=== PATIENT | female | born 1940 | race Caucasian/White ===

== ENCOUNTER → 2018-05-08 15:33 | Outpatient (CLI) | payer OTHER, SELFPAY ==
[2015-07-12 07:14] VITALS: BMI 29.9
== END ==
PROVIDERS: Referring Provider Otolaryngology; Visit Provider Otolaryngology
DX: J32.9 Chronic sinusitis, unspecified (principal)
CPT/HCPCS: 87070; 87077; 87186; 87205

== ENCOUNTER → 2018-10-30 16:12 | Outpatient (CLI) | payer MEDICARE, SELFPAY ==
[2015-07-12 07:14] VITALS: BMI 29.9
== END ==
PROVIDERS: Family Provider Family Medicine; PCP Family Medicine; Referring Provider Otolaryngology; Visit Provider Otolaryngology
DX: J32.9 Chronic sinusitis, unspecified (principal)
CPT/HCPCS: 87070; 87077; 87186; 87205

== ENCOUNTER 2018-11-04 06:31 | Day surgery (SDC) | payer MEDICARE, SELFPAY ==
[2015-07-12 07:14] VITALS: BMI 29.9
--- NOTE | 2018-10-30 11:13 | EKG12_ITS ---
Test Reason : PREOP Blood Pressure : / mmHG Vent. Rate : 057 BPM Atrial Rate : 057 BPM P-R Int : 170 ms QRS Dur : 124 ms QT Int : 432 ms P-R-T Axes : 070 -12 -02 degrees QTc Int : 420 ms Sinus bradycardia Right bundle branch block Abnormal ECG Confirmed by FARHAT PEREZ, ABELINO ([id number]), editorial manager FABIAN DYKES ([id number] on 10/31/2018 1:27:52 PM Referred By: Armani Pack Confirmed By:ABELINO DOUGHERTY MD
[2018-10-30 12:07] LABS: BUN 19 mg/dL (7-18); BUN/Creat Ratio 23.7 RATIO (10-20); Chloride 106 mmol/L (98-107); EST Glomerular Filtration Rate 74 mL/min (>60); Est Glom Filt Rate - Afr Amer 89 mL/min (>60); Glucose 145 mg/dL (74-106); Potassium 4.1 mmol/L (3.5-5.1); Sodium Level 141 mmol/L (136-145)
[2018-10-30 12:08] LABS: Anion Gap 6 (5-15)
[2018-11-04 07:30] VITALS: BP 109/64; PULSE 70; RESP 16; TEMP 36.7; O2SAT 94; BMI 28.6
[2018-11-04] MEDS: Lactated Ringers 1,000 ML 100 ML IV (07:59)
--- NOTE | 2018-11-04 07:59 | PCM.DC ---
You will use the following diet at home:: No restrictions Discharge Activity: Return to Normal Activity Call your doctor if your incision/area has: Foul Smelling Discharge Allergies/Adverse Reactions: Allergies dicyclomine HCl [From Bentyl] Adverse Reaction (Verified 10/28/18 10:59) HEART RACES Medications to take at Discharge Albuterol Inhaler [Ventolin Hfa (SP)] 1 puff INHALATION Q4H PRN PRN 07/05/15 Aspirin [Aspirin, Baby] 81 mg PO DAILY@0800 07/05/15 Fluticasone 0.05% [Flonase Nasal [place]] 1 spray NASAL DAILY 07/05/15 Omeprazole [Prilosec] 40 mg PO DAILY 07/05/15 Calcium Carbonate [Calcium] 600 mg PO BID 10/28/18 Fluticasone/Vilanterol [Breo Ellipta 200-25 Mcg INH] 1 ea IH DAILY 10/28/18 Metformin HCl [Glucophage Xr] 750 mg PO BID 10/28/18 Multivitamin with Minerals [Multiple Vitamin] 1 ea PO DAILY 10/28/18 Quinapril/Hydrochlorothiazide [Quinapril-Hctz 10-12.5 mg Tab] 1 ea PO DAILY 10/28/18 Sertraline HCl [Zoloft] 25 mg PO DAILY 10/28/18 Primary Care Physician: Gilbert Beltran MD [Primary Care Provider] - Test Results: Test results from this visit will be discussed in further detail at your follow-up appointment, if applicable. Please Follow Up With: Armani Pack MD When: 3 weeks
--- NOTE | 2018-11-04 08:00 | PCM.OPRPT ---
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 chronic serous otitis media, right and left. 2. eustachian tube dysfunction, right and left Type of Anesthesia:: General Description of Procedure: on the day of the procedure, after appropriate informed consent was obtained, the patient was brought to the operating room and placed in supine position on the operating table. he was placed under general mask anesthesia by the anesthesiologist. the right ear was examined using the binocular operating microscope. a speculum was placed. the tympanic membrane was viewed in its entirety and found to be intact. a radial myringotomy was made in the anterior/inferior quadrant and a avalos tympanostomy tube was placed. floxin otic drops were instilled. the left ear was examined using the binocular operating microscope. a speculum was placed. the tympanic membrane was viewed in its entirety and found to be intact. a radial myringotomy was made in the anterior/inferior quadrant and a avalos tympanostomy tube was placed. floxin otic drops were instilled. the bilateral nasal cavities were decongested with oxymetazoline soaked pledgets. the zero degree endoscope was used to evaluate the left nasal cavity. the eustachian tube orifice was visualized. the acclarent AERA catheter was advanced into the eustachian tube until a soft stop was felt. the balloon was inflated to 12 mehnaz for 2 minutes and removed. there was no mucosal trauma or false passage visualized. the zero degree endoscope was used to evaluate the right nasal cavity. the eustachian tube orifice was visualized. the acclarent AERA catheter was advanced into the eustachian tube until a soft stop was felt. the balloon was inflated to 12 mehnaz for 2 minutes and removed. there was no mucosal trauma or false passage visualized. the patient was awoken from anesthesia and transferred to the pacu in stable condition
[2018-11-04 08:11] LABS: Bedside Glucose 128 mg/dL (70-110)
[2018-11-04] MEDS: Ciprofloxacin 0.3% 2.5ml Bottle 1 DRP (08:59)
[2018-11-04] MEDS: Oxymetazoline 0.05% 1 SPRAY SPRAY.BTL 15 SPRAY (09:00)
[2018-11-04 09:21] VITALS: BP 109/64; BP 135/62; PULSE 74; RESP 16; TEMP 36.3; O2SAT 95
[2018-11-04 09:30] VITALS: BP 109/64; BP 128/61; PULSE 68; RESP 16; O2SAT 95
[2018-11-04 09:45] VITALS: BP 106/91; BP 109/64; PULSE 67; RESP 16; O2SAT 95
[2018-11-04 09:57] VITALS: BP 107/50; BP 109/64; PULSE 63; RESP 16; TEMP 36.3; O2SAT 96
[2018-11-04 10:11] LABS: Bedside Glucose 128 mg/dL (70-110)
[2018-11-04 10:32] VITALS: BP 109/64
== END 2018-11-04 10:33 | disposition home or self-care (01) ==
LOC: SDC 06:32 → AC 06:32
PROVIDERS: Family Provider Family Medicine; PCP Family Medicine; Referring Provider Otolaryngology; Visit Provider Otolaryngology
PROC: (CPT 69799; principal; 2018-11-04 08:15)
DX: H65.23 Chronic serous otitis media, bilateral (principal); H69.83 Other specified disorders of Eustachian tube, bilateral; J30.89 Other allergic rhinitis; J32.8 Other chronic sinusitis; E11.9 Type 2 diabetes mellitus without complications; Z79.84 Long term (current) use of oral hypoglycemic drugs; Z79.82 Long term (current) use of aspirin; Z79.899 Other long term (current) drug therapy
CPT/HCPCS: 00126; 69436; C9745; 36415; 80048; 82962; 93005; J7120

== ENCOUNTER → 2019-12-15 08:48 | Outpatient (CLI) | payer MEDICARE, SELFPAY ==
[2019-12-09 08:49] VITALS: BMI 27.6
[2019-12-15 12:45] LABS: ALB/GLOB Ratio 0.9 RATIO (0.9-2.4); AST(SGOT) 12 U/L (15-37); Absolute Neutrophil Count 3.3 X10^3/uL (2.0-7.7); Alanine Aminotransfer ALT/SGPT 23 U/L (13-56); Albumin, Serum 3.4 g/dL (3.2-5.0); Alkaline Phosphatase 81 U/L (45-117); Anion Gap 5 (5-15); BUN 16 mg/dL (7-18); BUN/Creat Ratio 22.1 RATIO (10-20); Basophil# 0.03 X10^3/uL; Basophil% 0.5 % (0-1); Chloride 106 mmol/L (98-107); Cholesterol 177 mg/dL (200); Creatinine, Serum 0.72 mg/dL (0.55-1.02); EST Glomerular Filtration Rate 83 mL/min (>60); Eosinophil# 0.31 X10^3/uL; Eosinophils% 5.1 % (0-5); Est Glom Filt Rate - Afr Amer 100 mL/min (>60); Globulin 3.6 g/dL (2.2-4.2); Glucose 143 mg/dL (74-106); Hematocrit 39.8 % (37-47); Hemoglobin 12.6 g/dL (12.0-15.0); High Density Lipoprotein 81 mg/dL; Lymphocyte % 31.4 % (19-41); Mean Corp Hgb Conc 31.7 g/dL (32-36); Mean Corpuscular Volume 97.8 fL (81-99); Mean Platelet Vol. 10.6 fl (6.2-12.0); Monocyte# 0.48 X10^3/uL; Monocyte% 7.9 % (0-10); NRBC Flagged by Analyzer 0 % (0-5); Neutrophil # 3.32 X10^3/uL (2.7-7.7); Neutrophil % 54.9 % (47-70); Platelet Count 262 K/mm3 (150-450); Potassium 4.4 mmol/L (3.5-5.1); RBC Distribution Width CV 12.4 % (11.6-14.6); RBC Distribution Width SD 44.6 fl (35.1-43.9); Red Blood Count 4.07 M/mm3 (4.2-5.4); Sodium Level 142 mmol/L (136-145); Triglycerides 104 mg/dL; Very Low Density Lipoprotein 21 mg/dL (5-40); White Blood Count 6.1 K/mm3 (4.4-11.0)
[2019-12-15 13:02] LABS: Hemoglobin A1c 7.1 % (3.8-5.6)
== END ==
PROVIDERS: PCP Internal Medicine; Referring Provider Internal Medicine; Visit Provider Internal Medicine
DX: E11.9 Type 2 diabetes mellitus without complications (principal); H69.80 Other specified disorders of Eustachian tube, unspecified ear; I10 Essential (primary) hypertension; Z13.220 Encounter for screening for lipoid disorders
CPT/HCPCS: 36415; 80053; 80061; 83036; 85025

== ENCOUNTER 2020-04-13 12:30 | Emergency (ER) | payer MEDICARE, SELFPAY ==
[2020-04-06 08:39] VITALS: BMI 27.6
[2020-04-13 12:31] VITALS: BP 160/75; PULSE 73; RESP 20; TEMP 36.8; O2SAT 95; BMI 29.1
[2020-04-13 12:38] VITALS: PULSE 77; RESP 19; O2SAT 96
--- NOTE | 2020-04-13 12:53 | RAD_ITS ---
STUDY: X-RAY CHEST REASON FOR EXAM: Female, 79 years old. Cough TECHNIQUE: Single AP portable view of the chest. COMPARISON: None. FINDINGS: EKG electrodes are seen. Blunting of the left considering angle with minimal increased markings at the left lung base suggestive of linear atelectasis and/or scarring. There is no demonstrated pleural abnormality. Normal size heart. Normal mediastinum and guy. Normal visualized pulmonary arteries. There is atherosclerotic calcification of the aortic arch with tortuosity. There is a mild dextroscoliosis of the thoracic spine. There is degenerative osteoarthritis of the bilateral shoulders. There is no demonstrated abnormality of the visualized soft tissue structures of the upper abdomen. RAD/Chest 1 View (Portable) IMPRESSION: Blunting of left costophrenic angle with minimal increased markings at the left lung base suggestive of linear atelectasis and/or scarring. Electronically Signed: Holden Villalpando MD at 13:51 EST , Service support ,
[2020-04-13 13:11] LABS: Absolute Lymphocyte Count 1.82 X10^3/uL (0.83-4.51); Absolute Neutrophil Count 3.9 X10^3/uL (2.0-7.7); Basophil# 0.02 X10^3/uL; Basophil% 0.3 % (0-1); Eosinophil# 0.19 X10^3/uL; Eosinophils% 2.9 % (0-5); Hematocrit 36.9 % (37-47); Hemoglobin 11.9 g/dL (12.0-15.0); Lymphocyte # 1.82 X10^3/ul (4.0); Lymphocyte % 28.1 % (19-41); Mean Corp Hgb Conc 32.2 g/dL (32-36); Mean Corpuscular Hgb 31.1 pg (27.0-32.0); Mean Corpuscular Volume 96.3 fL (81-99); Mean Platelet Vol. 10.1 fl (6.2-12.0); Monocyte# 0.49 X10^3/uL; Monocyte% 7.6 % (0-10); NRBC Flagged by Analyzer 0 % (0-5); Neutrophil # 3.94 X10^3/uL (2.7-7.7); Neutrophil % 60.8 % (47-70); Platelet Count 223 K/mm3 (150-450); RBC Distribution Width CV 12.8 % (11.6-14.6); RBC Distribution Width SD 45.1 fl (35.1-43.9); Red Blood Count 3.83 M/mm3 (4.2-5.4); White Blood Count 6.5 K/mm3 (4.4-11.0)
[2020-04-13 13:25] LABS: Anion Gap 4 (5-15); BUN 15 mg/dL (7-18); BUN/Creat Ratio 19.1 RATIO (10-20); Calcium,Total 8.7 mg/dL (8.5-10.1); Chloride 106 mmol/L (98-107); Creatinine, Serum 0.78 mg/dL (0.55-1.02); EST Glomerular Filtration Rate 76 mL/min (>60); Est Glom Filt Rate - Afr Amer 91 mL/min (>60); Estimated Creatinine Clearance 38.97 ml/min; Glucose 181 mg/dL (74-106); Potassium 4.2 mmol/L (3.5-5.1); Sodium Level 140 mmol/L (136-145)
--- NOTE | 2020-04-13 13:41 | ED.DCSUM_ITS ---
History of Present Illness Chief Complaint: Cough Narrative: Patient presenting for evaluation secondary to a cough. Patient reports that she has a chronic issue with cough that has been going on multiple years, greater than 5. She tells me that over the course of the last 2 to 3 years its been getting worse but specifically worse over the course of maybe the last month. States that it typically is a productive cough that intermittently will produce yellow, green, clear, or white sputum. She denies that currently its been associated with any sort of chest pain, fevers. She does report however that it is feeling somewhat worse. She is on inhalers at home but feels like that really has not been helping. She does endorse that she has been having some mildly increased fatigue recently. She saw her primary care a week ago, but is still not having any improvement. Review of systems otherwise negative. Past Medical History - Allergies and Home Meds Allergies/Adverse Reactions: Allergies dicyclomine HCl [From Bentyl] Adverse Reaction (Verified 04/13/20 12:30) HEART RACES Primary Care Physician: Liane Ba MD [Primary Care Provider] - Prior records reviewed: Yes Past Medical History: - - Asthma, diabetes, hypertension Lives: Spouse/ Significant Other Smoking Status: Never smoker Alcohol: None Drugs: None Review of Systems General: Denies: Chills, Fever, Sweats Eyes: Denies: Visual changes - bilaterally, Diplopia ENT: Denies: Rhinorrhea, Sore throat Cardiovascular: Denies: Chest pain, Palpitations Respiratory: Reports: Dyspnea, Cough, Sputum Gastrointestinal: Denies: Abdominal pain, Nausea, Vomiting, Diarrhea, Melena, Hematochezia Genitourinary: Denies: Dysuria, Hematuria, Frequency Musculoskeletal: Denies: Back pain, Extremity Pain Skin: Denies: Rash, Wounds Neurological: Denies: Headache, Weakness, Numbness Physical Exam Vital Signs/Narrative: Vital Signs Temp Pulse Resp BP Pulse Ox 04/13/20 12:38 77 19 H 96 04/13/20 12:31 98.2 F 73 20 H 160/75 H 95 Inital Vital Signs reviewed: Yes General: Well nourished, Well developed, No Acute Distress Head: Normocephalic, Atraumatic Eyes: Perrl, EOMI ENT: Moist mucous membranes, No rhinorrhea Neck: Supple, Nontender Cardiovascular: Regular rate, Regular rhythm, No murmurs Respiratory: Diminished - Left base Abdomen: Soft, Nontender, Nondistended, Normal bowel sounds Back: Nontender, Normal Inspection Extremities: Nontender, No edema Skin: Normal color, No rash Neurological: Alert, Oriented x3, Cranial nerves II-XII grossly intact, Normal Strength, Normal Sensation Psychological: Normal affect, Normal Mood Diagnostic/Tx/Re-eval Chest X-Ray - ED: 1 View, Read by ED Physician, - - Left lower lobe atelectasis Clinical Impression(s) from Imaging Studies Chest X-Ray 04/13/20 12:53 IMPRESSION: Blunting of left costophrenic angle with minimal increased markings at the left lung base suggestive of linear atelectasis and/or scarring. Electronically Signed: Holden Villalpando MD at 13:51 EST , Service support , Laboratory Data 04/13/20 04/13/20 13:05 13:05 WBC 6.5 RBC 3.83 L Hgb 11.9 L Hct 36.9 L MCV 96.3 MCH 31.1 MCHC 32.2 RDW Std Deviation 45.1 H RDW Coeff of [place] 12.8 Plt Count 223 MPV 10.1 Immature Gran % (Auto) 0.300 Neut % (Auto) 60.8 Lymph % (Auto) 28.1 [place] % (Auto) 7.6 Eos % (Auto) 2.9 Baso % (Auto) 0.3 Absolute Neuts (auto) 3.9 Absolute Lymphs (auto) 1.82 Nucleated RBC % 0 Sodium 140 Potassium 4.2 Chloride 106 Carbon Dioxide 30.0 Anion Gap 4 L BUN 15 Creatinine 0.78 Estim Creat Clear Calc 38.97 Est GFR (MDRD) Af Amer 91 Est GFR (MDRD) Non-Af 76 BUN/Creatinine Ratio 19.1 Glucose 181 H Calcium 8.7 - Medical Decision Making Patient presented secondary to a worsening cough. Chest x-ray by my personal review, 1 view, with radiology concurrence shows some atelectasis in the left lower lobe. Laboratory work-up shows a hemoglobin of 11, no other evidence of significant electrolyte abnormalities or blood count abnormalities. Coronavirus test was found to be negative. I reviewed the patient's note from her primary care physician a week ago and the thought is that the patient potentially has chronic sinusitis which results in this chronic coughing type issue. Upon reinterviewing the patient she tells me that she feels that she has been having some more unilateral sinus congestion on the right. Patient potentially would benefit from a course of doxycycline. SHe will be given a prescription for this will follow-up with primary care. ED Disposition - Plan for ED Patient: Disposition: Home or Assisted Living Diagnosis: Sinusitis, Chronic cough Instructions: ED Sinusitis (Antibiotic Treatment) Prescriptions: Doxycycline 100 mg PO BID #28 cap Transmission Status: Pending to [id number] Referrals: Liane Ba MD [Primary Care Provider] - 1-2 Weeks
[2020-04-13 14:19] VITALS: BP 160/75; PULSE 97; RESP 21; O2SAT 96
== END 2020-04-13 14:20 | disposition home or self-care (01) ==
PROVIDERS: Emergency Provider Emergency Medicine; PCP Internal Medicine
DX: J32.9 Chronic sinusitis, unspecified (principal); R05 Cough; J45.909 Unspecified asthma, uncomplicated; E11.9 Type 2 diabetes mellitus without complications; Z79.84 Long term (current) use of oral hypoglycemic drugs
CPT/HCPCS: 71045; 80048; 85025; 87426; 99283; A4216

== ENCOUNTER → 2020-06-08 11:10 | Outpatient (CLI) | payer MEDICARE, SELFPAY ==
[2020-06-08 09:55] VITALS: BMI 29.0
[2020-06-08 12:06] LABS: Absolute Lymphocyte Count 2.06 X10^3/uL (0.83-4.51); Absolute Neutrophil Count 3.2 X10^3/uL (2.0-7.7); Basophil# 0.03 X10^3/uL; Basophil% 0.5 % (0-1); Eosinophil# 0.32 X10^3/uL; Eosinophils% 5.3 % (0-5); Hematocrit 40.9 % (37-47); Hemoglobin 12.9 g/dL (12.0-15.0); Lymphocyte # 2.06 X10^3/ul (0.83-4.51); Lymphocyte % 33.9 % (19-41); Mean Corp Hgb Conc 31.5 g/dL (32-36); Mean Corpuscular Hgb 30.9 pg (27.0-32.0); Mean Corpuscular Volume 98.1 fL (81-99); Mean Platelet Vol. 10.5 fl (6.2-12.0); Monocyte% 6.6 % (0-10); NRBC Flagged by Analyzer 0 % (0-5); Neutrophil # 3.24 X10^3/uL (2.7-7.7); Neutrophil % 53.4 % (47-70); Platelet Count 264 K/mm3 (150-450); RBC Distribution Width CV 13.3 % (11.6-14.6); RBC Distribution Width SD 47.7 fl (35.1-43.9); Red Blood Count 4.17 M/mm3 (4.2-5.4); White Blood Count 6.1 K/mm3 (4.4-11.0)
[2020-06-08 12:48] LABS: Vitamin D,25 Hydroxy 26.5 ng/mL
[2020-06-08 12:59] LABS: ALB/GLOB Ratio 1.1 RATIO (0.9-2.4); AST(SGOT) 14 U/L (15-37); Alanine Aminotransfer ALT/SGPT 22 U/L (13-56); Albumin, Serum 3.7 g/dL (3.2-5.0); Alkaline Phosphatase 71 U/L (45-117); Anion Gap 2 (5-15); BUN 15 mg/dL (7-18); BUN/Creat Ratio 21.8 RATIO (10-20); Calcium,Total 9.4 mg/dL (8.5-10.1); Chloride 105 mmol/L (98-107); Creatinine, Serum 0.69 mg/dL (0.55-1.02); EST Glomerular Filtration Rate 88 mL/min (>60); Est Glom Filt Rate - Afr Amer 106 mL/min (>60); Globulin 3.5 g/dL (2.2-4.2); Glucose 123 mg/dL (74-106); Potassium 4.2 mmol/L (3.5-5.1); Protein, Total 7.2 g/dL (6.4-8.2); Sodium Level 139 mmol/L (136-145); Thyroid Stim Hormone (TSH) 0.53 uIU/mL (0.358-3.74)
== END ==
PROVIDERS: PCP Internal Medicine; Referring Provider Internal Medicine; Visit Provider Internal Medicine
DX: H69.80 Other specified disorders of Eustachian tube, unspecified ear (principal); K21.9 Gastro-esophageal reflux disease without esophagitis; J45.909 Unspecified asthma, uncomplicated; R05 Cough; I10 Essential (primary) hypertension; E55.9 Vitamin D deficiency, unspecified
CPT/HCPCS: 36415; 80053; 82306; 84443; 85025

== ENCOUNTER 2020-07-13 09:13 | Inpatient (IN) | payer MEDICARE, SELFPAY ==
[2020-06-08 11:39] VITALS: BMI 29.0
[2020-07-13] VITALS (12 sets, daily range): BP systolic 102–144; BP diastolic 39–69; PULSE 72–100; RESP 16–22; TEMP 37.2–37.8; O2SAT 89–98; BMI 28.3; BMI 29.0
--- NOTE | 2020-07-13 09:28 | EKG12_ITS ---
Test Reason : WEAKNESS Blood Pressure : / mmHG Vent. Rate : 097 BPM Atrial Rate : 097 BPM P-R Int : 166 ms QRS Dur : 116 ms QT Int : 344 ms P-R-T Axes : 064 -17 -02 degrees QTc Int : 436 ms Normal sinus rhythm Normal ECG Confirmed by CHRISTY PEREZ, OTF ([id number]), sports editor DIONE LANG ([id number]) on 07/14/2020 12:49:09 PM Referred By: NEHEMIAS/SHAUN Confirmed By:SABRINA HARRISON MD
--- NOTE | 2020-07-13 09:29 | EX.ED.DYSGE1 ---
HPI History of Present Illness Chief Complaint: Weakness Detail of Chief Complaint: Weakness and increased confusion that started this morning. Informant: patient and family Onset/Context/Timing Onset: Today Narrative Narrative: Patient brought to the emergency department by her daughter. Patient complaining of increased weakness this morning and difficulty standing. She apparently was more confused and had a hard time answering questions this morning. Patient was complaining of some low back pain and pain in her legs. She denies dysuria, urgency, or frequency. Patient does have a cough that she is had for about 2 years but worse over the last 2 months. Patient has had a chest x-ray within the last couple of months that has been normal. Patient denies headache. She denies chest pain. She denies abdominal pain. She has had no vomiting or diarrhea. Patient has had both doses of Covid vaccine. Prior similar symptoms: No PFSH PFSH Medical History (Updated 07/13/20 @ 10:[address] Therese Buck, ) Allergies Arthritis Asthma bladder/uti problem Carpal tunnel syndrome Diabetes GERD (gastroesophageal reflux disease) GI problem Headache, migraine Hearing problem Tremor of right hand Vision problem Home Medications albuterol sulfate 1 puff INHALATION Q4H PRN PRN 07/05/15 [History Last Taken Unknown] omeprazole 40 mg PO DAILY 07/05/15 [History Last Taken 11/04/18 05:30] donepezil 10 mg tablet 10 mg PO DAILY 12/09/19 [History Last Taken Unknown] glucose test strips NOT APPLICABLE 12/09/19 [History Last Taken Unknown] blood sugar diagnostic #100 ea 03/03/20 [Rx Last Taken Unknown] fluticasone furoate 100 mcg-vilanterol 25 mcg/dose inhalation powder 1 inh INHALATION DAILY #28 ea 03/21/20 [Rx Last Taken Unknown] metformin 750 mg tablet,extended release 24 hr 750 mg PO BID #180 tab 05/25/20 [Rx Last Taken Unknown] fluticasone propionate 50 mcg/actuation nasal spray,suspension 1 spray INTRANASAL DAILY 06/08/20 [History Last Taken Unknown] loperamide 2 mg capsule 2 mg PO Q6H PRN 06/08/20 [History Last Taken Unknown] loratadine 10 mg tablet 10 mg PO DAILY 06/08/20 [History Last Taken Unknown] propranolol 20 mg tablet 20 mg PO BID PRN #30 tab 06/08/20 [Rx Last Taken Unknown] Allergy/AdvReac Type Severity Reaction Status Date / Time dicyclomine HCl [From Bentyl] AdvReac HEART RACES Verified 07/13/20 09:17 Surgical History 2 nasal surgies fibroid removal meniscal repair Social History Smoking Status: Never smoker alcohol intake: never substance use type: does not use what type of physical activity do you participate in: walking and aerobics frequency: daily ROS ROS ED Constitutional Constitutional ED: Reports systems reviewed and no addt'l complaints, except as documented; Denies body ache(s), change in weight or chills Eyes Eyes: Denies acute decrease in peripheral vision, change in vision, double vision or loss of vision ENT ENT ED: Reports none; Denies ear pain, lip swelling, loss taste/smell, neck pain, otalgia or sore throat Cardiovascular Cardiovascular: Reports none; Denies abdominal pain, chest pain with activity, leg edema, lightheadedness, palpitations, rapid heart rate or syncope Respiratory/Chest Respiratory/Chest: Reports none and cough; Denies change in mental status, dry cough, dyspnea, hemoptysis, shortness of breath at rest or shortness of breath with exertion Gastrointestinal Gastrointestinal: Reports none; Denies abdominal pain, change in stool character, diarrhea, hematemesis, hematochezia, melena, rectal bleeding or vomiting Genitourinary Genitourinary ED: Reports none; Denies abdominal discomfort, anuria, dysuria, genital pain, hematuria or polyuria Musculoskeletal Musculoskeletal: Reports none; Denies arthralgias, back pain, difficulty walking, extremity pain, muscle weakness or myalgias Integumentary Reports none; Denies abscess or rash Neurologic Neurologic: Reports none and weakness; Denies abnormal gait, confusion, focal weakness, frequent falls, headache(s), loss of vision, numbness, paresthesias, radicular pain or vertigo Psychiatric Psychiatric: Reports systems reviewed and no addt'l complaints, except as documented and none; Denies behavioral changes, confusion, difficulty concentrating, hallucinations, suicidal ideation, tactile hallucinations or visual hallucinations Endocrine Endocrinology: Denies none, cold intolerance, excessive sweating, fatigue or heat intolerance Hematologic/Lymphatic Hematologic/Lymphatic: Reports none; Denies anemia, easy bleeding or easy bruising Allergic/Immunologic Allergic/Immunologic ED: Denies as per HPI, none, lip swelling, mouth swelling, throat swelling, tongue swelling or hives EXAM Physical Exam Const Vital Signs: 07/13/20 09:14 07/13/20 09:16 07/13/20 09:22 Temperature 99.2 F H 99.2 F H Temperature Source Temporal Temporal Pulse Rate 100 100 Respiratory Rate 18 18 Respiratory Effort Normal Non-Labored Blood Pressure 144/69 H 144/69 H Blood Pressure Mean 94 94 Pulse Ox 93 93 Oxygen Delivery Method Room Air Room Air Oxygen Flow Rate (L/min) 07/13/20 10:03 07/13/20 10:11 Temperature Temperature Source Pulse Rate Respiratory Rate Respiratory Effort Blood Pressure Blood Pressure Mean Pulse Ox 89 94 Oxygen Delivery Method Nasal Cannula Nasal Cannula Oxygen Flow Rate (L/min) 2 2 Positive well nourished and well developed General Appearance ED: well developed and NAD HEENT Reports TM's clear and moist mucous membranes normocephalic and atraumatic; Negative for trauma or tenderness Tympanic Membrane ED: Yes TM's clear Eyes PERRL and EOMs intact bilaterally General Eye ED: Negative for pale conjunctiva or scleral icterus Neck no lymphadenopathy, supple and no JVD General: Negative for tenderness Chest Wall inspection of chest normal and palpation of chest normal Chest: Negative for tenderness Resp normal respiratory effort and clear to auscultation bilaterally Effort and Inspection: Negative for respiratory distress or pain with movement Auscultation: Negative for rhonchi, wheezes or diminished lung sounds Cardio regular rate, regular rhythm, S1 normal heart sound, S2 normal heart sound and no murmurs Peripheral Pulses: pulses 2+ throughout GI normal to inspection, nondistended, normoactive bowel sounds, soft to palpation, non-tender, non-distended and no masses Back/Spine no CVA tenderness and no thoracic nor lumbar tenderness Extremity normal to inspection General Extremety ED: Negative for edema General Extremity: Negative for edema Neuro oriented x3, CN's II-XII intact bilaterally, no sensory deficits noted and gait normal Sensorium / Orientation: awake, alert, oriented to person, oriented to place and oriented to time Motor Exam: strength 5/5 throughout and strength abnormal Psych mental status grossly normal Skin no rashes or lesions noted and no wounds MDM MDM MDM Narrative Medical decision making narrative: Chest x-ray on my interpretation shows a left lower lobe infiltrate as well as some increased lung markings in the right lower lobe. Patient was started on Rocephin and Zithromax. Case discussed with hospitalist will evaluate patient for admission. Lab Data Attestation: I reviewed the patient's lab results. Labs: Laboratory Results - last 24 hr 07/13/20 07/13/20 07/13/20 09:24 09:45 09:45 WBC 10.7 RBC 3.86 L Hgb 12.0 Hct 36.8 L MCV 95.3 MCH 31.1 MCHC 32.6 RDW Std Deviation 44.3 H RDW Coeff of [place] 12.8 Plt Count 222 MPV 10.4 Immature Gran % (Auto) 0.400 Neut % (Auto) 87.2 H Lymph % (Auto) 6.4 L [place] % (Auto) 5.1 Eos % (Auto) 0.6 Baso % (Auto) 0.3 Absolute Neuts (auto) 9.3 H Absolute Lymphs (auto) 0.68 L Nucleated RBC % 0 Sodium 138 Potassium 4.2 Chloride 105 Carbon Dioxide 28.0 Anion Gap 5 BUN 18 Creatinine 0.79 Estim Creat Clear Calc 38.97 Est GFR (MDRD) Af Amer 91 Est GFR (MDRD) Non-Af 75 BUN/Creatinine Ratio 22.8 H Glucose 215 H Lactic Acid Calcium 9.3 Troponin I < 0.015 Urine Color Straw Urine Clarity Clear Urine pH 7.0 Ur Specific [place] 1.010 Urine Protein 15 H Urine Glucose (UA) Normal Urine Ketones 5 H Urine Occult Blood 10 H Urine Nitrite Negative Urine Bilirubin Negative Urine Urobilinogen Normal Ur Leukocyte Esterase 100 H Urine RBC 0-5 SEEN Urine WBC 0-5 SEEN Ur Squamous Epith Cells 0-5 SEEN Ur Renal Epithelial Cell 0-5 SEEN Urine Bacteria 1+ Urine Mucus 0 SEEN 07/13/20 09:45 WBC RBC Hgb Hct MCV MCH MCHC RDW Std Deviation RDW Coeff of [place] Plt Count MPV Immature Gran % (Auto) Neut % (Auto) Lymph % (Auto) [place] % (Auto) Eos % (Auto) Baso % (Auto) Absolute Neuts (auto) Absolute Lymphs (auto) Nucleated RBC % Sodium Potassium Chloride Carbon Dioxide Anion Gap BUN Creatinine Estim Creat Clear Calc Est GFR (MDRD) Af Amer Est GFR (MDRD) Non-Af BUN/Creatinine Ratio Glucose Lactic Acid 1.7 Calcium Troponin I Urine Color Urine Clarity Urine pH Ur Specific [place] Urine Protein Urine Glucose (UA) Urine Ketones Urine Occult Blood Urine Nitrite Urine Bilirubin Urine Urobilinogen Ur Leukocyte Esterase Urine RBC Urine WBC Ur Squamous Epith Cells Ur Renal Epithelial Cell Urine Bacteria Urine Mucus Radiography Chest X-Ray - ED: 1 View Diagnostic Testin view chest x-ray interpreted by myself as left lower lobe infiltrate with some increased markings in the right lower lobe. Official interpretation from radiology will be pending. EKG Initial EKG: Comments: Sinus rhythm with a ventricular rate of 97 bpm with no acute ST segment changes. Discharge Plan Triage Chief Complaint: Weakness ED Provider: Therese Buck Dx/Rx/DC Orders Clinical Impression: Community acquired pneumonia, Weakness Prescriptions: No Action donepezil 10 mg tablet 10 mg PO DAILY RF: 0 glucose test strips Not Applicable RF: 0 loratadine [Claritin] 10 mg tablet 10 mg PO DAILY RF: 0 fluticasone propionate [Flonase Allergy Relief] 50 mcg/actuation spray,suspension 1 spray intranasal DAILY RF: 0 loperamide [Imodium A-D] 2 mg capsule 2 mg PO Q6H PRNRF: 0 propranolol 20 mg tablet 20 mg PO BID PRN (Reason: tremor) Qty: 30 RF: 0 omeprazole 40 MG capsule 40 mg PO DAILY RF: 0 albuterol sulfate 1 INHALER inhaler 1 puff INHALATION Q4H PRN PRN (Reason: Sob &/Or Wheezing) RF: 0 (DME) OneTouch Verio test strips Strip See Rx Instructions .ROUTE .MEDSUPPLY Qty: 100 RF: 2 Breo Ellipta 100-25 mcg/dose blister with device 1 inh INHALATION DAILY Qty: 28 RF: 5 metformin 750 mg tablet extended release 24 hr 750 mg PO BID Qty: 180 RF: 1 Primary Care Provider: Liane Ba Referrals: Liane Ba MD [Primary Care Provider] - Disposition Disposition: Acute Care Hospital [facility]
[2020-07-13 09:39] LABS: Mucous, Urine 0 SEEN /hpf (<or=2+)
[2020-07-13] MEDS: 0.9% Normal Saline 1,000 ML 150 ML IV ×3 (09:52→23:28)
[2020-07-13 09:53] LABS: Color, Urine Straw (Yellow); Glucose, Dipstick Normal (Normal); Ketone-Dipstick 5 mg/dl (Negative); Leukocyte Esterase-Dipstick 100 /ul (Negative); Nitrite-Dipstick Negative (Negative); Occult Blood-Urine 10 /ul (Negative); Protein-Dipstick 15 mg/dl (Negative); Urine Bilirubin Dipstick Negative (Negative); Urine Clarity Clear (Clear); Urine Urobilinogen Normal (Normal)
[2020-07-13 09:57] LABS: Absolute Lymphocyte Count 0.68 X10^3/uL (0.83-4.51); Absolute Neutrophil Count 9.3 X10^3/uL (2.0-7.7); Basophil# 0.03 X10^3/uL; Basophil% 0.3 % (0-1); Eosinophil# 0.06 X10^3/uL; Eosinophils% 0.6 % (0-5); Hematocrit 36.8 % (37-47); Lymphocyte # 0.68 X10^3/ul (0.83-4.51); Lymphocyte % 6.4 % (19-41); Mean Corp Hgb Conc 32.6 g/dL (32-36); Mean Corpuscular Hgb 31.1 pg (27.0-32.0); Mean Corpuscular Volume 95.3 fL (81-99); Mean Platelet Vol. 10.4 fl (6.2-12.0); Monocyte# 0.55 X10^3/uL; Monocyte% 5.1 % (0-10); NRBC Flagged by Analyzer 0 % (0-5); Neutrophil # 9.34 X10^3/uL (2.7-7.7); Neutrophil % 87.2 % (47-70); Platelet Count 222 K/mm3 (150-450); RBC Distribution Width CV 12.8 % (11.6-14.6); RBC Distribution Width SD 44.3 fl (35.1-43.9); Red Blood Count 3.86 M/mm3 (4.2-5.4); White Blood Count 10.7 K/mm3 (4.4-11.0)
[2020-07-13 10:03] LABS: Bacteria 1+ /hpf (None Seen); Red Blood Cells-Urine 0-5 SEEN /hpf (0-5); Renal Epithelial Cells 0-5 SEEN /hpf (0-5); Squamous Epithelial Cells - UA 0-5 SEEN /hpf (5-10); White Blood Cells 0-5 SEEN /hpf (0-5)
[2020-07-13 10:13] LABS: Anion Gap 5 (5-15); BUN 18 mg/dL (7-18); BUN/Creat Ratio 22.8 RATIO (10-20); Calcium,Total 9.3 mg/dL (8.5-10.1); Chloride 105 mmol/L (98-107); Creatinine, Serum 0.79 mg/dL (0.55-1.02); EST Glomerular Filtration Rate 75 mL/min (>60); Est Glom Filt Rate - Afr Amer 91 mL/min (>60); Estimated Creatinine Clearance 38.97 ml/min; Glucose 215 mg/dL (74-106); Potassium 4.2 mmol/L (3.5-5.1); Sodium Level 138 mmol/L (136-145)
--- NOTE | 2020-07-13 10:15 | RAD_ITS ---
STUDY: X-RAY CHEST REASON FOR EXAM: Female, 79 years old. Cough TECHNIQUE: Single AP portable view of the chest. COMPARISON: Comparison is made with prior examination dated 04/13/2020. FINDINGS: Focal infiltrate is seen in the left midlung. Stable mild increased markings at the right lung base suggestive of a possible scarring. There is no demonstrated pleural abnormality. Normal size heart. Normal mediastinum and guy. Normal visualized pulmonary arteries. There is atherosclerotic calcification of the aortic arch with tortuosity. There are diffuse degenerative changes of the visualized thoracic spine. Normal visualized ribs, clavicles, and shoulders. There is no demonstrated abnormality of the visualized soft tissue structures of the upper abdomen. RAD/Chest 1 View (Portable) IMPRESSION: Focal infiltrate in the left mid lung. Electronically Signed: Holden Villalpando MD at 10:49 EDT , Service support ,
[2020-07-13 10:16] LABS: Lactic Acid 1.7 mmol/L (0.4-1.9)
--- NOTE | 2020-07-13 10:42 | NURSING ---
MED SURG KITTOE PNEUMONIA, WEAKNESS
--- NOTE | 2020-07-13 10:43 | PCM.HP.STD ---
HPI - General General Date of Admission: 07/13/20 Date of Service: 07/13/20 Chief Complaint: Cough, fever and confusion HPI Narrative NELLI HARTMAN, is a 79 F with multiple comorbidities including diabetes mellitus type 2, mild intermittent asthma with history of chronic cough who was brought to the emergency department by her daughter. Per her daughter who provided the history patient has had a chronic cough for over 2 years however has gotten increasingly worse over the past couple of days. Cough was also reported to be productive. Patient also did experience fever and chills, and on the morning of her presentation was found to be confused according to the daughter. Decision was made to bring patient to the emergency department. Imaging studies obtained in the ED demonstrated focal infiltrate in the left midlung. An assessment of pneumonia made admitted to regular nursing floor for further management [facility] Medical History Allergies Arthritis Asthma bladder/uti problem Carpal tunnel syndrome Diabetes GERD (gastroesophageal reflux disease) GI problem Headache, migraine Hearing problem Tremor of right hand Vision problem Home Medications albuterol sulfate 1 puff INHALATION Q4H PRN PRN 07/05/15 [History Last Taken Unknown] omeprazole 40 mg PO DAILY 07/05/15 [History Last Taken 11/04/18 05:30] donepezil 10 mg tablet 10 mg PO DAILY 12/09/19 [History Last Taken Unknown] glucose test strips NOT APPLICABLE 12/09/19 [History Last Taken Unknown] blood sugar diagnostic #100 ea 03/03/20 [Rx Last Taken Unknown] fluticasone furoate 100 mcg-vilanterol 25 mcg/dose inhalation powder 1 inh INHALATION DAILY #28 ea 03/21/20 [Rx Last Taken Unknown] metformin 750 mg tablet,extended release 24 hr 750 mg PO BID #180 tab 05/25/20 [Rx Last Taken Unknown] fluticasone propionate 50 mcg/actuation nasal spray,suspension 1 spray INTRANASAL DAILY 06/08/20 [History Last Taken Unknown] loperamide 2 mg capsule 2 mg PO Q6H PRN 06/08/20 [History Last Taken Unknown] loratadine 10 mg tablet 10 mg PO DAILY 06/08/20 [History Last Taken Unknown] propranolol 20 mg tablet 20 mg PO BID PRN #30 tab 06/08/20 [Rx Last Taken Unknown] Allergy/AdvReac Type Severity Reaction Status Date / Time dicyclomine HCl [From Bentyl] AdvReac HEART RACES Verified 07/13/20 09:17 Family History (Updated 07/13/20 @ 11:[address] Lamine James MD) Mother Alzheimer's dementia Surgical History 2 nasal surgies fibroid removal meniscal repair Social History Smoking Status: Never smoker alcohol intake: never substance use type: does not use what type of physical activity do you participate in: walking and aerobics frequency: daily ROS ROS Narrative GENERAL: fever, chills, HEENT: denies headache, sinus congestion, RESPIRATORY: cough, sputum production, CARDIAC: denies chest pain, palpitations, GASTROINTESTINAL: denies abdominal pain, nausea, GENITOURINARY: denies dysuria, urgency, frequency, EXTREMITY: denies swelling MUSCULOSKELETAL: denies current joint pain or tenderness NEUROLOGIC: denies focal numbness, weakness, tingling HEMATOLOGIC: denies easy bruising and/or hemorrhage INTEGUMENT: denies rashes PSYCHIATRIC: denies suicidal or homicidal ideation Vital Signs Vital Signs Vital Signs: 07/13/20 09:14 07/13/20 09:16 07/13/20 09:22 Temperature 99.2 F H 99.2 F H Temperature Source Temporal Temporal Pulse Rate 100 100 Respiratory Rate 18 18 Respiratory Effort Normal Non-Labored Blood Pressure 144/69 H 144/69 H Blood Pressure Mean 94 94 Pulse Ox 93 93 Oxygen Delivery Method Room Air Room Air Oxygen Flow Rate (L/min) 07/13/20 10:03 07/13/20 10:11 Temperature Temperature Source Pulse Rate Respiratory Rate Respiratory Effort Blood Pressure Blood Pressure Mean Pulse Ox 89 94 Oxygen Delivery Method Nasal Cannula Nasal Cannula Oxygen Flow Rate (L/min) 2 2 Weight Weight: 72.575 kg Body Mass Index (BMI) 28.3 Physical Exam Narrative GENERAL: cooperative HEENT: Atraumatic; EYES; Anicteric, Normal Conjunctiva NECK; supple, normal thyroid, RESPIRATORY: Diminished to auscultation CARDIOVASCULAR: Regular S1 S2, GI: soft, normoactive bowel sounds, : No Renal angle tenderness; EXTREMITIES: No edema, no clubbing, MUSCULOSKELETAL: no muscle waisting NEURO: Awake; no lateralizing signs. SKIN: No Rash PSYCH; Flat affect Lab / Micro Data Result Diagrams: 07/13/20 09:45 07/13/20 09:45 Labs: Laboratory Results - last 24 hr 07/13/20 07/13/20 07/13/20 09:24 09:45 09:45 WBC 10.7 RBC 3.86 L Hgb 12.0 Hct 36.8 L MCV 95.3 MCH 31.1 MCHC 32.6 RDW Std Deviation 44.3 H RDW Coeff of [place] 12.8 Plt Count 222 MPV 10.4 Immature Gran % (Auto) 0.400 Neut % (Auto) 87.2 H Lymph % (Auto) 6.4 L [place] % (Auto) 5.1 Eos % (Auto) 0.6 Baso % (Auto) 0.3 Absolute Neuts (auto) 9.3 H Absolute Lymphs (auto) 0.68 L Nucleated RBC % 0 Sodium 138 Potassium 4.2 Chloride 105 Carbon Dioxide 28.0 Anion Gap 5 BUN 18 Creatinine 0.79 Estim Creat Clear Calc 38.97 Est GFR (MDRD) Af Amer 91 Est GFR (MDRD) Non-Af 75 BUN/Creatinine Ratio 22.8 H Glucose 215 H Lactic Acid Calcium 9.3 Troponin I < 0.015 Urine Color Straw Urine Clarity Clear Urine pH 7.0 Ur Specific [place] 1.010 Urine Protein 15 H Urine Glucose (UA) Normal Urine Ketones 5 H Urine Occult Blood 10 H Urine Nitrite Negative Urine Bilirubin Negative Urine Urobilinogen Normal Ur Leukocyte Esterase 100 H Urine RBC 0-5 SEEN Urine WBC 0-5 SEEN Ur Squamous Epith Cells 0-5 SEEN Ur Renal Epithelial Cell 0-5 SEEN Urine Bacteria 1+ Urine Mucus 0 SEEN 07/13/20 09:45 WBC RBC Hgb Hct MCV MCH MCHC RDW Std Deviation RDW Coeff of [place] Plt Count MPV Immature Gran % (Auto) Neut % (Auto) Lymph % (Auto) [place] % (Auto) Eos % (Auto) Baso % (Auto) Absolute Neuts (auto) Absolute Lymphs (auto) Nucleated RBC % Sodium Potassium Chloride Carbon Dioxide Anion Gap BUN Creatinine Estim Creat Clear Calc Est GFR (MDRD) Af Amer Est GFR (MDRD) Non-Af BUN/Creatinine Ratio Glucose Lactic Acid 1.7 Calcium Troponin I Urine Color Urine Clarity Urine pH Ur Specific [place] Urine Protein Urine Glucose (UA) Urine Ketones Urine Occult Blood Urine Nitrite Urine Bilirubin Urine Urobilinogen Ur Leukocyte Esterase Urine RBC Urine WBC Ur Squamous Epith Cells Ur Renal Epithelial Cell Urine Bacteria Urine Mucus Assessment & Plan Assessment/Plan (1) Community acquired pneumonia: (2) Asthma: (3) Gastroesophageal reflux disease: (4) Diabetes mellitus: (5) Hypertension: PLAN: Patient is a 79-year-old lady who presented with productive cough with associated fever and chills. Imaging studies demonstrated infiltrates in the left midlung admitted to the regular nursing for further management 1. Community-acquired pneumonia: Placed on aerosols, antibiotics - Rocephin and Zithromax. Oxygen titrated to keep pulse ox >90%. Blood and sputum cultures sent results pending 2. Acute metabolic encephalopathy ?Secondary to above management as discussed above 3. Diabetes mellitus type II -Patient is on metformin held on admission, subsequently placed on Accu-Cheks a.c. and at bedtime and covered with sliding scale insulin 4. Mild intermittent asthma ?Did continue patient bronchodilator treatment 5. Mild dementia ?Patient is on donepezil did continue 6. GERD ?Patient is on PPI did continue 7. Hypertension - Blood pressure controlled, home medications continued with dose adjustment as needed 8. DVT prophylaxis - On enoxaparin Advance planning; did discuss with the patient and patient's daughter regarding advanced directives as well as CODE STATUS. Did explain the various scenarios involved ( FULL CODE, DNR CCA, DNR CCA with no intubation, and DNR CC and what each meant) patient and daughter elected for patient to remain full code with CPR and intubation if warranted. Order was placed. Time spent on discussion 18 minutes. Visit Charges Inpatient E&M: 40589 Init Hosp L3 Procedures Hospitalists Procedures: 72466 Advncd Care Plan 30 Min
[2020-07-13] MEDS: Ceftriaxone 1 GM/50 ML BAG IV (11:01)
[2020-07-13 14:40] LABS: Bedside Glucose 180 mg/dL (70-110)
[2020-07-13] MEDS: Fluticasone 0.05% 1 SPRAY NASAL.SRY NASAL (15:41)
[2020-07-13] MEDS: Enoxaparin 40 MG/0.4 ML Syringe SC (15:42)
[2020-07-13] MEDS: guaiFENesin 1,200 MG Tablet 1200 MG PO (15:42)
[2020-07-13] MEDS: Loratadine 10 MG Tablet PO (15:42)
[2020-07-13] MEDS: Donepezil HCl 10 MG Tablet PO (15:42)
[2020-07-13] MEDS: Pantoprazole Sodium 40 MG Tablet PO (15:45)
--- NOTE | 2020-07-13 15:50 | CASEMGMT ---
Social Work Note Per thread checker questions, pt has completed HCPOA and LW, haven't provided copy to [facility] and pt is able to bring in copy. Tori Hernandez FACILITY SPECIALIST, FOOD AND BEVERAGE CASHIER
[2020-07-13 16:40] LABS: Bedside Glucose 154 mg/dL (70-110)
[2020-07-13] MEDS: Insulin Lispro 100 UNIT/ML INSULN.PEN SC ×2 (16:40→21:34)
[2020-07-13] MEDS: Budesonide Respules 0.5 MG/2 ML AMPUL.NEB. INHALATION (19:29)
[2020-07-13] MEDS: Albuterol 2.5 MG/3 ML VIAL.NEB. INHALATION (19:29)
[2020-07-13 23:36] LABS: Bedside Glucose 157 mg/dL (70-110)
[2020-07-14] VITALS (9 sets, daily range): BP systolic 114–132; BP diastolic 47–56; PULSE 64–88; RESP 14–20; TEMP 36.5–37.4; O2SAT 94–99
[2020-07-14 05:54] LABS: Absolute Lymphocyte Count 2.39 X10^3/uL (0.83-4.51); Absolute Neutrophil Count 9.5 X10^3/uL (2.0-7.7); Basophil# 0.04 X10^3/uL; Basophil% 0.3 % (0-1); Eosinophil# 0.19 X10^3/uL; Eosinophils% 1.4 % (0-5); Hematocrit 31.5 % (37-47); Hemoglobin 10.2 g/dL (12.0-15.0); Lymphocyte # 2.39 X10^3/ul (0.83-4.51); Lymphocyte % 18.1 % (19-41); Mean Corp Hgb Conc 32.4 g/dL (32-36); Mean Corpuscular Hgb 31.5 pg (27.0-32.0); Mean Corpuscular Volume 97.2 fL (81-99); Mean Platelet Vol. 10.4 fl (6.2-12.0); Monocyte# 1.02 X10^3/uL; Monocyte% 7.7 % (0-10); NRBC Flagged by Analyzer 0 % (0-5); Neutrophil # 9.47 X10^3/uL (2.7-7.7); Platelet Count 197 K/mm3 (150-450); RBC Distribution Width CV 13.1 % (11.6-14.6); RBC Distribution Width SD 47.3 fl (35.1-43.9); Red Blood Count 3.24 M/mm3 (4.2-5.4); White Blood Count 13.2 K/mm3 (4.4-11.0)
[2020-07-14 06:23] LABS: Anion Gap 4 (5-15); BUN 13 mg/dL (7-18); BUN/Creat Ratio 18.8 RATIO (10-20); Calcium,Total 8.3 mg/dL (8.5-10.1); Chloride 110 mmol/L (98-107); Creatinine, Serum 0.69 mg/dL (0.55-1.02); EST Glomerular Filtration Rate 87 mL/min (>60); Est Glom Filt Rate - Afr Amer 106 mL/min (>60); Estimated Creatinine Clearance 38.97 ml/min; Glucose 109 mg/dL (74-106); Magnesium 1.9 mg/dL (1.6-2.6); Potassium 3.9 mmol/L (3.5-5.1); Sodium Level 143 mmol/L (136-145)
[2020-07-14] MEDS: Albuterol 2.5 MG/3 ML VIAL.NEB. INHALATION ×3 (06:47→19:15)
[2020-07-14] MEDS: Budesonide Respules 0.5 MG/2 ML AMPUL.NEB. INHALATION ×2 (06:47→19:15)
[2020-07-14 06:50] LABS: Bedside Glucose 103 mg/dL (70-110)
--- NOTE | 2020-07-14 07:55 | PCM.PN.HOSP ---
Subjective Subjective Patient is a 79-year-old lady who presented with productive cough with associated fever and chills. Imaging studies demonstrated infiltrates in the left midlung admitted to the regular nursing for further management Patient seen complains of a tickle in her throat. Physical examination demonstrates bilateral wheezes added inhaled corticosteroids to her treatment Objective Data Objective Data Vital Signs: Vital Signs Temp Pulse Resp BP Pulse Ox 97.7 F L 76 14 118/52 L 94 07/14/20 07:13 07/14/20 07:13 07/14/20 07:13 07/14/20 07:13 07/14/20 07:13 Oxygen Flow Rate (L/min) 2 Oxygen Delivery Method Room Air Weight: 74.2 kg Body Mass Index (BMI) 29.0 Intake & Output: Intake and Output for Last 24 Hours 07/12/20 07/13/20 07/14/20 23:59 23:59 23:59 Intake Total 3007.5 / 3007.5 200 / 200 Output Total 425 / 425 400 / 400 Balance 2582.5 / 2582.5 -200 / -200 Lab / Micro Data Result Diagrams: 07/14/20 05:20 07/14/20 05:20 Micro: Microbiology 07/13/20 15:30 Interface Orders Respiratory Panel (PCR) - Final 07/13/20 16:25 Sputum, Expectorated/Coughed Gram Stain - Preliminary 07/13/20 16:25 Urine, Clean Catch Streptococcus pneumoniae Antigen (M - Final 07/13/20 16:25 Urine, Clean Catch Legionella Antigen - Final Radiography Diagnostic Testing: Radiology Impression Chest X-Ray 07/13/20 10:15 IMPRESSION: Focal infiltrate in the left mid lung. Electronically Signed: Hodlen Villalpando MD at 10:49 EDT , Service support , Physical Exam Narrative GENERAL: cooperative HEENT: Atraumatic; EYES; Anicteric, Normal Conjunctiva NECK; supple, normal thyroid, RESPIRATORY: Diminished to auscultation with bilateral wheezes CARDIOVASCULAR: Regular S1 S2, GI: soft, normoactive bowel sounds, : No Renal angle tenderness; EXTREMITIES: No edema, no clubbing, MUSCULOSKELETAL: no muscle waisting NEURO: Awake; no lateralizing signs. SKIN: No Rash PSYCH; Flat affect Assessment & Plan Assessment/Plan (1) Community acquired pneumonia: (2) Asthma: (3) Gastroesophageal reflux disease: (4) Diabetes mellitus: (5) Hypertension: PLAN: Patient is a 79-year-old lady who presented with productive cough with associated fever and chills. Imaging studies demonstrated infiltrates in the left midlung admitted to the regular nursing for further management 1. Community-acquired pneumonia: Placed on aerosols, antibiotics - Rocephin and Zithromax. Oxygen titrated to keep pulse ox >90%. Blood and sputum cultures sent results pending ?07/14/2020 patient did remain fairly stable however has significant bronchospasm corticosteroids added to her treatment regimen 2. Acute metabolic encephalopathy ?Secondary to above management as discussed above 3. Diabetes mellitus type II -Patient is on metformin held on admission, subsequently placed on Accu-Cheks a.c. and at bedtime and covered with sliding scale insulin 4. Mild intermittent asthma ?Did continue patient bronchodilator treatment -07/14/2020 patient has significant bronchospasm added corticosteroids to her treatment 5. Mild dementia ?Patient is on donepezil did continue 6. GERD ?Patient is on PPI did continue 7. Hypertension - Blood pressure controlled, home medications continued with dose adjustment as needed 8. DVT prophylaxis - On enoxaparin Visit Charges Inpatient E&M: 66114 [facility] Hosp L2
[2020-07-14] MEDS: Donepezil HCl 10 MG Tablet PO (09:23)
[2020-07-14] MEDS: Fluticasone 0.05% 1 SPRAY NASAL.SRY NASAL (09:24)
[2020-07-14] MEDS: Loratadine 10 MG Tablet PO (09:24)
[2020-07-14] MEDS: guaiFENesin 1,200 MG Tablet 1200 MG PO ×2 (09:25→22:00)
[2020-07-14] MEDS: Pantoprazole Sodium 40 MG Tablet PO (09:25)
[2020-07-14] MEDS: Enoxaparin 40 MG/0.4 ML Syringe SC (09:26)
[2020-07-14] MEDS: 0.9% Normal Saline 1,000 ML 75 ML IV ×2 (09:39→21:59)
--- NOTE | 2020-07-14 11:00 | CASEMGMT ---
RN OSMANY Face to Face with patient for initial transition planning/care coordination assessment. RN CM introduced self and role at [facility]. Patient lying in bed, alert and oriented, at bedside. Patient willing to participate in assessment and is able to answer all questions appropriately. Care providers, pharmacy, and demographics verified. Patient wishes to discharge home, denies need for home health at this time. Patient states she has no further needs or concerns at this time. CM to follow for discharge planning needs that may arise. PCP: Mejia Specialists: none [facility]erred Pharmacy: [facility] Insurance: [employer] [facility] Prescription Benefit: yes Living Will/HPOA: yes, Javon MOISE: , son Living Arrangements: Patient lives with in a single story home with no steps to enter. Patient states she is independent at home. Transportation: DME/HHC: Patient has raised toilet, cane, walker, and nebulizer at home. Disposition Plan: Patient to discharge home with family support and follow-up plans in place. Tori ALATORREN, RN, CM
[2020-07-14 11:50] LABS: Bedside Glucose 169 mg/dL (70-110)
[2020-07-14] MEDS: Insulin Lispro 100 UNIT/ML INSULN.PEN SC ×3 (11:53→21:59)
--- NOTE | 2020-07-14 16:18 | CHAPLAIN ---
Type of Pastoral Visit ___ Initial Visit ___ Follow-up Visit ___ On-call Visit ___ General Patient Visit ___ Spiritual Assessment ___ Family Conference ___ Bereavement ___ Rapid Response ___ Code Blue ___ Other (describe below) Pastoral Care Referral From ___ Patient ___ Family ___ Nurse ___ Physician ___ Scaleman ___ Ballistics Tester ___ Other (describe below) Sacrament/Intervention ___ Active listening ___ Anointing ___ Presybeterian ___ Bereavement ___ Communion ___ Jaquelin exploration ___ ___ Life review ___ Prayer ___ Reconciliation ___ Sacrament of Sick ___ Supportive presence ___ Wedding ___ Other (describe below) Pastoral Comments three attempts made to see this patient, each time another discipline was giving treatment or therapy
[2020-07-14 16:40] LABS: Bedside Glucose 171 mg/dL (70-110)
[2020-07-14 23:00] LABS: Bedside Glucose 214 mg/dL (70-110)
[2020-07-15 03:24] VITALS: BP 123/56; PULSE 73; RESP 18; TEMP 37.2; O2SAT 93
[2020-07-15 06:24] LABS: Absolute Lymphocyte Count 2.17 X10^3/uL (0.83-4.51); Absolute Neutrophil Count 5.8 X10^3/uL (2.0-7.7); Basophil# 0.03 X10^3/uL; Basophil% 0.3 % (0-1); Eosinophil# 0.26 X10^3/uL; Eosinophils% 2.9 % (0-5); Hematocrit 30.4 % (37-47); Hemoglobin 9.8 g/dL (12.0-15.0); Lymphocyte # 2.17 X10^3/ul (0.83-4.51); Lymphocyte % 24.1 % (19-41); Mean Corp Hgb Conc 32.2 g/dL (32-36); Mean Corpuscular Hgb 31.3 pg (27.0-32.0); Mean Corpuscular Volume 97.1 fL (81-99); Mean Platelet Vol. 10.6 fl (6.2-12.0); Monocyte# 0.74 X10^3/uL; Monocyte% 8.2 % (0-10); NRBC Flagged by Analyzer 0 % (0-5); Neutrophil # 5.77 X10^3/uL (2.7-7.7); Neutrophil % 64.3 % (47-70); Platelet Count 184 K/mm3 (150-450); RBC Distribution Width CV 13.1 % (11.6-14.6); RBC Distribution Width SD 46.8 fl (35.1-43.9); Red Blood Count 3.13 M/mm3 (4.2-5.4)
[2020-07-15 06:45] VITALS: PULSE 78; RESP 20; O2SAT 94
[2020-07-15] MEDS: Albuterol 2.5 MG/3 ML VIAL.NEB. INHALATION (06:45)
[2020-07-15 06:46] LABS: Bedside Glucose 106 mg/dL (70-110)
[2020-07-15] MEDS: Budesonide Respules 0.5 MG/2 ML AMPUL.NEB. INHALATION (06:46)
[2020-07-15 06:47] LABS: Anion Gap 3 (5-15); BUN 10 mg/dL (7-18); BUN/Creat Ratio 17.8 RATIO (10-20); Calcium,Total 8.4 mg/dL (8.5-10.1); Chloride 112 mmol/L (98-107); Creatinine, Serum 0.56 mg/dL (0.55-1.02); EST Glomerular Filtration Rate 111 mL/min (>60); Est Glom Filt Rate - Afr Amer 134 mL/min (>60); Estimated Creatinine Clearance 38.97 ml/min; Glucose 107 mg/dL (74-106); Potassium 3.8 mmol/L (3.5-5.1); Sodium Level 142 mmol/L (136-145)
--- NOTE | 2020-07-15 07:23 | PCM.PN.HOSP ---
Subjective Subjective Patient seen breathing remains stable however irritating throat. Patient requests consultation with the ENT surgeon as outpatient Objective Data Objective Data Vital Signs: Vital Signs Temp Pulse Resp BP Pulse Ox 99 F 73 18 123/56 H 93 07/15/20 03:24 07/15/20 03:24 07/15/20 03:24 07/15/20 03:24 07/15/20 03:24 Oxygen Flow Rate (L/min) 2 Oxygen Delivery Method Room Air Weight: 74 kg Body Mass Index (BMI) 29.0 Intake & Output: Intake and Output for Last 24 Hours 07/13/20 07/14/20 07/15/20 23:59 23:59 23:59 Intake Total 3007.5 / 3007.5 3367.50 / 3367.50 400 / 400 Output Total 425 / 425 1450 / 1450 1100 / 1100 Balance 2582.5 / 2582.5 1917.50 / 1917.50 -700 / -700 Lab / Micro Data Result Diagrams: 07/15/20 05:45 07/15/20 05:45 Labs: Laboratory Results - last 24 hr 07/14/20 07/14/20 07/14/20 11:35 16:25 21:58 WBC RBC Hgb Hct MCV MCH MCHC RDW Std Deviation RDW Coeff of [place] Plt Count MPV Immature Gran % (Auto) Neut % (Auto) Lymph % (Auto) [place] % (Auto) Eos % (Auto) Baso % (Auto) Absolute Neuts (auto) Absolute Lymphs (auto) Nucleated RBC % Sodium Potassium Chloride Carbon Dioxide Anion Gap BUN Creatinine Estim Creat Clear Calc Est GFR (MDRD) Af Amer Est GFR (MDRD) Non-Af BUN/Creatinine Ratio Glucose Calcium POC Glucose 169 H 171 H 214 H 07/15/20 07/15/20 07/15/20 05:45 05:45 06:29 WBC 9.0 RBC 3.13 L Hgb 9.8 L Hct 30.4 L MCV 97.1 MCH 31.3 MCHC 32.2 RDW Std Deviation 46.8 H RDW Coeff of [place] 13.1 Plt Count 184 MPV 10.6 Immature Gran % (Auto) 0.200 Neut % (Auto) 64.3 Lymph % (Auto) 24.1 [place] % (Auto) 8.2 Eos % (Auto) 2.9 Baso % (Auto) 0.3 Absolute Neuts (auto) 5.8 Absolute Lymphs (auto) 2.17 Nucleated RBC % 0 Sodium 142 Potassium 3.8 Chloride 112 H Carbon Dioxide 27.0 Anion Gap 3 L BUN 10 Creatinine 0.56 Estim Creat Clear Calc 38.97 Est GFR (MDRD) Af Amer 134 Est GFR (MDRD) Non-Af 111 BUN/Creatinine Ratio 17.8 Glucose 107 H Calcium 8.4 L POC Glucose 106 Micro: Microbiology 07/13/20 09:45 Blood Culture (Wb) - Anticubital Left Blood Culture - Preliminary 07/13/20 16:25 Sputum, Expectorated/Coughed Gram Stain - Final 07/13/20 16:25 Sputum, Expectorated/Coughed Respiratory Culture - Preliminary Appears to be normal respiratory lizet. Further studies to follow. 07/13/20 15:30 Interface Orders Respiratory Panel (PCR) - Final 07/13/20 16:25 Urine, Clean Catch Streptococcus pneumoniae Antigen (M - Final 07/13/20 16:25 Urine, Clean Catch Legionella Antigen - Final Physical Exam Narrative GENERAL: cooperative HEENT: Atraumatic; EYES; Anicteric, Normal Conjunctiva NECK; supple, normal thyroid, RESPIRATORY: Diminished to auscultation with bilateral wheezes CARDIOVASCULAR: Regular S1 S2, GI: soft, normoactive bowel sounds, : No Renal angle tenderness; EXTREMITIES: No edema, no clubbing, MUSCULOSKELETAL: no muscle waisting NEURO: Awake; no lateralizing signs. SKIN: No Rash PSYCH; Flat affect Assessment & Plan Assessment/Plan (1) Community acquired pneumonia: (2) Asthma: (3) Gastroesophageal reflux disease: (4) Diabetes mellitus: (5) Hypertension: PLAN: Patient is a 79-year-old lady who presented with productive cough with associated fever and chills. Imaging studies demonstrated infiltrates in the left midlung admitted to the regular nursing for further management 1. Community-acquired pneumonia: Placed on aerosols, antibiotics - Rocephin and Zithromax. Oxygen titrated to keep pulse ox >90%. Blood and sputum cultures sent results pending ?07/14/2020 patient did remain fairly stable however has significant bronchospasm corticosteroids added to her treatment regimen 2. Acute metabolic encephalopathy ?Secondary to above management as discussed above 3. Diabetes mellitus type II -Patient is on metformin held on admission, subsequently placed on Accu-Cheks a.c. and at bedtime and covered with sliding scale insulin 4. Mild intermittent asthma ?Did continue patient bronchodilator treatment -07/14/2020 patient has significant bronchospasm added corticosteroids to her treatment 5. Mild dementia ?Patient is on donepezil did continue 6. GERD ?Patient is on PPI did continue 7. Hypertension - Blood pressure controlled, home medications continued with dose adjustment as needed 8. DVT prophylaxis - On enoxaparin Charges/Coding Visit Charges Inpatient E&M: 66963 Subs Hosp L2
[2020-07-15 09:58] VITALS: BP 143/66; PULSE 71; RESP 20; TEMP 36.9; O2SAT 97
[2020-07-15] MEDS: Loratadine 10 MG Tablet PO (10:01)
[2020-07-15] MEDS: Fluticasone 0.05% 1 SPRAY NASAL.SRY NASAL (10:01)
[2020-07-15] MEDS: Pantoprazole Sodium 40 MG Tablet PO (10:01)
[2020-07-15] MEDS: guaiFENesin 1,200 MG Tablet 1200 MG PO (10:02)
[2020-07-15] MEDS: Enoxaparin 40 MG/0.4 ML Syringe SC (10:02)
[2020-07-15] MEDS: Donepezil HCl 10 MG Tablet PO (10:03)
--- NOTE | 2020-07-15 11:04 | PCM.DC.SUM ---
Providers Date of Admission: 07/13/20 Primary Care Physician: Dr. Liane Ba MD Reason For Visit: PNEUMONIA Diagnosis Discharge Diagnosis (1) Community acquired pneumonia: Status: Acute Code(s): J18.9 - Pneumonia, unspecified organism (2) Asthma: Status: Chronic Code(s): J45.909 - Unspecified asthma, uncomplicated (3) Gastroesophageal reflux disease: Status: Chronic Code(s): K21.9 - Gastro-esophageal reflux disease without esophagitis (4) Diabetes mellitus: Status: Chronic Code(s): E11.9 - Type 2 diabetes mellitus without complications (5) Hypertension: Status: Chronic Code(s): I10 - Essential (primary) hypertension Medications at Discharge Home Medications albuterol sulfate 1 puff INHALATION Q4H PRN PRN 07/05/15 omeprazole 40 mg PO DAILY 07/05/15 donepezil 10 mg tablet 10 mg PO DAILY 12/09/19 glucose test strips NOT APPLICABLE 12/09/19 blood sugar diagnostic #100 ea 03/03/20 fluticasone furoate 100 mcg-vilanterol 25 mcg/dose inhalation powder 1 inh INHALATION DAILY #28 ea 03/21/20 metformin 750 mg tablet,extended release 24 hr 750 mg PO BID #180 tab 05/25/20 fluticasone propionate 50 mcg/actuation nasal spray,suspension 1 spray INTRANASAL DAILY 06/08/20 loperamide 2 mg capsule 2 mg PO Q6H PRN 06/08/20 loratadine 10 mg tablet 10 mg PO DAILY 06/08/20 propranolol 20 mg tablet 20 mg PO BID PRN #30 tab 06/08/20 cefdinir 300 mg PO BID #10 cap 07/15/20 guaifenesin [Mucus Relief ER] 1,200 mg PO BID #14 tab 07/15/20 Hospital Course Summary of Care Provided Minutes Spent on Discharge: 35 Hospital Course: Patient is a 79-year-old lady who presented with productive cough with associated fever and chills. Imaging studies demonstrated infiltrates in the left midlung admitted to the regular nursing for further management 1. Community-acquired pneumonia: Placed on aerosols, antibiotics - Rocephin and Zithromax. Oxygen titrated to keep pulse ox >90%. Blood and sputum cultures sent results pending ?07/14/2020 patient did remain fairly stable however has significant bronchospasm corticosteroids added to her treatment regimen 2. Acute metabolic encephalopathy ?Secondary to above management as discussed above 3. Diabetes mellitus type II -Patient is on metformin held on admission, subsequently placed on Accu-Cheks a.c. and at bedtime and covered with sliding scale insulin 4. Mild intermittent asthma ?Did continue patient bronchodilator treatment -07/14/2020 patient has significant bronchospasm added corticosteroids to her treatment -Suspected vocal cord dysfunction consult was placed ENT as outpatient 5. Mild dementia ?Patient is on donepezil did continue 6. GERD ?Patient is on PPI did continue 7. Hypertension - Blood pressure controlled, home medications continued with dose adjustment as needed 8. DVT prophylaxis - On enoxaparin ABG / Lab / Microbiology Data Result Diagrams: 07/15/20 05:45 07/15/20 05:45 Laboratory: Laboratory Results - last 24 hr 07/14/20 07/14/20 07/14/20 11:35 16:25 21:58 WBC RBC Hgb Hct MCV MCH MCHC RDW Std Deviation RDW Coeff of [place] Plt Count MPV Immature Gran % (Auto) Neut % (Auto) Lymph % (Auto) [place] % (Auto) Eos % (Auto) Baso % (Auto) Absolute Neuts (auto) Absolute Lymphs (auto) Nucleated RBC % Sodium Potassium Chloride Carbon Dioxide Anion Gap BUN Creatinine Estim Creat Clear Calc Est GFR (MDRD) Af Amer Est GFR (MDRD) Non-Af BUN/Creatinine Ratio Glucose Calcium POC Glucose 169 H 171 H 214 H 07/15/20 07/15/20 07/15/20 05:45 05:45 06:29 WBC 9.0 RBC 3.13 L Hgb 9.8 L Hct 30.4 L MCV 97.1 MCH 31.3 MCHC 32.2 RDW Std Deviation 46.8 H RDW Coeff of [place] 13.1 Plt Count 184 MPV 10.6 Immature Gran % (Auto) 0.200 Neut % (Auto) 64.3 Lymph % (Auto) 24.1 [place] % (Auto) 8.2 Eos % (Auto) 2.9 Baso % (Auto) 0.3 Absolute Neuts (auto) 5.8 Absolute Lymphs (auto) 2.17 Nucleated RBC % 0 Sodium 142 Potassium 3.8 Chloride 112 H Carbon Dioxide 27.0 Anion Gap 3 L BUN 10 Creatinine 0.56 Estim Creat Clear Calc 38.97 Est GFR (MDRD) Af Amer 134 Est GFR (MDRD) Non-Af 111 BUN/Creatinine Ratio 17.8 Glucose 107 H Calcium 8.4 L POC Glucose 106 Microbiology: Microbiology 07/13/20 10:00 Blood Culture - Preliminary Blood Culture (Wb) - Anticubital Left No growth in 48 hours. 07/13/20 09:45 Bacteria Detection (PCR) - Final Blood Culture (Wb) - Anticubital Left Blood Culture - Preliminary 07/13/20 16:25 Gram Stain - Final Sputum, Expectorated/Coughed Respiratory Culture - Preliminary Appears to be normal respiratory lizet. Further studies to follow. Microbiology 07/13/20 10:00 Blood Culture (Wb) - Anticubital Left Blood Culture - Preliminary No growth in 48 hours. 07/13/20 09:45 Blood Culture (Wb) - Anticubital Left Bacteria Detection (PCR) - Final 07/13/20 09:45 Blood Culture (Wb) - Anticubital Left Blood Culture - Preliminary 07/13/20 16:25 Sputum, Expectorated/Coughed Gram Stain - Final 07/13/20 16:25 Sputum, Expectorated/Coughed Respiratory Culture - Preliminary Appears to be normal respiratory lizet. Further studies to follow. 07/13/20 15:30 Interface Orders Respiratory Panel (PCR) - Final 07/13/20 16:25 Urine, Clean Catch Streptococcus pneumoniae Antigen (M - Final 07/13/20 16:25 Urine, Clean Catch Legionella Antigen - Final D/C Instructions Discharge Diet: No restrictions Meaningful Use Info Meaningful Use Diagnoses (Choose all that apply): None applicable Discharge Plan Admission Admit Date/Time: 07/13/20 10:42 Primary Reason for Your Visit: Community-acquired pneumonia Attending Provider: Lamine James Primary Care Provider: Liane Ba Discharge Orders/Prescriptions Prescriptions: New Mucus Relief ER 1,200 mg Tablet Extended Release 12hr 1,200 mg PO BID Qty: 14 RF: 0 cefdinir 300 mg capsule 300 mg PO BID Qty: 10 RF: 0 Continued donepezil 10 mg tablet 10 mg PO DAILY RF: 0 glucose test strips Not Applicable RF: 0 loratadine [Claritin] 10 mg tablet 10 mg PO DAILY RF: 0 fluticasone propionate [Flonase Allergy Relief] 50 mcg/actuation spray,suspension 1 spray intranasal DAILY RF: 0 loperamide [Imodium A-D] 2 mg capsule 2 mg PO Q6H PRN (Reason: Diarrhea) RF: 0 propranolol 20 mg tablet 20 mg PO BID PRN (Reason: tremor) Qty: 30 RF: 0 omeprazole 40 MG capsule 40 mg PO DAILY RF: 0 albuterol sulfate 1 INHALER inhaler 1 puff INHALATION Q4H PRN PRN (Reason: Sob &/Or Wheezing) RF: 0 (DME) OneTouch Verio test strips Strip See Rx Instructions .ROUTE .MEDSUPPLY Qty: 100 RF: 2 Breo Ellipta 100-25 mcg/dose blister with device 1 inh INHALATION DAILY Qty: 28 RF: 5 metformin 750 mg tablet extended release 24 hr 750 mg PO BID Qty: 180 RF: 1 Referrals / Follow Up: rAmani Pack MD [STAFF PHYSICIAN] - 07/18/20 9:30 am Liane Ba MD [Primary Care Provider] - Disposition Disposition (needs filled in before D/C Order can be placed): Home, self care Charges/Coding Visit Charges Inpatient E&M: 11709 Disch Hosp
[2020-07-15] MEDS: Insulin Lispro 100 UNIT/ML INSULN.PEN SC (11:19)
[2020-07-15 12:16] LABS: Bedside Glucose 171 mg/dL (70-110)
--- NOTE | 2020-07-15 13:44 | PHA.DC.MC ---
Pharmacy Service has performed discharge medication reconciliation and counseling for this patient. 1. CEFDINIR 300MG PO BID X 5 DAYS 2. MUCINEX 1200MG BID X 7 DAYS The patient's discharge medication list was reviewed for discrepancies and discrepancies were resolved. Home Medications albuterol sulfate 1 puff INHALATION Q4H PRN PRN 07/05/15 omeprazole 40 mg PO DAILY 07/05/15 donepezil 10 mg tablet 10 mg PO DAILY 12/09/19 glucose test strips NOT APPLICABLE 12/09/19 blood sugar diagnostic #100 ea 03/03/20 fluticasone furoate 100 mcg-vilanterol 25 mcg/dose inhalation powder 1 inh INHALATION DAILY #28 ea 03/21/20 metformin 750 mg tablet,extended release 24 hr 750 mg PO BID #180 tab 05/25/20 fluticasone propionate 50 mcg/actuation nasal spray,suspension 1 spray INTRANASAL DAILY 06/08/20 loperamide 2 mg capsule 2 mg PO Q6H PRN 06/08/20 loratadine 10 mg tablet 10 mg PO DAILY 06/08/20 propranolol 20 mg tablet 20 mg PO BID PRN #30 tab 06/08/20 cefdinir 300 mg PO BID #10 cap 07/15/20 guaifenesin [Mucus Relief ER] 1,200 mg PO BID #14 tab 07/15/20 The patient was counseled on the following discharge medications and changes in medications for homegoing were reviewed. The Reason for Use, instructions for use, and potential side effects were reviewed for all new medications. The patient's questions regarding all of their medications were answered. The patient was able to verbally demonstrate an understanding of their discharge medications.
[2020-07-15 13:57] VITALS: BP 151/69; PULSE 75; RESP 20; TEMP 37.3; O2SAT 94
== END 2020-07-15 14:09 | disposition home or self-care (01) | DRG 193 ==
LOC: ED 10:41 → MS3 12:13
PROVIDERS: Admitting Provider Internal Medicine; Emergency Provider Emergency Medicine; PCP Internal Medicine; Visit Provider Internal Medicine
DX: J18.9 Pneumonia, unspecified organism (principal); G93.41 Metabolic encephalopathy; J45.20 Mild intermittent asthma, uncomplicated; K21.9 Gastro-esophageal reflux disease without esophagitis; E11.9 Type 2 diabetes mellitus without complications; F03.90 Unspecified dementia, unspecified severity, without behavioral disturbance, psychotic disturbance, mood disturbance, and anxiety; I10 Essential (primary) hypertension; M19.90 Unspecified osteoarthritis, unspecified site; Z79.899 Other long term (current) drug therapy; Z79.51 Long term (current) use of inhaled steroids; Z79.84 Long term (current) use of oral hypoglycemic drugs
CPT/HCPCS: 36415; 71045; 80048; 81001; 82962; 83605; 83735; 84484; 85025; 87040; 87070; 87149; 87205; 87449; 87633; 93005; 94640; 97162; 97166; 97530; 99251; 99285; J7030; A4216; G0463; J0696

== ENCOUNTER 2020-10-02 05:32 | Emergency (ER) | payer MEDICARE, SELFPAY ==
[2020-10-02 05:34] VITALS: BP 169/68; PULSE 77; RESP 16; TEMP 36.7; O2SAT 95; BMI 30.9
--- NOTE | 2020-10-02 06:32 | EDS_ITS ---
HPI HPI - URI History of Present Illness Chief Complaint: Foreign Body Detail of Chief Complaint: Throat swelling Informant: patient Narrative Narrative: Patient states that ever since she had an illness last year her uvula has been longer than normal. For the last several days, it has felt a little swollen and uncomfortable but excessively so this morning. She states that when she woke up she felt like it was blocking her airway and she was unable to breathe through her nose although she was able to breathe and she never stopped breathing or had any cyanosis. She denies any pain anywhere. No fevers or ch ills. No symptoms of anaphylaxis or tongue swelling. No trouble talking. No recent alcohol use she does not drink at all. ROS ROS ED Constitutional Constitutional ED: Denies chills or fever(s) Eyes Eyes: Denies blurry vision or diplopia ENT ENT ED: Reports as per HPI; Denies hoarseness, rhinorrhea or sore throat Cardiovascular Cardiovascular: Denies chest pain or palpitations Respiratory/Chest Respiratory/Chest: Denies cough or dyspnea Gastrointestinal Gastrointestinal: Denies diarrhea, nausea or vomiting Allergic/Immunologic Allergic/Immunologic ED: Reports other Details: Focal uvula swelling ; Denies mouth swelling, tongue swelling or urticaria PFSH PFSH Medical History Allergies Arthritis Asthma bladder/uti problem Carpal tunnel syndrome Diabetes GERD (gastroesophageal reflux disease) GI problem Headache, migraine Hearing problem Tremor of right hand Vision problem Home Medications albuterol sulfate 1 puff INHALATION Q4H PRN PRN 07/05/15 [History Last Taken Unk nown] omeprazole 40 mg PO DAILY 07/05/15 [History Last Taken 11/04/18 05:30] donepezil 10 mg tablet 10 mg PO DAILY 12/09/19 [History Last Taken Unknown] glucose test strips NOT APPLICABLE 12/09/19 [History Last Taken Unknown] blood sugar diagnostic #100 ea 03/03/20 [Rx Last Taken Unknown] metformin 750 mg tablet,extended release 24 hr 750 mg PO BID #180 tab 05/25/20 [Rx Last Taken Unknown] fluticasone propionate 50 mcg/actuation nasal spray,suspension 1 spray INTRANASAL DAILY 06/08/20 [History Last Taken Unknown] loperamide 2 mg capsule 2 mg PO Q6H PRN 06/08/20 [History Last Taken Unknown] loratadine 10 mg tablet 10 mg PO DAILY 06/08/20 [History Last Taken Unknown] propranolol 20 mg tablet 20 mg PO BID PRN #30 tab 06/08/20 [Rx Last Taken Unknown] nebulizer accessories #1 ea 09/12/20 [Rx Last Taken Unknown] nebulizers #1 ea 09/12/20 [Rx Last Taken Unknown] albuterol sulfate 2.5 mg INHALATION Q6H #90 ml 09/15/20 [Rx Last Taken Unknown] fluticasone furoate 200 mcg-vilanterol 25 mcg/dose inhalation powder 1 inh INHALATION Q24H #60 ea 09/15/20 [Rx Last Taken Unknown] prednisone 20 mg PO DAILY #5 tablet 10/02/20 [Rx Last Taken Unknown] Allergy/AdvReac Type Severity Reaction Status Date / Time dicyclomine HCl [From Bentyl] AdvReac HEART RACES Verified 10/02/20 05:33 Family History Mother Alzheimer's dementia Surgical History 2 nasal surgies fibroid removal meniscal repair Social History Smoking Status: Never smoker alcohol intake: never substance use type: does not use what type of physical activity do you participate in: walking and aerobics frequency: daily EXAM Physical Exam Const Vital Signs: 10/02/20 05:34 10/02/20 06:56 10/02/20 06:57 Temperature 98.0 F Temperature Source Temporal Pulse Rate 77 72 Respiratory Rate 16 16 Respiratory Effort Normal Blood Pressure 169/68 H Blood Pressure Mean 101 Pulse Ox 95 Oxygen Delivery Method Room Air Positive well nourished and well developed General Appearance ED: well developed and NAD HEENT HEENT Narrative: Edematous uvula. It is midline. Tonsils are normal. No trismus. No posterior oropharyngeal erythema or exudates. No sublingual edema. Normal tongue without angioedema. No stridor. Occasional whistle from her mouth when she breathes through her nose. normocephalic and atraumatic Eyes PERRL and EOMs intact bilaterally Neck no lymphadenopathy, supple and no meningeal signs General: Negative for anterior neck swelling Resp normal respiratory effort and clear to auscultation bilaterally Neuro oriented x3, CN's II-XII intact bilaterally and moves all extremities Skin no rashes or lesions noted and no wounds MDM MDM MDM Narrative Medical decision making narrative: Patient was reassured. There is nothing being blocked by her swollen uvula although I am sure it is uncomfortable for her. She did not gag once while I was in the room and she was very comfortable sitting in the bed with normal vital signs except a little hypertensive. I discussed Benadryl and prednisone which may help, however she is an noninsulin- dependent diabetic. Furthermore she states her blood sugars have been a little higher than usual but luckily still in the 100s. I thought it would be reasonable to try her on lower dose prednisone to 20 mg a day, and a dose of Benadryl before she leaves, and have her follow-up with ENT if symptoms persist. She and family agree that is reasonable. Discharge Plan Triage Chief Complaint: Foreign Body ED Provider: Markell Garrett Dx/Rx/DC Orders Clinical Impression: Uvulitis Instructions: ED Uvulitis Prescriptions: New prednisone 20 MG tablet 20 mg PO DAILY Qty: 5 RF: 0 No Action donepezil 10 mg tablet 10 mg PO DAILY RF: 0 glucose test strips Not Applicable RF: 0 loratadine [Claritin] 10 mg tablet 10 mg PO DAILY RF: 0 fluticasone propionate [Flonase Allergy Relief] 50 mcg/actuation spray,suspension 1 spray intranasal DAILY RF: 0 loperamide [Imodium A-D] 2 mg capsule 2 mg PO Q6H PRN (Reason: Diarrhea) RF: 0 propranolol 20 mg tablet 20 mg PO BID PRN (Reason: tremor) Qty: 30 RF: 0 omeprazole 40 MG capsule 40 mg PO DAILY RF: 0 albuterol sulfate 1 INHALER inhaler 1 puff INHALATION Q4H PRN PRN (Reason: Sob &/Or Wheezing) RF: 0 (DME) OneTouch Verio test strips Strip See Rx Instructions .ROUTE .MEDSUPPLY Qty: 100 RF: 2 metformin 750 mg tablet extended release 24 hr 750 mg PO BID Qty: 180 RF: 1 (DME) nebulizer accessories Kit See Rx Instructions .ROUTE .MEDSUPPLY Qty: 1 RF: 0 (DME) nebulizers Misc See Rx Instructions .ROUTE .MEDSUPPLY Qty: 1 RF: 0 Breo Ellipta 200-25 mcg/dose blister with device 1 inh inhalation Q24H Qty: 60 RF: 1 albuterol sulfate 2.5 mg /3 mL (0.083 %) solution for nebulization 2.5 mg inhalation Q6H Qty: 90 RF: 2 Primary Care Provider: Liane Ba Referrals: Armani Pack MD [STAFF PHYSICIAN] - 3-5 Days if not improving Liane Ba MD [Primary Care Provider] - Disposition Disposition: Home, Self Care Discharge Date/Time: 10/02/20 06:58
[2020-10-02] MEDS: predniSONE 20 MG Tablet PO (06:55)
[2020-10-02] MEDS: DiphenhydrAMINE 25 MG Capsule 50 MG PO (06:55)
[2020-10-02 06:56] VITALS: PULSE 72; RESP 16
== END 2020-10-02 06:58 | disposition home or self-care (01) ==
LOC: ED 06:47
PROVIDERS: Emergency Provider Emergency Medicine; PCP Internal Medicine
DX: K12.2 Cellulitis and abscess of mouth (principal); E11.9 Type 2 diabetes mellitus without complications; J45.909 Unspecified asthma, uncomplicated; M19.90 Unspecified osteoarthritis, unspecified site; K21.9 Gastro-esophageal reflux disease without esophagitis; Z79.84 Long term (current) use of oral hypoglycemic drugs; Z79.52 Long term (current) use of systemic steroids; Z79.899 Other long term (current) drug therapy
CPT/HCPCS: 99283

== ENCOUNTER → 2020-12-02 15:12 | Outpatient (CLI) | payer MEDICARE, SELFPAY | PROVIDERS: PCP Internal Medicine; Referring Provider Otolaryngology; Visit Provider Otolaryngology | DX: Z11.59 Encounter for screening for other viral diseases (principal) | CPT/HCPCS: 87635; U0005; U0003 ==

== ENCOUNTER → 2020-12-12 09:10 | Outpatient (CLI) | payer MEDICARE, SELFPAY ==
[2020-12-12 11:58] LABS: Absolute Lymphocyte Count 2.33 X10^3/uL (0.83-4.51); Basophil# 0.05 X10^3/uL; Basophil% 0.7 % (0-1); Eosinophil# 0.27 X10^3/uL; Eosinophils% 3.8 % (0-5); Hematocrit 40.6 % (37-47); Hemoglobin 12.9 g/dL (12.0-15.0); Lymphocyte # 2.33 X10^3/ul (0.83-4.51); Lymphocyte % 32.9 % (19-41); Mean Corp Hgb Conc 31.8 g/dL (32-36); Mean Corpuscular Hgb 30.2 pg (27.0-32.0); Mean Corpuscular Volume 95.1 fL (81-99); Mean Platelet Vol. 9.9 fl (6.2-12.0); Monocyte# 0.42 X10^3/uL; Monocyte% 5.9 % (0-10); NRBC Flagged by Analyzer 0 % (0-5); Neutrophil # 3.98 X10^3/uL (2.7-7.7); Neutrophil % 56.3 % (47-70); Platelet Count 315 K/mm3 (150-450); RBC Distribution Width SD 45.2 fl (35.1-43.9); Red Blood Count 4.27 M/mm3 (4.2-5.4); White Blood Count 7.1 K/mm3 (4.4-11.0)
[2020-12-12 12:10] LABS: Vitamin D,25 Hydroxy 35.6 ng/mL
[2020-12-12 12:18] LABS: ALB/GLOB Ratio 0.9 RATIO (0.9-2.4); AST(SGOT) 15 U/L (15-37); Alanine Aminotransfer ALT/SGPT 25 U/L (13-56); Albumin, Serum 3.4 g/dL (3.2-5.0); Alkaline Phosphatase 71 U/L (45-117); Anion Gap 5 (5-15); BUN 21 mg/dL (7-18); BUN/Creat Ratio 19.8 RATIO (10-20); Calcium,Total 9.1 mg/dL (8.5-10.1); Chloride 103 mmol/L (98-107); Cholesterol 202 mg/dL (200); Creatinine, Serum 1.06 mg/dL (0.55-1.02); EST Glomerular Filtration Rate 53 mL/min (>60); Est Glom Filt Rate - Afr Amer 65 mL/min (>60); Globulin 3.7 g/dL (2.2-4.2); Glucose 137 mg/dL (74-106); High Density Lipoprotein 78 mg/dL; Protein, Total 7.1 g/dL (6.4-8.2); Sodium Level 136 mmol/L (136-145); Thyroid Stim Hormone (TSH) 0.21 uIU/mL (0.358-3.74); Triglycerides 94 mg/dL; Very Low Density Lipoprotein 19 mg/dL (5-40)
[2020-12-12 16:13] LABS: Free T3 2.3 pg/mL (2.18-3.98); T4 Free Direct 0.79 ng/dL (0.76-1.46)
== END ==
PROVIDERS: PCP Internal Medicine; Referring Provider Internal Medicine; Visit Provider Internal Medicine
DX: H69.80 Other specified disorders of Eustachian tube, unspecified ear (principal); E11.9 Type 2 diabetes mellitus without complications; I10 Essential (primary) hypertension; J45.909 Unspecified asthma, uncomplicated; K21.9 Gastro-esophageal reflux disease without esophagitis; E55.9 Vitamin D deficiency, unspecified; R79.89 Other specified abnormal findings of blood chemistry
CPT/HCPCS: 36415; 80053; 80061; 82306; 84439; 84443; 84481; 85025

== ENCOUNTER → 2020-12-22 13:55 | Outpatient (CLI) | payer MEDICARE, SELFPAY ==
--- NOTE | 2020-12-22 13:58 | RAD_ITS ---
STUDY: XR Chest 2 Views 12/22/2020 2:05 PM REASON FOR EXAM: Female, 80 years old. COUGH COMPARISON: 07.13.20 TECHNIQUE: XR Chest 2 Views FINDINGS: There is no demonstrated pleural abnormality. Enlarged heart size. Normal mediastinum. Normal guy. Prominent appearing increased interstitial lung markings. Normal visualized pulmonary arteries. There is atherosclerotic calcification of the aortic arch with tortuosity. There are diffuse degenerative changes of the visualized thoracic spine. There is degenerative osteoarthritis of the bilateral shoulders. There is no demonstrated abnormality of the visualized soft tissue structures of the upper abdomen. RAD/Chest PA and Lateral IMPRESSION: There are no acute findings. Electronically Signed: Ramses Jimenez MD at 20:58 EST , Service support ,
== END ==
PROVIDERS: PCP Internal Medicine; Referring Provider Otolaryngology; Visit Provider Otolaryngology
DX: R05.9 Cough, unspecified (principal)
CPT/HCPCS: 71046; 87070; 87077; 87186; 87205

== ENCOUNTER 2021-03-30 12:38 | Outpatient (CLI) | payer MEDICARE, SELFPAY ==
--- NOTE | 2021-03-30 12:41 | EKG12_ITS ---
Test Reason : SOB Blood Pressure : / mmHG Vent. Rate : 060 BPM Atrial Rate : 060 BPM P-R Int : 158 ms QRS Dur : 118 ms QT Int : 430 ms P-R-T Axes : 065 -12 -11 degrees QTc Int : 430 ms Normal sinus rhythm Right bundle branch block Abnormal ECG Confirmed by HORACIO PEREZ, BRYON ([id number]), editorial manager DIONE LANG ([id number]) on 03/31/2021 8:28:11 AM Referred By: Liane Ba Confirmed By:BRYON LEONARD MD
--- NOTE | 2021-03-30 12:41 | RAD_ITS ---
STUDY: XR Chest 2 Views 03/30/2021 12:56 PM REASON FOR EXAM: Female, 80 years old. CHEST PAIN Cough COMPARISON: 12/22/2020 TECHNIQUE: XR Chest 2 Views FINDINGS: There is no demonstrated pleural abnormality. Normal heart size. Normal mediastinum. Normal guy. Prominent appearing increased interstitial lung markings. Normal visualized pulmonary arteries. There is atherosclerotic calcification of the aortic arch with tortuosity. There are diffuse degenerative changes of the visualized thoracic spine. There is degenerative osteoarthritis of the bilateral shoulders. There is no demonstrated abnormality of the visualized soft tissue structures of the upper abdomen. RAD/Chest PA and Lateral IMPRESSION: There are no acute findings. Electronically Signed: Ramses Jimenez MD at 16:34 EST ,
== END 2021-03-30 23:59 | disposition home or self-care (01) ==
PROVIDERS: PCP Internal Medicine; Referring Provider Internal Medicine; Visit Provider Internal Medicine
DX: R05.9 Cough, unspecified (principal); R06.00 Dyspnea, unspecified
CPT/HCPCS: 71046; 93005

== ENCOUNTER 2021-04-13 13:48 | Outpatient (CLI) | payer MEDICARE, SELFPAY ==
--- NOTE | 2021-04-13 14:25 | CT_ITS ---
STUDY: CT CHEST WITHOUT CONTRAST REASON FOR EXAM: Female, 80 years old. Cough/feels like pneumonia RADIATION DOSAGE (If Supplied By Facility): CTDIvol = ( 8.76 ) mGy, DLP = ( 295.39 ) mGycm TECHNIQUE: Transaxial imaging was performed without the administration of intravenous contrast material. Individualized dose optimization techniques were used for this CT. COMPARISON: Comparison is made with prior chest radiograph dated 03/30/2021. FINDINGS: Small benign appearing bilateral axillary lymph nodes. Focal area of groundglass appearance is seen in the medial aspect of the left upper lobe. This may represent a focal area of early infiltrate. Minimal increased linear markings at the lung bases and anterior medial aspect of the right middle lobe suggestive of mild scarring. There is no demonstrated pleural abnormality. There are calcifications of the coronary arteries. Normal mediastinum. Normal hilar regions. Normal unenhanced pulmonary arteries. There is atherosclerotic calcification of the aortic arch with tortuosity and elongation of the aortic arch and descending thoracic aorta. There are multi-level degenerative changes of the thoracic spine. There is no demonstrated abnormality of the visualized upper abdomen. CT/Chest without Contrast IMPRESSION: Focal area of groundglass appearance in the medial aspect of the left upper lobe suggests some possible early left upper lobe infiltrate. Mild scarring at the lung bases and right middle lobe. Electronically Signed: Holden Villalpando MD at 15:31 EST ,
== END 2021-04-13 23:59 | disposition home or self-care (01) ==
LOC: CT 13:49
PROVIDERS: PCP Internal Medicine; Visit Provider Internal Medicine
DX: R05.3 Chronic cough (principal)
CPT/HCPCS: 71250

== ENCOUNTER 2021-05-11 09:43 | Outpatient (CLI) | payer MEDICARE, SELFPAY ==
--- NOTE | 2021-05-11 09:44 | ECHOD_ITS ---
Reason For Study: SOB Procedure This was a 2D Doppler, Color Flow transthoracic echocardiogram. Exam performed in department. Left Ventricle Normal LV size. The estimated ejection fraction is 65 %. Diastolic function is indeterminate. No regional wall motion abnormalities noted. Right Ventricle Normal RV size. Normal systolic function. Atria Normal left atrium. Normal right atrium. No doppler evidence for ASD. Mitral Valve There is no mitral valve stenosis. No mitral valve insufficiency. Tricuspid Valve There is no tricuspid stenosis. No tricuspid valve insufficiency. Unable to estimate RV systolic pressure due to inadequate jet, pulmonary artery pressure probably normal. Aortic Valve Trisinus/trileaflet aortic valve. There is no aortic stenosis. No aortic valve insufficiency. Pulmonic Valve There is no pulmonic valvular stenosis. Trivial pulmonic valve insufficiency. Great Vessels Normal aortic root. Pericardium/Pleural No pericardial effusion. MMode/2D Measurements & Calculations LVIDd: 4.6 cm IVSd: 1.1 cm Ao root diam: 3.1 cm LVIDs: 2.6 cm LVPWd: 0.94 cm RVDd: 2.8 cm FS: 43.7 % LAV(MOD-bp): 51.9 ml LVAd ap4: 26.2 cm2 LVAd ap2: 22.7 cm2 LAV(MOD-bp) Indexed: 29.5 ml/m2 LVLd ap4: 7.2 cm LVLd ap2: 7.2 cm LAV(MOD-sp2): 52.4 ml EDV(MOD-sp4): 79.9 ml EDV(MOD-sp2): 60.2 ml LAV(MOD-sp4): 48.0 ml EDV(sp4-el): 80.9 ml EDV(sp2-el): 60.6 ml LVAs ap4: 15.2 cm2 LVAs ap2: 12.9 cm2 LVLs ap4: 6.2 cm LVLs ap2: 6.1 cm ESV(MOD-sp4): 32.1 ml ESV(MOD-sp2): 24.5 ml ESV(sp4-el): 31.9 ml ESV(sp2-el): 23.4 ml EF(MOD-sp4): 59.9 % EF(MOD-sp2): 59.3 % EF(sp4-el): 60.6 % SV(MOD-sp4): 47.9 ml SV(MOD-sp2): 35.7 ml SV(sp4-el): 49.0 ml LA dimension(2D): 4.0 cm LA A4 area: 17.0 cm2 RA A4 area: 13.8 cm2 Doppler Measurements & Calculations MV E max jaime: 83.1 cm/sec Lat Peak E' Jaime: 7.5 cm/sec Med Peak E' Jaime: 4.8 cm/sec MV A max jaime: 89.1 cm/sec E/E' lat: 11.1 E/E' med: 17.1 MV E/A: 0.93 Ao V2 max: 126.1 cm/sec LV V1 max: 103.2 cm/sec PA V2 max: 106.7 cm/sec Ao max P.4 mmHg LV V1 max P.3 mmHg ECHO/Echo Complete Interpretation Summary The estimated ejection fraction is 65 %. Diastolic function is indeterminate. Ordering Physician: Doug Taylor Referring Physician: Liane Ba M.D. Performed By: Marika Dill RDCS
== END 2021-05-11 23:59 | disposition home or self-care (01) ==
LOC: CVS 09:43
PROVIDERS: PCP Internal Medicine; Referring Provider Internal Medicine Critical Care Medicine; Visit Provider Internal Medicine Critical Care Medicine
DX: R06.00 Dyspnea, unspecified (principal); R06.02 Shortness of breath
CPT/HCPCS: 93306

== ENCOUNTER 2021-05-18 09:33 | Outpatient (CLI) | payer MEDICARE, SELFPAY ==
--- NOTE | 2021-05-18 12:49 | PFT ---
INTRODUCTION: The patient is a 80-year-old female that presents for pulmonary function studies secondary to a diagnosis of cough. Respiratory therapy reported good patient effort. Bronchodilators were used during testing. INTERPRETATION: Forced expiration spirometry demonstrates the presence of a severe large airways obstructive ventilatory defect. There was no significant response to aerosolized bronchodilators. Spirograms are of fair quality but do not plateau indicating slow emptying of the lungs. Body plethysmography was performed and revealed an elevated RV to 157% of predicted, indicative of underlying air trapping. Diffusing capacity by single breath CO is reduced at 57% of predicted. 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
== END 2021-05-18 23:59 | disposition home or self-care (01) ==
LOC: PSN 09:35
PROVIDERS: PCP Internal Medicine; Referring Provider Internal Medicine Critical Care Medicine; Visit Provider Internal Medicine Critical Care Medicine
DX: R05.9 Cough, unspecified (principal)
CPT/HCPCS: 94060; 94726; 94729

== ENCOUNTER 2021-05-25 11:05 | Outpatient (CLI) | payer MEDICARE, SELFPAY ==
[2021-05-25 11:15] VITALS: PULSE 57; PULSE 88; PULSE 89; PULSE 91; PULSE 92; PULSE 94; O2SAT 92; O2SAT 93; O2SAT 94
--- NOTE | 2021-05-25 13:23 | PCM.PSN.6M ---
PSN 6 Minute Walk Test 6 Minute Walk Test 6 Minute Walk Test: 6 Minute Walk Test PSN:6-Minute Walk Test Start: 05/25/21 11:24 Freq: Status: Active Protocol: [id number] Document 05/25/21 11:15 [facility] (Rec: 05/25/21 11:28 [facility] [id number]) 6 Minute Walk Test Date Performed 05/25/21 Time Performed 11:15 Height 5 ft 3 in Weight: 72.575 kg Weight in Pounds 160.[address]: Dr Taylor Assistive device used: None Pre-test Oxygen Delivery Method Room Air Pulse Ox (%) 94 Pulse Rate (60-100 beats/min) 57 L Dyspnea Monse Scale (0-10) 0 Exertion Monse Scale (6-20) 6 1st minute Oxygen Delivery Method Room Air Pulse Ox (%) 94 Pulse Rate (60-100 beats/min) 89 2nd minute Oxygen Delivery Method Room Air Pulse Ox (%) 93 Pulse Rate (60-100 beats/min) 92 3rd minute Oxygen Delivery Method Room Air Pulse Ox (%) 93 Pulse Rate (60-100 beats/min) 91 4th minute Oxygen Delivery Method Room Air Pulse Ox (%) 92 Pulse Rate (60-100 beats/min) 92 5th minute Oxygen Delivery Method Room Air Pulse Ox (%) 93 Pulse Rate (60-100 beats/min) 89 6th minute Oxygen Delivery Method Room Air Pulse Ox (%) 93 Pulse Rate (60-100 beats/min) 88 Dyspnea Monse Scale (0-10) 1 Exertion Monse Scale (6-20) 11 Post-test Oxygen Delivery Method Room Air Pulse Rate (60-100 beats/min) 94 Dyspnea [place] Scale (0-10) 62 Full Laps Walked 12 Partial Lap, Number of Tiles Walked 24 Total Distance Walked (ft) 732 Interpretation Interpretation: The patient was able to ambulate 732 feet over the course of 6 minutes on room air with no assistive devices or breaks. The patient did have a lower saturation of 94%, but did not have any significant desaturation or tachycardia during testing. These findings are consistent with a musculoskeletal limitation exercise tolerance. Recommendations Recommendations: No supplemental oxygen is indicated at this time. However, patient will need to be followed closely given decreased baseline saturations.
== END 2021-05-25 23:59 | disposition home or self-care (01) ==
LOC: PSN 11:06
PROVIDERS: PCP Internal Medicine; Referring Provider Internal Medicine Critical Care Medicine; Visit Provider Internal Medicine Critical Care Medicine
DX: R05.9 Cough, unspecified (principal); R06.00 Dyspnea, unspecified
CPT/HCPCS: 94618

== ENCOUNTER 2021-06-28 11:05 | Emergency (ER) | payer MEDICARE, SELFPAY ==
[2021-06-28 11:06] VITALS: BP 131/115; PULSE 62; RESP 14; TEMP 36.8; O2SAT 95; BMI 28.3
--- NOTE | 2021-06-28 11:49 | RAD_ITS ---
STUDY: X-RAY CHEST REASON FOR EXAM: Female, 80 years old. Cough TECHNIQUE: Single AP portable view of the chest. COMPARISON: Comparison is made with prior study dated 03/30/2021. FINDINGS: There is hyperinflation of the lungs consistent with chronic obstructive lung disease (COPD). There is no demonstrated pleural abnormality. Normal size heart. Normal mediastinum and guy. There is prominence of the pulmonary hilar arteries without peripheral pulmonary vascular congestion, suggesting pulmonary hypertension. There is atherosclerotic calcification of the aortic arch with tortuosity. There are diffuse degenerative changes of the visualized thoracic spine. Normal visualized ribs, clavicles, and shoulders. There is no demonstrated abnormality of the visualized soft tissue structures of the upper abdomen. RAD/Chest 1 View (Portable) IMPRESSION: Hyperinflation. The lungs are clear. Electronically Signed: Holden Villalpando MD at 12:15 EDT ,
--- NOTE | 2021-06-28 12:00 | ED.VIS.DYS ---
HPI History of Present Illness Chief Complaint: Shortness of Breath Narrative Narrative: 80-year-old female with intermittent shortness of breath. She feels as if she is getting mucous plugs in her throat and in her chest. She states that during these episodes she feels like she cannot breathe but then she is able to clear her throat and this helps. Patient does not have chest pain. She not short of breath in between these episodes. She denies fever or chills. She states he sees Dr. Taylor from pulmonology. He prescribes her 5 mg of prednisone a day and has increased her Mucinex to 1200 mg twice daily although she is not taking the Mucinex. When I asked her how long it had been since he is taken it she said quite some time. Patient recently finished a Z-Michelet. Patient on Trelegy. Previously on Breo. [facility] Medical History Allergies Arthritis Asthma bladder/uti problem Carpal tunnel syndrome Diabetes GERD (gastroesophageal reflux disease) GI problem Headache, migraine Hearing problem Tremor of right hand Vision problem Home Medications omeprazole 40 mg PO DAILY 07/05/15 [History Last Taken 11/04/18 05:30] donepezil 10 mg tablet 10 mg PO DAILY 12/09/19 [History Last Taken Unknown] glucose test strips NOT APPLICABLE 12/09/19 [History Last Taken Unknown] blood sugar diagnostic #100 ea 03/03/20 [Rx Last Taken Unknown] fluticasone propionate 50 mcg/actuation nasal spray,suspension 1 spray INTRANASAL DAILY 06/08/20 [History Last Taken Unknown] loperamide 2 mg capsule 2 mg PO Q6H PRN 06/08/20 [History Last Taken Unknown] nebulizer accessories #1 ea 09/12/20 [Rx Last Taken Unknown] nebulizers #1 ea 09/12/20 [Rx Last Taken Unknown] albuterol sulfate 2.5 mg INHALATION Q6H #90 ml 09/15/20 [Rx Last Taken Unknown] metformin 750 mg tablet,extended release 24 hr 750 mg PO BID #180 tab 03/20/21 [Rx Last Taken Unknown] albuterol sulfate 90 mcg/actuation aerosol inhaler 1 puff INHALATION Q4H PRN PRN #25.5 g 05/31/21 [Rx Last Taken Unknown] propranolol 20 mg tablet 20 mg PO BID PRN #180 tab 05/31/21 [Rx Last Taken Unknown] ProAir HFA 90 mcg/actuation aerosol inhaler 2 puff INHALATION Q6H PRN #8.5 g NS 06/08/21 [Rx Last Taken Unknown] azithromycin 250 mg tablet See Rx Instructions PO .COMPLEX #6 tab 06/20/21 [Rx Last Taken Unknown] fluticasone fur. 200 mcg-umeclid 62.5 mcg-vilant 25 mcg inhalat.powder 1 inh INHALATION DAILY #60 ea 06/20/21 [Rx Last Taken Unknown] prednisone 10 mg tablet 10 mg PO DAILY #20 tab 06/20/21 [Rx Last Taken Unknown] Allergy/AdvReac Type Severity Reaction Status Date / Time dicyclomine HCl [From Bentyl] AdvReac HEART RACES Verified 06/28/21 11:06 Family History Mother Alzheimer's dementia Surgical History 2 nasal surgies fibroid removal meniscal repair Social History Smoking Status: Never smoker alcohol intake: never substance use type: does not use what type of physical activity do you participate in: walking and aerobics frequency: daily ROS ROS ED Constitutional Constitutional ED: Denies chills or fever(s) Eyes Eyes: Denies blurry vision or diplopia ENT ENT ED: Denies rhinorrhea or sore throat Cardiovascular Cardiovascular: Denies chest pain or palpitations Respiratory/Chest Respiratory/Chest: Reports cough and dyspnea Gastrointestinal Gastrointestinal: Denies abdominal pain, nausea or vomiting Genitourinary Genitourinary ED: Denies dysuria or hematuria Musculoskeletal Musculoskeletal: Denies arthralgias or myalgias Integumentary Denies rash Neurologic Neurologic: Denies headache(s) or weakness Psychiatric Psychiatric: Denies anxiety or depression EXAM Physical Exam Const Vital Signs: 06/28/21 11:06 06/28/21 11:49 06/28/21 12:30 Temperature 98.2 F Temperature Source Temporal Pulse Rate 62 Respiratory Rate 14 Respiratory Effort Normal Non-Labored Respiratory Depth Normal Respiratory Pattern Normal Blood Pressure 131/115 H 150/87 H Blood Pressure Mean 120 108 Pulse Ox 95 Oxygen Delivery Method Room Air Positive well nourished General Appearance ED: NAD; Negative for pallor HEENT Reports moist mucous membranes atraumatic Eyes PERRL and EOMs intact bilaterally Neck no lymphadenopathy and supple Neck Narrative: No stridor Resp normal respiratory effort and clear to auscultation bilaterally Auscultation: Negative for rales, rhonchi or wheezes Neuro oriented x3 and CN's II-XII intact bilaterally Sensorium / Orientation: alert Psych mental status grossly normal Skin General Skin Exam: Negative for jaundice or pallor MDM MDM MDM Narrative Medical decision making narrative: Patient presenting with intermittent cough and stating that she is having mucus in her throat which is difficult to clear. Looking to the medical record this does not appear to be a new issue. Patient does report to me that she is not taking the Mucinex which was prescribed for her which may help with her symptoms. She states it has been a very long time since she has taken this. She has not had any new symptoms and has had multiple visits with pulmonology. I did obtain a chest x-ray and on my interpretation there is no acute cardiopulmonary process. Radiologist does agree. The patient has normal vital signs. She is nontoxic-appearing. I counseled the patient that she would likely just need to continue her Mucinex for now. I do not see any emergent need for blood work or further imaging. She will follow-up with pulmonology. Impression: 1. Cough 2. Dyspnea Radiography Diagnostic Testing: Clinical Impression(s) from Imaging Studies Chest X-Ray 06/28/21 11:49 IMPRESSION: Hyperinflation. The lungs are clear. Electronically Signed: Holden Villalpando MD at 12:15 EDT , Discharge Plan Triage Chief Complaint: Shortness of Breath ED Provider: Duran Woodard Dx/Rx/DC Orders Instructions: ED Dyspnea Prescriptions: No Action donepezil 10 mg tablet 10 mg PO DAILY RF: 0 glucose test strips Not Applicable RF: 0 fluticasone propionate [Flonase Allergy Relief] 50 mcg/actuation spray,suspension 1 spray intranasal DAILY RF: 0 loperamide [Imodium A-D] 2 mg capsule 2 mg PO Q6H PRN (Reason: Diarrhea) RF: 0 albuterol sulfate 90 mcg/actuation HFA aerosol inhaler 1 puff INHALATION Q4H PRN PRN (Reason: Sob &/Or Wheezing) Qty: 25.5 RF: 0 propranolol 20 mg tablet 20 mg PO BID PRN (Reason: tremor) Qty: 180 RF: 3 prednisone 10 mg tablet 10 mg PO DAILY Qty: 20 RF: 0 azithromycin 250 mg tablet See Rx Instructions PO .COMPLEX Qty: 6 RF: 0 Trelegy Ellipta 200-62.5-25 mcg blister with device 1 inh inhalation DAILY Qty: 60 RF: 3 omeprazole 40 MG capsule 40 mg PO DAILY RF: 0 (DME) OneTouch Verio test strips Strip See Rx Instructions .ROUTE .MEDSUPPLY Qty: 100 RF: 2 (DME) nebulizer accessories Kit See Rx Instructions .ROUTE .MEDSUPPLY Qty: 1 RF: 0 (DME) nebulizers Misc See Rx Instructions .ROUTE .MEDSUPPLY Qty: 1 RF: 0 albuterol sulfate 2.5 mg /3 mL (0.083 %) solution for nebulization 2.5 mg inhalation Q6H Qty: 90 RF: 2 metformin 750 mg tablet extended release 24 hr 750 mg PO BID Qty: 180 RF: 1 albuterol sulfate [ProAir HFA] 90 mcg/actuation HFA aerosol inhaler 2 puff inhalation Q6H PRN (Reason: shortness of breath or wheezing) Qty: 8.5 RF: 1 Primary Care Provider: Liane Ba Referrals: Doug Taylor MD [STAFF PHYSICIAN] - 3-5 Days Liane Ba MD [Primary Care Provider] - Disposition Disposition: Home, Self Care Discharge Date/Time: 06/28/21 13:43
[2021-06-28 12:30] VITALS: BP 150/87
== END 2021-06-28 13:43 | disposition home or self-care (01) ==
PROVIDERS: Emergency Provider Student in an Organized Health Care Education/Training Program; PCP Internal Medicine; Visit Provider Student in an Organized Health Care Education/Training Program
DX: R05.9 Cough, unspecified (principal); R06.00 Dyspnea, unspecified; J45.909 Unspecified asthma, uncomplicated; K21.9 Gastro-esophageal reflux disease without esophagitis; Z79.899 Other long term (current) drug therapy; M19.90 Unspecified osteoarthritis, unspecified site
CPT/HCPCS: 71045; 99282; A4216

== ENCOUNTER → 2021-10-09 | Outpatient (CLI) | payer MEDICARE, SELFPAY ==
[2021-10-09 11:19] LABS: Erythrocyte Sedimentation Rate 13 mm/hr (0-30)
[2021-10-09 11:46] LABS: CRP 4.33 mg/L (0.0-3.0); LDH 154 U/L (84-246)
[2021-10-10 13:07] LABS: Anti-Centromere B Ab <0.2 AI (0.0-0.9); Anti-Chromatin <0.2 AI (0.0-0.9); Anti-Jo <0.2 AI (0.0-0.9); Anti-Scleroderma-70 AB <0.2 AI (0.0-0.9); RNP Ab 0.4 AI (0.0-0.9); SJOGREN'S Anti-SS-A test < 0.2 AI (0.0-0.9); SJOGREN'S Anti-SS-B test < 0.2 AI (0.0-0.9); Smith Ab <0.2 AI (0.0-0.9)
[2021-10-10 16:09] LABS: Endomysial Antibody IgA Negative (Negative)
[2021-10-10 17:46] LABS: Anti-dsDNA Ab 1 IU/mL (0-9)
[2021-10-11 11:29] LABS: Immunoglobulin A 198 mg/dL (64-422); t-Transglutaminase IgA <2 U/mL (0-3)
[2021-10-14 11:08] LABS: Albumin 3.4 g/dL (2.9-4.4); Alpha-1-Globulins 0.2 g/dL (0.0-0.4); Alpha-2-Globulins 0.7 g/dL (0.4-1.0); Cytoplasmic Ab (C-ANCA) <1:20 titer (Neg:<1:20); Gamma Globulin 0.6 g/dL (0.4-1.8); Immunoglobulin A 207 mg/dL (64-422); Immunoglobulin E 143 IU/mL (6-495); Immunoglobulin G 794 mg/dL (586-1602); PROEL- TOTAL PROTEIN 6.1 g/dL (6.0-8.5)
[2021-10-15 14:27] LABS: Immunoglobulin M 23 mg/dL (26-217); Perinuclear Ab (P-ANCA) <1:20 titer (Neg:<1:20)
== END | disposition home or self-care (01) ==
LOC: LAB 09:08
PROVIDERS: PCP Internal Medicine; Visit Provider Internal Medicine Gastroenterology
DX: R19.7 Diarrhea, unspecified (principal)
CPT/HCPCS: 36415; 82784; 82785; 83516; 83615; 84165; 85652; 86140; 86225; 86235; 86255; 86256; 86334

== ENCOUNTER → 2021-10-16 | Outpatient (CLI) | payer MEDICARE, SELFPAY ==
[2021-10-21 16:44] LABS: Pancreatic Elastase, Fecal > 500 (>200)
[2021-10-21 17:10] LABS: Calprotectin, Stool 29 ug/g (0-120)
== END | disposition home or self-care (01) ==
PROVIDERS: PCP Internal Medicine; Referring Provider Internal Medicine Gastroenterology; Visit Provider Internal Medicine Gastroenterology
DX: R19.7 Diarrhea, unspecified (principal); K58.9 Irritable bowel syndrome, unspecified
CPT/HCPCS: 82653; 83630; 83993; 87493; 87506

== ENCOUNTER → 2022-01-01 | Outpatient (CLI) | payer MEDICARE, SELFPAY ==
[2022-01-01 12:30] VITALS: PULSE 66; PULSE 67; PULSE 86; PULSE 93; PULSE 94; PULSE 95; PULSE 96; PULSE 97; O2SAT 88; O2SAT 90; O2SAT 92; O2SAT 93; O2SAT 94
--- NOTE | 2022-01-01 13:02 | CPS ---
Patient stated that she doesn't wear oxygen at home. Prior to test patient's sat's were 88% on RA, therefore test was initiated on 2L. Sat's were maintained above 90% for the remainder of the test on 2L.
--- NOTE | 2022-01-01 15:20 | PCM.PSN.6M ---
PSN 6 Minute Walk Test 6 Minute Walk Test 6 Minute Walk Test: 6 Minute Walk Test PSN:6-Minute Walk Test Start: 01/01/22 12:59 Freq: Status: Active Protocol: [id number].6MINW Document 01/01/22 12:30 (Rec: 01/01/22 13:04 [id number]) 6 Minute Walk Test Date Performed 01/01/22 Time Performed 12:30 Height 5 ft 3 in Weight: 67.585 kg Weight in Pounds 149.[address]: Doug Taylor FIO2 (% Oxygen) 28 Assistive device used: None Pre-test Oxygen Delivery Method Room Air Pulse Ox (%) 88 Pulse Rate (60-100 beats/min) 66 Dyspnea Monse Scale (0-10) 0 Exertion Monse Scale (6-20) 6 1st minute Oxygen Flow Rate (L/min) (L/min) 2 Oxygen Delivery Method Nasal Cannula Pulse Ox (%) 93 Pulse Rate (60-100 beats/min) 86 2nd minute Oxygen Flow Rate (L/min) (L/min) 2 Oxygen Delivery Method Nasal Cannula Pulse Ox (%) 90 Pulse Rate (60-100 beats/min) 93 3rd minute Oxygen Flow Rate (L/min) (L/min) 2 Oxygen Delivery Method Nasal Cannula Pulse Ox (%) 93 Pulse Rate (60-100 beats/min) 96 4th minute Oxygen Flow Rate (L/min) (L/min) 2 Oxygen Delivery Method Nasal Cannula Pulse Ox (%) 92 Pulse Rate (60-100 beats/min) 94 5th minute Oxygen Flow Rate (L/min) (L/min) 2 Oxygen Delivery Method Nasal Cannula Pulse Ox (%) 93 Pulse Rate (60-100 beats/min) 97 6th minute Oxygen Flow Rate (L/min) (L/min) 2 Oxygen Delivery Method Nasal Cannula Pulse Ox (%) 93 Pulse Rate (60-100 beats/min) 95 Post-test Oxygen Flow Rate (L/min) (L/min) 2 Oxygen Delivery Method Nasal Cannula Pulse Ox (%) 94 Pulse Rate (60-100 beats/min) 67 Dyspnea Monse Scale (0-10) 1 Exertion Monse Scale (6-20) 6 Full Laps Walked 12 Partial Lap, Number of Tiles Walked 0 Total Distance Walked (ft) 708 01/01/22 13:02 Cardiopulmonary Services by Callie Bautista Patient stated that she doesn't wear oxygen at home. Prior to test patient's sat's were 88% on RA, therefore test was initiated on 2L. Sat's were maintained above 90% for the remainder of the test on 2L. Initialized on 01/01/22 13:02 - END OF NOTE Interpretation Interpretation: Patient noted to be 88% on room air at rest was placed on 2 L nasal cannula. The patient was then able to ambulate 708 feet over the course of 6 minutes with no assistive devices or breaks. No significant tachycardia was noted and oxygen [place] on 2 L/min was 90%. These findings are consistent with a respiratory limitation exercise tolerance. Recommendations Recommendations: 2 L nasal cannula oxygen should be used at all times
== END | disposition home or self-care (01) ==
LOC: PSN 12:18
PROVIDERS: PCP Internal Medicine; Visit Provider Internal Medicine Critical Care Medicine
DX: J45.909 Unspecified asthma, uncomplicated (principal)
CPT/HCPCS: 94618

== ENCOUNTER → 2022-08-22 | Outpatient (CLI) | payer MEDICARE, SELFPAY ==
[2022-08-22 12:51] LABS: Absolute Lymphocyte Count 3.22 X10^3/uL (0.83-4.51); Absolute Neutrophil Count 5.3 X10^3/uL (2.0-7.7); Basophil# 0.04 X10^3/uL; Basophil% 0.4 % (0-1); Eosinophil# 0.28 X10^3/uL; Hematocrit 40.5 % (37-47); Hemoglobin 13.5 g/dL (12.0-15.0); Lymphocyte # 3.22 X10^3/ul (0.83-4.51); Mean Corp Hgb Conc 33.3 g/dL (32-36); Mean Corpuscular Hgb 31.2 pg (27.0-32.0); Mean Corpuscular Volume 93.5 fL (81-99); Mean Platelet Vol. 10.2 fl (6.2-12.0); Monocyte# 0.58 X10^3/uL; Monocyte% 6.1 % (0-10); NRBC Flagged by Analyzer 0 % (0-5); Neutrophil # 5.31 X10^3/uL (2.7-7.7); Neutrophil % 56.2 % (47-70); Platelet Count 252 K/mm3 (150-450); RBC Distribution Width CV 12.9 % (11.6-14.6); RBC Distribution Width SD 44.5 fl (35.1-43.9); Red Blood Count 4.33 M/mm3 (4.2-5.4); White Blood Count 9.5 K/mm3 (4.4-11.0)
[2022-08-22 13:16] LABS: Vitamin D,25 Hydroxy 35.8 ng/mL
[2022-08-22 13:21] LABS: Hemoglobin A1c 9.6 % (3.8-5.6)
[2022-08-22 13:24] LABS: ALB/GLOB Ratio 0.7 RATIO (0.9-2.4); AST(SGOT) 10 U/L (15-37); Alanine Aminotransfer ALT/SGPT 14 U/L (13-56); Albumin, Serum 3.1 g/dL (3.2-5.0); Alkaline Phosphatase 94 U/L (45-117); Anion Gap 2 (5-15); BUN 10 mg/dL (7-18); BUN/Creat Ratio 13.3 RATIO (10-20); Chloride 106 mmol/L (98-107); Creatinine, Serum 0.75 mg/dL (0.55-1.02); EST Glomerular Filtration Rate 79 mL/min (>60); Est Glom Filt Rate - Afr Amer 96 mL/min (>60); Free T3 2.3 pg/mL (2.18-3.98); Globulin 4.4 g/dL (2.2-4.2); Glucose 204 mg/dL (74-106); Potassium 4.3 mmol/L (3.5-5.1); Protein, Total 7.5 g/dL (6.4-8.2); Sodium Level 137 mmol/L (136-145); T4 Free Direct 0.87 ng/dL (0.76-1.46); Thyroid Stim Hormone (TSH) 0.38 uIU/mL (0.358-3.74)
== END | disposition home or self-care (01) ==
LOC: LAB 12:04
PROVIDERS: PCP Internal Medicine; Referring Provider Internal Medicine; Visit Provider Internal Medicine
DX: R41.89 Other symptoms and signs involving cognitive functions and awareness (principal); E11.9 Type 2 diabetes mellitus without complications; I10 Essential (primary) hypertension; R05.9 Cough, unspecified; K21.9 Gastro-esophageal reflux disease without esophagitis; R06.00 Dyspnea, unspecified; E55.9 Vitamin D deficiency, unspecified
CPT/HCPCS: 36415; 80053; 82306; 83036; 84439; 84443; 84481; 85025

== ENCOUNTER 2023-05-24 11:24 | Inpatient (IN) | payer MEDICARE, SELFPAY ==
[2023-05-24] VITALS (15 sets, daily range): BP systolic 116–157; BP diastolic 60–89; PULSE 63–136; RESP 16–25; TEMP 35.5–37.1; O2SAT 94–100; BMI 24.5; BMI 22.6
--- NOTE | 2023-05-24 11:27 | EKG12_ITS ---
Test Reason : ARRHYTHMIA Blood Pressure : / mmHG Vent. Rate : 130 BPM Atrial Rate : 000 BPM P-R Int : 000 ms QRS Dur : 104 ms QT Int : 344 ms P-R-T Axes : 000 039 007 degrees QTc Int : 506 ms Atrial fibrillation with rapid ventricular response Incomplete right bundle branch block ST depression, consider subendocardial injury Abnormal ECG When compared with ECG of 24-MAY-2023 12:47, MANUAL COMPARISON REQUIRED, DATA IS UNCONFIRMED Confirmed by FARHAT PEREZ, ABELINO ([id number]), editor school photograph JOANNA JANG ([id number]) on 05/27/2023 11:25:28 AM Referred By: Melendrez Confirmed By:ABELINO DOUGHERTY MD
--- NOTE | 2023-05-24 11:28 | CT_ITS ---
STUDY: CTA HEAD AND NECK WITH CONTRAST REASON FOR EXAM: Female, 82 years old. tia RADIATION DOSAGE (If Supplied By Facility): CTDIvol = ( 29.56 ) mGy, DLP = ( 2423.33 ) mGycm TECHNIQUE: CT angiography was performed with a multi-detector CT scanner. Data acquisition was obtained from the skull base through the vertex following intravenous administration of IV 100mL [id number]-[id number]. MIP images were reconstructed from the axial data set. Post-processing of the angiographic images was performed, with multiplanar reformation and 3D reconstruction. Individualized dose optimization techniques were used for this CT. COMPARISON: No relevant priors. FINDINGS: Normal bilateral petrous carotid arteries. There is calcified plaque formation of the right cavernous carotid artery, without a cross-sectional luminal stenosis. There is calcified plaque formation of the left cavernous carotid artery, without a cross-sectional luminal stenosis. Normal right A1 segments of the anterior cerebral artery. Normal left A1 segments of the anterior cerebral artery. Normal intact anterior communicating artery (ACOM). Normal bilateral A2 segments of the anterior cerebral arteries. Normal right M1 and M2 segments of the middle cerebral arteries, with a normal M1 bifurcation. Normal left M1 and M2 segments of the middle cerebral arteries, with a normal M1 bifurcation. Normal right posterior communicating artery (PCOM). Normal left posterior communicating artery (PCOM). Normal bilateral vertebral arteries. Normal basilar artery with a normal basilar bifurcation. The visualized bilateral superior cerebellar (SCA) arteries are normal. Normal bilateral P1, P2 and visualized P3 segments of the posterior cerebral arteries. There is no demonstrated aneurysm of the [place]. Mild degree of cerebral atrophy with periventricular changes suggestive of chronic ischemic changes. Tiny old lacunar in both basal ganglia. Partial opacification of the maxillary sinuses bilaterally more prominent on the left side with evidence of prior sinus surgery. Mild degree of sinusitis involving the left frontal sinus. Hyperostosis frontalis interna. There is a 1.4 cm x 1.3 cm bony density in the superior aspect of the anterior right frontal lobe. This represents a calcified meningioma. AORTIC ARCH: There is atherosclerotic calcific plaque formation of the aortic arch and great vessels arising from the aortic arch, without a hemodynamically significant stenosis. There is a normal origin of the brachiocephalic, left common carotid, and left subclavian arteries. Normal origins of the brachiocephalic, left common carotid, and left subclavian arteries. RIGHT CAROTID ARTERIES: Normal right common carotid artery (CCA). Normal right common carotid bulb. Normal origin of the right internal carotid (ICA) artery without a hemodynamically significant stenosis. Normal visualized cervical portion of the right internal carotid artery. Normal origin of the right external carotid artery (ECA). LEFT CAROTID ARTERIES: Normal left common carotid artery (CCA). Normal left common carotid bulb. There is mild atherosclerotic plaque formation of the origin of the left internal carotid artery with less than 50% cross sectional diameter stenosis. Normal visualized cervical portion of the left internal carotid artery. Normal origin of the left external carotid artery (ECA). VERTEBRAL ARTERIES: Normal bilateral vertebral arteries. CT/CTA Head AND Neck W/ Contrast IMPRESSION: Minimal plaque formation at the origin of the left internal carotid artery. Chronic ischemic changes in the brain. Questionable calcified meningioma in the anterior aspect of the left frontal lobe superiorly. Electronically Signed: Holden Villalpando MD at 13:02 EDT ,
--- NOTE | 2023-05-24 11:35 | EDS_ITS ---
HPI History of Present Illness Chief Complaint: Stroke Alert Informant: patient, family and EMS Narrative Narrative: EMS called prehospital stroke for left-sided weakness. Reportedly has fallen recently. EMS notes that she had a small amount of emesis on the way in. Reportedly per them the last known well was 2000 hours last night. Patient states she does not have a history of atrial fibrillation. She has had chronic cough and congestion and sees pulmonology. Previously on palliative care when they are coming out to the house. She is not able to tell me if they are coming out now. She reportedly wears supplemental oxygen. No known blood thinners. Daughter states that she fell just after Easter eating her ribs. She saw geriatrics yesterday in the office. She apparently had 2 falls since then. This morning daughter states she was extremely confused. The patient lives with her and they have palliative care that comes in and assist with him and also assist with her. Daughter notes that her father called her today stating that he was not able to get her up. Daughter states that she seemed to be leaning to the left and not moving the left side of her body. [facility] Medical History Allergies Arthritis bladder/uti problem Carpal tunnel syndrome Diabetes GERD (gastroesophageal reflux disease) GI problem Headache, migraine Hearing problem Tremor of right hand Vision problem Home Medications loperamide 2 mg capsule (Imodium A-D) 2 mg PO Q6H PRN Diarrhea 06/08/20 [History Last Taken Unknown] nebulizer accessories #1 ea 09/12/20 [Rx Last Taken Unknown] nebulizers #1 ea 09/12/20 [Rx Last Taken Unknown] albuterol sulfate 2.5 mg/3 mL (0.083 %) solution for nebulization 2.5 mg (3 mL) inhalation Q6H #90 mL 09/15/20 [Rx Last Taken Unknown] melatonin 3 mg tablet 3 mg PO QHS PRN sleep #30 tabs 07/21/21 [Rx Last Taken Unknown] blood sugar diagnostic (I-frontdeskuch Ultra Test strips) #100 ea 11/29/21 [Rx Last Taken Unknown] lancets 33 gauge (Credit SesameTouch Delica Lancets) #100 ea 12/22/21 [Rx Last Taken Unknown] one touch ultra glucose meter ##1 06/25/22 [Rx Last Taken Unknown] albuterol sulfate 90 mcg/actuation aerosol inhaler (Ventolin HFA) 2 puff inhalation Q4H PRN shortness of breath or wheezing #18 grams 01/28/23 [Rx Last Taken Unknown] benzonatate 100 mg capsule 100 mg PO BID PRN cough #90 caps 01/28/23 [Rx Last Taken 05/12/23] fluticasone propionate 50 mcg/actuation nasal spray,suspension 2 spray intranasal DAILY #16 grams 01/28/23 [Rx Last Taken Unknown] guaifenesin 1,200 mg tablet, extended release 12 hr 1,200 mg PO Q12H #60 tabs 01/28/23 [Rx Last Taken 05/23/23] fluticasone fur. 200 mcg-umeclid 62.5 mcg-vilant 25 mcg inhalat.powder (Trelegy Ellipta) 1 inh inhalation DAILY #3 ea 02/28/23 [Rx Last Taken 05/23/23] donepezil 10 mg tablet 10 mg PO DAILY #90 tabs 04/05/23 [Rx Last Taken 05/24/23] propranolol 20 mg tablet 20 mg PO BID tremor #180 tabs 04/15/23 [Rx Last Taken 05/24/23] sitagliptin phosphate 50 mg-metformin 1,000 mg tablet (Janumet) 1 tab PO BID #180 tabs 05/17/23 [Rx Last Taken 05/24/23] sertraline 50 mg tablet 75 mg PO DAILY 05/24/23 [History Last Taken 05/24/23] Allergy/AdvReac Type Severity Reaction Status Date / Time dicyclomine HCl [From Bentyl] AdvReac HEART RACES Verified 04/05/23 10:06 Family History Mother Alzheimer's dementia Surgical History 2 nasal surgies fibroid removal meniscal repair Social History Smoking Status: Never smoker alcohol intake: never substance use type: does not use what type of physical activity do you participate in: walking and aerobics frequency: daily ROS ROS ED Review of Systems ROS Unobtainable: due to mental status and other Details: ROS Discussed with Daughter Constitutional Constitutional ED: Denies chills, fever(s) or weight loss Eyes Eyes: Denies change in vision or diplopia ENT ENT ED: Denies ear pain, rhinorrhea or sore throat Cardiovascular Cardiovascular: Reports chest pain and other Details: Patient has been having lower rib pain since just after Easter from a fall ; Denies orthopnea, palpitations or racing heartbeat Respiratory/Chest Respiratory/Chest: Reports cough; Denies dyspnea or orthopnea Gastrointestinal Gastrointestinal: Reports vomiting; Denies abdominal pain, diarrhea or nausea Genitourinary Genitourinary ED: Denies dysuria, hematuria or urinary frequency Musculoskeletal Musculoskeletal: Denies arthralgias or myalgias Integumentary Denies abscess or rash Neurologic Neurologic: Reports weakness; Denies headache(s) Psychiatric Psychiatric: Denies anxiety, depression, suicidal ideation or suicidal thoughts Endocrine Endocrinology: Denies polydipsia, polyphagia or polyuria Allergic/Immunologic Allergic/Immunologic ED: Denies mouth swelling, tongue swelling or urticaria EXAM Physical Exam Const Vital Signs: 05/24/23 11:28 05/24/23 11:51 05/24/23 12:00 Temperature 96 F L Temperature Source Temporal Pulse Rate 136 H 86 Respiratory Rate 24 H 20 H Respiratory Pattern Blood Pressure 116/67 152/85 H Blood Pressure Mean 83 107 Pulse Ox 100 94 99 Oxygen Delivery Method Room Air Nasal Cannula Oxygen Flow Rate (L/min) 2 05/24/23 12:45 05/24/23 13:00 05/24/23 14:02 Temperature Temperature Source Pulse Rate 84 70 68 Respiratory Rate 20 H 22 H 18 Respiratory Pattern Normal Blood Pressure 149/69 H 141/73 H Blood Pressure Mean 93 94 Pulse Ox 99 100 Oxygen Delivery Method Oxygen Flow Rate (L/min) 05/24/23 13:15 05/24/23 13:30 05/24/23 13:45 Temperature Temperature Source Pulse Rate 86 79 63 Respiratory Rate 24 H 23 H 21 H Respiratory Pattern Blood Pressure 157/89 H 135/73 H 127/60 H Blood Pressure Mean 102 91 79 Pulse Ox 100 99 Oxygen Delivery Method Oxygen Flow Rate (L/min) 05/24/23 14:00 Temperature Temperature Source Pulse Rate 73 Respiratory Rate 22 H Respiratory Pattern Blood Pressure 151/66 H Blood Pressure Mean 90 Pulse Ox 100 Oxygen Delivery Method Oxygen Flow Rate (L/min) Positive well nourished and well developed General Appearance ED: well developed HEENT Reports normocephalic, head/scalp atraumatic and moist mucous membranes HEENT Narrative: There is emesis around her mouth Eyes PERRL and EOMs intact bilaterally Neck no lymphadenopathy, supple and no JVD Resp normal respiratory effort Resp Narrative: Moist rhonchorous lung sounds Auscultation: rhonchi Cardio Rate: tachycardic Rhythm: abnormal rhythm irregularly irregular GI normal to inspection, nondistended, normoactive bowel sounds and non-tender Palpation: soft Back/Spine no CVA tenderness and normal ROM Extremity normal to inspection General Extremety ED: Negative for edema General Extremity: Negative for edema Neuro CN's II-XII intact bilaterally Sensorium / Orientation: lethargic Motor Exam: strength 5/5 throughout Psych Mood & Affect: Negative for depressed or tearful Skin no rashes or lesions noted and no wounds MDM MDM MDM Narrative Medical decision making narrative: Prehospital stroke team was called. I evaluated the patient in the ambulance bay. Patient really needed to use the bathroom. She was moving her arm and her legs. This was a significant improvement off of EMSs initial report. I do not think this is an LVO and she is out of the timeframe for tPA. Therefore the patient was taken to her room where she could use the bathroom. Patient very restless and over the course of a few minutes was attempting to remove support lines and IVs. I gave her light sedation with 1/[address] of the brain does not demonstrate any intracerebral hemorrhage or mass. CTA does not show LVO. Initially when she came in she showed A-fib with RVR on the monitor. Currently she is in a normal sinus rhythm with a ventricular rate of 82. White count 13.9 hematocrit 38.4 platelet count 368 INR 1.0 with a PTT of 23.5 creatinine 0.75 magnesium 1.5 troponin 37 BNP 179.7. My independent interpretation of the chest x-ray is right lower lung possible effusion with atelectasis versus early infiltrate. Given her most rhonchorous cough and the emesis in her mouth concern possibly for aspiration therefore Zosyn was ordered. At this point and then admit her with a diagnosis of TIA delirium and pneumonia. With the elevated white count a possible aspiration the findings of the chest x-ray and the moist rhonchorous cough. As I discussed with family she may have had small emboli resulting in stroke that were not seen on the initial brain imaging. History & Record Review Discussion w/independent historian: EMS personnel, Patient and Family Lab Data Attestation: I reviewed the patient's lab results. Labs: Laboratory Results - last 24 hr 05/24/23 05/24/23 11:43 13:26 WBC 13.9 H RBC 3.94 L Hgb 12.2 Hct 38.4 MCV 97.5 MCH 31.0 MCHC 31.8 L RDW Std Deviation 48.5 H RDW Coeff of Yesenia 13.5 Plt Count 368 MPV 10.1 Immature Gran % (Auto) 0.600 Neut % (Auto) 77.4 H Lymph % (Auto) 13.8 L Wilbarger % (Auto) 7.1 Eos % (Auto) 0.6 Baso % (Auto) 0.5 Absolute Neuts (auto) 10.7 H Absolute Lymphs (auto) 1.92 Nucleated RBC % 0 PT 12.8 INR 1.0 APTT 23.5 L Sodium 139 Potassium 4.3 Chloride 103 Carbon Dioxide 29.0 Anion Gap 7 BUN 13 Creatinine 0.75 Estim Creat Clear Calc 50.11 Est GFR (MDRD) Af Amer 96 Est GFR (MDRD) Non-Af 79 BUN/Creatinine Ratio 17.4 Glucose 276 H Calcium 9.1 Magnesium 1.5 L Total Bilirubin 0.40 Direct Bilirubin 0.13 AST 20 ALT 24 Alkaline Phosphatase 88 Troponin I High Sens 37 B-Natriuretic Peptide 179.7 H Total Protein 7.4 Albumin 3.0 L Globulin 4.4 H TSH 0.18 L Urine Color Yellow Urine Clarity Clear Urine pH 5.0 Ur Specific [place] 1.010 Urine Protein 15 H Urine Glucose (UA) 50 H Urine Ketones 5 H Urine Occult Blood 10 H Urine Nitrite Negative Urine Bilirubin Negative Urine Urobilinogen Normal Ur Leukocyte Esterase 25 H Urine RBC 0 SEEN Urine WBC 0-5 SEEN Ur Squamous Epith Cells 0-5 SEEN Urine Bacteria RARE Urine Mucus 0 SEEN Radiography Diagnostic Testing: Clinical Impression(s) from Imaging Studies Head/Neck CTA 05/24/23 11:28 IMPRESSION: Minimal plaque formation at the origin of the left internal carotid artery. Chronic ischemic changes in the brain. Questionable calcified meningioma in the anterior aspect of the left frontal lobe superiorly. Electronically Signed: Holden Villalpando MD at 13:02 EDT , Chest X-Ray 05/24/23 12:30 IMPRESSION: Atelectasis and/or infiltrate in the right lower lobe with blunting of the right phrenic angle. Prominence of the central pulmonary arteries. Mild degree of vascular congestion. Electronically Signed: Holden Villalpando MD at 12:54 EDT , EKG Initial EKG: Attestation: I personally reviewed and interpreted this EKG as follows: Interpretation: Sinus Rhythm Comments: Sinus rhythm with a ventricular rate of 82 bpm Management Discussion w/another healthcare provider: Hospitalist Discharge Plan Dx/Rx/DC Orders Clinical Impression: Delirium, Brain TIA, New onset a-fib, Pneumonia Disposition Disposition: Acute Care Hospital [facility] Discharge Date/Time: 05/24/23 14:40 NIHSS NIHSS 1a. Level of Consciousness: Alert; keenly responsive 1b. LOC Questions: Answers one question correctly. 1c. LOC Commands: Performs one task correctly. 2. Best Gaze: Normal 3. Visual: No visual loss 4. Facial Palsy: Normal symmetrical movements 5a. Left Arm: No drift; arm holds 90 (or 45) degrees for full 10 seconds 5b. Right Arm: No drift; arm holds 90 (or 45) degrees for full 10 seconds 6a. Left Leg: Drift; leg falls by the end of 5-seconds, but does not hit bed 6b. Right Leg: No drift; leg holds 30-degree position for full 5 seconds 7. Limb Ataxia: Present in 1 limb (Leg) 8. Sensory: Normal; no sensory loss 9. Best Language: No aphasia; normal 10. Dysarthria: Normal (patient no comprehensible words) 11. Extinction and Inattention: No abnormality Total: 4 Stroke Questions Stroke Team Activated: Yes a.Reviewed Inclusion/Exclusion criteria: Yes Was Patient considered for Endovascular Intervention?: No IV Thrombolytic Administered: No
[2023-05-24] MEDS: LORazepam 2 MG/ML Syringe 0.5 MG IV (11:47)
[2023-05-24 11:50] LABS: Absolute Lymphocyte Count 1.92 X10^3/uL (0.83-4.51); Absolute Neutrophil Count 10.7 X10^3/uL (2.0-7.7); Basophil# 0.07 X10^3/uL; Basophil% 0.5 % (0-1); Eosinophil# 0.09 X10^3/uL; Eosinophils% 0.6 % (0-5); Hematocrit 38.4 % (37-47); Hemoglobin 12.2 g/dL (12.0-15.0); Lymphocyte # 1.92 X10^3/ul (0.83-4.51); Lymphocyte % 13.8 % (19-41); Mean Corp Hgb Conc 31.8 g/dL (32-36); Mean Corpuscular Volume 97.5 fL (81-99); Mean Platelet Vol. 10.1 fl (6.2-12.0); Monocyte# 0.98 X10^3/uL; Monocyte% 7.1 % (0-10); NRBC Flagged by Analyzer 0 % (0-5); Neutrophil # 10.73 X10^3/uL (2.7-7.7); Neutrophil % 77.4 % (47-70); Platelet Count 368 K/mm3 (150-450); RBC Distribution Width CV 13.5 % (11.6-14.6); RBC Distribution Width SD 48.5 fl (35.1-43.9); Red Blood Count 3.94 M/mm3 (4.2-5.4); White Blood Count 13.9 K/mm3 (4.4-11.0)
[2023-05-24 12:09] LABS: BNP,B-Type NATRIURETIC PEPTIDE 179.7 pg/mL (0-100)
[2023-05-24 12:12] LABS: Prothrombin Time (Protime)PT. 12.8 SECONDS (11.7-14.9)
[2023-05-24 12:13] LABS: Partial Thromboplast Time 23.5 Seconds (24.1-36.2)
[2023-05-24 12:14] LABS: Anion Gap 7 (5-15); BUN 13 mg/dL (7-18); BUN/Creat Ratio 17.4 RATIO (10-20); Calcium,Total 9.1 mg/dL (8.5-10.1); Chloride 103 mmol/L (98-107); Creatinine, Serum 0.75 mg/dL (0.55-1.02); EST Glomerular Filtration Rate 79 mL/min (>60); Est Glom Filt Rate - Afr Amer 96 mL/min (>60); Estimated Creatinine Clearance 50.11 ml/min; Glucose 276 mg/dL (74-106); Magnesium 1.5 mg/dL (1.6-2.6); Potassium 4.3 mmol/L (3.5-5.1); Sodium Level 139 mmol/L (136-145); Thyroid Stim Hormone (TSH) 0.18 uIU/mL (0.358-3.74); Troponin-I HS 37 pg/mL (3.0-54.0)
--- NOTE | 2023-05-24 12:21 | ED.RN ---
per az Beck for patient to get CT scan before lab results
[2023-05-24 12:22] LABS: AST(SGOT) 20 U/L (15-37); Alanine Aminotransfer ALT/SGPT 24 U/L (13-56); Alkaline Phosphatase 88 U/L (45-117); Bilirubin, Direct 0.13 mg/dL (0.00-0.30); Globulin 4.4 g/dL (2.2-4.2); Protein, Total 7.4 g/dL (6.4-8.2)
--- NOTE | 2023-05-24 12:22 | ED.RN ---
On arrival to ED, patient seems anxious, is trying to pull at her IV line, pulling her gown and blankets down. Patient is not able to be re-directed and does not follow commands appropriately. A second IV is placed an patient does not hold still for placement. Verbal order obtained from Dr. Martin at bedside for Ativan, soft wrist restraints placed to bilateral wrists. Purwick in place, skin intact, vital signs stable. Patient in semi-fowlers position w/ oxygen placced for hx of hypoxia.
--- NOTE | 2023-05-24 12:30 | RAD_ITS ---
STUDY: X-RAY CHEST REASON FOR EXAM: Female, 82 years old. ti TECHNIQUE: Single AP portable view of the chest. COMPARISON: Comparison is made with prior study June 28, 2021. FINDINGS: EKG electrodes are seen. Increased markings at the right lung base suggestive of either atelectasis and/or infiltrate. Blunting of the right costophrenic angle. Mild degree of vascular congestion. Normal size heart. Normal mediastinum and guy. There is prominence of the pulmonary hilar arteries suggesting pulmonary hypertension. There is atherosclerotic calcification of the aortic arch with tortuosity. There are diffuse degenerative changes of the visualized thoracic spine. Normal visualized ribs, clavicles, and shoulders. There is no demonstrated abnormality of the visualized soft tissue structures of the upper abdomen. RAD/Chest 1 View IMPRESSION: Atelectasis and/or infiltrate in the right lower lobe with blunting of the right phrenic angle. Prominence of the central pulmonary arteries. Mild degree of vascular congestion. Electronically Signed: Holden Villalpando MD at 12:54 EDT ,
[2023-05-24 13:27] LABS: Mucous, Urine 0 SEEN /hpf (<or=2+); Red Blood Cells-Urine 0 SEEN /hpf (0-5)
[2023-05-24 13:36] LABS: Color, Urine Yellow (Yellow); Glucose, Dipstick 50 mg/dl (Normal); Ketone-Dipstick 5 mg/dl (Negative); Leukocyte Esterase-Dipstick 25 /ul (Negative); Nitrite-Dipstick Negative (Negative); Occult Blood-Urine 10 /ul (Negative); Protein-Dipstick 15 mg/dl (Negative); Urine Bilirubin Dipstick Negative (Negative); Urine Clarity Clear (Clear); Urine Urobilinogen Normal (Normal)
[2023-05-24 13:52] LABS: Bacteria RARE /hpf (None Seen); Squamous Epithelial Cells - UA 0-5 SEEN /hpf (5-10); White Blood Cells 0-5 SEEN /hpf (0-5)
[2023-05-24] MEDS: Ipratropium/Albuterol Sulfate 3 ML AMPUL.NEB INHALATION (14:01)
[2023-05-24] MEDS: Piperacil/Tazobactam 4.5 GM in 0.9% Normal Saline (100mL MB+) 100 ML IV (14:36)
--- NOTE | 2023-05-24 14:47 | MRI_ITS ---
STUDY: MRI BRAIN WITHOUT CONTRAST REASON FOR EXAM: Female, 82 years old. CVA r/o TECHNIQUE: Standardized multiplanar fat and water weighted pulse sequences were obtained. COMPARISON: CT and CTA brain May 24, 2023 FINDINGS: There is moderate cerebral atrophy with widening of the extra-axial spaces and ventricular dilatation. There are multiple white matter hyperintensities, distributed throughout the deep white matter tracts of the cerebral hemispheres, consistent with moderate chronic white matter ischemic changes. There is no evidence for recent intracranial ischemia or other cause of cytotoxic edema on diffusion weighted imaging (DWI). Normal bilateral basal ganglia. Normal thalami. There is no extra-axial fluid accumulation. Normal flow voids within the major intracranial circulation suggesting patency by spin echo criteria. Normal sella turcica, pituitary gland, infundibular stalk, optic chiasm and hypothalamus. Normal tectal plate and pineal gland. Normal midbrain, gilbert and medulla. Normal cerebellum. Normal basal cisterns. Normal bilateral temporal bones. Normal bilateral internal auditory canals. No demonstrated orbital abnormality, within the constraints of a routine brain study. Mucosal thickening maxillary sinuses and bilateral median antrectomies. Normal calvarium and skull base. Normal visualized soft tissue structures. Normal visualized upper cervical spine. MRI/Brain without Contrast IMPRESSION: Chronic involutional changes. No acute disease. Electronically Signed: Korey Tafoya MD at 16:41 EDT ,
--- NOTE | 2023-05-24 15:17 | PCM.HP.STD ---
HPI - General General Date of Admission: 05/24/23 HPI Narrative NELLI HARTMAN, is a 82 F who presents to the hospital with A-fib with RVR as well as concerns for stroke. EMS reports that she had left-sided paralysis unfortunately she is fairly significantly altered and is unable to provide any history or information. Unfortunately family who is at bedside also does not provide much history. Per the ED physician, she has been falling recently and this morning was extremely confused so they called EMS. At which point she was found to not be able to move her left side. This has completely resolved on arrival to the ER though during my examination because of restlessness she has been restrained but when unlocked she does move her left arm. There is also some evidence of emesis and she does have a white count of 13 with possible right lower lobe consolidation on chest x-ray so she was given antibiotics in the ER. [facility] Medical History Allergies Arthritis bladder/uti problem Carpal tunnel syndrome Diabetes GERD (gastroesophageal reflux disease) GI problem Headache, migraine Hearing problem Tremor of right hand Vision problem Home Medications loperamide 2 mg capsule (Imodium A-D) 2 mg PO Q6H PRN Diarrhea 06/08/20 [History Last Taken Unknown] nebulizer accessories #1 ea 09/12/20 [Rx Last Taken Unknown] nebulizers #1 ea 09/12/20 [Rx Last Taken Unknown] albuterol sulfate 2.5 mg/3 mL (0.083 %) solution for nebulization 2.5 mg (3 mL) inhalation Q6H #90 mL 09/15/20 [Rx Last Taken Unknown] melatonin 3 mg tablet 3 mg PO QHS PRN sleep #30 tabs 07/21/21 [Rx Last Taken Unknown] blood sugar diagnostic (OneTouch Ultra Test strips) #100 ea 11/29/21 [Rx Last Taken Unknown] lancets 33 gauge (OneTouch Delica Lancets) #100 ea 12/22/21 [Rx Last Taken Unknown] one touch ultra glucose meter ##1 06/25/22 [Rx Last Taken Unknown] albuterol sulfate 90 mcg/actuation aerosol inhaler (Ventolin HFA) 2 puff inhalation Q4H PRN shortness of breath or wheezing #18 grams 01/28/23 [Rx Last Taken Unknown] benzonatate 100 mg capsule 100 mg PO BID PRN cough #90 caps 01/28/23 [Rx Last Taken 05/12/23] fluticasone propionate 50 mcg/actuation nasal spray,suspension 2 spray intranasal DAILY #16 grams 01/28/23 [Rx Last Taken Unknown] guaifenesin 1,200 mg tablet, extended release 12 hr 1,200 mg PO Q12H #60 tabs 01/28/23 [Rx Last Taken 05/23/23] fluticasone fur. 200 mcg-umeclid 62.5 mcg-vilant 25 mcg inhalat.powder (Trelegy Ellipta) 1 inh inhalation DAILY #3 ea 02/28/23 [Rx Last Taken 05/23/23] donepezil 10 mg tablet 10 mg PO DAILY #90 tabs 04/05/23 [Rx Last Taken 05/24/23] propranolol 20 mg tablet 20 mg PO BID tremor #180 tabs 04/15/23 [Rx Last Taken 05/24/23] sitagliptin phosphate 50 mg-metformin 1,000 mg tablet (Janumet) 1 tab PO BID #180 tabs 05/17/23 [Rx Last Taken 05/24/23] sertraline 50 mg tablet 75 mg PO DAILY 05/24/23 [History Last Taken 05/24/23] Allergy/AdvReac Type Severity Reaction Status Date / Time dicyclomine HCl [From Bentyl] AdvReac HEART RACES Verified 04/05/23 10:06 Family History Mother Alzheimer's dementia Surgical History 2 nasal surgies fibroid removal meniscal repair Social History Smoking Status: Never smoker alcohol intake: never substance use type: does not use what type of physical activity do you participate in: walking and aerobics frequency: daily ROS Review of Systems ROS Unobtainable: due to mental status Vital Signs Vital Signs Vital Signs: 05/24/23 11:28 05/24/23 11:51 05/24/23 12:00 Temperature 96 F L Temperature Source Temporal Pulse Rate 136 H 86 Respiratory Rate 24 H 20 H Respiratory Pattern Blood Pressure 116/67 152/85 H Blood Pressure Mean 83 107 Pulse Ox 100 94 99 Oxygen Delivery Method Room Air Nasal Cannula Oxygen Flow Rate (L/min) 2 05/24/23 12:45 05/24/23 13:00 05/24/23 14:02 Temperature Temperature Source Pulse Rate 84 70 68 Respiratory Rate 20 H 22 H 18 Respiratory Pattern Normal Blood Pressure 149/69 H 141/73 H Blood Pressure Mean 93 94 Pulse Ox 99 100 Oxygen Delivery Method Oxygen Flow Rate (L/min) 05/24/23 13:15 05/24/23 13:30 05/24/23 13:45 Temperature Temperature Source Pulse Rate 86 79 63 Respiratory Rate 24 H 23 H 21 H Respiratory Pattern Blood Pressure 157/89 H 135/73 H 127/60 H Blood Pressure Mean 102 91 79 Pulse Ox 100 99 Oxygen Delivery Method Oxygen Flow Rate (L/min) 05/24/23 14:00 05/24/23 14:15 05/24/23 14:23 Temperature Temperature Source Pulse Rate 73 82 72 Respiratory Rate 22 H 25 H 16 Respiratory Pattern Blood Pressure 151/66 H 152/69 H Blood Pressure Mean 90 93 Pulse Ox 100 100 99 Oxygen Delivery Method Oxygen Flow Rate (L/min) 05/24/23 14:23 05/24/23 14:23 Temperature 98.3 F 98.7 F Temperature Source Temporal Pulse Rate 72 72 Respiratory Rate 16 16 Respiratory Pattern Blood Pressure 152/69 H 152/69 H Blood Pressure Mean 96 96 Pulse Ox 99 99 Oxygen Delivery Method Nasal Cannula Oxygen Flow Rate (L/min) 2 Weight Weight: 138 lb 10.732 oz Body Mass Index (BMI) 24.5 Physical Exam Narrative General: Alert, confused, Cooperative, restless HEENT: Atraumatic, PERRLA, EOMI, Normocephalic Oral: Moist Mucosa Neck: Supple, No JVD Lungs: Diminished, Normal air movement, rhonchi right greater than left, No wheeze, No rales Cardiovascular: Regular rate, Regular Rhythm, Normal S1, Normal S2, No murmurs Abdomen: Soft, Non Tender, Non-Distended, No Hepato-splenomegaly Extremities: No edema, Capillary Refill Less than 3 Seconds Skin: No rashes, No breakdown Musculoskeletal: No Tenderness to Palpation of Joints or Extremities Neurological: No focal neurological deficits, Motor Exam 5/5 strength throughout, Sensory exam intact to light touch and pain Psych/Mental Status: Flat, restless, confused Results Lab / Micro Data 05/24/23 11:43 05/24/23 11:43 Labs: Laboratory Results - last 24 hr 05/24/23 11:43: WBC 13.9 H, RBC 3.94 L, Hgb 12.2, Hct 38.4, MCV 97.5, MCH 31.0, MCHC 31.8 L, RDW Std Deviation 48.5 H, RDW Coeff of [place] 13.5, Plt Count 368, MPV 10.1, Immature Gran % (Auto) 0.600, Neut % (Auto) 77.4 H, Lymph % (Auto) 13.8 L, [place] % (Auto) 7.1, Eos % (Auto) 0.6, Baso % (Auto) 0.5, Absolute Neuts (auto) 10.7 H, Absolute Lymphs (auto) 1.92, Nucleated RBC % 0, PT 12.8, INR 1.0, APTT 23.5 L, Sodium 139, Potassium 4.3, Chloride 103, Carbon Dioxide 29.0, Anion Gap 7, BUN 13, Creatinine 0.75, Estim Creat Clear Calc 50.11, Est GFR (MDRD) Af Amer 96, Est GFR (MDRD) Non-Af 79, BUN/Creatinine Ratio 17.4, Glucose 276 H, Calcium 9.1, Magnesium 1.5 L, Total Bilirubin 0.40, Direct Bilirubin 0.13, AST 20, ALT 24, Alkaline Phosphatase 88, Troponin I High Sens 37, B-Natriuretic Peptide 179.7 H, Total Protein 7.4, Albumin 3.0 L, Globulin 4.4 H, TSH 0.18 L 05/24/23 13:26: Urine Color Yellow, Urine Clarity Clear, Urine pH 5.0, Ur Specific [place] 1.010, Urine Protein 15 H, Urine Glucose (UA) 50 H, Urine Ketones 5 H, Urine Occult Blood 10 H, Urine Nitrite Negative, Urine Bilirubin Negative, Urine Urobilinogen Normal, Ur Leukocyte Esterase 25 H, Urine RBC 0 SEEN, Urine WBC 0-5 SEEN, Ur Squamous Epith Cells 0-5 SEEN, Urine Bacteria RARE, Urine Mucus 0 SEEN Imaging Radiology Impression Head/Neck CTA 05/24/23 11:28 IMPRESSION: Minimal plaque formation at the origin of the left internal carotid artery. Chronic ischemic changes in the brain. Questionable calcified meningioma in the anterior aspect of the left frontal lobe superiorly. Electronically Signed: Holden Villalpando MD at 13:02 EDT , Chest X-Ray 05/24/23 12:30 IMPRESSION: Atelectasis and/or infiltrate in the right lower lobe with blunting of the right phrenic angle. Prominence of the central pulmonary arteries. Mild degree of vascular congestion. Electronically Signed: Holden Villalpando MD at 12:54 EDT , Assessment & Plan Assessment/Plan (1) Pneumonia: (2) New onset a-fib: (3) Brain TIA: (4) Delirium: PLAN: Plan 1. Acute metabolic encephalopathy secondary to aspiration pneumonia versus mild UTI/TIA ? Urine cultures pending ? Sputum cultures pending ? Will continue with Unasyn and azithromycin to cover both urine and pulmonary organisms ? Will continue with stroke protocol as well as an MRI in the morning or this afternoon if possible 2. New onset A-fib with RVR which is now resolved ?Given her fall risk and her dementia will not place her on any anticoagulation as this is likely paroxysmal ? Will continue to monitor on telemetry ? If her mental status recovers and the MRI is negative for stroke may need to consider anticoagulation at a later date 3. Anxiety/depression/dementia ? Currently with delirium in the setting of chronic dementia ? Given the side effect profile donepezil will hold while inpatient ? Can resume Zoloft as well as propranolol for her tremors at baseline 4. DM2 ? Will hold her home medications ? Will continue sliding scale insulin ? Accu-Cheks ACHS ? Will monitor make adjustments as necessary 5. Chronic hypoxia with asthma ? Continue with her home inhalers ? Continue with her chronic 2 L nasal cannula DVT: SCDs 76 minutes the dysphagia with 1 was spent on direct patient care, including documentation as well as chart review and collaboration with colleagues Charges/Coding Visit Charges Inpatient E&M: 89640 Init Hosp L3
[2023-05-24 15:23] LABS: Lactic Acid 1.9 mmol/L (0.4-1.9)
--- NOTE | 2023-05-24 15:35 | NURSING ---
Wedding band removed and given to pt's daughter Bette prior to MRI.
[2023-05-24] MEDS: Magnesium Sulfate 2 GM in Dextrose 5%-Water (100mL Bag) 100 ML IV (16:46)
[2023-05-24] MEDS: Azithromycin 500 MG in Dextrose 5%-Water (250mL Bag) 250 ML 250 MG IV (16:47)
[2023-05-24] MEDS: Albuterol 2.5 MG/3 ML VIAL.NEB. INHALATION (19:22)
[2023-05-24] MEDS: Ampicillin/Sulbactam 3 GM in 0.9% Normal Saline (100mL MB+) 100 ML IV (22:14)
[2023-05-24] MEDS: Propranolol 10 MG Tablet 20 MG PO (22:17)
[2023-05-24] MEDS: Atorvastatin Calcium 40 MG Tablet PO (22:18)
[2023-05-24] MEDS: Insulin Lispro 100 UNIT/ML INSULN.PEN SC (22:21)
[2023-05-24 22:45] LABS: Bedside Glucose 153 mg/dL (74-106)
[2023-05-25] VITALS (9 sets, daily range): BP systolic 126–161; BP diastolic 54–83; PULSE 64–88; RESP 16–18; TEMP 36.6–36.9; O2SAT 84–95; BMI 22.6
[2023-05-25] MEDS: Albuterol 2.5 MG/3 ML VIAL.NEB. INHALATION ×3 (00:43→12:40)
[2023-05-25] MEDS: Ampicillin/Sulbactam 3 GM in 0.9% Normal Saline (100mL MB+) 100 ML IV ×3 (04:55→23:00)
[2023-05-25 04:58] LABS: Absolute Lymphocyte Count 2.15 X10^3/uL (0.83-4.51); Absolute Neutrophil Count 7.7 X10^3/uL (2.0-7.7); Basophil# 0.04 X10^3/uL; Basophil% 0.4 % (0-1); Eosinophil# 0.13 X10^3/uL; Eosinophils% 1.2 % (0-5); Hematocrit 31.9 % (37-47); Hemoglobin 10.3 g/dL (12.0-15.0); Lymphocyte # 2.15 X10^3/ul (0.83-4.51); Lymphocyte % 19.5 % (19-41); Mean Corp Hgb Conc 32.3 g/dL (32-36); Mean Corpuscular Hgb 31.2 pg (27.0-32.0); Mean Corpuscular Volume 96.7 fL (81-99); Mean Platelet Vol. 10.6 fl (6.2-12.0); Monocyte# 0.95 X10^3/uL; Monocyte% 8.6 % (0-10); NRBC Flagged by Analyzer 0 % (0-5); Neutrophil % 69.9 % (47-70); Platelet Count 323 K/mm3 (150-450); RBC Distribution Width CV 13.9 % (11.6-14.6); RBC Distribution Width SD 49.2 fl (35.1-43.9)
[2023-05-25 05:37] LABS: Anion Gap 6 (5-15); BUN 9 mg/dL (7-18); BUN/Creat Ratio 15.8 RATIO (10-20); Calcium,Total 8.8 mg/dL (8.5-10.1); Chloride 105 mmol/L (98-107); Cholesterol 144 mg/dL (200); Creatinine, Serum 0.57 mg/dL (0.55-1.02); EST Glomerular Filtration Rate 109 mL/min (>60); Est Glom Filt Rate - Afr Amer 132 mL/min (>60); Estimated Creatinine Clearance 48.43 ml/min; Glucose 158 mg/dL (74-106); High Density Lipoprotein 48 mg/dL; Potassium 3.6 mmol/L (3.5-5.1); Sodium Level 140 mmol/L (136-145); Triglycerides 113 mg/dL; Very Low Density Lipoprotein 23 mg/dL (5-40)
[2023-05-25] MEDS: Insulin Lispro 100 UNIT/ML INSULN.PEN SC ×3 (06:50→20:26)
[2023-05-25 07:06] LABS: Bedside Glucose 156 mg/dL (74-106)
--- NOTE | 2023-05-25 07:53 | CPS ---
Pt placed back on 2 lpm. Saturation up to 91%. Nurse aware of change
--- NOTE | 2023-05-25 07:58 | PN.HOSP_ITS ---
Reason for Visit Reason for Visit: Diagnoses Transient cerebral ischemic attack, unspecified (05/24/23) Unspecified atrial fibrillation (05/24/23) Pneumonia, unspecified organism (05/24/23) Disorientation, unspecified (05/24/23) Objective Data Objective Data Vital Signs: Vital Signs Temp Pulse Resp BP Pulse Ox O2 Del Method O2 Flow Rate 98 F 71 16 133/65 H 84 Room Air 2 05/25/23 05:29 05/25/23 06:41 05/25/23 06:41 05/25/23 05:29 05/25/23 06:41 05/25/23 06:41 05/25/23 05:29 Oxygen Flow Rate (L/min) 2 Oxygen Delivery Method Room Air Weight: 132 lb 4.438 oz Body Mass Index (BMI) 22.6 Intake & Output: Intake and Output for Last 24 Hours 05/23/23 05/24/23 05/25/23 23:59 23:59 23:59 Intake Total 581 / 581 112 / 112 Output Total 250 / 250 Balance 581 / 431 -138 / -138 Lab / Micro Data 05/25/23 03:38 05/25/23 03:38 Labs: Laboratory Results - last 24 hr 05/24/23 11:43: WBC 13.9 H, RBC 3.94 L, Hgb 12.2, Hct 38.4, MCV 97.5, MCH 31.0, MCHC 31.8 L, RDW Std Deviation 48.5 H, RDW Coeff of [place] 13.5, Plt Count 368, MPV 10.1, Immature Gran % (Auto) 0.600, Neut % (Auto) 77.4 H, Lymph % (Auto) 13.8 L, [place] % (Auto) 7.1, Eos % (Auto) 0.6, Baso % (Auto) 0.5, Absolute Neuts (auto) 10.7 H, Absolute Lymphs (auto) 1.92, Nucleated RBC % 0, PT 12.8, INR 1.0, APTT 23.5 L, Sodium 139, Potassium 4.3, Chloride 103, Carbon Dioxide 29.0, Anion Gap 7, BUN 13, Creatinine 0.75, Estim Creat Clear Calc 50.11, Est GFR (MDRD) Af Amer 96, Est GFR (MDRD) Non-Af 79, BUN/Creatinine Ratio 17.4, Glucose 276 H, Calcium 9.1, Magnesium 1.5 L, Total Bilirubin 0.40, Direct Bilirubin 0.13, AST 20, ALT 24, Alkaline Phosphatase 88, Troponin I High Sens 37, B-Natriuretic Peptide 179.7 H, Total Protein 7.4, Albumin 3.0 L, Globulin 4.4 H, TSH 0.18 L 05/24/23 13:26: Urine Color Yellow, Urine Clarity Clear, Urine pH 5.0, Ur Specific [place] 1.010, Urine Protein 15 H, Urine Glucose (UA) 50 H, Urine Ketones 5 H, Urine Occult Blood 10 H, Urine Nitrite Negative, Urine Bilirubin Negative, Urine Urobilinogen Normal, Ur Leukocyte Esterase 25 H, Urine RBC 0 SEEN, Urine WBC 0-5 SEEN, Ur Squamous Epith Cells 0-5 SEEN, Urine Bacteria RARE, Urine Mucus 0 SEEN 05/24/23 14:05: Lactic Acid 1.9 05/24/23 22:11: POC Glucose 153 H 05/25/23 03:38: WBC 11.0, RBC 3.30 L, Hgb 10.3 L, Hct 31.9 L, MCV 96.7, MCH 31.2, MCHC 32.3, RDW Std Deviation 49.2 H, RDW Coeff of [place] 13.9, Plt Count 323, MPV 10.6, Immature Gran % (Auto) 0.400, Neut % (Auto) 69.9, Lymph % (Auto) 19.5, [place] % (Auto) 8.6, Eos % (Auto) 1.2, Baso % (Auto) 0.4, Absolute Neuts (auto) 7.7, Absolute Lymphs (auto) 2.15, Nucleated RBC % 0, Sodium 140, Potassium 3.6, Chloride 105, Carbon Dioxide 29.0, Anion Gap 6, BUN 9, Creatinine 0.57, Estim Cr eat Clear Calc 48.43, Est GFR (MDRD) Af Amer 132, Est GFR (MDRD) Non-Af 109, BUN/Creatinine Ratio 15.8, Glucose 158 H, Calcium 8.8, Triglycerides 113, Cholesterol 144, LDL Cholesterol 73, VLDL Cholesterol 23, HDL Cholesterol 48 05/25/23 06:47: POC Glucose 156 H Radiography Diagnostic Testing: Radiology Impression Head/Neck CTA 05/24/23 11:28 IMPRESSION: Minimal plaque formation at the origin of the left internal carotid artery. Chronic ischemic changes in the brain. Questionable calcified meningioma in the anterior aspect of the left frontal lobe superiorly. Electronically Signed: Holden Villalpando MD at 13:02 EDT , Chest X-Ray 05/24/23 12:30 IMPRESSION: Atelectasis and/or infiltrate in the right lower lobe with blunting of the right phrenic angle. Prominence of the central pulmonary arteries. Mild degree of vascular congestion. Electronically Signed: Holden Villalpando MD at 12:54 EDT , Brain MRI 05/24/23 14:47 IMPRESSION: Chronic involutional changes. No acute disease. Electronically Signed: Korey Tafoya MD at 16:41 EDT , Physical Exam Narrative Seen and examined. Patient is poor informant, does not give complete history. Does not answer relevant questions. Overall she she stated that she had a dry cough mild shortness of breath and binucleation. General: Confused, disoriented to time and place. Cooperative. HEENT: Atraumatic, PERRLA, EOMI, Normocephalic Oral: No Gingival or Mucosal Lesions/ Ulcerations Neck: Supple, No JVD, Negative Carotid Bruits Chest wall/Lungs: Air entry diminished in bilateral lung bases. Right lung base coarse crepitation Cardiovascular: Regular rate, Regular Rhythm, Normal S1, Normal S2, systolic murmur v Abdomen: Bowel Sounds Present, Soft, Non Tender, Non-Distended : Positive dysuria. No renal angle tenderness. No suprapubic tenderness. Extremities: No edema, Capillary Refill Less than 3 Seconds Skin: No rashes, No breakdown Musculoskeletal: No Tenderness to Palpation of Joints or Extremities Neurological: Cranial nerves II-XII grossly intact, DTR 2+/4. No acute focal neurological deficit. Psych/Mental Status: Flat affect, confused Assessment & Plan Assessment/Plan (1) Pneumonia: (2) New onset a-fib: (3) Brain TIA: (4) Delirium: PLAN: Plan 82-year-old female came to ED with Concern for left-sided weakness and was unable to provide history. Patient has been falling recently more than baseline and is confused. Patient also complaining of dry cough and mild shortness of breath and burning micturition. Chest x-ray today reviewed and shows patchy left basilar/infiltrate on the right lung base with blunting of right CP angle. 1. Acute metabolic encephalopathy secondary to aspiration pneumonia versus mild UTI/TIA ? Urine cultures is uncollected. Blood cultures pending. ? Unasyn and azithromycin to cover both urine and pulmonary organisms ? MRI brain was done does not show acute infarct but chronic ischemic changes with moderate cerebral atrophy with widening of extra-axial spaces and ventricular dilatation. Minimal plaque formation in the origin of left ICA. CT raised suspicion of small calcified meningioma in the anterior aspect of left frontal bone but not reported in MRI therefore it is ruled out. 2. New onset A-fib with RVR which is now resolved ?Given her fall risk and her dementia will not place her on any anticoagulation as this is likely paroxysmal ? On monitor technician. Currently sinus rhythm. Patient started on low-dose of Eliquis 2.5 mg twice daily because of history of fall, age [age] years old and high chances of bleeding complications. 3. Anxiety/depression/dementia ? Currently with delirium in the setting of chronic dementia ? Given the side effect profile donepezil will hold while inpatient ? Can resume Zoloft as well as propranolol for her tremors at baseline 4. DM2 ? hold her home medications ? Accu-Chek before meals and at bedtime insulin coverage Humalog sliding scale. ? monitor make adjustments as necessary 5. Chronic hypoxia with asthma ? Continue with her home inhalers ? Continue with her chronic 2 L nasal cannula DVT: Eliquis 2.5 mg twice daily. SCDs Charges/Coding Visit Charges Inpatient E&M: 67355 Subs Hosp L2
[2023-05-25] MEDS: Aspirin 81 MG TAB.CHEW PO (09:33)
[2023-05-25] MEDS: Propranolol 10 MG Tablet 20 MG PO ×2 (09:33→20:26)
[2023-05-25] MEDS: Azithromycin 500 MG in Dextrose 5%-Water (250mL Bag) 250 ML 250 MG IV (09:34)
[2023-05-25] MEDS: Sertraline 50 MG Tablet 75 MG PO (09:34)
[2023-05-25 12:02] LABS: Bedside Glucose 244 mg/dL (74-106)
--- NOTE | 2023-05-25 12:56 | CASEMGMT ---
VILLA CERON Assessment: Face to Face with pt for initial transition planning/care coordination assessment. RN OSMANY introduced self and role at [facility], pt voices understanding and consents to assessment. Pt is A&O x4 and answers all questions appropriately at this time. Patients spouse, daughter, and 2 additional family members at bedside. Pt agreeable to speaking with them present. Care providers, pharmacy, and demographics verified/updated. Admitting Dx: TIA with AMS and PNA PCP: Liane Ba Specialists: Brandon with pulm, follows with geriatrics in [place] (daughter unsure of name but believes it to be [facility] or [facility]) Preferred Pharmacy: [facility] [place] Insurance: [employer] Medicare Prescription Benefit: yes LNOK: Spouse Javon Living Arrangements: Pt lives at home with spouse. Home is single story with 1 step to enter. Pt is independent with ADLs. Pt and spouse share IADLs. Transportation: Pt no longer drives. Spouse provides any needed transportation. DME: Pt does not use DME at baseline. Pt does have a FWW and a rollator. HHC/SNF: No history Discussed therapy evaluations with patient, family present for discussion. Pt reports that she is hopeful she can return home, spouse and daughter agree. Explained to pt the difference in therapy at SNF and with [facility]. Spouse is home with patient and can assist with ADLs 03/09. Family also able to provide additional support. Pt and family report that their goal is for pt to return home with [facility]. Discussed with pt leaving a SNF list for her to review, in the event she decides to pursue SNF, but will also provide a [facility] provider list. Pt states no further concerns/needs. CM to follow. Advised pt to ask CM if any further question/concerns/needs arise, voices understanding. Pt Goal: Home with HH and family support Plan: [facility] Sheree Mendoza MSN, RN, CCM
--- NOTE | 2023-05-25 13:36 | CASEMGMT ---
Social Work PHQ-9 not completed as pt did not have a stroke. NERI Mendoza
--- NOTE | 2023-05-25 13:49 | CASEMGMT ---
Patient was provided a list of C providers including quality and resource use data and consistent with the patient?s preferred geographic region, medical needs, and insurance network were provided from the [facility]. Patient was provided a list of SNF providers including quality and resource use data and consistent with the patient?s preferred geographic region, medical needs, and insurance network were provided from the [facility]. Sheree FOSTER, RN, CCM
[2023-05-25] MEDS: 0.9% Saline Lock 10 ML Syringe IV ×2 (15:09→23:01)
[2023-05-25 17:01] LABS: Bedside Glucose 116 mg/dL (74-106)
[2023-05-25] MEDS: QUEtiapine 25 MG Tablet PO (17:40)
[2023-05-25] MEDS: hydrOXYzine 50 MG/ML Vial 100 MG IM (20:08)
[2023-05-25] MEDS: APIXABAN 2.5 MG TABLET (WCH) PO (20:25)
[2023-05-25] MEDS: Atorvastatin Calcium 40 MG Tablet PO (20:27)
[2023-05-25 20:57] LABS: Bedside Glucose 157 mg/dL (74-106)
[2023-05-26] VITALS (8 sets, daily range): BP systolic 146–173; BP diastolic 52–81; PULSE 60–80; RESP 16–20; TEMP 36.6–36.9; O2SAT 91–94; BMI 22.6
[2023-05-26] MEDS: Haloperidol Lactate 5 MG/ML Vial 2 MG IM (01:44)
[2023-05-26] MEDS: Ampicillin/Sulbactam 3 GM in 0.9% Normal Saline (100mL MB+) 100 ML IV ×3 (05:45→21:15)
[2023-05-26 06:49] LABS: Absolute Lymphocyte Count 2.54 X10^3/uL (0.83-4.51); Absolute Neutrophil Count 5.1 X10^3/uL (2.0-7.7); Basophil# 0.04 X10^3/uL; Basophil% 0.4 % (0-1); Eosinophil# 0.33 X10^3/uL; Eosinophils% 3.7 % (0-5); Hematocrit 31.7 % (37-47); Hemoglobin 10.3 g/dL (12.0-15.0); Lymphocyte # 2.54 X10^3/ul (0.83-4.51); Lymphocyte % 28.2 % (19-41); Mean Corp Hgb Conc 32.5 g/dL (32-36); Mean Corpuscular Hgb 31.5 pg (27.0-32.0); Mean Corpuscular Volume 96.9 fL (81-99); Mean Platelet Vol. 10.1 fl (6.2-12.0); Monocyte# 0.94 X10^3/uL; Monocyte% 10.4 % (0-10); NRBC Flagged by Analyzer 0 % (0-5); Neutrophil % 56.7 % (47-70); Platelet Count 342 K/mm3 (150-450); RBC Distribution Width CV 13.5 % (11.6-14.6); RBC Distribution Width SD 48.8 fl (35.1-43.9); Red Blood Count 3.27 M/mm3 (4.2-5.4)
[2023-05-26 07:00] LABS: Bedside Glucose 141 mg/dL (74-106)
[2023-05-26] MEDS: Albuterol 2.5 MG/3 ML VIAL.NEB. INHALATION ×3 (07:04→19:30)
[2023-05-26 07:08] LABS: Anion Gap 6 (5-15); BUN 8 mg/dL (7-18); BUN/Creat Ratio 15.6 RATIO (10-20); Calcium,Total 8.5 mg/dL (8.5-10.1); Chloride 103 mmol/L (98-107); Creatinine, Serum 0.51 mg/dL (0.55-1.02); EST Glomerular Filtration Rate 123 mL/min (>60); Est Glom Filt Rate - Afr Amer 148 mL/min (>60); Estimated Creatinine Clearance 48.43 ml/min; Glucose 150 mg/dL (74-106); Potassium 3.1 mmol/L (3.5-5.1); Sodium Level 141 mmol/L (136-145)
[2023-05-26] MEDS: Propranolol 10 MG Tablet 20 MG PO ×2 (08:04→20:26)
[2023-05-26] MEDS: APIXABAN 2.5 MG TABLET (WCH) PO ×2 (08:04→20:26)
[2023-05-26] MEDS: QUEtiapine 25 MG Tablet PO (08:04)
[2023-05-26] MEDS: Sertraline 50 MG Tablet 75 MG PO (08:04)
[2023-05-26] MEDS: Aspirin 81 MG TAB.CHEW PO (08:04)
[2023-05-26] MEDS: Donepezil HCl 10 MG Tablet PO (10:50)
[2023-05-26] MEDS: Levothyroxine 25 MCG TABLET PO (10:50)
[2023-05-26] MEDS: Potassium Chloride Oral Tablet 20 MEQ 40 MEQ PO ×2 (10:51→14:24)
[2023-05-26] MEDS: Insulin Lispro 100 UNIT/ML INSULN.PEN SC ×3 (11:46→20:38)
[2023-05-26 12:05] LABS: Bedside Glucose 161 mg/dL (74-106)
--- NOTE | 2023-05-26 14:33 | PN.HOSP_ITS ---
Reason for Visit Reason for Visit: Diagnoses Transient cerebral ischemic attack, unspecified (05/24/23) Unspecified atrial fibrillation (05/24/23) Pneumonia, unspecified organism (05/24/23) Disorientation, unspecified (05/24/23) Objective Data Objective Data Vital Signs: Vital Signs Temp Pulse Resp BP Pulse Ox O2 Del Method O2 Flow Rate 97.8 F 68 17 146/77 H 92 Room Air 2 05/26/23 14:21 05/26/23 14:21 05/26/23 14:21 05/26/23 14:21 05/26/23 14:21 05/26/23 14:21 05/25/23 05:29 Oxygen Flow Rate (L/min) 2 Oxygen Delivery Method Room Air Weight: 132 lb 4.438 oz Body Mass Index (BMI) 22.6 Intake & Output: Intake and Output for Last 24 Hours 05/24/23 05/25/23 05/26/23 23:59 23:59 23:59 Intake Total 581 / 581 919 / 919 824 / 824 Output Total 500 / 500 Balance 581 / 431 419 / 419 824 / 824 Lab / Micro Data 05/26/23 05:43 05/26/23 05:43 Labs: Laboratory Results - last 24 hr 05/25/23 16:43: POC Glucose 116 H 05/25/23 20:22: POC Glucose 157 H 05/26/23 05:43: WBC 9.0, RBC 3.27 L, Hgb 10.3 L, Hct 31.7 L, MCV 96.9, MCH 31.5, MCHC 32.5, RDW Std Deviation 48.8 H, RDW Coeff of [place] 13.5, Plt Count 342, MPV 10.1, Immature Gran % (Auto) 0.600, Neut % (Auto) 56.7, Lymph % (Auto) 28.2, [place] % (Auto) 10.4 H, Eos % (Auto) 3.7, Baso % (Auto) 0.4, Absolute Neuts (auto) 5.1, Absolute Lymphs (auto) 2.54, Nucleated RBC % 0, Sodium 141, Potassium 3.1 L , Chloride 103, Carbon Dioxide 32.0, Anion Gap 6, BUN 8, Creatinine 0.51 L, Estim Creat Clear Calc 48.43, Est GFR (MDRD) Af Amer 148, Est GFR (MDRD) Non-Af 123, BUN/Creatinine Ratio 15.6, Glucose 150 H, Calcium 8.5, Folate 7.60, Free T4 1.20 05/26/23 06:36: POC Glucose 141 H 05/26/23 11:45: POC Glucose 161 H Micro: Microbiology 05/24/23 14:20 Blood Culture (Wb) - Right Hand Blood Culture - Preliminary No growth in 48 hours. 05/24/23 14:05 Blood Culture (Wb) - Anticubital Left Blood Culture - Prel iminary No growth in 48 hours. Physical Exam Narrative Seen and examined. Patient is poor informant, does not give complete history. Has chronic dementia. She easily gets agitated and restless trying to get out of bed. Does not answer relevant questions. Discussed with the daughter and patient's in the room Admitted with dry cough mild shortness of breath and binucleation. General: Confused, disoriented to time and place. Cooperative. HEENT: Atraumatic, PERRLA, EOMI, Normocephalic Oral: No Gingival or Mucosal Lesions/ Ulcerations Neck: Supple, No JVD, Negative Carotid Bruits Chest wall/Lungs: Air entry diminished in bilateral lung bases. Right lung base coarse crepitation Cardiovascular: Regular rate, Regular Rhythm, Normal S1, Normal S2, systolic murmur Abdomen: Bowel Sounds Present, Soft, Non Tender, Non-Distended : Positive dysuria. No renal angle tenderness. No suprapubic tenderness. Extremities: No edema, Capillary Refill Less than 3 Seconds Skin: No rashes, No breakdown Musculoskeletal: No Tenderness to Palpation of Joints or Extremities Neurological: Cranial nerves II-XII grossly intact, DTR 2+/4. No acute focal neurological deficit. Psych/Mental Status: Flat affect, confused intermittent restlessness and agitation Assessment & Plan Assessment/Plan (1) Pneumonia: (2) New onset a-fib: (3) Brain TIA: (4) Delirium: PLAN: Plan 82-year-old female came to ED with Concern for left-sided weakness and was unable to provide history. Patient has been falling recently more than baseline and is confused. Patient also complaining of dry cough and mild shortness of breath and burning micturition. Chest x-ray today reviewed and shows patchy left basilar/infiltrate on the right lung base with blunting of right CP angle. 1. Acute metabolic encephalopathy secondary to aspiration pneumonia versus mild UTI/TIA with history of chronic worsening dementia ? Urine cultures is uncollected. Blood cultures pending. ? Unasyn and azithromycin to cover both urine and pulmonary organisms ? MRI brain was done does not show acute infarct but chronic ischemic changes with moderate cerebral atrophy with widening of extra-axial spaces and ventricular dilatation. Minimal plaque formation in the origin of left ICA. CT raised suspicion of small calcified meningioma in the anterior aspect of left frontal bone but not reported in MRI therefore it is ruled out. 4: No leukocytosis. Vitals in normal range. Patient admittedly gets agitated. Patient required hydroxyzine and IV Haldol last night. Seroquel dose increased to 50 mg twice daily. 2. New onset A-fib with RVR which is now resolved ?Given her fall risk and her dementia will not place her on any anticoagulation as this is likely paroxysmal ? On sr. manager corporate communications. Currently sinus rhythm. Patient started on low-dose of Eliquis 2.5 mg twice daily because of history of fall, age [age] years old and high chances of bleeding complications. 05/25: TSH low 0.18 Free T4 normal therefore subclinical hypothyroidism. In view of A-fib, decided to treat with low-dose levothyroxine 25 mcg daily. 3. Anxiety/depression/dementia ? Currently with delirium in the setting of chronic dementia ? Given the side effect profile donepezil will hold while inpatient ? Can resume Zoloft as well as propranolol for her tremors at baseline 05/25:, Dementia workup including B12 folic acid TSH and free T4 done. TSH and free T4 as mentioned above. Folic acid normal. B12 pending. Patient's daughter and very concerned of agitated behavior and wanted to see neurologist or psychiatrist for dementia. Advised to follow-up with psychiatrist Dr. Jesus or neurologist Dr. Deanne Leary about [address] Zaid Cole appointment is full for more than 9 months. 4. DM2 ? hold her home medications ? Accu-Chek before meals and at bedtime insulin coverage Humalog sliding scale. ? monitor make adjustments as necessary 5. Chronic hypoxia with asthma ? Continue with her home inhalers ? Continue with her chronic 2 L nasal cannula DVT: Eliquis 2.5 mg twice daily. SCDs Charges/Coding Visit Charges Inpatient E&M: 80150 Subs Hosp L2
[2023-05-26 16:50] LABS: Bedside Glucose 236 mg/dL (74-106)
[2023-05-26] MEDS: QUEtiapine 25 MG Tablet 50 MG PO (20:26)
[2023-05-26] MEDS: guaiFENesin 1,200 MG Tablet 1200 MG PO (20:27)
[2023-05-26] MEDS: Atorvastatin Calcium 40 MG Tablet PO (20:27)
[2023-05-26 21:03] LABS: Bedside Glucose 154 mg/dL (74-106)
[2023-05-26] MEDS: Morphine 2 MG/ML Syringe IV (21:03)
[2023-05-27] VITALS (24 sets, daily range): BP systolic 96–148; BP diastolic 44–94; PULSE 62–144; RESP 14–21; TEMP 36.2–37; O2SAT 87–96; BMI 22.6
--- NOTE | 2023-05-27 00:13 | EKG12_ITS ---
Test Reason : STROKE Blood Pressure : / mmHG Vent. Rate : 082 BPM Atrial Rate : 082 BPM P-R Int : 152 ms QRS Dur : 112 ms QT Int : 392 ms P-R-T Axes : 060 -08 003 degrees QTc Int : 457 ms Normal sinus rhythm Nonspecific ST abnormality Abnormal ECG Confirmed by Nathaniel Cummings ([id number]), editor continuity and script JOANNA JANG ([id number]) on 05/27/2023 6:33:14 AM Referred By: Confirmed By:Nathaniel Cummings
[2023-05-27] MEDS: Diltiazem 125 MG in Dextrose 5%-Water (100mL Bag) 100 ML CONT INF (01:05)
[2023-05-27 01:44] LABS: Troponin-I HS 25 pg/mL (3.0-54.0)
--- NOTE | 2023-05-27 02:19 | EKG12_ITS ---
Test Reason : RHYTHM CHANGE Blood Pressure : / mmHG Vent. Rate : 064 BPM Atrial Rate : 064 BPM P-R Int : 150 ms QRS Dur : 112 ms QT Int : 434 ms P-R-T Axes : 065 001 -11 degrees QTc Int : 447 ms Normal sinus rhythm Incomplete right bundle branch block Borderline ECG When compared with ECG of 27-MAY-2023 00:34, MANUAL COMPARISON REQUIRED, DATA IS UNCONFIRMED Confirmed by FARHAT PEREZ, ABELINO ([id number]), editor city JOANNA JANG ([id number]) on 05/27/2023 11:25:20 AM Referred By: Melendrez Confirmed By:ABELINO DOUGHERTY MD
[2023-05-27] MEDS: dilTIAZem CD 240 MG Capsule PO (03:11)
[2023-05-27] MEDS: Ampicillin/Sulbactam 3 GM in 0.9% Normal Saline (100mL MB+) 100 ML IV ×3 (05:13→21:36)
[2023-05-27] MEDS: Levothyroxine 25 MCG TABLET PO (05:14)
[2023-05-27 05:55] LABS: Absolute Lymphocyte Count 2.29 X10^3/uL (0.83-4.51); Absolute Neutrophil Count 8.4 X10^3/uL (2.0-7.7); Basophil# 0.03 X10^3/uL; Basophil% 0.2 % (0-1); Eosinophil# 0.31 X10^3/uL; Eosinophils% 2.5 % (0-5); Hematocrit 33.2 % (37-47); Lymphocyte # 2.29 X10^3/ul (0.83-4.51); Lymphocyte % 18.8 % (19-41); Mean Corp Hgb Conc 33.1 g/dL (32-36); Mean Corpuscular Hgb 32.1 pg (27.0-32.0); Mean Corpuscular Volume 96.8 fL (81-99); Mean Platelet Vol. 9.9 fl (6.2-12.0); Monocyte# 1.12 X10^3/uL; Monocyte% 9.2 % (0-10); NRBC Flagged by Analyzer 0 % (0-5); Neutrophil # 8.38 X10^3/uL (2.7-7.7); Neutrophil % 68.9 % (47-70); Platelet Count 349 K/mm3 (150-450); RBC Distribution Width SD 49.7 fl (35.1-43.9); Red Blood Count 3.43 M/mm3 (4.2-5.4); White Blood Count 12.2 K/mm3 (4.4-11.0)
[2023-05-27 06:22] LABS: Anion Gap 5 (5-15); BUN 10 mg/dL (7-18); BUN/Creat Ratio 16.2 RATIO (10-20); Calcium,Total 8.7 mg/dL (8.5-10.1); Chloride 107 mmol/L (98-107); Creatinine, Serum 0.62 mg/dL (0.55-1.02); EST Glomerular Filtration Rate 99 mL/min (>60); Est Glom Filt Rate - Afr Amer 119 mL/min (>60); Estimated Creatinine Clearance 48.43 ml/min; Glucose 185 mg/dL (74-106); Potassium 4.4 mmol/L (3.5-5.1); Sodium Level 142 mmol/L (136-145)
[2023-05-27] MEDS: Insulin Lispro 100 UNIT/ML INSULN.PEN SC ×4 (06:38→21:34)
[2023-05-27 06:58] LABS: Bedside Glucose 151 mg/dL (74-106)
[2023-05-27] MEDS: Albuterol 2.5 MG/3 ML VIAL.NEB. INHALATION ×3 (07:11→19:39)
[2023-05-27] MEDS: APIXABAN 2.5 MG TABLET (WCH) PO ×2 (08:59→21:33)
[2023-05-27] MEDS: Propranolol 10 MG Tablet 20 MG PO ×2 (08:59→21:34)
[2023-05-27] MEDS: Aspirin 81 MG TAB.CHEW PO (08:59)
[2023-05-27] MEDS: guaiFENesin 1,200 MG Tablet 1200 MG PO ×2 (08:59→21:34)
[2023-05-27] MEDS: QUEtiapine 25 MG Tablet 50 MG PO (08:59)
[2023-05-27] MEDS: Donepezil HCl 10 MG Tablet PO (08:59)
[2023-05-27] MEDS: Sertraline 50 MG Tablet 75 MG PO (08:59)
[2023-05-27 09:19] LABS: Vitamin B12 339 pg/mL (211-911)
--- NOTE | 2023-05-27 11:10 | PCM.PN.HOSP ---
Reason for Visit Reason for Visit: Diagnoses Transient cerebral ischemic attack, unspecified (05/24/23) Unspecified atrial fibrillation (05/24/23) Pneumonia, unspecified organism (05/24/23) Disorientation, unspecified (05/24/23) Subjective Subjective Patient is an 82-year-old lady admitted with progressive generalized weakness. There was a suspicion of possible aspiration pneumonia versus cystitis started on antibiotic therapy admitted to a monitored bed for subsequent managem Objective Data Objective Data Vital Signs: Vital Signs Temp Pulse Resp BP Pulse Ox O2 Del Method O2 Flow Rate 98.5 F 68 16 118/64 95 Room Air 2 05/27/23 09:05 05/27/23 09:05 05/27/23 09:05 05/27/23 09:05 05/27/23 09:05 05/27/23 09:12 05/27/23 08:07 Oxygen Flow Rate (L/min) 2 Oxygen Delivery Method Room Air Weight: 60 kg Body Mass Index (BMI) 22.6 Intake & Output: Intake and Output for Last 24 Hours 05/25/23 05/26/23 05/27/23 23:59 23:59 23:59 Intake Total 919 / 919 1598 / 1598 134.33 / 134.33 Output Total 500 / 500 Balance 419 / 419 1598 / 1598 134.33 / 134.33 Lab / Micro Data 05/27/23 04:45 05/27/23 04:45 Labs: Laboratory Results - last 24 hr 05/26/23 11:45: POC Glucose 161 H 05/26/23 16:33: POC Glucose 236 H 05/26/23 20:37: POC Glucose 154 H 05/27/23 01:06: Troponin I High Sens 25 05/27/23 04:45: WBC 12.2 H, RBC 3.43 L, Hgb 11.0 L, Hct 33.2 L, MCV 96.8, MCH 32.1 H, MCHC 33.1, RDW Std Deviation 49.7 H, RDW Coeff of [place] 14.0, Plt Count 349, MPV 9.9, Immature Gran % (Auto) 0.400, Neut % (Auto) 68.9, Lymph % (Auto) 18.8 L, [place] % (Auto) 9.2, Eos % (Auto) 2.5, Baso % (Auto) 0.2, Absolute Neuts (auto) 8.4 H, Absolute Lymphs (auto) 2.29, Nucleated RBC % 0, Sodium 142, Potassium 4.4, Chloride 107, Carbon Dioxide 30.0, Anion Gap 5, BUN 10, Creatinine 0.62, Estim Creat Clear Calc 48.43, Est GFR (MDRD) Af Amer 119, Est GFR (MDRD) Non-Af 99, BUN/Creatinine Ratio 16.2, Glucose 185 H, Calcium 8.7, Vitamin B12 339 05/27/23 06:37: POC Glucose 151 H Micro: Microbiology 05/24/23 14:20 Blood Culture (Wb) - Right Hand Blood Culture - Preliminary No growth in 48 hours. 05/24/23 14:05 Blood Culture (Wb) - Anticubital Left Blood Culture - Preliminary No growth in 48 hours. Physical Exam Narrative GENERAL: Significantly flat affect HEENT: Atraumatic; normocephalic EYES; Anicteric, Normal Conjunctiva NECK; supple, normal thyroid, RESPIRATORY: Diminished to auscultation CARDIOVASCULAR: Regular S1 S2, GI: soft, normoactive bowel sounds, : No Renal angle tenderness; EXTREMITIES: No edema, no clubbing, MUSCULOSKELETAL: no muscle wasting NEURO: Awake; no lateralizing signs. SKIN: No Rash PSYCH; Flat affect Assessment & Plan Assessment/Plan (1) Pneumonia: (2) New onset a-fib: (3) Brain TIA: (4) Delirium: PLAN: Plan Patient is an 82-year-old lady admitted with progressive generalized weakness. There was a suspicion of possible aspiration pneumonia versus cystitis started on antibiotic therapy admitted to a monitored bed for subsequent management 1. Acute metabolic encephalopathy ? Suspected to be secondary to combination of aspiration pneumonia versus cystitis. Acute CVA ruled out 2. Acute cystitis ? Patient urinalysis did show positive leukocyte Estrace. Culture sent results pending 3. Suspected aspiration pneumonia ? Patient remains on Unasyn and azithromycin 4. Dementia with behavioral agitation ? Thought to be secondary to above patient was placed on Seroquel dose had to be decreased given significant lethargy 5. New onset A-fib with RVR ? Resolved. Rate controlled patient started on Eliquis 2.5 mg twice daily 6. Depression with anxiety ? Patient is on Zoloft 7. Diabetes mellitus type 2 ? Oral hypoglycemic agent held please on Accu-Cheks before meals and at bedtime with sliding scale coverage 8. Mild intermittent asthma ? Currently not in exacerbation aerosol treatments as needed 9. DVT prophylaxis ? On Eliquis Time spent in the patient's overall evaluation,decision-making process, review of diagnostic data, adjustment of management, discussion with other providers, nursing nursing and ancillary staff involved in patient's care documentation, 38 Minutes Charges/Coding Visit Charges Inpatient E&M: 88096 Subs Hosp L2
--- NOTE | 2023-05-27 11:28 | NURSING ---
Patient family expressed concerns for drowsiness from possibly receiving too much Seroquel. Message sent to , he is going to adjust medication to hopefully fix drowsiness. Family also noted concerns for patients eyes not lining up with movements. Upon assessment, patient was able to follow cues and commands appropriately as well as eyes were symmetrical with movement. Will continue to watch for s/s of asymmetry.
[2023-05-27 11:42] LABS: Bedside Glucose 249 mg/dL (74-106)
--- NOTE | 2023-05-27 12:08 | CASEMGMT ---
RN CM in to discuss needs at discharge with patient and family at bedside. RN CM reviewed progress with therapy requiring minimal assistance for 15 feet. RN CM reviewed benefits of SNF vs HHC. Family wishes to discuss further as family but did offer preferences for SNF and HHC. SNF preferences are 1. [facility], 2. [facility]. [facility], [facility]. Family agreeable to send SNF referrals to preferences at this time. Patient and family had no further questions or concerns. RN CM updated SW. CM will continue to follow this patient and plan for a safe discharge.
--- NOTE | 2023-05-27 12:29 | CASEMGMT ---
Per RN CM patient's family would like for patient to go to [facility] (not on the list) or [facility]. PREMA looked up [facility] and it is actually an assisted living facility. PREMA [facility] PREMA also called Gudelia at [facility] and let her know a referral was sent. Marnie Barajas MANAGER OF HEALTH [place]
--- NOTE | 2023-05-27 14:53 | CASEMGMT ---
SW called Gudelia at [facility] and they are going to decline patient. SW will talk with patient's family and obtain other SNF choices. Marnie IRWIN
--- NOTE | 2023-05-27 15:05 | CASEMGMT ---
SW spoke with patient and family and let them know [facility] has declined patient. Family asked about TCU and SW let them know TCU is full. Family will review the list and work on other choices. Marnie IRWIN
--- NOTE | 2023-05-27 15:17 | CASEMGMT ---
PREMA did take in a list of several facilities that take patient's insurance and have memory care units. Family thanked [facility]. Marnie Barajas [employer]E MACHINE OPERATOR [place]
[2023-05-27 17:48] LABS: Bedside Glucose 171 mg/dL (74-106)
[2023-05-27] MEDS: QUEtiapine 25 MG Tablet PO (21:34)
[2023-05-27] MEDS: Atorvastatin Calcium 40 MG Tablet PO (21:34)
[2023-05-27 22:29] LABS: Bedside Glucose 203 mg/dL (74-106)
[2023-05-28 05:07] VITALS: BP 145/52; PULSE 62; RESP 18; TEMP 36.2; O2SAT 94
[2023-05-28] MEDS: 0.9% Saline Lock 10 ML Syringe IV (05:11)
[2023-05-28] MEDS: Ampicillin/Sulbactam 3 GM in 0.9% Normal Saline (100mL MB+) 100 ML IV (05:11)
[2023-05-28] MEDS: Levothyroxine 25 MCG TABLET PO (05:12)
[2023-05-28] MEDS: Insulin Lispro 100 UNIT/ML INSULN.PEN SC ×2 (06:25→11:30)
[2023-05-28 07:11] LABS: Bedside Glucose 151 mg/dL (74-106)
[2023-05-28] MEDS: Albuterol 2.5 MG/3 ML VIAL.NEB. INHALATION (07:35)
[2023-05-28 07:36] VITALS: PULSE 64; RESP 16; O2SAT 93
--- NOTE | 2023-05-28 08:58 | PN.HOSP_ITS ---
Reason for Visit Reason for Visit: Diagnoses Transient cerebral ischemic attack, unspecified (05/24/23) Unspecified atrial fibrillation (05/24/23) Pneumonia, unspecified organism (05/24/23) Disorientation, unspecified (05/24/23) Subjective Subjective Patient seen much more awake and interactive. Patient was on Seroquel 50 mg p.o. twice daily dose was decreased to 25 mg at bedtime. Objective Data Objective Data Vital Signs: Vital Signs Temp Pulse Resp BP Pulse Ox O2 Del Method O2 Flow Rate 97.1 F L 64 16 145/52 H 93 Room Air 2 05/28/23 05:07 05/28/23 07:36 05/28/23 07:36 05/28/23 05:07 05/28/23 07:36 05/28/23 07:36 05/27/23 10:00 Oxygen Flow Rate (L/min) 2 Oxygen Delivery Method Room Air Weight: 60 kg Body Mass Index (BMI) 22.6 Intake & Output: Intake and Output for Last 24 Hours 05/26/23 05/27/23 05/28/23 23:59 23:59 23:59 Intake Total 1598 / 1598 1038.33 / 1038.33 112 / 112 Balance 1598 / 1598 1038.33 / 1038.33 112 / 112 Lab / Micro Data 05/27/23 04:45 05/27/23 04:45 Labs: Laboratory Results - last 24 hr 05/27/23 04:45: Vitamin B12 339 05/27/23 11:22: POC Glucose 249 H 05/27/23 17:22: POC Glucose 171 H 05/27/23 21:30: POC Glucose 203 H 05/28/23 06:24: POC Glucose 151 H Micro: Microbiology 05/25/23 22:40 Urine, Clean Catch Urine Culture - Final Culture exhibits no growth. 05/24/23 14:20 Blood Culture (Wb) - Right Hand Blood Culture - Preliminary No growth in 48 hours. 05/24/23 14:05 Blood Culture (Wb) - Anticubital Left Blood Culture - Preliminary No growth in 48 hours. Physical Exam Narrative GENERAL: Significantly flat affect HEENT: Atraumatic; normocephalic EYES; Anicteric, Normal Conjunctiva NECK; supple, normal thyroid, RESPIRATORY: Diminished to auscultation CARDIOVASCULAR: Regular S1 S2, GI: soft, normoactive bowel sounds, : No Renal angle tenderness; EXTREMITIES: No edema, no clubbing, MUSCULOSKELETAL: no muscle wasting NEURO: Awake; no lateralizing signs. SKIN: No Rash PSYCH; Flat affect Assessment & Plan Assessment/Plan (1) Pneumonia: (2) New onset a-fib: (3) Brain TIA: (4) Delirium: PLAN: Plan Patient is an 82-year-old lady admitted with progressive generalized weakness. There was a suspicion of possible aspiration pneumonia versus cystitis started on antibiotic therapy admitted to a monitored bed for subsequent management 1. Acute metabolic encephalopathy ? Suspected to be secondary to combination of aspiration pneumonia versus cystit is. Acute CVA ruled out 2. Acute cystitis ? Patient urinalysis did show positive leukocyte Estrace. Culture sent results pending ? 05/28/2023 patient urine culture did not exhibit any growth. Antibiotics subsequently discontinued 3. Suspected aspiration pneumonia ? Patient remains on Unasyn and azithromycin 4. Dementia with behavioral agitation ? Thought to be secondary to above patient was placed on Seroquel dose had to be decreased given significant lethargy 5. New onset A-fib with RVR ? Resolved. Rate controlled patient started on Eliquis 2.5 mg twice daily 6. Depression with anxiety ? Patient is on Zoloft 7. Diabetes mellitus type 2 ? Oral hypoglycemic agent held please on Accu-Cheks before meals and at bedtime with sliding scale coverage 8. Mild intermittent asthma ? Currently not in exacerbation aerosol treatments as needed 9. DVT prophylaxis ? On Eliquis 10. Physical deconditioning - Requested for PT OT eval and social worker school to assist with discharge planning Time spent in the patient's overall evaluation,decision-making process, review of diagnostic data, adjustment of management, discussion with other providers, nursing nursing and ancillary staff involved in patient's care documentation, 35 Minutes Charges/Coding Visit Charges Inpatient E&M: 83938 Subs Hosp L2
[2023-05-28] MEDS: Donepezil HCl 10 MG Tablet PO (09:12)
[2023-05-28] MEDS: APIXABAN 2.5 MG TABLET (WCH) PO (09:12)
[2023-05-28] MEDS: Propranolol 10 MG Tablet 20 MG PO (09:12)
[2023-05-28] MEDS: Aspirin 81 MG TAB.CHEW PO (09:13)
[2023-05-28] MEDS: Fluticasone 0.05% 1 SPRAY NASAL.SRY 2 SPRAY NASAL (09:13)
[2023-05-28] MEDS: Sertraline 50 MG Tablet 75 MG PO (09:13)
[2023-05-28] MEDS: guaiFENesin 1,200 MG Tablet 1200 MG PO (09:13)
[2023-05-28 09:59] LABS: Absolute Neutrophil Count 8.7 X10^3/uL (2.0-7.7); Basophil# 0.05 X10^3/uL; Basophil% 0.4 % (0-1); Eosinophil# 0.45 X10^3/uL; Eosinophils% 3.7 % (0-5); Hematocrit 34.3 % (37-47); Hemoglobin 11.1 g/dL (12.0-15.0); Lymphocyte % 19.6 % (19-41); Mean Corp Hgb Conc 32.4 g/dL (32-36); Mean Corpuscular Volume 95.8 fL (81-99); Mean Platelet Vol. 9.9 fl (6.2-12.0); Monocyte% 4.9 % (0-10); NRBC Flagged by Analyzer 0 % (0-5); Neutrophil # 8.68 X10^3/uL (2.7-7.7); Neutrophil % 70.8 % (47-70); Platelet Count 369 K/mm3 (150-450); RBC Distribution Width SD 48.9 fl (35.1-43.9); Red Blood Count 3.58 M/mm3 (4.2-5.4); White Blood Count 12.3 K/mm3 (4.4-11.0)
[2023-05-28 10:25] LABS: Phosphorus 3.6 mg/dL (2.5-4.9)
[2023-05-28 10:37] LABS: Anion Gap 5 (5-15); BUN 10 mg/dL (7-18); BUN/Creat Ratio 15.4 RATIO (10-20); Chloride 105 mmol/L (98-107); Creatinine, Serum 0.65 mg/dL (0.55-1.02); EST Glomerular Filtration Rate 93 mL/min (>60); Est Glom Filt Rate - Afr Amer 112 mL/min (>60); Estimated Creatinine Clearance 48.43 ml/min; Glucose 182 mg/dL (74-106); Magnesium 1.5 mg/dL (1.6-2.6); Potassium 4.4 mmol/L (3.5-5.1); Sodium Level 138 mmol/L (136-145)
--- NOTE | 2023-05-28 11:01 | CASEMGMT ---
Therapy indicated patient did better with therapy today. Per physician patient is also more alert today. SW met with patient, her , and daughter. SW asked about the d/c plan. SW explained that therapy saw patient and felt she did a lot better today. SW asked if there would be someone with patient all of the time and family said there would be someone with patient. Family was agreeable to home with home health. SW notified RN OSMANY and physician. Plan: d/c home with home health. Marnie IRWIN
--- NOTE | 2023-05-28 11:47 | DS.PCM_ITS ---
Providers Date of Admission: 05/24/23 Date of Discharge: 05/28/23 Primary Care Physician: Dr. Liane Ba MD Reason For Visit: TIA WITH AMS AND PNEUMONIA Diagnosis Discharge Diagnosis (1) Pneumonia: Status: Acute Code(s): J18.9 - Pneumonia, unspecified organism (2) New onset a-fib: Status: Acute Code(s): I48.91 - Unspecified atrial fibrillation (3) Brain TIA: Status: Acute Code(s): G45.9 - Transient cerebral ischemic attack, unspecified (4) Delirium: Status: Acute Code(s): R41.0 - Disorientation, unspecified Plan Patient is an 82-year-old lady admitted with progressive generalized weakness. There was a suspicion of possible aspiration pneumonia versus cystitis started on antibiotic therapy admitted to a monitored bed for subsequent management 1. Acute metabolic encephalopathy ? Suspected to be secondary to combination of aspiration pneumonia versus cystitis. Acute CVA ruled out 2. Acute cystitis ? Patient urinalysis did show positive leukocyte Estrace. Culture sent results pending ? 05/28/2023 patient urine culture did not exhibit any growth. Antibiotics subsequently discontinued 3. Suspected aspiration pneumonia ? Patient remains on Unasyn and azithromycin 4. Dementia with behavioral agitation ? Thought to be secondary to above patient was placed on Seroquel dose had to be decreased given significant lethargy 5. New onset A-fib with RVR ? Resolved. Rate controlled patient started on Eliquis 2.5 mg twice daily ? Eliquis was however discontinued on discharge given his significant risk for falls and subsequent bleeding episodes 6. Depression with anxiety ? Patient is on Zoloft 7. Diabetes mellitus type 2 ? Oral hypoglycemic agent held please on Accu-Cheks before meals and at bedtime with sliding scale coverage 8. Mild intermittent asthma ? Currently not in exacerbation aerosol treatments as needed 9. DVT prophylaxis ? On Eliquis 10. Physical deconditioning - Requested for PT OT eval and social media director to assist with discharge planning Time spent in the patient's overall evaluation,decision-making process, review of diagnostic data, adjustment of management, discussion with other providers, nursing nursing and ancillary staff involved in patient's care documentation, 35 Minutes Medications at Discharge Home Medications loperamide 2 mg capsule (Imodium A-D) 2 mg PO Q6H PRN Diarrhea 06/08/20 nebulizer accessories #1 ea 09/12/20 nebulizers #1 ea 09/12/20 albuterol sulfate 2.5 mg/3 mL (0.083 %) solution for nebulization 2.5 mg (3 mL) inhalation Q6H #90 mL 09/15/20 melatonin 3 mg tablet 3 mg PO QHS PRN sleep #30 tabs 07/21/21 blood sugar diagnostic ([employer] Ultra Test strips) #100 ea 11/29/21 lancets 33 gauge ([employer] Delica Lancets) #100 ea 12/22/21 one touch ultra glucose meter ##1 06/25/22 albuterol sulfate 90 mcg/actuation aerosol inhaler (Ventolin HFA) 2 puff inhalation Q4H PRN shortness of breath or wheezing #18 grams 01/28/23 benzonatate 100 mg capsule 100 mg PO BID PRN cough #90 caps 01/28/23 fluticasone propionate 50 mcg/actuation nasal spray,suspension 2 spray intranasal DAILY #16 grams 01/28/23 guaifenesin 1,200 mg tablet, extended release 12 hr 1,200 mg PO Q12H #60 tabs 01/28/23 fluticasone fur. 200 mcg-umeclid 62.5 mcg-vilant 25 mcg inhalat.powder (Trelegy Ellipta) 1 inh inhalation DAILY #3 ea 02/28/23 donepezil 10 mg tablet 10 mg PO DAILY #90 tabs 04/05/23 propranolol 20 mg tablet 20 mg PO BID tremor #180 tabs 04/15/23 sitagliptin phosphate 50 mg-metformin 1,000 mg tablet (Janumet) 1 tab PO BID #180 tabs 05/17/23 sertraline 50 mg tablet 75 mg PO DAILY 05/24/23 aspirin 81 mg chewable tablet 81 mg PO BREAKFAST #30 tabs 05/28/23 levothyroxine 25 mcg tablet 25 mcg PO DAILY@0600 30 days #30 tabs 05/28/23 quetiapine 25 mg tablet 25 mg PO QHS #30 tabs 05/28/23 Physical Exam Narrative GENERAL: Significantly flat affect HEENT: Atraumatic; normocephalic EYES; Anicteric, Normal Conjunctiva NECK; supple, normal thyroid, RESPIRATORY: Diminished to auscultation CARDIOVASCULAR: Regular S1 S2, GI: soft, normoactive bowel sounds, : No Renal angle tenderness; EXTREMITIES: No edema, no clubbing, MUSCULOSKELETAL: no muscle wasting NEURO: Awake; no lateralizing signs. SKIN: No Rash PSYCH; Flat affect Weight / BMI Weight Weight: 60 kg Body Mass Index (BMI) 22.6 ABG / Lab / Microbiology Data 05/28/23 09:46 05/28/23 09:46 Laboratory: Laboratory Results - last 24 hr 05/27/23 17:22: POC Glucose 171 H 05/27/23 21:30: POC Glucose 203 H 05/28/23 06:24: POC Glucose 151 H 05/28/23 09:46: WBC 12.3 H, RBC 3.58 L, Hgb 11.1 L, Hct 34.3 L, MCV 95.8, MCH 31.0, MCHC 32.4, RDW Std Deviation 48.9 H, RDW Coeff of [place] 14.0, Plt Count 369, MPV 9.9, Immature Gran % (Auto) 0.600, Neut % (Auto) 70.8 H, Lymph % (Auto) 19.6, [place] % (Auto) 4.9, Eos % (Auto) 3.7, Baso % (Auto) 0.4, Absolute Neuts (auto) 8.7 H, Absolute Lymphs (auto) 2.40, Nucleated RBC % 0, Sodium 138, Potassium 4.4, Chloride 105, Carbon Dioxide 28.0, Anion Gap 5, BUN 10, Creatinine 0.65, Estim Creat Clear Calc 48.43, Est GFR (MDRD) Af Amer 112, Est GFR (MDRD) Non-Af 93, BUN/Creatinine Ratio 15.4, Glucose 182 H, Calcium 9.0, Phosphorus 3.6, Magnesium 1.5 L Microbiology: Microbiology 05/25/23 22:40 Urine, Clean Catch Urine Culture - Final Culture exhibits no growth. 05/24/23 14:20 Blood Culture (Wb) - Right Hand Blood Culture - Preliminary No growth in 48 hours. 05/24/23 14:05 Blood Culture (Wb) - Anticubital Left Blood Culture - Preliminary No growth in 48 hours. D/C Instructions Discharge Diet: 1800 Calorie Control Diet Discharge Activity: Return to Normal Activity Call your doctor if you observe: Fever of 101 or Higher, Shortness of breath, Fainting spells and Chest pain Meaningful Use Info Meaningful Use Diagnoses (Choose all that apply): None applicable Discharge Plan Admission Admit Date/Time: 05/24/23 14:03 Attending Provider: Lamine James Primary Care Provider: Liane Ba Consulting Providers: Christo Rachel; J Carlos Heaton Instructions Additional Instructions / Restrictions: Advised follow-up with neurologist or psychiatrist as an outpatient for further evaluation of dementia. Discharge Orders/Prescriptions Prescriptions: New quetiapine 25 mg Tablet 25 mg PO QHS Qty: 30 0RF levothyroxine 25 mcg Tablet 25 mcg PO DAILY@0600 30 Days Qty: 30 0RF aspirin 81 mg Tablet,Chewable 81 mg PO BREAKFAST Qty: 30 0RF Continued loperamide [Imodium A-D] 2 mg capsule 2 mg PO Q6H PRN (Reason: Diarrhea) melatonin 3 mg tablet 3 mg PO QHS PRN (Reason: sleep) Qty: 30 1RF albuterol sulfate [Ventolin HFA] 90 mcg/actuation HFA aerosol inhaler 2 puff inhalation Q4H PRN (Reason: shortness of breath or wheezing) Qty: 18 6RF fluticasone propionate 50 mcg/actuation spray,suspension 2 spray intranasal DAILY Qty: 16 3RF guaifenesin 1,200 mg tablet extended release 12hr 1,200 mg PO Q12H Qty: 60 6RF benzonatate 100 mg capsule 100 mg PO BID PRN (Reason: cough) Qty: 90 3RF Rx Instructions: ordered by [facility] sertraline 50 mg tablet 75 mg PO DAILY (DME) nebulizer accessories Kit See Rx Instructions .ROUTE .MEDSUPPLY Qty: 1 0RF Rx Instructions: As directed (DME) nebulizers [facility] [place] See Rx Instructions .ROUTE .MEDSUPPLY Qty: 1 0RF Rx Instructions: As directed albuterol sulfate 2.5 mg /3 mL (0.083 %) solution for nebulization 2.5 mg inhalation Q6H Qty: 90 2RF (DME) OneTouch Ultra Test Strip See Rx Instructions .Route Qty: 100 2RF Rx Instructions: BID and PRN (DME) lancets [OneTouch Delica Lancets] 33 gauge misc See Rx Instructions .Route Qty: 100 3RF Rx Instructions: BID and PRN (DME) one touch ultra glucose meter See Rx Instructions .Route .MEDSUPPLY Qty: 1 0RF Rx Instructions: bid and prn Trelegy Ellipta 200-62.5-25 mcg blister with device 1 inh inhalation DAILY Qty: 3 3RF donepezil 10 mg tablet 10 mg PO DAILY Qty: 90 3RF propranolol 20 mg tablet 20 mg PO BID Qty: 180 1RF Janumet 50-1,000 mg tablet 1 tab PO BID Qty: 180 1RF Referrals / Follow Up: Liane Ba MD [Primary Care Provider] - Damir Jesus DO [Med Staff - Corporate Accounting Manager] - Within 1 Month Gibran Alicea MD [Non-Staff] - Within 1 Month Disposition Disposition (needs filled in before D/C Order can be placed): Home Health Service Charges/Coding Visit Charges Inpatient E&M: 93278 Disch Hosp >30min
[2023-05-28 11:51] LABS: Bedside Glucose 164 mg/dL (74-106)
--- NOTE | 2023-05-28 12:40 | CASEMGMT ---
VILLA CERON updated by PREMA that patient would like to discharge home with [facility]. Per notes family prefers [facility]. VILLA CERON called and made referral to [facility] and they are able to accept with planned start of care for . VILLA CERON updated patient and family. Family had no further questions or concerns.
--- NOTE | 2023-05-28 14:34 | PHA.DC.MR.R ---
Pharmacy IN Med Reconciliation Pharmacy Service has performed discharge medication reconciliation for this patient. Medication education papers prepared, patient discharged before I was able to halfway house counselor. The patient's discharge medication list was reviewed for discrepancies and discrepancies were resolved. Medications at Discharge Home Medications loperamide 2 mg capsule (Imodium A-D) 2 mg PO Q6H PRN Diarrhea 06/08/20 nebulizer accessories #1 ea 09/12/20 nebulizers #1 ea 09/12/20 albuterol sulfate 2.5 mg/3 mL (0.083 %) solution for nebulization 2.5 mg (3 mL) inhalation Q6H #90 mL 09/15/20 melatonin 3 mg tablet 3 mg PO QHS PRN sleep #30 tabs 07/21/21 blood sugar diagnostic ([employer] Ultra Test strips) #100 ea 11/29/21 lancets 33 gauge ([employer] Delica Lancets) #100 ea 12/22/21 one touch ultra glucose meter ##1 06/25/22 albuterol sulfate 90 mcg/actuation aerosol inhaler (Ventolin HFA) 2 puff inhalation Q4H PRN shortness of breath or wheezing #18 grams 01/28/23 benzonatate 100 mg capsule 100 mg PO BID PRN cough #90 caps 01/28/23 fluticasone propionate 50 mcg/actuation nasal spray,suspension 2 spray intranasal DAILY #16 grams 01/28/23 guaifenesin 1,200 mg tablet, extended release 12 hr 1,200 mg PO Q12H #60 tabs 01/28/23 fluticasone fur. 200 mcg-umeclid 62.5 mcg-vilant 25 mcg inhalat.powder (Trelegy Ellipta) 1 inh inhalation DAILY #3 ea 02/28/23 donepezil 10 mg tablet 10 mg PO DAILY #90 tabs 04/05/23 propranolol 20 mg tablet 20 mg PO BID tremor #180 tabs 04/15/23 sitagliptin phosphate 50 mg-metformin 1,000 mg tablet (Janumet) 1 tab PO BID #180 tabs 05/17/23 sertraline 50 mg tablet 75 mg PO DAILY 05/24/23 aspirin 81 mg chewable tablet 81 mg PO BREAKFAST #30 tabs 05/28/23 levothyroxine 25 mcg tablet 25 mcg PO DAILY@0600 30 days #30 tabs 05/28/23 quetiapine 25 mg tablet 25 mg PO QHS #30 tabs 05/28/23
== END 2023-05-28 14:21 | disposition home health service (06) | DRG 177 ==
LOC: ED 14:09 → PCU 05-25 07:26
PROVIDERS: Internal Medicine; Admitting Provider Family Medicine; Emergency Provider Emergency Medicine; PCP Internal Medicine; Visit Provider Internal Medicine
DX: J69.0 Pneumonitis due to inhalation of food and vomit (principal); G93.41 Metabolic encephalopathy; F03.911 Unspecified dementia, unspecified severity, with agitation; E11.9 Type 2 diabetes mellitus without complications; I48.91 Unspecified atrial fibrillation; F32.A Depression, unspecified; J45.20 Mild intermittent asthma, uncomplicated; F41.9 Anxiety disorder, unspecified; Z91.81 History of falling; Z79.899 Other long term (current) drug therapy; Z79.51 Long term (current) use of inhaled steroids
CPT/HCPCS: 36415; 70496; 70498; 70551; 71045; 80048; 80061; 80076; 81001; 82607; 82746; 82962; 83605; 83735; 83880; 84100; 84439; 84443; 84484; 85025; 85610; 85730; 87040; 87086; 92526; 92610; 93005; 94640; 94762; 97110; 97116; 97129; 97162; 97166; 97530; 97535; 97802; 99285; J7050; Q9967; A4216; J0295

== ENCOUNTER 2023-06-06 09:44 | Observation (INO) | payer MEDICARE, SELFPAY ==
[2023-06-06] VITALS (16 sets, daily range): BP systolic 124–166; BP diastolic 49–106; PULSE 59–94; RESP 16–21; TEMP 36.5–37.1; O2SAT 91–99; BMI 22.9
--- NOTE | 2023-06-06 09:57 | CT_ITS ---
STUDY: CT BRAIN WITHOUT CONTRAST REASON FOR EXAM: Female, 82 years old. Increased confusion. History of dementia. RADIATION DOSAGE (If Supplied By Facility): CTDIvol = ( 44.99 ) mGy, DLP = ( 779.24 ) mGycm TECHNIQUE: Transaxial CT imaging of the brain was performed without administration of intravenous contrast material. Individualized dose optimization techniques were used for this CT. COMPARISON: Comparison is made with prior study dated May 24, 2023. FINDINGS: Normal soft tissue structures. Questionable 1.4 cm x 1.3 cm calcified meningioma in the right frontal lobe superiorly. There is mild cerebral atrophy with widening of the extra-axial spaces and ventricular dilatation. There are areas of decreased attenuation within the white matter tracts of the supratentorial brain, consistent with microvascular disease changes. Normal basal ganglia and thalami. Normal brainstem. Normal cerebellum. There is no intracranial hemorrhage. There are no findings of an acute ischemic infarction. Opacification of the left maxillary sinus. CT/Brain/Head without Contrast IMPRESSION: Chronic involutional changes of the brain. Stable examination. Electronically Signed: Holden Villalpando MD at 10:48 EDT ,
--- NOTE | 2023-06-06 09:57 | EKG12_ITS ---
Test Reason : MEDICAL CLEARANCE Blood Pressure : / mmHG Vent. Rate : 068 BPM Atrial Rate : 068 BPM P-R Int : 158 ms QRS Dur : 118 ms QT Int : 410 ms P-R-T Axes : 076 -06 -21 degrees QTc Int : 435 ms Normal sinus rhythm Low voltage QRS Right bundle branch block T wave abnormality, consider lateral ischemia Abnormal ECG When compared with ECG of 27-MAY-2023 02:41, T wave inversion now evident in Lateral leads Confirmed by FARHAT PEREZ, ABELINO ([id number]), editor greeting card DIONE LANG ([id number]) on 06/13/2023 11:45:34 AM Referred By: Confirmed By:ABELINO DOUGHERTY MD
--- NOTE | 2023-06-06 10:06 | RAD_ITS ---
STUDY: X-RAY CHEST REASON FOR EXAM: Female, 82 years old. Hypertension TECHNIQUE: Single AP portable view of the chest. COMPARISON: Comparison is made with prior study of May 24, 2023. FINDINGS: EKG electrodes are seen. Persistent right lower lobe infiltrate although there has been improvement as compared to prior study. Persistent blunting of the right costophrenic angle. Normal size heart. Normal mediastinum and guy. Normal visualized pulmonary arteries. There is atherosclerotic calcification of the aortic arch with tortuosity. There are diffuse degenerative changes of the visualized thoracic spine. Normal visualized ribs, clavicles, and shoulders. There is no demonstrated abnormality of the visualized soft tissue structures of the upper abdomen. RAD/Chest 1 View (Portable) IMPRESSION: Persistent right lower lobe infiltrate with blunting of the right costophrenic angle. There has been improvement as compared to prior study. Electronically Signed: Holden Villalpando MD at 10:40 EDT ,
[2023-06-06 10:10] LABS: Bacteria 0 SEEN /hpf (None Seen); Mucous, Urine 0 SEEN /hpf (<or=2+)
[2023-06-06 10:12] LABS: Color, Urine Yellow (Yellow); Glucose, Dipstick Normal (Normal); Ketone-Dipstick 15 mg/dl (Negative); Leukocyte Esterase-Dipstick Negative /ul (Negative); Nitrite-Dipstick Negative (Negative); Occult Blood-Urine Negative /ul (Negative); Protein-Dipstick 30 mg/dl (Negative); Specific Gravity, Urine 1.015 (1.002-1.030); Urine Bilirubin Dipstick Negative (Negative); Urine Clarity Sl. Cloudy (Clear); Urine Urobilinogen Normal (Normal)
[2023-06-06 10:13] LABS: Absolute Lymphocyte Count 2.11 X10^3/uL (0.83-4.51); Absolute Neutrophil Count 7.5 X10^3/uL (2.0-7.7); Basophil# 0.06 X10^3/uL; Basophil% 0.6 % (0-1); Eosinophil# 0.01 X10^3/uL; Eosinophils% 0.1 % (0-5); Hematocrit 37.2 % (37-47); Lymphocyte # 2.11 X10^3/ul (0.83-4.51); Lymphocyte % 20.9 % (19-41); Mean Corp Hgb Conc 32.3 g/dL (32-36); Mean Corpuscular Hgb 31.3 pg (27.0-32.0); Mean Corpuscular Volume 97.1 fL (81-99); Mean Platelet Vol. 10.6 fl (6.2-12.0); Monocyte# 0.37 X10^3/uL; Monocyte% 3.7 % (0-10); NRBC Flagged by Analyzer 0 % (0-5); Neutrophil # 7.49 X10^3/uL (2.7-7.7); Neutrophil % 74.3 % (47-70); Platelet Count 369 K/mm3 (150-450); RBC Distribution Width CV 14.2 % (11.6-14.6); RBC Distribution Width SD 50.4 fl (35.1-43.9); Red Blood Count 3.83 M/mm3 (4.2-5.4); White Blood Count 10.1 K/mm3 (4.4-11.0)
[2023-06-06 10:19] LABS: Red Blood Cells-Urine 0-5 SEEN /hpf (0-5); Squamous Epithelial Cells - UA 0-5 SEEN /hpf (5-10)
[2023-06-06 10:20] LABS: White Blood Cells 0-5 SEEN /hpf (0-5)
[2023-06-06 10:23] LABS: Partial Thromboplast Time 22.3 Seconds (24.1-36.2); Prothrombin Time (Protime)PT. 13.4 SECONDS (11.7-14.9)
[2023-06-06 10:32] LABS: AST(SGOT) 12 U/L (15-37); Alanine Aminotransfer ALT/SGPT 15 U/L (13-56); Albumin, Serum 3.4 g/dL (3.2-5.0); Alkaline Phosphatase 76 U/L (45-117); Anion Gap 7 (5-15); BUN 18 mg/dL (7-18); Bilirubin, Direct 0.14 mg/dL (0.00-0.30); Chloride 103 mmol/L (98-107); Creatinine, Serum 0.75 mg/dL (0.55-1.02); EST Glomerular Filtration Rate 79 mL/min (>60); Est Glom Filt Rate - Afr Amer 95 mL/min (>60); Estimated Creatinine Clearance 48.43 ml/min; Globulin 3.9 g/dL (2.2-4.2); Glucose 194 mg/dL (74-106); Potassium 4.2 mmol/L (3.5-5.1); Protein, Total 7.3 g/dL (6.4-8.2); Sodium Level 138 mmol/L (136-145); Troponin-I HS 24 pg/mL (3.0-54.0)
--- NOTE | 2023-06-06 11:09 | CT_ITS ---
STUDY: CTA HEAD AND NECK WITH CONTRAST REASON FOR EXAM: Female, 82 years old. Mental status change RADIATION DOSAGE (If Supplied By Facility): CTDIvol = ( 13.68 ) mGy, DLP = ( 542.92 ) mGycm TECHNIQUE: CT angiography was performed with a multi-detector CT scanner. Data acquisition was obtained from the skull base through the vertex following intravenous administration of IV 100mL [id number]-[id number]. MIP images were reconstructed from the axial data set. Post-processing of the angiographic images was performed, with multiplanar reformation and 3D reconstruction. Individualized dose optimization techniques were used for this CT. COMPARISON: Comparison is made with prior study dated May 24, 2023. FINDINGS: Normal bilateral petrous carotid arteries. There is calcified plaque formation of the right cavernous carotid artery, without a cross-sectional luminal stenosis. There is calcified plaque formation of the left cavernous carotid artery, without a cross-sectional luminal stenosis. Normal right A1 segments of the anterior cerebral artery. Normal left A1 segments of the anterior cerebral artery. Normal intact anterior communicating artery (ACOM). Normal bilateral A2 segments of the anterior cerebral arteries. Normal right M1 and M2 segments of the middle cerebral arteries, with a normal M1 bifurcation. Normal left M1 and M2 segments of the middle cerebral arteries, with a normal M1 bifurcation. Normal right posterior communicating artery (PCOM). Normal left posterior communicating artery (PCOM). Normal bilateral vertebral arteries. Normal basilar artery with a normal basilar bifurcation. The visualized bilateral superior cerebellar (SCA) arteries are normal. Normal bilateral P1, P2 and visualized P3 segments of the posterior cerebral arteries. There is no demonstrated aneurysm of the [place]. There is no demonstrated abnormality of the visualized brain. AORTIC ARCH: There is atherosclerotic calcific plaque formation of the aortic arch and great vessels arising from the aortic arch, without a hemodynamically significant stenosis. There is a normal origin of the brachiocephalic, left common carotid, and left subclavian arteries. RIGHT CAROTID ARTERIES: Normal right common carotid artery (CCA). Normal right common carotid bulb. There is mild atherosclerotic plaque formation of the origin of the right internal carotid artery with less than 50% cross sectional diameter stenosis. Normal visualized cervical portion of the right internal carotid artery. Normal origin of the right external carotid artery (ECA). LEFT CAROTID ARTERIES: Normal left common carotid artery (CCA). Normal left common carotid bulb. There is mild atherosclerotic plaque formation of the origin of the left internal carotid artery with less than 50% cross sectional diameter stenosis. Normal visualized cervical portion of the left internal carotid artery. Normal origin of the left external carotid artery (ECA). VERTEBRAL ARTERIES: Normal bilateral vertebral arteries. CT/CTA Head AND Neck W/ Contrast IMPRESSION: Minimal calcific plaque formation at the origin of both the right and left internal carotid arteries causing less than 50% narrowing. Electronically Signed: Holden Villalpando MD at 11:58 EDT ,
--- NOTE | 2023-06-06 11:35 | EX.ED.DYSGE1 ---
HPI History of Present Illness Chief Complaint: Mental Status Change Informant: family and EMS Narrative Narrative: 82-year-old female presenting to the emergency room with altered mental status. Patient lives at home with her who she is dependent upon and is reported to have dementia. Patient reportedly was up all night. This morning was not speaking for family. EMS notes that she said that it was cold and they could understand her. She is moving all extremities negative [place] [facility]. Children state that they are recently seen admitted to the hospital. Went home with the patient has been up at night or sleeping during the day. She has been doing a lot of reorganization. Family notes that they are not sure that their father can keep her living at home anymore. They state that their dad is waiting on somebody to tell them that she needs to go to a fci facility. They note that this morning they could not really get her to say anything other than no. [facility] Medical History (Updated 06/06/23 @ 13:[address] Amber Shields, DO) Allergies Arthritis bladder/uti problem Carpal tunnel syndrome Dementia Diabetes GERD (gastroesophageal reflux disease) GI problem Headache, migraine Hearing problem Tremor of right hand Vision problem Home Medications loperamide 2 mg capsule (Imodium A-D) 2 mg PO Q6H PRN Diarrhea 06/08/20 [History Last Taken 06/05/23] nebulizer accessories #1 ea 09/12/20 [Rx Last Taken Unknown] nebulizers #1 ea 09/12/20 [Rx Last Taken Unknown] albuterol sulfate 2.5 mg/3 mL (0.083 %) solution for nebulization 2.5 mg (3 mL) inhalation Q6H #90 mL 09/15/20 [Rx Last Taken 06/05/23] melatonin 3 mg tablet 3 mg PO QHS PRN sleep #30 tabs 07/21/21 [Rx Last Taken 06/05/23] blood sugar diagnostic (OneTouch Ultra Test strips) #100 ea 11/29/21 [Rx Last Taken Unknown] lancets 33 gauge (OneTouch Delica Lancets) #100 ea 12/22/21 [Rx Last Taken Unknown] one touch ultra glucose meter ##1 06/25/22 [Rx Last Taken Unknown] albuterol sulfate 90 mcg/actuation aerosol inhaler (Ventolin HFA) 2 puff inhalation Q4H PRN shortness of breath or wheezing #18 grams 01/28/23 [Rx Last Taken 06/05/23] benzonatate 100 mg capsule 100 mg PO BID PRN cough #90 caps 01/28/23 [Rx Last Taken 06/05/23] fluticasone propionate 50 mcg/actuation nasal spray,suspension 2 spray intranasal DAILY #16 grams 01/28/23 [Rx Last Taken 06/05/23] guaifenesin 1,200 mg tablet, extended release 12 hr 1,200 mg PO Q12H #60 tabs 01/28/23 [Rx Last Taken 06/05/23] fluticasone fur. 200 mcg-umeclid 62.5 mcg-vilant 25 mcg inhalat.powder (Trelegy Ellipta) 1 inh inhalation DAILY #3 ea 02/28/23 [Rx Last Taken 06/05/23] donepezil 10 mg tablet 10 mg PO DAILY #90 tabs 04/05/23 [Rx Last Taken 06/05/23] propranolol 20 mg tablet 20 mg PO BID tremor #180 tabs 04/15/23 [Rx Last Taken 06/05/23] sitagliptin phosphate 50 mg-metformin 1,000 mg tablet (Janumet) 1 tab PO BID #180 tabs 05/17/23 [Rx Last Taken 06/05/23] sertraline 50 mg tablet 75 mg PO DAILY 05/24/23 [History Last Taken 06/05/23] aspirin 81 mg chewable tablet 81 mg PO BREAKFAST #30 tabs 05/28/23 [Rx Last Taken Unknown] levothyroxine 25 mcg tablet 25 mcg PO DAILY@0600 30 days #30 tabs 05/28/23 [Rx Last Taken 06/05/23] quetiapine 25 mg tablet 25 mg PO QHS #30 tabs 05/28/23 [Rx Last Taken 06/05/23] Allergy/AdvReac Type Severity Reaction Status Date / Time dicyclomine HCl [From Bentyl] AdvReac HEART RACES Verified 04/05/23 10:06 Family History Mother Alzheimer's dementia Surgical History 2 nasal surgies fibroid removal meniscal repair Social History (Updated 06/06/23 @ 13:[address] Amber Shields, DO) household members: spouse housing: house Smoking Status: Never smoker alcohol intake: never substance use type: does not use what type of physical activity do you participate in: walking and aerobics frequency: daily ROS ROS ED Review of Systems ROS Unobtainable: due to mental status EXAM Physical Exam Const Vital Signs: 06/06/23 09:45 06/06/23 09:50 06/06/23 10:50 Temperature 97.9 F 97.7 F L 98 F Temperature Source Oral Oral Temporal Pulse Rate 75 75 94 Respiratory Rate 17 19 H 18 Blood Pressure 166/89 H 166/89 H 156/101 H Blood Pressure Mean 114 114 119 Pulse Ox 94 94 99 Oxygen Delivery Method Room Air Room Air Room Air 06/06/23 10:00 06/06/23 10:30 06/06/23 11:00 Temperature Temperature Source Pulse Rate 87 71 64 Respiratory Rate 19 H 19 H 18 Blood Pressure 147/62 H 152/59 H 147/56 H Blood Pressure Mean 88 87 84 Pulse Ox 92 94 96 Oxygen Delivery Method 06/06/23 11:45 06/06/23 13:00 Temperature Temperature Source Pulse Rate 63 68 Respiratory Rate 19 H 21 H Blood Pressure 145/50 H 125/106 H Blood Pressure Mean 79 112 Pulse Ox 95 93 Oxygen Delivery Method Room Air Positive well nourished and well developed General Appearance ED: well developed HEENT Reports normocephalic, head/scalp atraumatic and moist mucous membranes Eyes PERRL and EOMs intact bilaterally Neck no lymphadenopathy, supple and no JVD Resp normal respiratory effort and clear to auscultation bilaterally Cardio regular rate, regular rhythm and no murmurs GI normal to inspection, nondistended, normoactive bowel sounds and non-tender Palpation: soft Back/Spine no CVA tenderness and normal ROM Extremity normal to inspection General Extremety ED: Negative for edema General Extremity: Negative for edema Neuro CN's II-XII intact bilaterally Neuro Narrative: Patient moves all of her extremities on her own. She has speaks minimally but I can understand her appreciate dysarthria. Sensorium / Orientation: alert Motor Exam: strength 5/5 throughout Skin no rashes or lesions noted and no wounds MDM MDM MDM Narrative Medical decision making narrative: CT of the brain CTA of the brain is negative for acute findings. Basic blood work essentially negative. White count 10.1 hemoglobin of 12 platelet count of 369 INR 1 PTT to 2.3. BMP appeared normal except for glucose of 194. Normal liver panel troponin is 24 my independent or potation of the chest x-ray is no acute process. Urine which was a straight cath is normal. Patient is sleeping. I do wonder to what degree her dementia is playing a role in this change in mental status. Family states that yesterday was a fairly good day until the nighttime. I will speak with the hospitalist regarding admission and would anticipate the patient being transferred to a fci facility. History & Record Review Discussion w/independent historian: EMS personnel and Family Lab Data Attestation: I reviewed the patient's lab results. Labs: Laboratory Results - last 24 hr 06/06/23 09:53 WBC 10.1 RBC 3.83 L Hgb 12.0 Hct 37.2 MCV 97.1 MCH 31.3 MCHC 32.3 RDW Std Deviation 50.4 H RDW Coeff of [place] 14.2 Plt Count 369 MPV 10.6 Immature Gran % (Auto) 0.400 Neut % (Auto) 74.3 H Lymph % (Auto) 20.9 [place] % (Auto) 3.7 Eos % (Auto) 0.1 Baso % (Auto) 0.6 Absolute Neuts (auto) 7.5 Absolute Lymphs (auto) 2.11 Nucleated RBC % 0 PT 13.4 INR 1.0 APTT 22.3 L Sodium 138 Potassium 4.2 Chloride 103 Carbon Dioxide 28.0 Anion Gap 7 BUN 18 Creatinine 0.75 Estim Creat Clear Calc 48.43 Est GFR (MDRD) Af Amer 95 Est GFR (MDRD) Non-Af 79 BUN/Creatinine Ratio 24.0 H Glucose 194 H Calcium 9.0 Total Bilirubin 0.40 Direct Bilirubin 0.14 AST 12 L ALT 15 Alkaline Phosphatase 76 Troponin I High Sens 24 Total Protein 7.3 Albumin 3.4 Globulin 3.9 Urine Color Yellow Urine Clarity Sl. Cloudy Urine pH 7.0 Ur Specific [place] 1.015 Urine Protein 30 H Urine Glucose (UA) Normal Urine Ketones 15 H Urine Occult Blood Negative Urine Nitrite Negative Urine Bilirubin Negative Urine Urobilinogen Normal Ur Leukocyte Esterase Negative Urine RBC 0-5 SEEN Urine WBC 0-5 SEEN Ur Squamous Epith Cells 0-5 SEEN Urine Bacteria 0 SEEN Urine Mucus 0 SEEN Radiography Diagnostic Testing: Clinical Impression(s) from Imaging Studies Brain CT 06/06/23 09:57 IMPRESSION: Chronic involutional changes of the brain. Stable examination. Electronically Signed: Holden Villalpando MD at 10:48 EDT , Chest X-Ray 06/06/23 10:06 IMPRESSION: Persistent right lower lobe infiltrate with blunting of the right costophrenic angle. There has been improvement as compared to prior study. Electronically Signed: Holden Villalpando MD at 10:40 EDT , Head/Neck CTA 06/06/23 11:09 IMPRESSION: Minimal calcific plaque formation at the origin of both the right and left internal carotid arteries causing less than 50% narrowing. Electronically Signed: Holden Villalpando MD at 11:58 EDT , EKG Initial EKG: Attestation: I personally reviewed and interpreted this EKG as follows: Comments: Sinus tachycardia ventricular rate of 68 bpm. Right bundle branch block noted Management Discussion w/another healthcare provider: Hospitalist (Dr. Shields) Discharge Plan Dx/Rx/DC Orders Clinical Impression: Acute alteration in mental status, Diabetes mellitus, Dementia, Hypertension Disposition Disposition: Acute Care [facility]
--- NOTE | 2023-06-06 13:20 | PCM.HP.STD ---
HPI - General General Date of Admission: 06/06/23 Date of Service: 06/06/23 Chief Complaint: Altered mental status HPI Narrative NELLI HARTMAN, is a 82 F who presented to department at [facility] on 06/06/2023 due to acute on chronic confusion. Patient has baseline dementia and had a recent admission here from 05/24/2023 through 05/28/2023 for similar type symptoms. She evidently was doing well postdischarge and then last evening at about 2 AM she had some acute onset of nausea and vomiting. Her daughter believes this was only 1 episode and then became confused and would not interact appropriately and answer questions. They state that this is similar to her last presentation. It does appear that she had some emesis prior to that admission as well. There was concern for stroke so an MRI was performed and showed chronic involutional changes. The initial plan was for to discharge to correction facility however she improved some and the the plan was altered to take her home with home health care. Again, family stated she was doing fairly well and then early this morning decompensated. She does have baseline dementia for which she takes donepezil and it seems this may be progressively worsening. At baseline she is alert and oriented to self and birthdate. At the time of my evaluation she was walking back from the bathroom with minimal assistance of 1 back to her room but would not consistently answer questions or follow commands. She is however able to move all of her extremities symmetrically without any signs of focal neurological deficit. Her workup was essentially unremarkable. Her temperature was 97.9, blood pressure was 166/89 with a repeat of 125/106, heart rate was 75, respiratory rate 17 oxygen saturations have been between 92 and 96% on room air. Her her CBC is relatively unremarkable other than a minimal left shift with a 74.3% neutrophilia. Coags are unremarkable. Her chemistry panel is overall unremarkable other than an elevated serum glucose of 194 and she is a baseline diabetic. Her LFTs are unremarkable. Troponin was normal at 24. Her UA is not suggestive of infection. CT of the brain showed only chronic involutional changes and a stable exam when compared to previous. Chest x-ray showed persistent right lower lobe abnormality with blunting of the right costophrenic angle that has improved since previous exam and CT of the head and neck showed minimal calcific plaque formation of the origin of the bilateral internal carotid arteries with less than 50% narrowing but was otherwise unremarkable. With her altered mental status and declining functional status family is interested in having her placed that she is becoming too much for her to handle at home. [facility] Medical History (Updated 06/06/23 @ 13:[address] Amber Shields, ) Allergies Arthritis bladder/uti problem Carpal tunnel syndrome Dementia Diabetes GERD (gastroesophageal reflux disease) GI problem Headache, migraine Hearing problem Tremor of right hand Vision problem Home Medications loperamide 2 mg capsule (Imodium A-D) 2 mg PO Q6H PRN Diarrhea 06/08/20 [History Last Taken 06/05/23] nebulizer accessories #1 ea 09/12/20 [Rx Last Taken Unknown] nebulizers #1 ea 09/12/20 [Rx Last Taken Unknown] albuterol sulfate 2.5 mg/3 mL (0.083 %) solution for nebulization 2.5 mg (3 mL) inhalation Q6H #90 mL 09/15/20 [Rx Last Taken 06/05/23] melatonin 3 mg tablet 3 mg PO QHS PRN sleep #30 tabs 07/21/21 [Rx Last Taken 06/05/23] blood sugar diagnostic (OneTouch Ultra Test strips) #100 ea 11/29/21 [Rx Last Taken Unknown] lancets 33 gauge (OneTouch Delica Lancets) #100 ea 12/22/21 [Rx Last Taken Unknown] one touch ultra glucose meter ##1 06/25/22 [Rx Last Taken Unknown] albuterol sulfate 90 mcg/actuation aerosol inhaler (Ventolin HFA) 2 puff inhalation Q4H PRN shortness of breath or wheezing #18 grams 01/28/23 [Rx Last Taken 06/05/23] benzonatate 100 mg capsule 100 mg PO BID PRN cough #90 caps 01/28/23 [Rx Last Taken 06/05/23] fluticasone propionate 50 mcg/actuation nasal spray,suspension 2 spray intranasal DAILY #16 grams 01/28/23 [Rx Last Taken 06/05/23] guaifenesin 1,200 mg tablet, extended release 12 hr 1,200 mg PO Q12H #60 tabs 01/28/23 [Rx Last Taken 06/05/23] fluticasone fur. 200 mcg-umeclid 62.5 mcg-vilant 25 mcg inhalat.powder (Trelegy Ellipta) 1 inh inhalation DAILY #3 ea 02/28/23 [Rx Last Taken 06/05/23] donepezil 10 mg tablet 10 mg PO DAILY #90 tabs 04/05/23 [Rx Last Taken 06/05/23] propranolol 20 mg tablet 20 mg PO BID tremor #180 tabs 04/15/23 [Rx Last Taken 06/05/23] sitagliptin phosphate 50 mg-metformin 1,000 mg tablet (Janumet) 1 tab PO BID #180 tabs 05/17/23 [Rx Last Taken 06/05/23] sertraline 50 mg tablet 75 mg PO DAILY 05/24/23 [History Last Taken 06/05/23] aspirin 81 mg chewable tablet 81 mg PO BREAKFAST #30 tabs 05/28/23 [Rx Last Taken Unknown] levothyroxine 25 mcg tablet 25 mcg PO DAILY@0600 30 days #30 tabs 05/28/23 [Rx Last Taken 06/05/23] quetiapine 25 mg tablet 25 mg PO QHS #30 tabs 05/28/23 [Rx Last Taken 06/05/23] Allergy/AdvReac Type Severity Reaction Status Date / Time dicyclomine HCl [From Bentyl] AdvReac HEART RACES Verified 04/05/23 10:06 Family History Mother Alzheimer's dementia Surgical History 2 nasal surgies fibroid removal meniscal repair Social History (Updated 06/06/23 @ 13:[address] Amber Shields DO) household members: spouse housing: house Smoking Status: Never smoker alcohol intake: never substance use type: does not use what type of physical activity do you participate in: walking and aerobics frequency: daily ROS ROS Narrative Patient not able to participate at this time as she is not answering questions however family reports that she did have 1 episode of emesis with increased confusion Constitutional Constitutional: Reports weakness Vital Signs Vital Signs Vital Signs: 06/06/23 09:45 06/06/23 09:50 06/06/23 10:50 Temperature 97.9 F 97.7 F L 98 F Temperature Source Oral Oral Temporal Pulse Rate 75 75 94 Respiratory Rate 17 19 H 18 Blood Pressure 166/89 H 166/89 H 156/101 H Blood Pressure Mean 114 114 119 Pulse Ox 94 94 99 Oxygen Delivery Method Room Air Room Air Room Air 06/06/23 10:00 06/06/23 10:30 06/06/23 11:00 Temperature Temperature Source Pulse Rate 87 71 64 Respiratory Rate 19 H 19 H 18 Blood Pressure 147/62 H 152/59 H 147/56 H Blood Pressure Mean 88 87 84 Pulse Ox 92 94 96 Oxygen Delivery Method 06/06/23 11:45 06/06/23 13:00 Temperature Temperature Source Pulse Rate 63 68 Respiratory Rate 19 H 21 H Blood Pressure 145/50 H 125/106 H Blood Pressure Mean 79 112 Pulse Ox 95 93 Oxygen Delivery Method Room Air Weight Weight: 60.6 kg Body Mass Index (BMI) 22.9 Physical Exam Const alert, average body habitus and well nourished; Negative for healthy appearing Constitutional Narrative: Elderly, white female, lying in bed, is intermittently alert and follows commands intermittently but not able to answer any questions appropriately at this time Orientation / Consciousness: confused and disoriented HEENT normocephalic, head/scalp atraumatic and hearing grossly normal bilaterally HEENT Narrative: Dentures in place, Mallampati is 2, no thrush noted Eyes PERRL, EOMs intact bilaterally and conjunctivae normal Eyes Narrative: No scleral icterus Neck no lymphadenopathy, supple, no JVD and no carotid bruits Neck Narrative: Trachea midline, no thyroid enlargement Resp normal respiratory effort, no retractions, no use of accessory muscles and clear to auscultation bilaterally Auscultation: Negative for rales, rhonchi or wheezes Cardio regular rate, regular rhythm, S1 normal heart sound, S2 normal heart sound, no murmurs, no rub, no gallops and no clicks GI normal to inspection, nondistended, normoactive bowel sounds, soft to palpation and non-tender Extremity no clubbing, cyanosis or edema Extremity Narrative: Decreased lean muscle mass, pedal pulses are 2+, radial pulses are 2+ Skin no rashes or lesions noted, no wounds, No skin turgor normal, no jaundice, no petechiae and no mottling Neuro moves all extremities Neuro Narrative: Exam is difficult due to the fact that she only intermittently follows commands and is not able to fully interact however there do not appear to be any focal deficits Sensorium / Orientation: awake and alert Speech: Negative for speech normal Psych Psych Narrative: Patient is calm and pleasant but confused Results Lab / Micro Data 06/06/23 09:53 06/06/23 09:53 Labs: Laboratory Results - last 24 hr 06/06/23 09:53: WBC 10.1, RBC 3.83 L, Hgb 12.0, Hct 37.2, MCV 97.1, MCH 31.3, MCHC 32.3, RDW Std Deviation 50.4 H, RDW Coeff of [place] 14.2, Plt Count 369, MPV 10.6, Immature Gran % (Auto) 0.400, Neut % (Auto) 74.3 H, Lymph % (Auto) 20.9, [place] % (Auto) 3.7, Eos % (Auto) 0.1, Baso % (Auto) 0.6, Absolute Neuts (auto) 7.5, Absolute Lymphs (auto) 2.11, Nucleated RBC % 0, PT 13.4, INR 1.0, APTT 22.3 L, Sodium 138, Potassium 4.2, Chloride 103, Carbon Dioxide 28.0, Anion Gap 7, BUN 18, Creatinine 0.75, Estim Creat Clear Calc 48.43, Est GFR (MDRD) Af Amer 95, Est GFR (MDRD) Non-Af 79, BUN/Creatinine Ratio 24.0 H, Glucose 194 H, Calcium 9.0, Total Bilirubin 0.40, Direct Bilirubin 0.14, AST 12 L, ALT 15, Alkaline Phosphatase 76, Troponin I High Sens 24, Total Protein 7.3, Albumin 3.4, Globulin 3.9, Urine Color Yellow, Urine Clarity Sl. Cloudy, Urine pH 7.0, Ur Specific [place] 1.015, Urine Protein 30 H, Urine Glucose (UA) Normal, Urine Ketones 15 H, Urine Occult Blood Negative, Urine Nitrite Negative, Urine Bilirubin Negative, Urine Urobilinogen Normal, Ur Leukocyte Esterase Negative, Urine RBC 0-5 SEEN, Urine WBC 0-5 SEEN, Ur Squamous Epith Cells 0-5 SEEN, Urine Bacteria 0 SEEN, Urine Mucus 0 SEEN Imaging Radiology Impression Brain CT 06/06/23 09:57 IMPRESSION: Chronic involutional changes of the brain. Stable examination. Electronically Signed: Holden Villalpando MD at 10:48 EDT , Chest X-Ray 06/06/23 10:06 IMPRESSION: Persistent right lower lobe infiltrate with blunting of the right costophrenic angle. There has been improvement as compared to prior study. Electronically Signed: Holden Villalpando MD at 10:40 EDT , Head/Neck CTA 06/06/23 11:09 IMPRESSION: Minimal calcific plaque formation at the origin of both the right and left internal carotid arteries causing less than 50% narrowing. Electronically Signed: Holden Villalpando MD at 11:58 EDT , Assessment & Plan Assessment/Plan (1) Acute alteration in mental status: PLAN: Plan Acute confusion -Etiology is unclear -Was here recently with similar presentation and workup was negative with a normal MRI and she slowly cleared with time -UTI was ruled out with a negative culture and UA at this time is unremarkable -There is also concern for aspiration pneumonia due to infiltrate in the right lower lobe however she had no fever cough or chills -Chest x-ray at this admission shows resolving infiltrate -Hold off on repeat MRI for now but if patient is not changed much in 24 hours we will reevaluate with MRI tomorrow -No focal deficits -Patient does have history of dementia -Repeat lab in a.m. -Gentle hydration -Discontinue Seroquel and transition to risperidone 0.5 mg at at bedtime Nausea/vomiting -1 isolated episode -Presented like this as well at her last hospitalization -As needed antiemetics available -Will monitor -Clear liquid diet and advance as able Falls/generalized weakness -Progressively worsening debility likely related to her overall medical condition and dementia -PT/OT consultation -May get speech therapy involved depending on her status tomorrow -Plainly desires placement at discharge--> case management/social work consultation placed History of dementia -Suspect Alzheimer's type -Discontinue Seroquel and will transition to risperidone for decreased sedative effect DM-2 -Continue home oral agents -SSI -Carb controlled diet -Accu-Cheks as ordered Hypertension -Continue home propranolol -Will have to monitor heart rate closely with donepezil being used for her dementia is this can cause bradycardia A-fib with RVR -Currently in sinus rhythm -This was newly diagnosed at her last hospitalization -Patient is not anticoagulated as she is a very high fall risk Hypothyroidism -Continue home levothyroxine -Had TSH done at last hospitalization and was slightly elevated with reflex T4 done which was normal so this equates euthyroid sick syndrome Asthma -Continue home inhalers and as needed albuterol -Continue home guaifenesin DVT prophylaxis -Lovenox SQ 40 mg times daily CODE STATUS -Currently full code however family is going to discuss this more and likely transition to DNR CCA with no intubation Charges/Coding Visit Charges Inpatient E&M: 69636 Init Hosp L2
--- NOTE | 2023-06-06 13:40 | NURSING ---
MED SURG OBS ALTERED MENTAL STATUS SUSAN
[2023-06-06] MEDS: Lactated Ringers 1,000 ML 75 ML IV (17:44)
[2023-06-06 18:08] LABS: Bedside Glucose 126 mg/dL (74-106)
[2023-06-06] MEDS: Ipratropium/Albuterol Sulfate 3 ML AMPUL.NEB INHALATION (19:30)
[2023-06-06] MEDS: Budesonide Respules 0.5 MG/2 ML AMPUL.NEB. INHALATION (19:30)
[2023-06-06] MEDS: Ondansetron 4 MG/2 ML Vial IV (21:31)
[2023-06-06] MEDS: guaiFENesin 1,200 MG Tablet 1200 MG PO (21:31)
[2023-06-06] MEDS: 0.9% Saline Lock 10 ML Syringe IV (21:31)
[2023-06-06] MEDS: Propranolol 10 MG Tablet 20 MG PO (21:31)
[2023-06-06] MEDS: RisperiDONE 0.5 MG Tablet PO (21:32)
[2023-06-06] MEDS: MELATONIN 10 MG TABLET PO (21:32)
[2023-06-06 21:41] LABS: Bedside Glucose 167 mg/dL (74-106)
[2023-06-07] VITALS (7 sets, daily range): BP systolic 120–152; BP diastolic 53–65; PULSE 59–73; RESP 16–18; TEMP 36–36.8; O2SAT 91–98; BMI 30.2
[2023-06-07] MEDS: Levothyroxine 25 MCG TABLET PO (02:52)
[2023-06-07 06:25] LABS: Bedside Glucose 161 mg/dL (74-106)
[2023-06-07 06:37] LABS: Absolute Lymphocyte Count 2.68 X10^3/uL (0.83-4.51); Absolute Neutrophil Count 4.4 X10^3/uL (2.0-7.7); Basophil# 0.07 X10^3/uL; Basophil% 0.9 % (0-1); Eosinophil# 0.18 X10^3/uL; Eosinophils% 2.2 % (0-5); Hematocrit 34.7 % (37-47); Hemoglobin 11.2 g/dL (12.0-15.0); Lymphocyte # 2.68 X10^3/ul (0.83-4.51); Lymphocyte % 32.9 % (19-41); Mean Corp Hgb Conc 32.3 g/dL (32-36); Mean Corpuscular Hgb 31.6 pg (27.0-32.0); Mean Platelet Vol. 10.4 fl (6.2-12.0); Monocyte% 9.8 % (0-10); NRBC Flagged by Analyzer 0 % (0-5); Neutrophil # 4.38 X10^3/uL (2.7-7.7); Neutrophil % 53.8 % (47-70); Platelet Count 299 K/mm3 (150-450); RBC Distribution Width CV 14.4 % (11.6-14.6); RBC Distribution Width SD 52.1 fl (35.1-43.9); Red Blood Count 3.54 M/mm3 (4.2-5.4); White Blood Count 8.1 K/mm3 (4.4-11.0)
[2023-06-07 07:52] LABS: ALB/GLOB Ratio 0.8 RATIO (0.9-2.4); AST(SGOT) 12 U/L (15-37); Alanine Aminotransfer ALT/SGPT 12 U/L (13-56); Albumin, Serum 3.1 g/dL (3.2-5.0); Alkaline Phosphatase 66 U/L (45-117); Anion Gap 4 (5-15); BUN 13 mg/dL (7-18); BUN/Creat Ratio 17.1 RATIO (10-20); Calcium,Total 8.9 mg/dL (8.5-10.1); Chloride 103 mmol/L (98-107); Creatinine, Serum 0.76 mg/dL (0.55-1.02); EST Glomerular Filtration Rate 78 mL/min (>60); Est Glom Filt Rate - Afr Amer 94 mL/min (>60); Estimated Creatinine Clearance 57.53 ml/min; Globulin 3.9 g/dL (2.2-4.2); Glucose 150 mg/dL (74-106); Magnesium 1.7 mg/dL (1.6-2.6); Phosphorus 3.4 mg/dL (2.5-4.9); Potassium 4.3 mmol/L (3.5-5.1); Sodium Level 135 mmol/L (136-145)
[2023-06-07] MEDS: Sertraline 50 MG Tablet 75 MG PO (09:16)
[2023-06-07] MEDS: Aspirin 81 MG TAB.CHEW PO (09:16)
[2023-06-07] MEDS: metFORMIN HCl 1,000 MG Tablet 1000 MG PO ×2 (09:16→16:16)
[2023-06-07] MEDS: LINAGLIPTIN 5 MG TABLET PO (09:17)
[2023-06-07] MEDS: Donepezil HCl 10 MG Tablet PO (09:17)
[2023-06-07] MEDS: Fluticasone 0.05% 1 SPRAY NASAL.SRY 2 SPRAY NASAL (09:17)
[2023-06-07] MEDS: Propranolol 10 MG Tablet 20 MG PO ×2 (09:17→20:33)
[2023-06-07] MEDS: Enoxaparin 40 MG/0.4 ML Syringe SC (09:17)
[2023-06-07] MEDS: guaiFENesin 1,200 MG Tablet 1200 MG PO ×2 (09:17→20:34)
--- NOTE | 2023-06-07 10:43 | CASEMGMT ---
VILLA CM into pt room, pt sitting up in gerichair with dtr and son at bedside. Pt answering questions with prompting. Pt son states pt is active with [facility], PT and OT. He states pt has his own medical problems and difficult to manage pt. They are awaiting neuro consult but realize pt may need SNF. Pt is DPOA. Updated SW. VILLA CERON to follow therapy and consults.
--- NOTE | 2023-06-07 11:14 | NEURO.CONS ---
Assessment and Plan: Neuro Assessment/Plan NELLI HARTMAN is a 82 F with moderate to advanced dementia presenting with nausea, vomiting, and confusion. She has been improving over the past couple days but continues to have difficulty with speech. Will obtain MRI brain to rule out acute pathology, and EEG to rule out seiuzres Diagnosis: Dementia Progressive cognitive and functional decline Confusion Recommendations: MRI brain Routine EEG I personally attended this patient and spent a total time of 40 minutes evaluating this patient including clinical assessment, review of chart, medical history imaging, and determining appropriate treatment and workup. HPI Consult Data Date of Consult: 06/07/23 HPI Narrative HPI Narrative: NELLI HARTMAN, is a 82 woman with dementia who presented to the hospital on 06/06/2023 due to worsening confusion. Patient has baseline dementia. she doesn't cook, but she does the dishes. She dressed herself. She would ask how to get to the bathroom or to her room. On Saturday night she went to bed, woke up morning vomiting, went into the bathroom, had a bowel movement, urinated and vomited all at the same time, from that point on she was confused. She kept holding her head as if her head hurts. When she started to speak, she wouldn't make comprehensible phrases. She has been improving, but continues to have trouble with speech. She had a recent hospitalization from 05/24/2023 through 05/28/2023 for confusion and transient left side weakness in the setting of vomiting and nausea as well. At that time she was found to have new onset Afib. MRI brain was performed and negative for stroke but showed age related changes and atrophy. The initial plan was for to [facility] however she improved some and the the plan was altered to take her home with home health care. She was doing faily ok after discharge until this happened. SBP 166, WBC normal, UA not concerning for infection. [facility] Medical History (Updated 06/06/23 @ 13:[address] Amber Shields DO) Allergies Arthritis bladder/uti problem Carpal tunnel syndrome Dementia Diabetes GERD (gastroesophageal reflux disease) GI problem Headache, migraine Hearing problem Tremor of right hand Vision problem Home Medications loperamide 2 mg capsule (Imodium A-D) 2 mg PO Q6H PRN Diarrhea 06/08/20 [History Last Taken 06/05/23] nebulizer accessories #1 ea 09/12/20 [Rx Last Taken Unknown] nebulizers #1 ea 09/12/20 [Rx Last Taken Unknown] albuterol sulfate 2.5 mg/3 mL (0.083 %) solution for nebulization 2.5 mg (3 mL) inhalation Q6H #90 mL 09/15/20 [Rx Last Taken 06/05/23] melatonin 3 mg tablet 3 mg PO QHS PRN sleep #30 tabs 07/21/21 [Rx Last Taken 06/05/23] blood sugar diagnostic (Ageto Service Ultra Test strips) #100 ea 11/29/21 [Rx Last Taken Unknown] lancets 33 gauge (iBuyitBetterTouch Delica Lancets) #100 ea 12/22/21 [Rx Last Taken Unknown] one touch ultra glucose meter ##1 06/25/22 [Rx Last Taken Unknown] albuterol sulfate 90 mcg/actuation aerosol inhaler (Ventolin HFA) 2 puff inhalation Q4H PRN shortness of breath or wheezing #18 grams 01/28/23 [Rx Last Taken 06/05/23] benzonatate 100 mg capsule 100 mg PO BID PRN cough #90 caps 01/28/23 [Rx Last Taken 06/05/23] fluticasone propionate 50 mcg/actuation nasal spray,suspension 2 spray intranasal DAILY #16 grams 01/28/23 [Rx Last Taken 06/05/23] guaifenesin 1,200 mg tablet, extended release 12 hr 1,200 mg PO Q12H #60 tabs 01/28/23 [Rx Last Taken 06/05/23] fluticasone fur. 200 mcg-umeclid 62.5 mcg-vilant 25 mcg inhalat.powder (Trelegy Ellipta) 1 inh inhalation DAILY #3 ea 02/28/23 [Rx Last Taken 06/05/23] donepezil 10 mg tablet 10 mg PO DAILY #90 tabs 04/05/23 [Rx Last Taken 06/05/23] propranolol 20 mg tablet 20 mg PO BID tremor #180 tabs 04/15/23 [Rx Last Taken 06/05/23] sitagliptin phosphate 50 mg-metformin 1,000 mg tablet (Janumet) 1 tab PO BID #180 tabs 05/17/23 [Rx Last Taken 06/05/23] sertraline 50 mg tablet 75 mg PO DAILY 05/24/23 [History Last Taken 06/05/23] aspirin 81 mg chewable tablet 81 mg PO BREAKFAST #30 tabs 05/28/23 [Rx Last Taken Unknown] levothyroxine 25 mcg tablet 25 mcg PO DAILY@0600 30 days #30 tabs 05/28/23 [Rx Last Taken 06/05/23] quetiapine 25 mg tablet 25 mg PO QHS #30 tabs 05/28/23 [Rx Last Taken 06/05/23] Allergy/AdvReac Type Severity Reaction Status Date / Time dicyclomine HCl [From Bentyl] AdvReac HEART RACES Verified 04/05/23 10:06 Family History Mother Alzheimer's dementia Surgical History 2 nasal surgies fibroid removal meniscal repair Social History (Updated 06/06/23 @ 13:[address] Amber Shields DO) household members: spouse housing: house Smoking Status: Never smoker alcohol intake: never substance use type: does not use what type of physical activity do you participate in: walking and aerobics frequency: daily Vital Signs Vital Signs Vital Signs: 06/06/23 11:45 06/06/23 13:00 06/06/23 15:00 Temperature Temperature Source Pulse Rate 63 68 67 Pulse Strength Respiratory Rate 19 H 21 H 18 Respiratory Effort Respiratory Depth Respiratory Pattern Blood Pressure 145/50 H 125/106 H 149/64 H Blood Pressure Mean 79 112 92 Blood Pressure Source Blood Pressure Position Blood Pressure Location Pulse Ox 95 93 94 Oxygen Delivery Method Room Air Room Air 06/06/23 12:00 06/06/23 12:15 06/06/23 12:30 Temperature Temperature Source Pulse Rate 59 L 74 59 L Pulse Strength Respiratory Rate 18 19 H 17 Respiratory Effort Respiratory Depth Respiratory Pattern Blood Pressure 132/49 H 150/72 H 137/52 H Blood Pressure Mean 74 92 76 Blood Pressure Source Blood Pressure Position Blood Pressure Location Pulse Ox 94 92 95 Oxygen Delivery Method 06/06/23 17:00 06/06/23 17:35 06/06/23 19:30 Temperature 97.7 F L Temperature Source Pulse Rate 68 88 86 Pulse Strength Respiratory Rate 16 18 18 Respiratory Effort Respiratory Depth Respiratory Pattern Blood Pressure 125/74 H Blood Pressure Mean 91 Blood Pressure Source Blood Pressure Position Blood Pressure Location Pulse Ox 95 Oxygen Delivery Method Room Air 06/06/23 19:30 06/06/23 21:17 06/06/23 21:15 Temperature 98.7 F Temperature Source Oral Pulse Rate 71 Pulse Strength Normal (2+) Respiratory Rate 18 Respiratory Effort Respiratory Depth Respiratory Pattern Blood Pressure 124/51 H Blood Pressure Mean 75 Blood Pressure Source Monitor Blood Pressure Position Semi-Fowlers Blood Pressure Location Left Forearm Pulse Ox 91 94 Oxygen Delivery Method Room Air Room Air 06/06/23 21:15 06/07/23 02:49 06/07/23 02:50 Temperature 98.1 F Temperature Source Oral Pulse Rate 63 Pulse Strength Respiratory Rate 18 Respiratory Effort Normal Non-Labored Normal Non-Labored Respiratory Depth Normal Normal Respiratory Pattern Normal Normal Blood Pressure 134/65 H Blood Pressure Mean 88 Blood Pressure Source Monitor Blood Pressure Position Sitting Blood Pressure Location Right Arm Pulse Ox 96 Oxygen Delivery Method Room Air Room Air Room Air 06/07/23 07:25 06/07/23 07:49 Temperature 98.3 F Temperature Source Oral Pulse Rate 59 L Pulse Strength Respiratory Rate 18 Respiratory Effort Respiratory Depth Respiratory Pattern Blood Pressure 122/56 H Blood Pressure Mean 78 Blood Pressure Source Monitor Blood Pressure Position Semi-Fowlers Blood Pressure Location Left Arm Pulse Ox 91 94 Oxygen Delivery Method Nasal Cannula Room Air Weight Weight: 80.4 kg Body Mass Index (BMI) 30.2 EEG Results Procedure Details EEG Procedure Details: NELLI HARTMAN is a 82 year old F with a past medical history of , who presents for evaluation of Electroencephalogram on DATE at TIME Physical Exam Const Constitutional Narrative: She is alert, when asked about her name she stats spelling it. She can tell her last name. Not oriented time, nor place. Unable to identify her daughter at bedside. Slow to respond. Face symmetric, tongue midline following simple commands, can tell left from from right. all extremities antigravity Lab / Micro Data 06/07/23 06:25 06/07/23 06:25 Labs: Laboratory Results - last 24 hr 06/06/23 17:51: POC Glucose 126 H 06/06/23 21:14: POC Glucose 167 H 06/07/23 06:08: POC Glucose 161 H 06/07/23 06:25: WBC 8.1, RBC 3.54 L, Hgb 11.2 L, Hct 34.7 L, MCV 98.0, MCH 31.6, MCHC 32.3, RDW Std Deviation 52.1 H, RDW Coeff of [place] 14.4, Plt Count 299, MPV 10.4, Immature Gran % (Auto) 0.400, Neut % (Auto) 53.8, Lymph % (Auto) 32.9, [place] % (Auto) 9.8, Eos % (Auto) 2.2, Baso % (Auto) 0.9, Absolute Neuts (auto) 4.4, Absolute Lymphs (auto) 2.68, Nucleated RBC % 0, Sodium 135 L, Potassium 4.3, Chloride 103, Carbon Dioxide 28.0, Anion Gap 4 L, BUN 13, Creatinine 0.76, Estim Creat Clear Calc 57.53, Est GFR (MDRD) Af Amer 94, Est GFR (MDRD) Non-Af 78, BUN/Creatinine Ratio 17.1, Glucose 150 H, Calcium 8.9, Phosphorus 3.4, Magnesium 1.7, Total Bilirubin 0.50, AST 12 L, ALT 12 L, Alkaline Phosphatase 66, Total Protein 7.0, Albumin 3.1 L, Globulin 3.9, Albumin/Globulin Ratio 0.8 L Imaging Radiology Impression Head/Neck CTA 06/06/23 11:09 IMPRESSION: Minimal calcific plaque formation at the origin of both the right and left internal carotid arteries causing less than 50% narrowing. Electronically Signed: Holden Villalpando MD at 11:58 EDT , Active Medications Active Medications Active Medications: Current Medications Generic Name Dose Route Start Last Admin Trade Name Freq PRN Reason Stop Dose Admin Acetaminophen 650 mg 06/06/23 17:16 Acetaminophen 325 Mg Tablet PO Q6H PRN PRN Pain 1-10 Or Fever>100.7 Albuterol/Ipratropium 3 ml 06/06/23 17:25 06/06/23 19:30 Ipratropium/Albuterol Sulfate 3 Ml Ampul.Neb INHALATION 3 ml Q6HWA.RT ANANTH Administration Aspirin 81 mg 06/07/23 08:00 06/07/23 09:16 Aspirin 81 Mg Tab.Chew PO 81 mg BREAKFAST ANANTH Administration Budesonide 0.5 mg 06/06/23 17:25 06/06/23 19:30 Budesonide Respules 0.5 Mg/2 Ml Ampul.Neb. INHALATION 0.5 mg Q12H.RT ANANTH Administration Dextrose 0 gm 06/06/23 17:16 Dextrose 50%-Water 25 Gm/50 Ml Disp.Syrin IV X1 PRN HYPOGLYCEMIA Protocol Donepezil HCl 10 mg 06/07/23 10:00 06/07/23 09:17 Donepezil Hcl 10 Mg Tablet PO 10 mg DAILY ANANTH Administration Enoxaparin Sodium 40 mg 06/07/23 10:00 06/07/23 09:17 Enoxaparin 40 Mg/0.4 Ml Syringe SC 40 mg DAILY ANANTH Administration Fluticasone Propionate 2 spray 06/07/23 10:00 06/07/23 09:17 Fluticasone 0.05% 1 [place] Nasal.Sry NASAL 2 spray DAILY ANANTH Administration Glucagon 1 mg 06/06/23 17:16 Glucagon 1 Mg/Ml Syringe IM X1 PRN HYPOGLYCEMIA Guaifenesin 1,200 mg 06/06/23 22:00 06/07/23 09:17 Guaifenesin 1,200 Mg Tablet PO 1,200 mg Q12 ANANTH Administration Insulin Human Lispro 0 unit 06/06/23 17:16 06/07/23 06:15 Insulin Lispro 100 Unit/Ml Insuln.Pen SC Not Given [facility] Protocol Levothyroxine Sodium 25 mcg 06/07/23 06:00 06/07/23 02:52 Levothyroxine 25 Mcg Tablet PO 25 mcg DAILY@0600 ANANTH Administration Linagliptin 5 mg 06/07/23 10:00 06/07/23 09:17 Linagliptin 5 Mg Tablet PO 5 mg DAILY ANANTH Administration Melatonin 10 mg 06/06/23 22:00 06/06/23 21:32 Melatonin 10 Mg Tablet PO 10 mg QHS ANANTH Administration Metformin HCl 1,000 mg 06/07/23 08:00 06/07/23 09:16 Metformin Hcl 1,000 Mg Tablet PO 1,000 mg BIDCM ANANTH Administration Ondansetron HCl 4 mg 06/06/23 17:16 06/06/23 21:31 Ondansetron 4 Mg/2 Ml Vial IV 4 mg Q8H PRN PRN Administration NAUSEA/VOMITING Propranolol HCl 20 mg 06/06/23 22:00 06/07/23 09:17 Propranolol 10 Mg Tablet PO 20 mg BID ANANTH Administration Risperidone 0.5 mg 06/06/23 22:00 06/06/23 21:32 Risperidone 0.5 Mg Tablet PO 0.5 mg QHS ANATNH Administration Protocol Senna/Docusate Sodium 2 tablet 06/06/23 17:16 Senna/Docusate Sodium 1 Tablet PO BID PRN PRN Constipation Sertraline HCl 75 mg 06/07/23 10:00 06/07/23 09:16 Sertraline 50 Mg Tablet PO 75 mg DAILY ANANTH Administration Sodium Chloride 10 - 40 ml 06/06/23 18:08 06/06/23 21:31 0.9% Saline Lock 10 Ml Syringe IV 10 ml UD PRN Administration SALINE FLUSH
--- NOTE | 2023-06-07 11:24 | CASEMGMT ---
Discharge Planning A list of?SNF providers including quality and resource use data and consistent with the patient's preferred geographic region, medical needs, and insurance network was created in [employer].? This list was provided to the SW. Fiorella Singh Discharge Planning Asst.
[2023-06-07] MEDS: Insulin Lispro 100 UNIT/ML INSULN.PEN SC ×2 (12:34→16:20)
[2023-06-07 12:41] LABS: Bedside Glucose 207 mg/dL (74-106)
--- NOTE | 2023-06-07 12:49 | CASEMGMT ---
Addendum entered by Marisela Wiley 06/07/23 14:28: SW provided pt information to [facility] and requested follow up with the family. Original Note: Social Work- SW met with pt, pt daughter, Bette; pt son, Zain; and pt spouse to discuss PT and OT evals and plans for discharge, as neither PT nor OT were recommended. Pt daughter was provided with a list of SNF as printed by Kierra Scruggs and would like to meet with Daisha at [facility] to discuss medicaid, as private pay is not an option. Pt family also discussed private pay as an option, which may be an option short term. Pt family is awaiting consult with neuro and test results before making decisions. SW will follow up. MARIELA Farah
--- NOTE | 2023-06-07 13:30 | MRI_ITS ---
We are attempting to reach an attending provider to discuss findings. An addendum with communication details will be sent when the communication is complete. STUDY: MRI BRAIN WITHOUT CONTRAST REASON FOR EXAM: Female, 82 years old. Transient aphasia/confusion TECHNIQUE: Standardized multiplanar fat and water weighted pulse sequences were obtained. MRI examination brain obtained with standard protocol with multiplanar multiecho noncontrast imaging. Contrast: No contrast. COMPARISON: CT of 06/06/2023 MRI of 05/24/2023. LIMITATIONS: Motion artifact. HEMISPHERES, CEREBELLUM AND BRAINSTEM: 1. The cerebral parenchyma, ventricular system, subarachnoid spaces have normal configuration and density. There is a normal gyral pattern. There is normal duffy/white differentiation. No midline shift.. 2. Diffuse involutional changes and moderate chronic microvascular deep white matter disease. 3. There is a subtle punctate 3 mm focus of diffusion hyperintensity in the white matter LEFT parietal lobe consistent with a small nonhemorrhagic lacunar infarct. 4. No other evidence of mass, hemorrhage, or acute territorial infarct. 5. The cerebellum, brainstem, basilar and suprasellar cisterns have normal appearance. No Chiari malformation. PITUITARY: Infundibulum and pituitary have normal configuration. Midline structures appear normal. CSF SPACES: Appropriate for age. No hydrocephalus. Basal cisterns are patent. VESSELS: 1. There are normal flow voids noted in the great vessels at the skull base ORBITS AND PARANASAL SINUSES: 1. Both globes, extraocular muscles, optic nerves and retrobulbar fat appear unremarkable. 2. Opacification LEFT maxillary sinus. Mild mucosal thickening in ethmoid sinuses. BONY ELEMENTS: Bony elements of the cranial vault, facial skeleton and skull base have normal appearance. SCALP AND SOFT TISSUES: Normal appearance of the soft tissues of the scalp and the visualized face OTHER: None MRI/Brain without Contrast IMPRESSION: 1. Diffuse involutional change and chronic microvascular deep white matter disease. 2. Small punctate 3 mm focus of acute nonhemorrhagic lacunar infarct in the deep white matter of the LEFT parietal lobe. 3. No other evidence of mass, hemorrhage, or acute territorial infarct. 4. Sinus disease. Electronically Signed: Brad Moreno MD at 20:04 EDT ,
--- NOTE | 2023-06-07 13:40 | PCM.PN.HOSP ---
Reason for Visit Reason for Visit: Transient confusion/aphasia Subjective Subjective Per family she is almost back to baseline today. Able to interact and follow commands consistently. Has no complaints. Was able to walk well with therapy and will not qualify for any skilled services. Case management is talking to family about what their desires are with regard to placement. Objective Data Objective Data Vital Signs: Vital Signs Temp Pulse Resp BP Pulse Ox O2 Del Method 98.0 F 66 18 120/54 L 98 Room Air 06/07/23 08:50 06/07/23 08:50 06/07/23 09:00 06/07/23 08:50 06/07/23 08:50 06/07/23 09:00 Oxygen Delivery Method Room Air Weight: 80.4 kg Body Mass Index (BMI) 30.2 Intake & Output: Intake and Output for Last 24 Hours 06/05/23 06/06/23 06/07/23 23:59 23:59 23:59 Intake Total 200 / 200 987.5 / 987.5 Balance 200 / 200 987.5 / 987.5 Lab / Micro Data 06/07/23 06:25 06/07/23 06:25 Labs: Laboratory Results - last 24 hr 06/06/23 17:51: POC Glucose 126 H 06/06/23 21:14: POC Glucose 167 H 06/07/23 06:08: POC Glucose 161 H 06/07/23 06:25: WBC 8.1, RBC 3.54 L, Hgb 11.2 L, Hct 34.7 L, MCV 98.0, MCH 31.6, MCHC 32.3, RDW Std Deviation 52.1 H, RDW Coeff of [place] 14.4, Plt Count 299, MPV 10.4, Immature Gran % (Auto) 0.400, Neut % (Auto) 53.8, Lymph % (Auto) 32.9, [place] % (Auto) 9.8, Eos % (Auto) 2.2, Baso % (Auto) 0.9, Absolute Neuts (auto) 4.4, Absolute Lymphs (auto) 2.68, Nucleated RBC % 0, Sodium 135 L, Potassium 4.3, Chloride 103, Carbon Dioxide 28.0, Anion Gap 4 L, BUN 13, Creatinine 0.76, Estim Creat Clear Calc 57.53, Est GFR (MDRD) Af Amer 94, Est GFR (MDRD) Non-Af 78, BUN/Creatinine Ratio 17.1, Glucose 150 H, Calcium 8.9, Phosphorus 3.4, Magnesium 1.7, Total Bilirubin 0.50, AST 12 L, ALT 12 L, Alkaline Phosphatase 66, Total Protein 7.0, Albumin 3.1 L, Globulin 3.9, Albumin/Globulin Ratio 0.8 L 06/07/23 12:24: POC Glucose 207 H Physical Exam Const alert, average body habitus and well nourished; Negative for healthy appearing Constitutional Narrative: Elderly, white female, sitting up in a chair at the bedside, consistently following commands and will interact appropriately when questions are asked, fairly close to baseline per family is oriented to self but not place or time Orientation / Consciousness: confused and disoriented HEENT normocephalic, head/scalp atraumatic and hearing grossly normal bilaterally HEENT Narrative: Dentures in place, Mallampati is 2, no thrush Resp normal respiratory effort, no retractions, no use of accessory muscles and clear to auscultation bilaterally Auscultation: Negative for rales, rhonchi or wheezes Cardio regular rate, regular rhythm, S1 normal heart sound, S2 normal heart sound, no murmurs, no rub, no gallops and no clicks GI normal to inspection, nondistended, normoactive bowel sounds, soft to palpation and non-tender Extremity no clubbing, cyanosis or edema Extremity Narrative: Decreased lean muscle mass, pedal pulses are 2+, radial pulses are 2+ Neuro CN's II-XII intact bilaterally, moves all extremities and no focal motor deficits Neuro Narrative: Aphasia has resolved and patient interacts appropriately and follows all commands Sensorium / Orientation: awake, alert and oriented to person; Negative for oriented to place or oriented to time Speech: speech normal Psych affect normal Psych Narrative: Very pleasant, calm, interacts appropriately at this time despite confusion Assessment & Plan Assessment/Plan (1) Acute alteration in mental status: PLAN: Plan Acute confusion/expressive aphasia -Etiology is unclear -Was here recently with similar presentation and workup was negative with a normal MRI and she slowly cleared with time -UTI was ruled out with a negative culture and UA at this time is unremarkable -There is also concern for aspiration pneumonia due to infiltrate in the right lower lobe however she had no fever cough or chills -Chest x-ray at this admission shows resolving infiltrate -MRI pending--> repeating due to newly diagnosed A-fib and not anticoagulated -EEG is pending -Lipids obtained on 05/25/2023 with a total cholesterol 144/LDL 73/HDL 48/triglycerides 113 -Start atorvastatin 20 mg at night -Check hemoglobin A1c -Now close to baseline -Patient does have history of dementia -Continue at bedtime risperidone -Neurology following-appreciate input Nausea/vomiting -resolved -Advance diet Falls/generalized weakness -Progressively worsening debility likely related to her overall medical condition and dementia -PT/OT following and she did extremely well with therapy not requiring any more therapy services -Family desires placement but will not qualify under skilled--> casework manager working with family to ascertain whether or not they want her placed for long-term care facility and how to approach this History of dementia -Suspect Alzheimer's type -Continue risperidone 0.5 mg at at bedtime DM-2 -Hemoglobin A1c is pending -Continue home oral agents -SSI -Carb controlled diet -Accu-Cheks as ordered Hypertension -Continue home propranolol -Will have to monitor heart rate closely with donepezil being used for her dementia is this can cause bradycardia A-fib with RVR -Currently in sinus rhythm -This was newly diagnosed at her last hospitalization -Patient is not anticoagulated as she is a very high fall risk Hypothyroidism -Continue home levothyroxine -Had TSH done at last hospitalization and was slightly elevated with reflex T4 done which was normal so this equates euthyroid sick syndrome Asthma -Continue home inhalers and as needed albuterol -Continue home guaifenesin DVT prophylaxis -Lovenox SQ 40 mg times daily CODE STATUS -CODE STATUS changed from full code to DNR CCA with no intubation after conversation -Order placed Charges/Coding Visit Charges Inpatient E&M: 82236 Subs Hosp L2
--- NOTE | 2023-06-07 14:05 | CASEMGMT ---
Met with patients and daughter to complete RODAS form. RODAS form explained to both who voiced understanding and signed form. Original form placed in pt?s chart and copy provided to?patients daughter. Fiorella Singh, Discharge Planning Asst
--- NOTE | 2023-06-07 15:24 | CASEMGMT ---
VILLA CERON NOTE: VILLA CERON spoke w/Patt @ [facility] and she is aware pt has been admitted to [facility]. She was made aware pt will not be discharged over the weekend and to f/u with CM on Saturday. Saul APARICIO RN, CM
[2023-06-07] MEDS: LORazepam 1 MG Tablet PO (16:16)
--- NOTE | 2023-06-07 16:16 | CASEMGMT ---
Social Work- SW spoke with Bette, who was in [facility] office. [facility] had shared that Bette had some confusion and concerns about discharge planning/pt being discharged over the weekend with no plan. SW encouraged family to review list and have discussions on plans for discharge over the weekend and SW will follow up on Saturday; reiterated no plans to discharge prior. MARIELA Farah
[2023-06-07 17:08] LABS: Bedside Glucose 161 mg/dL (74-106)
[2023-06-07] MEDS: RisperiDONE 0.5 MG Tablet PO (20:33)
[2023-06-07] MEDS: MELATONIN 10 MG TABLET PO (20:33)
[2023-06-07] MEDS: Atorvastatin Calcium 20 MG Tablet PO (20:34)
[2023-06-07] MEDS: 0.9% Saline Lock 10 ML Syringe IV (20:34)
[2023-06-07 21:09] LABS: Bedside Glucose 181 mg/dL (74-106)
[2023-06-08] VITALS (10 sets, daily range): BP systolic 104–126; BP diastolic 48–58; PULSE 59–91; RESP 15–24; TEMP 36.5–36.9; O2SAT 93–95; BMI 30.2
[2023-06-08 05:20] LABS: Hematocrit 32.7 % (37-47); Hemoglobin 10.6 g/dL (12.0-15.0); Mean Corp Hgb Conc 32.4 g/dL (32-36); Mean Corpuscular Hgb 31.9 pg (27.0-32.0); Mean Corpuscular Volume 98.5 fL (81-99); Mean Platelet Vol. 10.5 fl (6.2-12.0); Platelet Count 271 K/mm3 (150-450); RBC Distribution Width CV 14.2 % (11.6-14.6); RBC Distribution Width SD 51.3 fl (35.1-43.9); Red Blood Count 3.32 M/mm3 (4.2-5.4); White Blood Count 6.9 K/mm3 (4.4-11.0)
[2023-06-08 05:44] LABS: Anion Gap 4 (5-15); BUN 17 mg/dL (7-18); BUN/Creat Ratio 23.8 RATIO (10-20); Calcium,Total 8.7 mg/dL (8.5-10.1); Chloride 106 mmol/L (98-107); Creatinine, Serum 0.71 mg/dL (0.55-1.02); EST Glomerular Filtration Rate 84 mL/min (>60); Est Glom Filt Rate - Afr Amer 101 mL/min (>60); Estimated Creatinine Clearance 57.53 ml/min; Glucose 189 mg/dL (74-106); Potassium 4.1 mmol/L (3.5-5.1); Sodium Level 137 mmol/L (136-145)
[2023-06-08] MEDS: Levothyroxine 25 MCG TABLET PO (06:21)
[2023-06-08] MEDS: Insulin Lispro 100 UNIT/ML INSULN.PEN SC ×2 (06:21→16:26)
[2023-06-08] MEDS: Budesonide Respules 0.5 MG/2 ML AMPUL.NEB. INHALATION ×2 (07:58→18:50)
[2023-06-08] MEDS: Ipratropium/Albuterol Sulfate 3 ML AMPUL.NEB INHALATION ×2 (07:58→18:50)
[2023-06-08 08:17] LABS: Hemoglobin A1c 6.6 % (3.8-5.6)
--- NOTE | 2023-06-08 08:46 | NURSING ---
called and talked with PCU charge Nurse Chanelle regarding TeleNeuro rounding and NIH scales. Aware pt is on the list for teleneuro to round on patient again today and if NIHs are ordered will start when patient is transferred to them.
[2023-06-08] MEDS: Sertraline 50 MG Tablet 75 MG PO (08:50)
[2023-06-08] MEDS: metFORMIN HCl 1,000 MG Tablet 1000 MG PO ×2 (08:51→16:26)
[2023-06-08] MEDS: Fluticasone 0.05% 1 SPRAY NASAL.SRY 2 SPRAY NASAL (08:52)
[2023-06-08] MEDS: LINAGLIPTIN 5 MG TABLET PO (08:53)
[2023-06-08] MEDS: Aspirin 81 MG TAB.CHEW PO (08:53)
[2023-06-08] MEDS: Donepezil HCl 10 MG Tablet PO (08:54)
[2023-06-08] MEDS: Enoxaparin 40 MG/0.4 ML Syringe SC (08:56)
[2023-06-08] MEDS: guaiFENesin 1,200 MG Tablet 1200 MG PO ×2 (08:56→20:23)
--- NOTE | 2023-06-08 09:29 | NURSING ---
attempted to call receiving nurse in [facility]cu, she is in the middle of med pass, said she would call back in a few minutes.
--- NOTE | 2023-06-08 09:43 | NURSING ---
pt's Javon and daughter Bette updated on transfer to [facility]
--- NOTE | 2023-06-08 10:02 | NURSING ---
[id number] transferred to [facility] 127.
[2023-06-08 11:41] LABS: Bedside Glucose 109 mg/dL (74-106)
--- NOTE | 2023-06-08 13:40 | PCM.PN.HOSP ---
Reason for Visit Reason for Visit: Altered mental status/aphasia Subjective Subjective Daughter states she feels her mom is pretty much back to baseline. We discussed that her MRI shows stroke however neither myself nor the neurologist really think that this was the etiology which caused her symptom changes on presentation and less she was markedly hypertensive which she was not however we do not know what her blood pressures were at home. Plan is for discharge to assisted facility but will need Medicaid number and I did inform family that this likely take some time. Objective Data Objective Data Vital Signs: Vital Signs Temp Pulse Resp BP Pulse Ox O2 Del Method 98.4 F 66 18 111/48 L 93 Room Air 06/08/23 10:15 06/08/23 10:15 06/08/23 10:15 06/08/23 10:15 06/08/23 10:15 06/08/23 10:26 Oxygen Delivery Method Room Air Weight: 80.4 kg Body Mass Index (BMI) 30.2 Intake & Output: Intake and Output for Last 24 Hours 06/06/23 06/07/23 06/08/23 23:59 23:59 23:59 Intake Total 200 / 200 2027.5 / 2027.5 120 / 120 Balance 200 / 200 2027.5 / 202.5 120 / 120 Lab / Micro Data 06/08/23 05:00 06/08/23 05:00 Labs: Laboratory Results - last 24 hr 06/07/23 16:19: POC Glucose 161 H 06/07/23 20:14: POC Glucose 181 H 06/08/23 05:00: WBC 6.9, RBC 3.32 L, Hgb 10.6 L, Hct 32.7 L, MCV 98.5, MCH 31.9, MCHC 32.4, RDW Std Deviation 51.3 H, RDW Coeff of [place] 14.2, Plt Count 271, MPV 10.5, Sodium 137, Potassium 4.1, Chloride 106, Carbon Dioxide 27.0, Anion Gap 4 L, BUN 17, Creatinine 0.71, Estim Creat Clear Calc 57.53, Est GFR (MDRD) Af Amer 101, Est GFR (MDRD) Non-Af 84, BUN/Creatinine Ratio 23.8 H, Glucose 189 H, Hemoglobin A1c 6.6 H, Calcium 8.7 06/08/23 11:23: POC Glucose 109 H Radiography Diagnostic Testing: Radiology Impression Brain MRI 06/07/23 13:30 IMPRESSION: 1. Diffuse involutional change and chronic microvascular deep white matter disease. 2. Small punctate 3 mm focus of acute nonhemorrhagic lacunar infarct in the deep white matter of the LEFT parietal lobe. 3. No other evidence of mass, hemorrhage, or acute territorial infarct. 4. Sinus disease. Electronically Signed: Brad Moreno MD at 20:04 EDT , ADDENDUM: 06/07/232119 IMPRESSION: 1. Diffuse involutional change and chronic microvascular deep white matter disease. 2. Small punctate 3 mm focus of acute nonhemorrhagic lacunar infarct in the deep white matter of the LEFT parietal lobe. 3. No other evidence of mass, hemorrhage, or acute territorial infarct. 4. Sinus disease. N.B. : The above Results were Read Back by Brad Moreno MD to Shamika Gutierrez RN, and understanding confirmed on 06/07/2023 21:13:35 (ET). Electronically Signed: Brad Moreno MD at 20:04 EDT , Physical Exam Const alert, average body habitus and well nourished; Negative for healthy appearing Constitutional Narrative: Elderly, white female, sitting up in a chair at the bedside, very perky and interacts appropriately, follows commands and is able to answer questions, oriented to self only which is baseline per family HEENT normocephalic, head/scalp atraumatic and hearing grossly normal bilaterally HEENT Narrative: Dentures in place, Mallampati 2, no thrush Resp normal respiratory effort, no retractions, no use of accessory muscles and clear to auscultation bilaterally Auscultation: Negative for rales, rhonchi or wheezes Cardio regular rate, regular rhythm, S1 normal heart sound, S2 normal heart sound, no murmurs, no rub, no gallops and no clicks GI normal to inspection, nondistended, normoactive bowel sounds, soft to palpation and non-tender Extremity no clubbing, cyanosis or edema Extremity Narrative: Decreased lean muscle mass, pedal pulses are 2+, radial pulses are 2+ Skin No skin turgor normal Neuro CN's II-XII intact bilaterally, moves all extremities and no focal motor deficits Neuro Narrative: Follows all commands consistently and no aphasia noted Sensorium / Orientation: awake, alert and oriented to person; Negative for oriented to place or oriented to time Speech: speech normal Psych affect normal Psych Narrative: Very pleasant, calm, interacts appropriately at this time despite confusion Assessment & Plan Assessment/Plan (1) Acute alteration in mental status: PLAN: Plan Acute small right parietal lobe stroke -Unclear if this is the etiology of her confusion and aphasia on presentation -could be related to MRI findings with small punctate stroke in the setting of hypertension per discussion with neurology -She was not markedly hypertensive on admission however we do not know blood pressures at home -Was here recently with similar presentation and workup was negative with a normal MRI and she slowly cleared with time -UTI was ruled out with a negative culture and UA at this time is unremarkable -There is also concern for aspiration pneumonia due to infiltrate in the right lower lobe however she had no fever cough or chills -Chest x-ray at this admission shows resolving infiltrate -MRI showed small punctate stroke of 3 mm in the right parietal lobe -EEG diffuse slowing with no epileptiform or seizure-like activity -Lipids obtained on 05/25/2023 with a total cholesterol 144/LDL 73/HDL 48/triglycerides 113 -Started atorvastatin 20 mg at night will increase to 40 with MRI findings -Continue baby aspirin -Hemoglobin is 6.6 -Patient does have history of dementia -Continue at bedtime risperidone -With acute stroke on MRI will transfer to PCU and start NIH's -Neurology following-appreciate input Falls/generalized weakness -Progressively worsening debility likely related to her overall medical condition and dementia -PT/OT following and she did extremely well with therapy not requiring any more therapy services -Family desires placement but will not qualify under skilled--> plan is to discharge to an ECF with a Medicare pending number however this will take some time and do not anticipate discharge into the middle or end of next week--> I did discuss this with family History of dementia -Suspect Alzheimer's type -Continue risperidone 0.5 mg at at bedtime DM-2 -Hemoglobin A1c is 6.6 -Continue home oral agents -SSI -Carb controlled diet -Accu-Cheks as ordered Hypertension -Continue home propranolol -Will have to monitor heart rate closely with donepezil being used for her dementia is this can cause bradycardia A-fib with RVR -Remains in normal sinus rhythm -This was newly diagnosed at her last hospitalization -Patient is not anticoagulated as she is a very high fall risk Hypothyroidism -Continue home levothyroxine -Had TSH done at last hospitalization and was slightly elevated with reflex T4 done which was normal so this equates euthyroid sick syndrome Asthma -Continue home inhalers and as needed albuterol -Continue home guaifenesin DVT prophylaxis -Lovenox SQ 40 mg times daily CODE STATUS -DNR CCA with no intubation Charges/Coding Visit Charges Inpatient E&M: 31676 Subs Hosp L2
[2023-06-08 16:46] LABS: Bedside Glucose 170 mg/dL (74-106)
[2023-06-08] MEDS: RisperiDONE 0.5 MG Tablet PO (20:23)
[2023-06-08] MEDS: Propranolol 10 MG Tablet 20 MG PO (20:23)
[2023-06-08] MEDS: MELATONIN 10 MG TABLET PO (20:24)
[2023-06-08] MEDS: Atorvastatin Calcium 40 MG Tablet PO (20:25)
[2023-06-09] VITALS (9 sets, daily range): BP systolic 125–158; BP diastolic 52–74; PULSE 60–73; RESP 15–18; TEMP 36.5–36.8; O2SAT 92–96; BMI 22.2
[2023-06-09 00:57] LABS: Bedside Glucose 116 mg/dL (74-106)
[2023-06-09] MEDS: Levothyroxine 25 MCG TABLET PO (05:42)
[2023-06-09] MEDS: Budesonide Respules 0.5 MG/2 ML AMPUL.NEB. INHALATION ×2 (07:20→19:15)
[2023-06-09] MEDS: Ipratropium/Albuterol Sulfate 3 ML AMPUL.NEB INHALATION ×3 (07:20→19:15)
[2023-06-09 07:21] LABS: Bedside Glucose 137 mg/dL (74-106)
[2023-06-09] MEDS: Aspirin 81 MG TAB.CHEW PO (08:52)
[2023-06-09] MEDS: metFORMIN HCl 1,000 MG Tablet 1000 MG PO ×2 (08:52→17:59)
[2023-06-09] MEDS: Propranolol 10 MG Tablet 20 MG PO ×2 (08:52→21:04)
[2023-06-09] MEDS: guaiFENesin 1,200 MG Tablet 1200 MG PO ×2 (08:53→21:04)
[2023-06-09] MEDS: LINAGLIPTIN 5 MG TABLET PO (08:53)
[2023-06-09] MEDS: Donepezil HCl 10 MG Tablet PO (08:53)
[2023-06-09] MEDS: Enoxaparin 40 MG/0.4 ML Syringe SC (08:53)
[2023-06-09] MEDS: Sertraline 50 MG Tablet 75 MG PO (08:54)
--- NOTE | 2023-06-09 10:51 | NEURO.PNOTE ---
Assessment and Plan: Neuro Assessment/Plan NELLI HARTMAN is a 82 F with moderate to advanced dementia presenting with nausea, vomiting, and confusion. She has been improving over the past couple days and per family she is at her baseline now MRI brain showed small punctate left parietal stroke. Stroke is punctate and unlikely to cause symptoms, but she could have had a sympathetic response/HTN resulting in her presentation Already on home ASA, Statin 20 LD 73, A1C 6.6% Diagnosis: Dementia Progressive cognitive and functional decline Punctate acute stroke, left parietal Continue ASA Increase Atorvastatin to 40 mg daily I personally attended this patient and spent a total time of 40 minutes evaluating this patient including clinical assessment, review of chart, medical history imaging, and determining appropriate treatment and workup. Subject: Neurology Subjective Patient sitting in chair, eating NIHSS NIHSS Nursing Documentation NIHSS Nursing Documentation: NIHSS: Ischemic Stroke/TIA Start: 06/08/23 10:21 Freq: [id number] Status: Active Protocol: Activity Type Activity Date Activity User E-sign Co-sign Detail Recorded Client Recorded Date Recorded By Document 06/09/23 08:32 Desktop 06/09/23 08:43 06/09/23 08:32 NIH Stroke Scale [NIHSS] A score of 0 is normal or asymptomatic . Total possible score is 42. Inpatient: RN or Physician to activate a stroke alert for onset of new stroke symptoms or with NIHSS increase >/= 3 points. Following change in neurological status, NIHSS will be performed per physician order or more frequently PRN. -1a. Level of Consciousness Alert; keenly responsive -1b. LOC Questions Answers one question correctly. -1c. LOC Commands Performs both tasks correctly . -2. Best Gaze Normal -3. Visual No visual loss -4. Facial Palsy Normal symmetrical movements -5a. Left Arm No drift; arm holds 90 (or 45 ) degrees for full 10 seconds -5b. Right Arm No drift; arm holds 90 (or 45 ) degrees for full 10 seconds -6a. Left Leg No drift; leg holds 30-degree position for full 5 seconds -6b. Right Leg No drift; leg holds 30-degree position for full 5 seconds -7. Limb Ataxia Absent -8. Sensory Normal; no sensory loss -9. Best Language Mild-to- moderate aphasia; -10. Dysarthria Normal -11. Extinction and Inattention No abnormality -Total 2 Query Text:A score of 0 is normal or asymptomatic. Total possible score is 42 . ED: Notify Physician for NIHSS increase by > / = 3 points. Inpatient: RN or Physician to activate a stroke alert for NIHSS increase of > / = 3 points. Coma Scale [Assess] -Eye Opening Spontaneous -Motor Obeys Commands -Verbal Confused [Total] -Coma Scale Total 14 EEG Results Procedure Details EEG Procedure Details: NELLI HARTMAN is a 82 year old F with a past medical history of , who presents for evaluation of Electroencephalogram on DATE at TIME Objective Data Objective Data Vital Signs: Vital Signs Temp Pulse Resp BP Pulse Ox O2 Del Method 97.8 F 66 17 137/67 H 93 Room Air 06/09/23 08:32 06/09/23 08:32 06/09/23 08:32 06/09/23 08:32 06/09/23 08:32 06/09/23 08:46 Oxygen Delivery Method Room Air Weight: 59.2 kg Body Mass Index (BMI) 22.2 Intake & Output: Intake and Output for Last 24 Hours 06/07/23 06/08/23 06/09/23 23:59 23:59 23:59 Intake Total 2026.5 / 2026.5 480 / 480 Balance 2026. / 2026.5 480 / 480 Lab / Micro Data 06/08/23 05:00 06/08/23 05:00 Labs: Laboratory Results - last 24 hr 06/08/23 11:23: POC Glucose 109 H 06/08/23 16:25: POC Glucose 170 H 06/09/23 00:25: POC Glucose 116 H 06/09/23 05:45: POC Glucose 137 H Physical Exam Narrative Patient sitting in chair eating
--- NOTE | 2023-06-09 10:56 | PCM.PN.HOSP ---
Reason for Visit Reason for Visit: Expressive aphasia/altered mental status Subjective Subjective Patient remained stable. At her baseline confusion currently. NIH wavers between 2 and 4 only for her confusion. Denies any needs or issues at this time. Objective Data Objective Data Vital Signs: Vital Signs Temp Pulse Resp BP Pulse Ox O2 Del Method 97.8 F 66 17 137/67 H 93 Room Air 06/09/23 08:32 06/09/23 08:32 06/09/23 08:32 06/09/23 08:32 06/09/23 08:32 06/09/23 08:46 Oxygen Delivery Method Room Air Weight: 59.2 kg Body Mass Index (BMI) 22.2 Intake & Output: Intake and Output for Last 24 Hours 06/07/23 06/08/23 06/09/23 23:59 23:59 23:59 Intake Total 2026.5 / 2026.5 480 / 480 Balance 2026.5 / 2026.5 480 / 480 Lab / Micro Data 06/08/23 05:00 06/08/23 05:00 Labs: Laboratory Results - last 24 hr 06/08/23 11:23: POC Glucose 109 H 06/08/23 16:25: POC Glucose 170 H 06/09/23 00:25: POC Glucose 116 H 06/09/23 05:45: POC Glucose 137 H Physical Exam Const alert, no apparent distress, average body habitus and well nourished Constitutional Narrative: Elderly, white female, sitting up in bed eating breakfast and watching television, oriented to self only (baseline), appears comfortable, nontoxic HEENT head/scalp atraumatic HEENT Narrative: Dentures in place, Mallampati 2, no thrush Head and Scalp: normocephalic Neuro moves all extremities and no focal motor deficits Sensorium / Orientation: awake, alert and oriented to person Speech: speech normal Psych affect normal Psych Narrative: Very pleasantly confused, answers questions appropriately Assessment & Plan Assessment/Plan (1) Acute alteration in mental status: (2) Acute stroke due to ischemia: (3) Expressive aphasia: PLAN: Plan Acute small right parietal lobe stroke -Unclear if this is the etiology of her confusion and aphasia on presentation -could be related to MRI findings with small punctate stroke in the setting of hypertension per discussion with neurology -She was not markedly hypertensive on admission however we do not know blood pressures at home -MRI showed small punctate stroke of 3 mm in the right parietal lobe -EEG diffuse slowing with no epileptiform or seizure-like activity -Continue atorvastatin 40 mg--> this is a change from her previous however ordered because of stroke on MRI and will need changes at discharge -Continue baby aspirin -NIH stable -Neurology following-neurology is going to reevaluate the patient today per discussion yesterday Falls/generalized weakness -Progressively worsening debility likely related to her overall medical condition and dementia -PT/OT following and she did extremely well with therapy not requiring any more therapy services -Family desires placement but will not qualify under skilled--> plan is to discharge to an ECF with a Medicare pending number however this will take some time and do not anticipate discharge into the middle or end of next week--> I did discuss this with family History of dementia -Suspect Alzheimer's type -Patient with significant sundowning prior to admission -Continue risperidone 0.5 mg at at bedtime--> would recommending discharging this patient on this medication to help with sundowning--> this seems to be helping DM-2 -Hemoglobin A1c is 6.6 -Continue home oral agents -SSI -Carb controlled diet -Accu-Cheks as ordered Hypertension -Continue home propranolol -Will have to monitor heart rate closely with donepezil being used for her dementia is this can cause bradycardia -Thus far no signs of significant bradycardia A-fib with RVR -Remains in normal sinus rhythm -This was newly diagnosed at her last hospitalization -Patient is not anticoagulated as she is a very high fall risk Hypothyroidism -Continue home levothyroxine Asthma -Continue home inhalers and as needed albuterol -Continue home guaifenesin DVT prophylaxis -Lovenox SQ 40 mg times daily CODE STATUS -DNR CCA with no intubation Charges/Coding Visit Charges Inpatient E&M: 62665 [facility] Hosp L1
[2023-06-09 17:16] LABS: Bedside Glucose 101 mg/dL (74-106)
[2023-06-09] MEDS: MELATONIN 10 MG TABLET PO (21:04)
[2023-06-09] MEDS: RisperiDONE 0.5 MG Tablet PO (21:04)
[2023-06-09] MEDS: Atorvastatin Calcium 40 MG Tablet PO (21:04)
[2023-06-09 21:57] LABS: Bedside Glucose 127 mg/dL (74-106)
[2023-06-10 04:54] VITALS: BMI 22.3
[2023-06-10 05:28] VITALS: BP 158/67; PULSE 59; RESP 18; TEMP 36.2; O2SAT 96
[2023-06-10] MEDS: Levothyroxine 25 MCG TABLET PO (05:34)
[2023-06-10 05:54] LABS: Bedside Glucose 116 mg/dL (74-106)
[2023-06-10] MEDS: Budesonide Respules 0.5 MG/2 ML AMPUL.NEB. INHALATION (06:50)
[2023-06-10] MEDS: Ipratropium/Albuterol Sulfate 3 ML AMPUL.NEB INHALATION (06:50)
[2023-06-10 06:51] VITALS: PULSE 75; RESP 18; O2SAT 97
[2023-06-10 07:04] LABS: Hematocrit 33.2 % (37-47); Hemoglobin 10.9 g/dL (12.0-15.0); Mean Corp Hgb Conc 32.8 g/dL (32-36); Mean Corpuscular Hgb 32.1 pg (27.0-32.0); Mean Corpuscular Volume 97.6 fL (81-99); Mean Platelet Vol. 10.2 fl (6.2-12.0); Platelet Count 252 K/mm3 (150-450); RBC Distribution Width CV 13.9 % (11.6-14.6); RBC Distribution Width SD 50.1 fl (35.1-43.9); White Blood Count 5.6 K/mm3 (4.4-11.0)
[2023-06-10 07:31] LABS: Anion Gap 3 (5-15); BUN 14 mg/dL (7-18); BUN/Creat Ratio 21.8 RATIO (10-20); Calcium,Total 9.1 mg/dL (8.5-10.1); Chloride 106 mmol/L (98-107); Creatinine, Serum 0.64 mg/dL (0.55-1.02); EST Glomerular Filtration Rate 95 mL/min (>60); Est Glom Filt Rate - Afr Amer 114 mL/min (>60); Estimated Creatinine Clearance 48.43 ml/min; Glucose 117 mg/dL (74-106); Sodium Level 138 mmol/L (136-145)
[2023-06-10] MEDS: metFORMIN HCl 1,000 MG Tablet 1000 MG PO (08:29)
[2023-06-10] MEDS: Aspirin 81 MG TAB.CHEW PO (08:29)
[2023-06-10 09:48] VITALS: BP 109/55; PULSE 65; RESP 16; TEMP 36.6; O2SAT 95
[2023-06-10] MEDS: Propranolol 10 MG Tablet 20 MG PO (09:50)
[2023-06-10] MEDS: Donepezil HCl 10 MG Tablet PO (09:50)
[2023-06-10] MEDS: Enoxaparin 40 MG/0.4 ML Syringe SC (09:50)
[2023-06-10] MEDS: LINAGLIPTIN 5 MG TABLET PO (09:50)
[2023-06-10] MEDS: Sertraline 50 MG Tablet 75 MG PO (09:50)
[2023-06-10] MEDS: guaiFENesin 1,200 MG Tablet 1200 MG PO (09:51)
--- NOTE | 2023-06-10 11:18 | CASEMGMT ---
Addendum entered by Marnie Barajas 06/10/23 14:17: [facility] met with Bette again to discuss d/c plan. Bette said patient is back to her baseline again so they might just take patient home. She will then go and look at facilities for patient. They would like to resume home health. [facility] told Bette that patient's dementia is going to continue to get worse so it would be beneficial for her to go and look at facilities. SW provided Bette with information on [facility] and [facility]. [facility] also told Bette that a hospice social worker will be added to home health services. Bette was thankful for [facility]'s resources. Marnie aBrajas DIRECTOR OF SUSTAINABILITY PROGRAMS CUT OFF SAW OPERATOR METAL Original Note: [facility] spoke with patient's daughter Bette. [facility] asked if she applied for Medicaid with Daisha from [employer]. Bette said she did not as per Daisha they would not qualify. Per Bette they have too much in their savings account. [facility] explained that insurance is still not likely to approve patient as patient is walking more than household distances with very minimal assistance. Bette had the list of nursing homes that was given to her by [facility]. Bette said she was open to any place that has memory care. PREMA told Bette [facility] can send referrals to [facility], [place], and [place] as those 3 facilities have equipment operator intermodal yard care and memory care. Bette said that would be fine. [facility] sent referrals to those 3 facilities. Marnie Barajas DIRECTOR OF SUSTAINABILITY PROGRAMSMarquise IRWIN
--- NOTE | 2023-06-10 12:58 | CASEMGMT ---
VILLA CERON updated by SW that family is taking patient home with resumption of HHC with [facility]. [facility] CERON called and updated [facility]. Resumption order placed with SW added. VILLA CERON updated SW.
--- NOTE | 2023-06-10 13:28 | DS.PCM_ITS ---
Providers Date of Admission: 06/06/23 Date of Discharge: 06/10/23 Primary Care Physician: Dr. Liane Ba MD Reason For Visit: CONFUSION Diagnosis Discharge Diagnosis (1) Acute alteration in mental status: Status: Acute Code(s): R41.82 - Altered mental status, unspecified (2) Acute stroke due to ischemia: Status: Acute Code(s): I63.9 - Cerebral infarction, unspecified (3) Expressive aphasia: Status: Acute Code(s): R47.01 - Aphasia Medications at Discharge Home Medications loperamide 2 mg capsule (Imodium A-D) 2 mg PO Q6H PRN Diarrhea 06/08/20 nebulizer accessories #1 ea 09/12/20 nebulizers #1 ea 09/12/20 albuterol sulfate 2.5 mg/3 mL (0.083 %) solution for nebulization 2.5 mg (3 mL) inhalation Q6H #90 mL 09/15/20 melatonin 3 mg tablet 3 mg PO QHS PRN sleep #30 tabs 07/21/21 blood sugar diagnostic ([employer] Ultra Test strips) #100 ea 11/29/21 lancets 33 gauge (OneTouch Delica Lancets) #100 ea 12/22/21 one touch ultra glucose meter ##1 06/25/22 albuterol sulfate 90 mcg/actuation aerosol inhaler (Ventolin HFA) 2 puff inhalation Q4H PRN shortness of breath or wheezing #18 grams 01/28/23 benzonatate 100 mg capsule 100 mg PO BID PRN cough #90 caps 01/28/23 fluticasone propionate 50 mcg/actuation nasal spray,suspension 2 spray intranasal DAILY #16 grams 01/28/23 guaifenesin 1,200 mg tablet, extended release 12 hr 1,200 mg PO Q12H #60 tabs 01/28/23 fluticasone fur. 200 mcg-umeclid 62.5 mcg-vilant 25 mcg inhalat.powder (Trelegy Ellipta) 1 inh inhalation DAILY #3 ea 02/28/23 donepezil 10 mg tablet 10 mg PO DAILY #90 tabs 04/05/23 propranolol 20 mg tablet 20 mg PO BID tremor #180 tabs 04/15/23 sitagliptin phosphate 50 mg-metformin 1,000 mg tablet (Janumet) 1 tab PO BID #180 tabs 05/17/23 sertraline 50 mg tablet 75 mg PO DAILY 05/24/23 aspirin 81 mg chewable tablet 81 mg PO BREAKFAST #30 tabs 05/28/23 levothyroxine 25 mcg tablet 25 mcg PO DAILY@0600 30 days #30 tabs 05/28/23 quetiapine 25 mg tablet 25 mg PO QHS #30 tabs 05/28/23 atorvastatin 40 mg tablet 40 mg PO QHS #30 tabs 06/10/23 Hospital Course Operations None Procedures 2-D Echocardiogram Summary of Care Provided Minutes Spent on Discharge: 47 Hospital Course: Patient is an 82-year-old female with past medical history as outlined was admitted through the ED on 06/06/2023 with a complaint of worsening confusion. She does have baseline dementia and had recently been admitted from 05/23 through 05/28/2023 for similar symptoms. She did well and was discharged home but subsequently came back on this day of admission with complaint of acute onset nausea and vomiting with subsequent confusion. CBC was unremarkable and urinalysis showed no evidence of infection. CT of the brain showed chronic involutional changes. Chest x-ray showed persistent right lower lobe abnormality with blunting of the right costophrenic angle and CT of the head and neck showed minimal calcific plaque formation at the origin of the bilateral internal carotid arteries with less than 50% narrowing bilaterally. She was admitted and managed for acute encephalopathy to rule out a stroke. Family also wanted placement. Neurology was consulted. MRI of the brain showed acute small right parietal infarct. EEG showed diffuse slowing with no epileptiform or seizure-like activity. Her atorvastatin was increased to 40mg nightly. She was continued on her aspirin. She was known to have afib, but was not anticoagulated due to patient being a high fall risk. She remained stable and was discharged home on 06/10/2023. Family had requested for placement,but subsequently decided to take patient home with home health. She was discharged home 06/10/2023. SHe is to follow up with her PCP within 1-2 weeks. Patient seen and examined prior to discharge. She had no active complaints. Review of systems was otherwise negative. Labs and vitals reviewed. Home meds reviewed and reconciled. Physical Exam Const alert, oriented x3, no apparent distress and average body habitus General Appearance: cooperative, comfortable, well kempt and well developed Orientation / Consciousness: awake Exam Limitations: no limitations HEENT normocephalic, head/scalp atraumatic, hearing grossly normal bilaterally and moist oral mucous membranes Mouth: oral and palatal mucosa normal and dry mucous membranes Eyes PERRL, EOMs intact bilaterally and conjunctivae normal Neck no lymphadenopathy and supple Resp normal respiratory effort, no retractions, no use of accessory muscles and clear to auscultation bilaterally Cardio regular rate, regular rhythm, S1 normal heart sound, S2 normal heart sound and n o murmurs GI normal to inspection, nondistended, normoactive bowel sounds, soft to palpation, non-tender and non-distended Extremity normal to inspection, full ROM and no clubbing, cyanosis or edema Skin no rashes or lesions noted Neuro oriented x3, CN's II-XII intact bilaterally, moves all extremities, no focal motor deficits and no sensory deficits noted Sensorium / Orientation: awake and alert Motor Exam: strength 5/5 throughout Psych affect normal Weight / BMI Weight Weight: 130 lb 11.746 oz Body Mass Index (BMI) 22.3 ABG / Lab / Microbiology Data 06/10/23 06:49 06/10/23 06:49 Laboratory: Laboratory Results - last 24 hr 06/09/23 16:58: POC Glucose 101 06/09/23 21:07: POC Glucose 127 H 06/10/23 05:33: POC Glucose 116 H 06/10/23 06:49: WBC 5.6, RBC 3.40 L, Hgb 10.9 L, Hct 33.2 L, MCV 97.6, MCH 32.1 H, MCHC 32.8, RDW Std Deviation 50.1 H, RDW Coeff of Yesenia 13.9, Plt Count 252, MPV 10.2, Sodium 138, Potassium 4.0, Chloride 106, Carbon Dioxide 29.0, Anion Gap 3 L, BUN 14, Creatinine 0.64, Estim Creat Clear Calc 48.43, Est GFR (MDRD) Af Amer 114, Est GFR (MDRD) Non-Af 95, BUN/Creatinine Ratio 21.8 H, Glucose 117 H, Calcium 9.1 D/C Instructions Discharge Diet: Low fat / Low cholesterol Discharge Activity: Return to Normal Activity Weight Bearing Status: Weight bearing as tolerated Call your doctor if you observe: Fever of 101 or Higher, Shortness of breath, Dizziness, Swelling in the ankles and Chest pain Meaningful Use Info Meaningful Use Meaningful Use Diagnoses (Choose all that apply): Ischemic CVA CVA Therapy Assessed for PT,OT and/or ST?: Yes Ischemic Stroke Antithrombotic order at d/c?: Yes Dx of Atrial fib/flutter?: Yes Anticoagulant at discharge?: No Reason anticoagulant not ordered: Medical Contraindication (fall risk) Statin Dosing Therapy Reference: STATIN DOSE THERAPY REFERENCE: * Patients > 75 years receive moderate or high dose statin therapy. * Patients 75 years or YOUNGER should receive HIGH intensity statin dose unless contraindicated. You will be required to document reason for non-treatment if statin daily dose does not meet guidelines. HIGH DOSE STATIN THERAPY DAILY Atorvastatin > than or = to 40 mg Rosuvastatin > than or = to 20 mg Amlodipine + Atorvastatin > than or = to 2.5/40 mg Ezetimibe + Simvastatin 10/80 mg Simvastatin 80mg Statins at discharge?: Yes Primary Dx Acute Ischemic CVA?: Yes IV thrombolytic ordered during stay?: No Reason IV thrombolytic not ordered: Treatment not Indicated Discharge Plan Admission Admit Date/Time: 06/06/23 13:20 Primary Reason for Your Visit: acute CVA Attending Provider: Katheryn Puri Primary Care Provider: Liane Ba Consulting Providers: Alyce Mei; Sepideh Caruso; Idalmis Carranza; Celi Yepez; Amanda Kuo; Chas Augustin; Evelyn Hernandez; EDWIN LOZANO; Joo Leon; Yessica Recinos; Amber Shields Instructions Patient Instructions: Booklet - Understanding Stroke Discharge Orders/Prescriptions Prescriptions: New atorvastatin 40 mg Tablet 40 mg PO QHS Qty: 30 2RF Continued loperamide [Imodium A-D] 2 mg capsule 2 mg PO Q6H PRN (Reason: Diarrhea) melatonin 3 mg tablet 3 mg PO QHS PRN (Reason: sleep) Qty: 30 1RF albuterol sulfate [Ventolin HFA] 90 mcg/actuation HFA aerosol inhaler 2 puff inhalation Q4H PRN (Reason: shortness of breath or wheezing) Qty: 18 6RF fluticasone propionate 50 mcg/actuation spray,suspension 2 spray intranasal DAILY Qty: 16 3RF guaifenesin 1,200 mg tablet extended release 12hr 1,200 mg PO Q12H Qty: 60 6RF benzonatate 100 mg capsule 100 mg PO BID PRN (Reason: cough) Qty: 90 3RF Rx Instructions: ordered by [facility] Pallative sertraline 50 mg tablet 75 mg PO DAILY quetiapine 25 mg Tablet 25 mg PO QHS Qty: 30 0RF levothyroxine 25 mcg Tablet 25 mcg PO DAILY@0600 30 Days Qty: 30 0RF aspirin 81 mg Tablet,Chewable 81 mg PO BREAKFAST Qty: 30 0RF (DME) nebulizer accessories Kit See Rx Instructions .ROUTE .MEDSUPPLY Qty: 1 0RF Rx Instructions: As directed (DME) nebulizers Misc See Rx Instructions .ROUTE .MEDSUPPLY Qty: 1 0RF Rx Instructions: As directed albuterol sulfate 2.5 mg /3 mL (0.083 %) solution for nebulization 2.5 mg inhalation Q6H Qty: 90 2RF (DME) OneTouch Ultra Test Strip See Rx Instructions .Route Qty: 100 2RF Rx Instructions: BID and PRN (DME) lancets [OneTouch Delica Lancets] 33 gauge misc See Rx Instructions .Route Qty: 100 3RF Rx Instructions: BID and PRN (DME) one touch ultra glucose meter See Rx Instructions .Route .MEDSUPPLY Qty: 1 0RF Rx Instructions: bid and prn Trelegy Ellipta 200-62.5-25 mcg blister with device 1 inh inhalation DAILY Qty: 3 3RF donepezil 10 mg tablet 10 mg PO DAILY Qty: 90 3RF propranolol 20 mg tablet 20 mg PO BID Qty: 180 1RF Janumet 50-1,000 mg tablet 1 tab PO BID Qty: 180 1RF Referrals / Follow Up: Liane Ba MD [Primary Care Provider] - 06/19/23 11:30 am Disposition Disposition (needs filled in before D/C Order can be placed): Home Health Service Charges/Coding Visit Charges Inpatient E&M: 70615 Disch Hosp >30min
--- NOTE | 2023-06-10 13:37 | PHA.DC_ITS ---
Pharmacy SD Med Reconciliation Pharmacy Service has performed discharge medication reconciliation for this patient. The patient's discharge medication list was reviewed for discrepancies and discrepancies were resolved. Medications at Discharge Home Medications loperamide 2 mg capsule (Imodium A-D) 2 mg PO Q6H PRN Diarrhea 06/08/20 nebulizer accessories #1 ea 09/12/20 nebulizers #1 ea 09/12/20 albuterol sulfate 2.5 mg/3 mL (0.083 %) solution for nebulization 2.5 mg (3 mL) inhalation Q6H #90 mL 09/15/20 melatonin 3 mg tablet 3 mg PO QHS PRN sleep #30 tabs 07/21/21 blood sugar diagnostic ([employer] Ultra Test strips) #100 ea 11/29/21 lancets 33 gauge ([employer] Delica Lancets) #100 ea 12/22/21 one touch ultra glucose meter ##1 06/25/22 albuterol sulfate 90 mcg/actuation aerosol inhaler (Ventolin HFA) 2 puff inhalation Q4H PRN shortness of breath or wheezing #18 grams 01/28/23 benzonatate 100 mg capsule 100 mg PO BID PRN cough #90 caps 01/28/23 fluticasone propionate 50 mcg/actuation nasal spray,suspension 2 spray intranasal DAILY #16 grams 01/28/23 guaifenesin 1,200 mg tablet, extended release 12 hr 1,200 mg PO Q12H #60 tabs 01/28/23 fluticasone fur. 200 mcg-umeclid 62.5 mcg-vilant 25 mcg inhalat.powder (Trelegy Ellipta) 1 inh inhalation DAILY #3 ea 02/28/23 donepezil 10 mg tablet 10 mg PO DAILY #90 tabs 04/05/23 propranolol 20 mg tablet 20 mg PO BID tremor #180 tabs 04/15/23 sitagliptin phosphate 50 mg-metformin 1,000 mg tablet (Janumet) 1 tab PO BID #180 tabs 05/17/23 sertraline 50 mg tablet 75 mg PO DAILY 05/24/23 aspirin 81 mg chewable tablet 81 mg PO BREAKFAST #30 tabs 05/28/23 levothyroxine 25 mcg tablet 25 mcg PO DAILY@0600 30 days #30 tabs 05/28/23 quetiapine 25 mg tablet 25 mg PO QHS #30 tabs 05/28/23 atorvastatin 40 mg tablet 40 mg PO QHS #30 tabs 06/10/23
[2023-06-10 14:40] VITALS: BP 119/63; PULSE 61; RESP 17; TEMP 36.6; O2SAT 95
[2023-06-10] MEDS: Atorvastatin Calcium 40 MG Tablet PO (15:53)
[2023-06-10] MEDS: RisperiDONE 0.5 MG Tablet PO (15:53)
== END 2023-06-10 15:54 | disposition home health service (06) ==
LOC: ED 13:15 → MS3 14:24 → PCU 06-08 20:35
PROVIDERS: Admitting Provider Internal Medicine; Emergency Provider Emergency Medicine; PCP Internal Medicine; Visit Provider Student in an Organized Health Care Education/Training Program
DX: I63.81 Other cerebral infarction due to occlusion or stenosis of small artery (principal); G30.9 Alzheimer's disease, unspecified; F02.80 Dementia in other diseases classified elsewhere, unspecified severity, without behavioral disturbance, psychotic disturbance, mood disturbance, and anxiety; I48.91 Unspecified atrial fibrillation; E11.65 Type 2 diabetes mellitus with hyperglycemia; Z79.84 Long term (current) use of oral hypoglycemic drugs; Z79.82 Long term (current) use of aspirin; G93.40 Encephalopathy, unspecified; I10 Essential (primary) hypertension; Z79.899 Other long term (current) drug therapy; K21.9 Gastro-esophageal reflux disease without esophagitis; R11.2 Nausea with vomiting, unspecified; J45.909 Unspecified asthma, uncomplicated; E03.9 Hypothyroidism, unspecified; R53.1 Weakness; R47.01 Aphasia
CPT/HCPCS: 36415; 70450; 70496; 70498; 70551; 71045; 80048; 80053; 80076; 81001; 82962; 83036; 83735; 84100; 84484; 85025; 85027; 85610; 85730; 93005; 94640; 95819; 96361; 96372; 96374; 97110; 97116; 97161; 97164; 97166; 99221; 99285; J7120; Q9967; A4216; G0378; J2405

== ENCOUNTER → 2023-08-28 | Outpatient (CLI) | payer MEDICARE, SELFPAY ==
[2023-08-28 14:11] LABS: Free T3 1.9 pg/mL (2.18-3.98); T4 Free Direct 1.05 ng/dL (0.76-1.46); Thyroid Stim Hormone (TSH) 0.18 uIU/mL (0.358-3.74)
== END | disposition home or self-care (01) ==
LOC: LAB 12:15
PROVIDERS: PCP Internal Medicine; Referring Provider Internal Medicine; Visit Provider Internal Medicine
DX: E03.9 Hypothyroidism, unspecified (principal)
CPT/HCPCS: 36415; 84439; 84443; 84481

== ENCOUNTER 2023-10-25 14:59 | Emergency (ER) | payer MEDICARE, SELFPAY ==
[2023-10-25 14:59] VITALS: BP 129/60; PULSE 70; RESP 18; TEMP 37; O2SAT 92
[2023-10-25 16:59] VITALS: BP 117/62; PULSE 78; RESP 16; O2SAT 98
--- NOTE | 2023-10-25 17:51 | CT_ITS ---
STUDY: CT BRAIN WITHOUT CONTRAST REASON FOR EXAM: Female, 82 years old. Closed head injury, amnesia and LOC RADIATION DOSAGE (If Supplied By Facility): CTDIvol = ( 47.06 ) mGy, DLP = ( 872.68 ) mGycm TECHNIQUE: Transaxial CT imaging of the brain was performed without administration of intravenous contrast material. Individualized dose optimization techniques were used for this CT. COMPARISON: No relevant priors. FINDINGS: Normal soft tissue structures. Normal calvarium. Normal size ventricles and extra-axial spaces for the patient''s age. Mild white matter microangiopathic ischemic changes of the cerebral hemispheres. Normal basal ganglia and thalami. Normal brainstem. Normal cerebellum. There is no intracranial hemorrhage. There are no findings of an acute ischemic infarction. Mucosal thickening of the visualized paranasal sinuses. CT/Brain/Head without Contrast IMPRESSION: No acute intracranial pathology of the brain. Electronically Signed: Otoniel Scott DO at 18:10 EDT ,
--- NOTE | 2023-10-25 17:55 | RAD_ITS ---
INDICATION: Blunt facial trauma EXAMINATION/TECHNIQUE: X-RAY - XR Facial Bones Min 3 Views COMPARISON: FINDINGS: SOFT TISSUES: No soft tissue swelling or gas. No radiopaque foreign body. BONES: No displaced fracture or subluxation. No sclerotic or destructive changes observed. SINUSES: No acute abnormality. RAD/Facial Bones min 3 Views IMPRESSION: No acute bony injury. Correlation with CT if needed. Electronically Signed: Otoniel Scott DO at 18:13 EDT ,
[2023-10-25 18:00] VITALS: BP 133/68; PULSE 77; RESP 16; O2SAT 99
--- NOTE | 2023-10-25 18:36 | EDS_ITS ---
HPI History of Present Illness Chief Complaint: Fall Detail of Chief Complaint: Mechanical fall yesterday with head trauma and facial trauma Informant: family Limited: dementia Onset/Context/Timing Onset: Yesterday Mechanism/Context: Blunt Injury, Fall (Standing position.) and Trip Location of pain/injuries: - (Head and face) Quality of Pain: Dull and Aching Location: Parietal area on the right and chin and nose region Current Severity: Mild Maximum Severity: Moderate Worsened by: Palpation Relieved by: Nothing Associated Symptoms Associated Symptoms: Positive for Loss of consciousness (Possibly transient.); Negative for Parasthesias, Weakness, Loss of function or Inability to ambulate Narrative Narrative: Patient is an 82-year-old woman. She has history dementia. She lives with her . She had a mechanical fall yesterday. She hit her head on a dresser and face on carpeted floor. She presents because of increased swelling and pain. She complains of head pain as well as pain over the chin. She does not complain that her teeth do not align. She is able to open and close her mouth completely with no pain or clicking. She denies difficulty breathing out of her nose. She denies neck pain. She denies numbness or tingling her arms or legs. She denies chest discomfort. Denies shortness of breath. There is been no vomiting per family. Primary informant was the family because of her dementia. Prior similar symptoms: No Recent Illness/Hospitalization: No PFSH [facility] Medical History Hypothyroidism Dementia History of CVA (cerebrovascular accident) Acute stroke due to ischemia Tremor of right hand Diabetes mellitus Hypertension Vision problem GERD (gastroesophageal reflux disease) Hearing problem Headache, migraine GI problem Diabetes Carpal tunnel syndrome bladder/uti problem Arthritis Allergies Home Medications ?Medication ?Instructions ?Recorded ?Last Taken ?Type loperamide 2 mg capsule (Imodium 2 mg PO Q6H PRN Diarrhea 06/08/20 06/05/23 History A-D) nebulizer accessories #1 ea 09/12/20 Unknown Rx nebulizers #1 ea 09/12/20 Unknown Rx melatonin 3 mg tablet 3 mg PO QHS PRN sleep #30 tabs 07/21/21 06/05/23 Rx blood sugar diagnostic (OneTouch #100 ea 11/29/21 Unknown Rx Ultra Test strips) lancets 33 gauge (OneTouch Delica #100 ea 12/22/21 Unknown Rx Lancets) one touch ultra glucose meter ##1 06/25/22 Unknown Rx benzonatate 100 mg capsule 100 mg PO BID PRN cough #90 caps 01/28/23 06/05/23 Rx fluticasone fur. 200 mcg-umeclid 1 inh inhalation DAILY #3 ea 02/28/23 06/05/23 Rx 62.5 mcg-vilant 25 mcg inhalat.powder (Trelegy Ellipta) propranolol 20 mg tablet 20 mg PO BID tremor #180 tabs 04/15/23 06/05/23 Rx aspirin 81 mg chewable tablet 81 mg PO BREAKFAST #30 tabs 05/28/23 Unknown Rx albuterol sulfate 2.5 mg/3 mL 2.5 mg (3 mL) inhalation Q6H #90 mL 07/12/23 Unknown Rx (0.083 %) solution for nebulization albuterol sulfate 90 mcg/actuation 2 puff inhalation Q4H PRN 07/12/23 Unknown Rx aerosol inhaler (Ventolin HFA) shortness of breath or wheezing #18 grams donepezil 10 mg tablet 10 mg PO DAILY #90 tabs 07/12/23 Unknown Rx guaifenesin 600 mg tablet, 600 mg PO ONCE 08/28/23 Unknown History extended release 12 hr (Mucinex) risperidone 1 mg tablet 1 mg PO QHS #90 tabs 08/28/23 Unknown Rx sertraline 50 mg tablet 75 mg PO DAILY 08/28/23 Unknown History atorvastatin 40 mg tablet 40 mg PO QHS #90 tabs 09/04/23 Unknown Rx levothyroxine 25 mcg tablet 25 mcg PO DAILY@0600 30 days #90 09/04/23 Unknown Rx tabs sitagliptin phosphate 50 1 tab PO BID #180 tabs 09/04/23 Unknown Rx mg-metformin 1,000 mg tablet (Janumet) Allergy/AdvReac Type Severity Reaction Status Date / Time dicyclomine HCl (From Bentyl) AdvReac HEART RACES Verified 10/25/23 14:59 Family History Mother Alzheimer's dementia Surgical History meniscal repair fibroid removal 2 nasal surgies Social History household members: spouse housing: house Smoking Status: Unknown if ever smoked alcohol intake: never substance use type: does not use what type of physical activity do you participate in: walking and aerobics frequency: daily ROS ROS ED Review of Systems ROS Unobtainable: due to mental status EXAM Physical Exam Const Vital Signs: 10/25/23 14:59 10/25/23 16:59 10/25/23 18:00 Temperature 98.6 F Temperature Source Temporal Pulse Rate 70 78 77 Respiratory Rate 18 16 16 Respiratory Effort Respiratory Depth Respiratory Pattern Blood Pressure 129/60 H 117/62 133/68 H Blood Pressure Mean 83 80 89 Pulse Ox 92 98 99 Oxygen Delivery Method Room Air Room Air 10/25/23 18:23 Temperature Temperature Source Pulse Rate Respiratory Rate Respiratory Effort Normal Respiratory Depth Normal Respiratory Pattern Normal Blood Pressure Blood Pressure Mean Pulse Ox Oxygen Delivery Method Positive well nourished and well developed General Appearance ED: well developed and NAD HEENT HEENT Narrative: Tenderness right parietal area. There is no abrasion noted or hematoma noted. There is no palpable pression. There is no clinical signs of basilar skull fracture. There is no septal deviation hematoma noted. There is no evidence of dental trauma. She does have significant swelling over the chin region as well as her nose. There is no step-off of the infraorbital rim. There is no hyperesthesia in femoral nerve. There is no entrapment with upward gaze. trauma and tenderness Eyes PERRL and EOMs intact bilaterally General Eye ED: Yes other Neck full ROM Neck Narrative: There is no midline pain to palpation. She has full active range of motion with no grimacing or complaint of discomfort. Chest Wall inspection of chest normal Resp normal respiratory effort and clear to auscultation bilaterally Cardio regular rhythm, S1 normal heart sound, S2 normal heart sound and no murmurs Rate: regular rate GI non-tender Palpation: soft Back/Spine normal to inspection and no thoracic nor lumbar tenderness Extremity normal to inspection and full ROM Extremity Narrative: Full active range of motion. Axillary, median, radial and ulnar nerve function intact. No evidence of trauma to the upper or lower extremities. Neuro No oriented x3, CN's II-XII intact bilaterally, moves all extremities, no focal motor deficits and no sensory deficits noted Di Coma Scale: document GCS findings Spontaneous Obeys Commands Confused 14 Deep Tendon Reflexes: Rt Triceps (C7): 1+, Lt Triceps (C7): 1+, Rt Biceps (C5, C6): 1+, Lt Biceps (C5, C6): 1+, Rt Patellar (L4): 1+, Lt Patellar (L4): 1+, Rt Ankle (S1): 1+ and Lt Ankle (S1): 1+ Deep Tendon Reflexes Back: Rt Patellar (L4): 1+, Lt Patellar (L4): 1+, Rt Ankle (S1): 1+ and Lt Ankle (S1): 1+ Plantar Reflex: Upgoing (positive Babinski): left Psych mental status grossly normal; Negative for thought process normal Skin no rashes or lesions noted, No skin turgor normal and no jaundice MDM MDM MDM Narrative Medical decision making narrative: Upper going toe and no prior documentation Babinski sign with head trauma will obtain CT of the head to assess for traumatic subarachnoid hemorrhage, intraparenchymal bleed, subdural hematoma doubt epidural hematoma. Facial films were obtained versus CT since my suspicion for fracture is low and only concern is nasal bone if any. CT of the head without contrast was reviewed by me as negative for any acute process or fracture. Radiography Chest X-Ray - ED: Read by ED Physician (Three-view x-ray of the face reveals no evidence of fracture. There is no fluid in the sinuses. There is no fat pad to suggest infraorbital rim fracture. Clinically she does not have an infraorbital rim fracture.) Diagnostic Testing: Clinical Impression(s) from Imaging Studies Brain CT 10/25/23 17:51 IMPRESSION: No acute intracranial pathology of the brain. Electronically Signed: Otoniel Scott DO at 18:10 EDT , Facial Bones X-Ray 10/25/23 17:55 IMPRESSION: No acute bony injury. Correlation with CT if needed. Electronically Signed: Otoniel Scott DO at 18:13 EDT , Rhythm Strip Rhythm Strip: Sinus Rhythm Rate: 55 Discharge Plan Triage Chief Complaint: Fall ED Provider: Thomas Meadows Dx/Rx/DC Orders Clinical Impression: Concussion with loss of consciousness status unknown, initial encounter, Chronic diarrhea, Dementia, History of CVA (cerebrovascular accident), Hypothyroidism, Stasis edema of both lower extremities, Contusion of face, scalp, and neck except eye(s), Injury due to fall Instructions: ED Concussion, ED Soft Tissue Contusion Prescriptions: No Action loperamide [Imodium A-D] 2 mg capsule 2 mg PO Q6H PRN (Reason: Diarrhea) melatonin 3 mg tablet 3 mg PO QHS PRN (Reason: sleep) Qty: 30 1RF benzonatate 100 mg capsule 100 mg PO BID PRN (Reason: cough) Qty: 90 3RF Rx Instructions: ordered by [facility] Pallative guaifenesin [Mucinex] 600 mg tablet extended release 12hr 600 mg PO ONCE Rx Instructions: mg unknown risperidone 1 mg tablet 1 mg PO QHS Qty: 90 1RF aspirin 81 mg Tablet,Chewable 81 mg PO BREAKFAST Qty: 30 0RF sertraline 50 mg tablet 75 mg PO DAILY Rx Instructions: 75mg po qd (DME) nebulizer accessories Kit See Rx Instructions .ROUTE .MEDSUPPLY Qty: 1 0RF Rx Instructions: As directed (DME) nebulizers Misc See Rx Instructions .ROUTE .MEDSUPPLY Qty: 1 0RF Rx Instructions: As directed (DME) OneTouch Ultra Test Strip See Rx Instructions .Route Qty: 100 2RF Rx Instructions: BID and PRN (DME) lancets [OneTouch Delica Lancets] 33 gauge misc See Rx Instructions .Route Qty: 100 3RF Rx Instructions: BID and PRN (DME) one touch ultra glucose meter See Rx Instructions .Route .MEDSUPPLY Qty: 1 0RF Rx Instructions: bid and prn Trelegy Ellipta 200-62.5-25 mcg blister with device 1 inh inhalation DAILY Qty: 3 3RF propranolol 20 mg tablet 20 mg PO BID Qty: 180 1RF albuterol sulfate 2.5 mg /3 mL (0.083 %) solution for nebulization 2.5 mg inhalation Q6H Qty: 90 2RF albuterol sulfate [Ventolin HFA] 90 mcg/actuation HFA aerosol inhaler 2 puff inhalation Q4H PRN (Reason: shortness of breath or wheezing) Qty: 18 6RF donepezil 10 mg tablet 10 mg PO DAILY Qty: 90 3RF Janumet 50-1,000 mg tablet 1 tab PO BID Qty: 180 1RF levothyroxine 25 mcg tablet 25 mcg PO DAILY@0600 30 Days Qty: 90 1RF atorvastatin 40 mg tablet 40 mg PO QHS Qty: 90 3RF Primary Care Provider: Liane Ba Referrals: Liane Ba MD [Primary Care Provider] - 1 Week if not improving Activity Restrictions/Additional Instructions: Apply ice 6 times a day to bruised area. Print Language: Malawian Disposition Disposition: Home, Self Care
[2023-10-25 19:05] VITALS: BP 138/77; PULSE 81; RESP 16; TEMP 36.5; O2SAT 99
== END 2023-10-25 19:06 | disposition home or self-care (01) ==
PROVIDERS: Emergency Provider Emergency Medicine; PCP Internal Medicine; Visit Provider Emergency Medicine
DX: S06.0XAA Concussion with loss of consciousness status unknown, initial encounter (principal); F03.90 Unspecified dementia, unspecified severity, without behavioral disturbance, psychotic disturbance, mood disturbance, and anxiety; E11.9 Type 2 diabetes mellitus without complications; K52.9 Noninfective gastroenteritis and colitis, unspecified; E03.9 Hypothyroidism, unspecified; Z86.73 Personal history of transient ischemic attack (TIA), and cerebral infarction without residual deficits; W01.0XXA Fall on same level from slipping, tripping and stumbling without subsequent striking against object, initial encounter
CPT/HCPCS: 70150; 70450; 99283

== ENCOUNTER 2024-02-06 10:35 | Inpatient (IN) | payer MEDICARE, SELFPAY ==
[2024-02-06] VITALS (12 sets, daily range): BP systolic 140–162; BP diastolic 54–91; PULSE 63–98; RESP 15–21; TEMP 35.8–36.9; O2SAT 92–95; BMI 19.8
[2024-02-06 11:09] LABS: Mucous, Urine 0 SEEN /hpf (<or=2+)
[2024-02-06 11:14] LABS: Absolute Lymphocyte Count 1.79 X10^3/uL (0.83-4.51); Absolute Neutrophil Count 6.4 X10^3/uL (2.0-7.7); Basophil# 0.04 X10^3/uL; Basophil% 0.4 % (0-1); Eosinophil# 0.16 X10^3/uL; Eosinophils% 1.8 % (0-5); Hematocrit 40.1 % (37-47); Hemoglobin 13.1 g/dL (12.0-15.0); Lymphocyte # 1.79 X10^3/ul (0.83-4.51); Lymphocyte % 19.7 % (19-41); Mean Corp Hgb Conc 32.7 g/dL (32-36); Mean Corpuscular Hgb 31.3 pg (27.0-32.0); Mean Corpuscular Volume 95.9 fL (81-99); Mean Platelet Vol. 10.3 fl (6.2-12.0); Monocyte# 0.66 X10^3/uL; Monocyte% 7.3 % (0-10); NRBC Flagged by Analyzer 0 % (0-5); Neutrophil # 6.42 X10^3/uL (2.7-7.7); Neutrophil % 70.5 % (47-70); Platelet Count 250 K/mm3 (150-450); RBC Distribution Width CV 12.8 % (11.6-14.6); RBC Distribution Width SD 45.1 fl (35.1-43.9); Red Blood Count 4.18 M/mm3 (4.2-5.4); White Blood Count 9.1 K/mm3 (4.4-11.0)
[2024-02-06 11:15] LABS: Color, Urine Yellow (Yellow); Glucose, Dipstick Normal (Normal); Leukocyte Esterase-Dipstick 25 /ul (Negative); Nitrite-Dipstick Negative (Negative); Occult Blood-Urine 10 /ul (Negative); Protein-Dipstick 30 mg/dl (Negative); Specific Gravity, Urine 1.015 (1.002-1.030); Urine Bilirubin Dipstick Negative (Negative); Urine Clarity Sl. Cloudy (Clear); Urine Urobilinogen 1 mg/dl (Normal); Urine pH 6.5 (5.0 - 8.0)
--- NOTE | 2024-02-06 11:16 | EKG12_ITS ---
Test Reason : Blood Pressure : */* mmHG Vent. Rate : 74 BPM Atrial Rate : 74 BPM P-R Int : 162 ms QRS Dur : 108 ms QT Int : 428 ms P-R-T Axes : 80 -63 4 degrees QTcB Int : 475 ms Normal sinus rhythm with sinus arrhythmia Left axis deviation Right bundle branch block Abnormal ECG Confirmed by FARHAT PEREZ, ABELINO ([id number]), manager editorial DIONE LANG ([id number]) on 02/07/2024 9:43:34 AM Referred By: Confirmed By: ABELINO DOUGHERTY MD
--- NOTE | 2024-02-06 11:16 | CT_ITS ---
EXAM: CT HEAD WITHOUT INTRAVENOUS CONTRAST CLINICAL INDICATION: Fall injury. TECHNIQUE: Multiple axial images were obtained of the head without intravenous contrast. This CT exam was performed using one or more of the following dose reduction techniques: automated exposure control, adjustment of the mA and/or kV according to patient size, and/or use of iterative reconstruction technique. RADIATION DOSE: CTDIvol = 44.99 mGy, DLP = 863.60 mGy-cm COMPARISON: CT head without contrast 10/25/2023. FINDINGS: BRAIN AND EXTRA-AXIAL SPACES: Hypodensities in the anterior end posterior periventricular white matter are chronic white matter ischemic changes. No intra- or extra-axial hemorrhage. No intracranial mass or mass effect. Posterior fossa structures are unremarkable. No hydrocephalus. Basal cisterns are patent. BONES/JOINTS: Unremarkable. No discrete lytic or blastic abnormalities. SINUSES: Prominent mucus retention cyst in the left maxillary sinus. Mild mucosal thickening in the right sinus. MASTOID AIR CELLS: Unremarkable. Clear. ORBITS: Visualized globes, extraocular muscles, optic nerves and retrobulbar fat appear unremarkable. CT/Brain/Head without Contrast IMPRESSION: No acute findings in the head/brain and unchanged. Electronically Signed: Luis Mccloud MD at 12:24 EST ,
--- NOTE | 2024-02-06 11:16 | CT_ITS ---
We are attempting to reach an attending provider to discuss findings. An addendum with communication details will be sent when the communication is complete. EXAM: CT CERVICAL SPINE WITHOUT INTRAVENOUS CONTRAST CLINICAL INDICATION: Fall injury. TECHNIQUE: Helically acquired images were obtained of the cervical spine without intravenous contrast. 2D reformatted images were reviewed. This CT exam was performed using one or more of the following dose reduction techniques: automated exposure control, adjustment of the mA and/or kV according to patient size, and/or use of iterative reconstruction technique. RADIATION DOSE: CTDIvol = 17.04 mGy, DLP = 326.62 mGy-cm COMPARISON: CTA head and neck 06/06/2023. FINDINGS: VERTEBRAE: There is acute fracture right C4 lamina. No other suspicious acute fractures. Minimal degenerative anterolisthesis of T1 on T2 is unchanged. No discrete lytic or blastic abnormality. DISCS/SPINAL CANAL/NEURAL FORAMINA: Moderately pronounced C5-C6 disc space height narrowing with mild posterior marginal spurs. Mild C5-C6 disc space height narrowing with minimal posterior marginal spurs. Normal remaining cervical disc space heights. SOFT TISSUES: Unremarkable. No prevertebral soft tissue swelling. LYMPH NODES: Unremarkable. No cervical adenopathy. LUNG APICES: Unremarkable as visualized. Clear. CT/Spine Cervical without Contras IMPRESSION: 1. Acute fracture right C4 lamina. 2. No other acute fracture of the cervical spine. 3. Minimal degenerative anterolisthesis of T1 on T2 is unchanged. Electronically Signed: Luis Mccloud MD at 12:22 [facility] ,
[2024-02-06 11:17] LABS: Ketone-Dipstick 150 mg/dl (Negative)
--- NOTE | 2024-02-06 11:18 | EX.ED.DYSGE1 ---
HPI History of Present Illness Chief Complaint: Alt LOC Informant: spouse/S.O. and family Narrative Narrative: Here with daughter and spouse after being found down this morning. Spouse went to bed at 1 AM, patient would not go to sleep. He checked on her this morning she was sleeping on the carpeted living room floor. History of dementia. She does not walk with any assistance. Denies any recent cough recent vomiting diarrhea. Patient is with frequent falls. Currently followed by palliative care. DNR CCA. Daughter reports there has been increasing confusion over the last 3 to 4 days. Patient not her baseline. [facility] Medical History Hypothyroidism Dementia History of CVA (cerebrovascular accident) Acute stroke due to ischemia Tremor of right hand Diabetes mellitus Hypertension Vision problem GERD (gastroesophageal reflux disease) Hearing problem Headache, migraine GI problem Diabetes Carpal tunnel syndrome bladder/uti problem Arthritis Allergies Home Medications ?Medication ?Instructions ?Recorded ?Last Taken ?Type nebulizer accessories #1 ea 09/12/20 Unknown Rx nebulizers #1 ea 09/12/20 Unknown Rx melatonin 3 mg tablet 3 mg PO QHS PRN sleep #30 tabs 07/21/21 02/04/24 Rx blood sugar diagnostic (OneTouch #100 ea 11/29/21 Unknown Rx Ultra Test strips) lancets 33 gauge (OneTouch Delica #100 ea 12/22/21 Unknown Rx Lancets) one touch ultra glucose meter ##1 06/25/22 Unknown Rx fluticasone fur. 200 mcg-umeclid 1 inh inhalation DAILY . #3 ea 02/28/23 06/05/23 Rx 62.5 mcg-vilant 25 mcg inhalat.powder (Trelegy Ellipta) aspirin 81 mg chewable tablet 81 mg PO BREAKFAST . #30 tabs 05/28/23 02/04/24 Rx albuterol sulfate 90 mcg/actuation 2 puff inhalation Q4H PRN 07/12/23 02/04/24 Rx aerosol inhaler (Ventolin HFA) shortness of breath or wheezing #18 grams donepezil 10 mg tablet 10 mg PO DAILY . #90 tabs 07/12/23 02/05/24 Rx guaifenesin 600 mg tablet, 600 mg PO ONCE . 08/28/23 02/04/24 History extended release 12 hr (Mucinex) risperidone 1 mg tablet 1 mg PO QHS . #90 tabs 08/28/23 02/04/24 Rx sertraline 50 mg tablet 75 mg PO DAILY m 08/28/23 02/05/24 History atorvastatin 40 mg tablet 40 mg PO QHS cholesterol #90 tabs 09/04/23 02/04/24 Rx levothyroxine 25 mcg tablet 25 mcg PO DAILY@0600 . 30 days #90 09/04/23 02/05/24 Rx tabs sitagliptin phosphate 50 1 tab PO BID . #180 tabs 09/04/23 02/05/24 Rx mg-metformin 1,000 mg tablet (Janumet) propranolol 20 mg tablet 20 mg PO BID tremor #180 tabs 11/29/23 02/05/24 Rx Allergy/AdvReac Type Severity Reaction Status Date / Time dicyclomine HCl (From Bentyl) AdvReac HEART RACES Verified 02/06/24 10:44 Family History Mother Alzheimer's dementia Surgical History meniscal repair fibroid removal 2 nasal surgies Social History household members: spouse housing: house Smoking Status: Unknown if ever smoked alcohol intake: never substance use type: does not use what type of physical activity do you participate in: walking and aerobics frequency: daily ROS ROS ED Review of Systems ROS Unobtainable: other Details: Limited secondary to dementia. EXAM Physical Exam Const Vital Signs: 02/06/24 10:37 02/06/24 10:42 02/06/24 11:48 Temperature 96.4 F L 96.4 F L 97.3 F L Temperature Source Temporal Temporal Temporal Pulse Rate 97 97 89 Respiratory Rate 17 16 17 Blood Pressure 162/68 H 162/68 H 162/54 H Blood Pressure Mean 99 99 90 Pulse Ox 93 93 92 Oxygen Delivery Method Room Air Room Air Room Air 02/06/24 12:07 02/06/24 12:33 02/06/24 12:45 Temperature 97.3 F L Temperature Source Temporal Pulse Rate 63 88 85 Respiratory Rate 17 15 21 H Blood Pressure 146/62 H 140/91 H Blood Pressure Mean 90 107 Pulse Ox 93 93 Oxygen Delivery Method Room Air Room Air 02/06/24 14:00 Temperature Temperature Source Pulse Rate 67 Respiratory Rate 18 Blood Pressure 149/58 H Blood Pressure Mean 84 Pulse Ox Oxygen Delivery Method Positive well nourished and well developed Constitutional Narrative: Moving all 4 extremities. General Appearance ED: well developed and NAD HEENT Reports moist mucous membranes HEENT Narrative: No signs of head injury. normocephalic and atraumatic Eyes General Eye ED: Yes normal appearance of both eyes Neck full ROM Chest Wall inspection of chest normal and palpation of chest normal Chest: Negative for tenderness Resp normal respiratory effort and normal air movement Effort and Inspection: symmetric chest movement; Negative for respiratory distress Cardio regular rate, regular rhythm and no murmurs Peripheral Pulses: pulses 2+ throughout GI normal to inspection, nondistended, normoactive bowel sounds and non-tender Palpation: Negative for guarding or rebound tenderness present Back/Spine Back/Spine Narrative: Kyphosis of the upper back. Nontender. Extremity normal to inspection Extremity Narrative: No shortening or rotation lower extremities during logroll reported some tenderness left hip. General Extremety ED: Negative for edema or tenderness General Extremity: Negative for edema Neuro no sensory deficits noted Neuro Narrative: Alert to person. Sensorium / Orientation: awake and alert Skin no rashes or lesions noted and no wounds MDM MDM MDM Narrative Medical decision making narrative: Interventions / MDM: Differential diagnosis: UTI, encephalopathy, history of dementia, C4 fracture Diagnosis considered but do not suspect: Intracranial hemorrhage however CT negative. My EKG interpretation: Sinus rate of 74, no ST changes, T wave inversions lateral leads. Similar findings from May 2023. Imaging independently reviewed and interpreted by myself: 1 view chest x-ray: No acute process. Left hip and pelvis 3 views: No acute process. CT brain: No acute process. CT cervical spine: C4 laminar fracture called down by radiologist. External documents reviewed: N/A Test considered but not ordered:N/A ED course: Dementia history alert oriented x 1, more confused per family. CT head and cervical spine ordered due to fall. Chest x-ray left hip and pelvis. Labs urine ordered. Labs white count 9.1 creatinine 0.60. CPK normal at 89. Urine noted signs of potential infection with leukocytes and bacteria. Culture sent. She had ketones. She was given fluids. IV Rocephin started. 1325: In the interim radiologist called down reporting C4 lamina fracture. She is placed in a c-collar. CT brain negative. With her dementia and cervical fracture she sent for chest abdomen pelvis films for further evaluation. Her chest x-ray left hip x-ray was negative. I spoke with spine surgeon Dr. Aguilar, who reviewed the films, states fairly stable fracture c-collar to maintain if she can tolerate. Discussed she does have UTI with increasing confusion or dementia history. Plan if isolated fracture can stay here for treatment and for him to see as a consult. Chest abdomen pelvis scans were negative. Family updated. I spoke with hospitalist Dr. Myers for admission. Re-evaluation: stable Disposition discussed with patient/family/significant other: Case discussed with consulting clinician: Spine surgeon hospitalist This note was generated with [employer] dictation software. It may contain incorrect words, spelling, and punctuation that were not noted in checking the note before signing. Lab Data Attestation: I reviewed the patient's lab results. Labs: Laboratory Results - last 24 hr 02/06/24 10:59 WBC 9.1 RBC 4.18 L Hgb 13.1 Hct 40.1 MCV 95.9 MCH 31.3 MCHC 32.7 RDW Std Deviation 45.1 H RDW Coeff of [place] 12.8 Plt Count 250 MPV 10.3 Immature Gran % (Auto) 0.300 Neut % (Auto) 70.5 H Lymph % (Auto) 19.7 Webster % (Auto) 7.3 Eos % (Auto) 1.8 Baso % (Auto) 0.4 Absolute Neuts (auto) 6.4 Absolute Lymphs (auto) 1.79 Nucleated RBC % 0 Sodium 134 L Potassium 4.2 Chloride 98 Carbon Dioxide 30.0 Anion Gap 6 BUN 13 Creatinine 0.63 Estim Creat Clear Calc 45.61 Est GFR (MDRD) Af Amer 117 Est GFR (MDRD) Non-Af 97 BUN/Creatinine Ratio 20.8 H Glucose 171 H Calcium 9.5 Total Creatine Kinase 89 Folate 18.20 TSH 0.248 L Urine Color Yellow Urine Clarity Sl. Cloudy Urine pH 6.5 Ur Specific [place] 1.015 Urine Protein 30 H Urine Glucose (UA) Normal Urine Ketones 150 A* Urine Occult Blood 10 H Urine Nitrite Negative Urine Bilirubin Negative Urine Urobilinogen 1 H Ur Leukocyte Esterase 25 H Urine RBC 0-5 SEEN Urine WBC 0-5 SEEN Ur Squamous Epith Cells 0-5 SEEN Urine Bacteria 3+ Urine Mucus 0 SEEN Radiography Diagnostic Testing: Clinical Impression(s) from Imaging Studies Brain CT 02/06/24 11:16 IMPRESSION: No acute findings in the head/brain and unchanged. Electronically Signed: Luis Mccloud MD at 12:24 EST , Cervical Spine CT 02/06/24 11:16 IMPRESSION: 1. Acute fracture right C4 lamina. 2. No other acute fracture of the cervical spine. 3. Minimal degenerative anterolisthesis of T1 on T2 is unchanged. Electronically Signed: Luis Mccloud MD at 12:22 EST , ADDENDUM: 02/06/24 1235 IMPRESSION: 1. Acute fracture right C4 lamina. 2. No other acute fracture of the cervical spine. 3. Minimal degenerative anterolisthesis of T1 on T2 is unchanged. N.B. : The above Results were Read Back by Luis Mccloud MD to Pete Brown PA, and understanding confirmed on 02/06/2024 12:28:13 (ET). Electronically Signed: Luis Mccloud MD at 12:22 EST Reading Location ID and State: [facility] / [place] , Service support , Chest X-Ray 02/06/24 11:40 IMPRESSION: No acute cardiopulmonary pathology and no interval change. Electronically Signed: Luis Mccloud MD at 12:38 EST , Hip/Pelvis X-Ray 02/06/24 11:40 IMPRESSION: No acute fracture or dislocation of the pelvis and left hip. Electronically Signed: Luis Mccloud MD at 12:39 EST , Chest/Abdomen/Pelvis CT 02/06/24 12:[address]: [address] evidence of acute abnormality in the chest, abdomen and pelvis. 2. Limited study due to motion in the lung bases in the abdomen. 3. Linear atelectases in the right lung base. 4. Mild airway predominant type of COPD. 5. Small calcified uterine fibroid in the anterior surface of the uterine fundus. Electronically Signed: Luis Mccloud MD at 14:15 EST , Discharge Plan Dx/Rx/DC Orders Clinical Impression: Fall, Dementia, Acute UTI, Closed C4 fracture, Encephalopathy acute Disposition Disposition: Acute Care Hospital [facility] Discharge Date/Time: 02/06/24 15:54
[2024-02-06 11:22] LABS: Bacteria 3+ /hpf (None Seen); Squamous Epithelial Cells - UA 0-5 SEEN /hpf (5-10); White Blood Cells 0-5 SEEN /hpf (0-5)
[2024-02-06 11:23] LABS: Red Blood Cells-Urine 0-5 SEEN /hpf (0-5)
[2024-02-06 11:39] LABS: Anion Gap 6 (5-15); BUN 13 mg/dL (7-18); BUN/Creat Ratio 20.8 RATIO (10-20); Calcium,Total 9.5 mg/dL (8.5-10.1); Chloride 98 mmol/L (98-107); Creatinine, Serum 0.63 mg/dL (0.55-1.02); EST Glomerular Filtration Rate 97 mL/min (>60); Est Glom Filt Rate - Afr Amer 117 mL/min (>60); Estimated Creatinine Clearance 45.61 ml/min; Glucose 171 mg/dL (74-106); Potassium 4.2 mmol/L (3.5-5.1); Sodium Level 134 mmol/L (136-145)
--- NOTE | 2024-02-06 11:40 | RAD_ITS ---
EXAM: XR LEFT HIP WITH PELVIS WHEN PERFORMED, 2 OR 3 VIEWS CLINICAL INDICATION: fall TECHNIQUE: Two or three views of the left hip with pelvis when performed. COMPARISON: No relevant prior studies available. FINDINGS: BONES/JOINTS: Unremarkable. No displaced fracture. No destructive or sclerotic lesions. Note that overlapping bowel shadows may however obscure fine detail. Sacroiliac joint is unremarkable. No widening of the pubic symphysis. The articular structures are unremarkable. SOFT TISSUES: Unremarkable. No soft tissue swelling or gas. RAD/HIP, UNI W/ Pelvis 2-3 Views IMPRESSION: No acute fracture or dislocation of the pelvis and left hip. Electronically Signed: Luis Mccloud MD at 12:39 EST ,
--- NOTE | 2024-02-06 11:40 | RAD_ITS ---
EXAM: XR CHEST, 1 VIEW CLINICAL INDICATION: confusion TECHNIQUE: Frontal view of the chest. COMPARISON: 06/06/2023. FINDINGS: LUNGS AND PLEURAL SPACES: Minimal linear scarring in the right lung base. No consolidation or edema. No pneumothorax. No effusion. HEART: Unremarkable. Cardiac silhouette not enlarged. MEDIASTINUM: Central airways and mediastinal contour are unremarkable. BONES/JOINTS: Unremarkable. No acute fracture. SOFT TISSUES: Unremarkable. RAD/Chest 1 View (Portable) IMPRESSION: No acute cardiopulmonary pathology and no interval change. Electronically Signed: Luis Mccloud MD at 12:38 EST ,
[2024-02-06] MEDS: 0.9% Normal Saline (1000mL) 1,000 ML 999 ML IV (11:53)
[2024-02-06 12:07] LABS: CPK Total, Creatine Kinase 89 U/L (26-192)
--- NOTE | 2024-02-06 12:45 | CT_ITS ---
EXAM: CT CHEST, ABDOMEN AND PELVIS WITHOUT INTRAVENOUS CONTRAST CLINICAL INDICATION: Fall injury. TECHNIQUE: Helically acquired images were obtained of the chest, abdomen and pelvis without intravenous contrast. This CT exam was performed using one or more of the following dose reduction techniques: automated exposure control, adjustment of the mA and/or kV according to patient size, and/or use of iterative reconstruction technique. RADIATION DOSE: CTDIvol = 10.88 mGy, DLP = 922.30 mGy-cm COMPARISON: No relevant prior studies available. FINDINGS: CHEST: INFRAHYOID NECK: Calcifications of the trachea and bronchial marquez. LUNGS AND PLEURAL SPACES: Mild pulmonary hyperinflation due to airway predominant type of COPD. Linear atelectasis with increasing motion artifacts in the right lower lobe. HEART: Mild cardiomegaly. Calcified plaque in the circumflex branch. No other coronary artery calcifications. Normal pericardium. MEDIASTINUM: Normal. THYROID: Unremarkable. No thyroid lesions. ABDOMEN: LIVER: Unremarkable. Homogeneous. GALLBLADDER AND BILE DUCTS: Unremarkable. No calcified gallstones. No gallbladder distention or wall edema. No intra- or extrahepatic biliary ductal dilation. PANCREAS: Unremarkable. No focal cystic mass. SPLEEN: Unremarkable. Normal size without focal cystic or solid mass. ADRENALS: Unremarkable. No nodules. KIDNEYS AND URETERS: Unremarkable. Normal renal size and position. No hydronephrosis. STOMACH AND BOWEL: Unremarkable. No stomach or bowel distention. No focal inflammatory change. PELVIS: APPENDIX: No evidence of acute appendicitis. BLADDER: Unremarkable. REPRODUCTIVE: Small calcified fibroid in the anterior surface of the uterine fundus. No suspicious uterine mass or adnexal cysts. CHEST, ABDOMEN and PELVIS: INTRAPERITONEAL SPACE: Unremarkable. No ascites or other fluid collection. No free air. BONES/JOINTS: Unremarkable. No suspicious lytic or blastic abnormality. SOFT TISSUES: Unremarkable. No discrete abdominal or pelvic wall hernia. VASCULATURE: Prominent calcified plaques along the transverse thoracic aorta thoracic aneurysm. Few calcified plaques along the abdominal aorta and iliac arteries. No abdominal aortic aneurysm. LYMPH NODES: Unremarkable. No enlarged lymph nodes. CT/CT Chest, Abd, Pelvis WO Cont IMPRESSION: 1. No CT evidence of acute abnormality in the chest, abdomen and pelvis. 2. Limited study due to motion in the lung bases in the abdomen. 3. Linear atelectases in the right lung base. 4. Mild airway predominant type of COPD. 5. Small calcified uterine fibroid in the anterior surface of the uterine fundus. Electronically Signed: Luis Mccloud MD at 14:15 EST ,
[2024-02-06] MEDS: Ceftriaxone 1 GM/50 ML BAG IV (13:11)
--- NOTE | 2024-02-06 15:13 | PCM.HP.STD ---
HPI - General General Date of Admission: 02/06/24 Date of Service: 02/06/24 Chief Complaint: Found down, worsening functional status HPI Narrative NELLI HARTMAN, is a 83-year-old female history of CVA, dementia, asthma, diabetes, hypothyroidism tremors who presented [facility] ED 02/06/2024 after being found down this morning. Spouse went to bed at 1 AM but the patient would not go to sleep. He checked on her in the morning and she was sleeping on the carpeted floor in the living room. She has frequent falls and does not use any assistance device, presently being followed by palliative care. Daughter at bedside had reported increasing confusion for 3 to 4 days and that she has not been at her baseline. In the ED patient with UA that demonstrated bacteria but minimal leuk esterase and only 0-5 white blood cells but given no other explanation for altered mental status it was felt that maybe patient did have UTI and was started on Rocephin. CK within normal limits, BMP with a slightly low sodium of 134 but otherwise unremarkable. Patient had CT head, CT cervical spine, chest x-ray, hip and pelvis x-ray, and CT chest/abdomen/pelvis CT. Pertinent positives were acute fracture of right C4 lamina. ED physician discussed case with spine surgeon and advised the fracture is fairly stable and to maintain her in C collar and if it is an isolated fracture she can stay here for treatment and he will see in consultation. Given patient's persistently altered level of consciousness hospitalist contacted for admission. Patient evaluated at bedside with daughter and present. History provided by daughter and as patient would not verbalize to answer questions. Patient has been worsening over the past weeks to months with increasing falls and decreased communicated weakness mental status. Nothing necessarily changed over the past 3 to 4 days the patient has continued to decline day by day. Patient previously on home O2 but only uses it as needed and reportedly her oxygen saturation maintains in the low 90s without oxygen. History as above with her going to bed last night and waking up and finding her on the living room floor. Initially she did not respond to him but he held a cool rag to her face then she became upset and yelled at him. Currently patient awake and moving her limbs in the ED but will not verbally answer questions, reportedly this is how her mental status has been recently and this has been unchanged. Also of note patient frequently refuses her home medications and also takes her Synthroid at the same time as her other medications in the morning due to difficulty getting her to take medications [facility], [facility] Medical History Hypothyroidism Dementia History of CVA (cerebrovascular accident) Acute stroke due to ischemia Tremor of right hand Diabetes mellitus Hypertension Vision problem GERD (gastroesophageal reflux disease) Hearing problem Headache, migraine GI problem Diabetes Carpal tunnel syndrome bladder/uti problem Arthritis Allergies Home Medications ?Medication ?Instructions ?Recorded ?Last Taken ?Type nebulizer accessories #1 ea 09/12/20 Unknown Rx nebulizers #1 ea 09/12/20 Unknown Rx melatonin 3 mg tablet 3 mg PO QHS PRN sleep #30 tabs 07/21/21 02/04/24 Rx blood sugar diagnostic (OneTouch #100 ea 11/29/21 Unknown Rx Ultra Test strips) lancets 33 gauge (OneTouch Delica #100 ea 12/22/21 Unknown Rx Lancets) one touch ultra glucose meter ##1 06/25/22 Unknown Rx fluticasone fur. 200 mcg-umeclid 1 inh inhalation DAILY . #3 ea 02/28/23 06/05/23 Rx 62.5 mcg-vilant 25 mcg inhalat.powder (Trelegy Ellipta) aspirin 81 mg chewable tablet 81 mg PO BREAKFAST . #30 tabs 05/28/23 02/04/24 Rx albuterol sulfate 90 mcg/actuation 2 puff inhalation Q4H PRN 07/12/23 02/04/24 Rx aerosol inhaler (Ventolin HFA) shortness of breath or wheezing #18 grams donepezil 10 mg tablet 10 mg PO DAILY . #90 tabs 07/12/23 02/05/24 Rx guaifenesin 600 mg tablet, 600 mg PO ONCE . 08/28/23 02/04/24 History extended release 12 hr (Mucinex) risperidone 1 mg tablet 1 mg PO QHS . #90 tabs 08/28/23 02/04/24 Rx sertraline 50 mg tablet 75 mg PO DAILY m 08/28/23 02/05/24 History atorvastatin 40 mg tablet 40 mg PO QHS cholesterol #90 tabs 09/04/23 02/04/24 Rx levothyroxine 25 mcg tablet 25 mcg PO DAILY@0600 . 30 days #90 09/04/23 02/05/24 Rx tabs sitagliptin phosphate 50 1 tab PO BID . #180 tabs 09/04/23 02/05/24 Rx mg-metformin 1,000 mg tablet (Janumet) propranolol 20 mg tablet 20 mg PO BID tremor #180 tabs 11/29/23 02/05/24 Rx Allergy/AdvReac Type Severity Reaction Status Date / Time dicyclomine HCl (From Bentyl) AdvReac HEART RACES Verified 02/06/24 10:44 Family History Mother Alzheimer's dementia Surgical History meniscal repair fibroid removal 2 nasal surgies Social History household members: spouse housing: house Smoking Status: Unknown if ever smoked alcohol intake: never substance use type: does not use what type of physical activity do you participate in: walking and aerobics frequency: daily ROS ROS Narrative Unable to obtain ROS secondary to mental status Vital Signs Vital Signs Vital Signs: 02/06/24 10:37 02/06/24 10:42 02/06/24 11:48 Temperature 96.4 F L 96.4 F L 97.3 F L Temperature Source Temporal Temporal Temporal Pulse Rate 97 97 89 Respiratory Rate 17 16 17 Blood Pressure 162/68 H 162/68 H 162/54 H Blood Pressure Mean 99 99 90 Pulse Ox 93 93 92 Oxygen Delivery Method Room Air Room Air Room Air 02/06/24 12:07 02/06/24 12:33 02/06/24 12:45 Temperature 97.3 F L Temperature Source Temporal Pulse Rate 63 88 85 Respiratory Rate 17 15 21 H Blood Pressure 146/62 H 140/91 H Blood Pressure Mean 90 107 Pulse Ox 93 93 Oxygen Delivery Method Room Air Room Air 02/06/24 14:00 Temperature Temperature Source Pulse Rate 67 Respiratory Rate 18 Blood Pressure 149/58 H Blood Pressure Mean 84 Pulse Ox Oxygen Delivery Method Weight Weight: 52.39 kg Body Mass Index (BMI) 19.8 Physical Exam Narrative General: Patient awake and alert but would not verbally answer any questions and only minimally inclined to participate in exam HEENT: Patient with cervical collar Eyes: Anicteric, normal conjunctiva, extraocular movements grossly intact Neck: Cervical collar in place Respiratory: Clear to auscultation bilaterally, normal respiratory effort Cardiovascular: Regular rate GI: Soft, nondistended Extremities: No edema Musculoskeletal: Moving extremities in bed Neuro: No overt focal neurological deficits however patient not able to participate in neuroexam Skin: Right arm bruise from 2 weeks ago Psych: Unable to cooperate given mental status Results Lab / Micro Data 02/06/24 10:59 02/06/24 10:59 Labs: Laboratory Results - last 24 hr 02/06/24 10:59: WBC 9.1, RBC 4.18 L, Hgb 13.1, Hct 40.1, MCV 95.9, MCH 31.3, MCHC 32.7, RDW Std Deviation 45.1 H, RDW Coeff of Yesenia 12.8, Plt Count 250, MPV 10.3, Immature Gran % (Auto) 0.300, Neut % (Auto) 70.5 H, Lymph % (Auto) 19.7, [place] % (Auto) 7.3, Eos % (Auto) 1.8, Baso % (Auto) 0.4, Absolute Neuts (auto) 6.4, Absolute Lymphs (auto) 1.79, Nucleated RBC % 0, Sodium 134 L, Potassium 4.2, Chloride 98, Carbon Dioxide 30.0, Anion Gap 6, BUN 13, Creatinine 0.63, Estim Creat Clear Calc 45.61, Est GFR (MDRD) Af Amer 117, Est GFR (MDRD) Non-Af 97, BUN/Creatinine Ratio 20.8 H, Glucose 171 H, Calcium 9.5, Total Creatine Kinase 89, Urine Color Yellow, Urine Clarity Sl. Cloudy, Urine pH 6.5, Ur Specific [place] 1.015, Urine Protein 30 H, Urine Glucose (UA) Normal, Urine Ketones 150 A*, Urine Occult Blood 10 H, Urine Nitrite Negative, Urine Bilirubin Negative, Urine Urobilinogen 1 H, Ur Leukocyte Esterase 25 H, Urine RBC 0-5 SEEN, Urine WBC 0-5 SEEN, Ur Squamous Epith Cells 0-5 SEEN, Urine Bacteria 3+, Urine Mucus 0 SEEN Imaging Radiology Impression Brain CT 02/06/24 11:16 IMPRESSION: No acute findings in the head/brain and unchanged. Electronically Signed: Luis Mccloud MD at 12:24 EST , Cervical Spine CT 02/06/24 11:16 IMPRESSION: 1. Acute fracture right C4 lamina. 2. No other acute fracture of the cervical spine. 3. Minimal degenerative anterolisthesis of T1 on T2 is unchanged. Electronically Signed: Luis Mccloud MD at 12:22 EST Reading Location ID and State: [facility] / [place] , Service support , ADDENDUM: 02/06/24 1235 IMPRESSION: 1. Acute fracture right C4 lamina. 2. No other acute fracture of the cervical spine. 3. Minimal degenerative anterolisthesis of T1 on T2 is unchanged. N.B. : The above Results were Read Back by Luis Mccloud MD to Pete Brown PA, and understanding confirmed on 02/06/2024 12:28:13 (ET). Electronically Signed: Luis Mccloud MD at 12:22 EST Reading Location ID and State: [facility] / [place] , Service support , Chest X-Ray 02/06/24 11:40 IMPRESSION: No acute cardiopulmonary pathology and no interval change. Electronically Signed: Luis Mccloud MD at 12:38 EST Reading Location ID and State: [facility] / [place] , Service support , Hip/Pelvis X-Ray 02/06/24 11:40 IMPRESSION: No acute fracture or dislocation of the pelvis and left hip. Electronically Signed: Luis Mccloud MD at 12:39 EST , Chest/Abdomen/Pelvis CT 02/06/24 12:45 IMPRESSION: 1. No CT evidence of acute abnormality in the chest, abdomen and pelvis. 2. Limited study due to motion in the lung bases in the abdomen. 3. Linear atelectases in the right lung base. 4. Mild airway predominant type of COPD. 5. Small calcified uterine fibroid in the anterior surface of the uterine fundus. Electronically Signed: Luis Mccloud MD at 14:15 EST Reading Location ID and State: [facility] / [place] , Service support , Assessment & Plan Assessment/Plan (1) C4 cervical fracture: PLAN: Plan #Acute fracture of right C4 lamina -Seen on CT scan post fall, isolated fracture so will admit pt to our hospital per ED discussion with spine surgery -Cervical collar -Will place diet for easy to chew foods and will also consult speech -Pain control -C/s placed to spine surgeon, Dr. Aguilar -PT/OT # Progressively worsening functional status and mental status -Possibly subacute worsening secondary to UTI -UA w/ bacteria and some leuk esterase and blood the minimal white blood cells and no nitrate however no other obvious reason for her altered mental status at this time though on discussion with family patient is actually been worsening over weeks to months -Will continue her empiric antibiotics and follow cultures -Additionally will check TSH given patient at times will not take her medication and only takes her Synthroid with her other medications in the morning may not be absorbing this -Also check vitamin D and B12 # History of asthma -Only uses oxygen as needed at home -Continue inhalers -Incentive spirometry as able -Follows outpt w/ pulm # History of dementia -Hold donepezil in the short-term as this is not likely to make a difference acutely and want to minimize polypharmacy were able -Supportive care -Continue Zoloft and will continue Risperdal qhs -Schedule melatonin nightly # History of CVA -Continue aspirin and statin #Type 2 diabetes mellitus -Glucose checks and sliding scale insulin -A1c ordered #Hypothyroidism -Continue Synthroid -Check TSH #DVT ppx: SCDs Franchesca Myers MD Charges/Coding Visit Charges Inpatient E&M: 11897 Init Hosp L2
[2024-02-06 16:42] LABS: Thyroid Stim Hormone (TSH) 0.248 uIU/mL (0.358-3.740)
[2024-02-06 17:01] LABS: Bedside Glucose 118 mg/dL (74-106)
[2024-02-06] MEDS: RisperiDONE 0.5 MG Tablet PO (19:26)
[2024-02-06] MEDS: Atorvastatin Calcium 40 MG Tablet PO ×2 (19:27→19:28)
[2024-02-06] MEDS: MELATONIN 10 MG TABLET PO (19:27)
[2024-02-06] MEDS: Polyethylene Glycol 3350 17 GM PACKET PO (19:27)
[2024-02-06] MEDS: Acetaminophen 500 MG Tablet 1000 MG PO (19:28)
[2024-02-06] MEDS: Ipratropium/Albuterol Sulfate 3 ML AMPUL.NEB INHALATION (19:44)
[2024-02-06] MEDS: Budesonide Respules 0.5 MG/2 ML AMPUL.NEB. INHALATION (19:44)
[2024-02-07] VITALS (8 sets, daily range): BP systolic 96–142; BP diastolic 45–111; PULSE 67–85; RESP 16–18; TEMP 36.5–36.7; O2SAT 89–95
[2024-02-07 04:52] LABS: Absolute Lymphocyte Count 1.58 X10^3/uL (0.83-4.51); Absolute Neutrophil Count 4.4 X10^3/uL (2.0-7.7); Basophil# 0.04 X10^3/uL; Basophil% 0.6 % (0-1); Eosinophil# 0.23 X10^3/uL; Eosinophils% 3.3 % (0-5); Hematocrit 34.3 % (37-47); Hemoglobin 11.4 g/dL (12.0-15.0); Lymphocyte # 1.58 X10^3/ul (0.83-4.51); Lymphocyte % 22.8 % (19-41); Mean Corp Hgb Conc 33.2 g/dL (32-36); Mean Corpuscular Hgb 31.1 pg (27.0-32.0); Mean Corpuscular Volume 93.7 fL (81-99); Mean Platelet Vol. 10.1 fl (6.2-12.0); Monocyte# 0.72 X10^3/uL; Monocyte% 10.4 % (0-10); NRBC Flagged by Analyzer 0 % (0-5); Neutrophil # 4.35 X10^3/uL (2.7-7.7); Neutrophil % 62.6 % (47-70); Platelet Count 242 K/mm3 (150-450); RBC Distribution Width CV 12.8 % (11.6-14.6); RBC Distribution Width SD 44.1 fl (35.1-43.9); Red Blood Count 3.66 M/mm3 (4.2-5.4); White Blood Count 6.9 K/mm3 (4.4-11.0)
[2024-02-07 05:15] LABS: Anion Gap 4 (5-15); BUN 10 mg/dL (7-18); BUN/Creat Ratio 17.3 RATIO (10-20); Calcium,Total 9.2 mg/dL (8.5-10.1); Chloride 102 mmol/L (98-107); Creatinine, Serum 0.58 mg/dL (0.55-1.02); EST Glomerular Filtration Rate 106 mL/min (>60); Est Glom Filt Rate - Afr Amer 129 mL/min (>60); Estimated Creatinine Clearance 45.61 ml/min; Glucose 146 mg/dL (74-106); Potassium 4.1 mmol/L (3.5-5.1); Sodium Level 136 mmol/L (136-145)
[2024-02-07] MEDS: Acetaminophen 500 MG Tablet 1000 MG PO ×3 (05:26→19:51)
[2024-02-07] MEDS: Levothyroxine 25 MCG TABLET PO (05:26)
[2024-02-07] MEDS: Insulin Lispro 100 UNIT/ML INSULN.PEN SC ×4 (06:18→19:58)
[2024-02-07 06:39] LABS: Bedside Glucose 192 mg/dL (74-106)
[2024-02-07] MEDS: Budesonide Respules 0.5 MG/2 ML AMPUL.NEB. INHALATION ×2 (07:02→20:03)
[2024-02-07] MEDS: Ipratropium/Albuterol Sulfate 3 ML AMPUL.NEB INHALATION ×3 (07:02→20:03)
--- NOTE | 2024-02-07 07:29 | PN.HOSP_ITS ---
Reason for Visit Reason for Visit: Diagnoses Unspecified displaced fracture of fourth cervical vertebra, initial encounter for closed fracture (02/06/24) Objective Data Objective Data Vital Signs: Vital Signs Temp Pulse Resp BP Pulse Ox O2 Del Method 97.8 F 67 16 127/60 H 93 Room Air 02/07/24 03:26 02/07/24 07:04 02/07/24 07:04 02/07/24 03:26 02/07/24 03:26 02/07/24 03:26 Oxygen Delivery Method Room Air Weight: 115 lb 8 oz Body Mass Index (BMI) 19.8 Intake & Output: Intake and Output for Last 24 Hours 02/05/24 02/06/24 02/07/24 23:59 23:59 23:59 Intake Total 1050 / 1250 300 / 300 Output Total 350 / 350 Balance 1050 / 1000 -50 / -50 Lab / Micro Data 02/07/24 04:40 02/07/24 04:40 Labs: Laboratory Results - last 24 hr 02/06/24 10:59: WBC 9.1, RBC 4.18 L, Hgb 13.1, Hct 40.1, MCV 95.9, MCH 31.3, MCHC 32.7, RDW Std Deviation 45.1 H, RDW Coeff of [place] 12.8, Plt Count 250, MPV 10.3, Immature Gran % (Auto) 0.300, Neut % (Auto) 70.5 H, Lymph % (Auto) 19.7, [place] % (Auto) 7.3, Eos % (Auto) 1.8, Baso % (Auto) 0.4, Absolute Neuts (auto) 6.4, Absolute Lymphs (auto) 1.79, Nucleated RBC % 0, Sodium 134 L, Potassium 4.2, Chloride 98, Carbon Dioxide 30.0, Anion Gap 6, BUN 13, Creatinine 0.63, Estim Creat Clear Calc 45.61, Est GFR (MDRD) Af Amer 117, Est GFR (MDRD) Non-Af 97, BUN/Creatinine Ratio 20.8 H, Glucose 171 H, Calcium 9.5, Total Creatine Kinase 89, Folate 18.20, TSH 0.248 L, Urine Color Yellow, Urine Clarity Sl. Cloudy, Urine pH 6.5, Ur Specific [place] 1.015, Urine Protein 30 H, Urine Glucose (UA) Normal, Urine Ketones 150 A*, Urine Occult Blood 10 H, Urine Nitrite Negative, Urine Bilirubin Negative, Urine Urobilinogen 1 H, Ur Leukocyte Esterase 25 H, Urine RBC 0-5 SEEN, Urine WBC 0-5 SEEN, Ur Squamous Epith Cells 0-5 SEEN, Urine Bacteria 3+, Urine Mucus 0 SEEN 02/06/24 16:42: POC Glucose 118 H 02/07/24 04:40: WBC 6.9, RBC 3.66 L, Hgb 11.4 L, Hct 34.3 L, MCV 93.7, MCH 31.1, MCHC 33.2, RDW Std Deviation 44.1 H, RDW Coeff of [place] 12.8, Plt Count 242, MPV 10.1, Immature Gran % (Auto) 0.300, Neut % (Auto) 62.6, Lymph % (Auto) 22.8, M ash % (Auto) 10.4 H, Eos % (Auto) 3.3, Baso % (Auto) 0.6, Absolute Neuts (auto) 4.4, Absolute Lymphs (auto) 1.58, Nucleated RBC % 0, Sodium 136, Potassium 4.1, Chloride 102, Carbon Dioxide 30.0, Anion Gap 4 L, BUN 10, Creatinine 0.58, Estim Creat Clear Calc 45.61, Est GFR (MDRD) Af Amer 129, Est GFR (MDRD) Non-Af 106, BUN/Creatinine Ratio 17.3, Glucose 146 H, Calcium 9.2 02/07/24 06:15: POC Glucose 192 H Radiography Diagnostic Testing: Radiology Impression Brain CT 02/06/24 11:16 IMPRESSION: No acute findings in the head/brain and unchanged. Electronically Signed: Luis Mccloud MD at 12:24 EST , Cervical Spine CT 02/06/24 11:16 IMPRESSION: 1. Acute fracture right C4 lamina. 2. No other acute fracture of the cervical spine. 3. Minimal degenerative anterolisthesis of T1 on T2 is unchanged. Electronically Signed: Luis Mccloud MD at 12:22 EST , ADDENDUM: 02/06/24 1235 IMPRESSION: 1. Acute fracture right C4 lamina. 2. No other acute fracture of the cervical spine. 3. Minimal degenerative anterolisthesis of T1 on T2 is unchanged. N.B. : The above Results were Read Back by Luis Mccloud MD to Pete Brown PA, and understanding confirmed on 02/06/2024 12:28:13 (ET). Electronically Signed: Luis Mccloud MD at 12:22 EST , Chest X-Ray 02/06/24 11:40 IMPRESSION: No acute cardiopulmonary pathology and no interval change. Electronically Signed: Luis Mccloud MD at 12:38 EST , Hip/Pelvis X-Ray 02/06/24 11:40 IMPRESSION: No acute fracture or dislocation of the pelvis and left hip. Electronically Signed: Luis Mccloud MD at 12:39 EST , Chest/Abdomen/Pelvis CT 02/06/24 12:45 IMPRESSION: 1. No CT evidence of acute abnormality in the chest, abdomen and pelvis. 2. Limited study due to motion in the lung bases in the abdomen. 3. Linear atelectases in the right lung base. 4. Mild airway predominant type of COPD. 5. Small calcified uterine fibroid in the anterior surface of the uterine fundus. Electronically Signed: Luis Mccloud MD at 14:15 EST , Physical Exam Narrative Seen and examined Discussed with the patient's and son. Patient has advanced dementia and does not remember. She can answer only 10% of the questions regarding the history. She was found on the carpeted floor and found to have C4 acute fracture. On hard collar. Physical exam General: Alert, orientation cannot be ascertained, does not understand, answer or remember the question. HEENT: Atraumatic, PERRLA, EOMI, Normocephalic Oral: Oral mucosa dry. Restricted exam. Neck: On hard collar. Chest wall/Lungs: Air entry diminished in bilateral lung bases. No crepitation/rhonchi Cardiovascular: Regular rhythm normal S1, Normal S2, systolic murmur. Abdomen: On recliner, suboptimal position for exam. Bowel Sounds Present, Soft, Non Tender. : Cannot answer about dysuria or LUTS. No renal angle tenderness. No suprapubic tenderness. Extremities: No edema, Capillary Refill Less than 3 Seconds Skin: No rashes, No breakdown Musculoskeletal: No Tenderness to Palpation of Joints or Extremities Neurological: Awake, dementia, neuroexam suboptimal. Does not follow command. Psych/Mental Status: Flat affect. Advanced dementia. Assessment & Plan Assessment/Plan (1) C4 cervical fracture: PLAN: Plan 83-year-old female is being admitted for altered mental status with increased confusion for last 2 to 4 days. She was found sleeping on the carpeted living room floor. History of dementia and frequent falls does not walk with assistance currently being followed by palliative care. #Acute fracture of right C4 lamina -Seen on CT scan post fall, isolated fracture so will admit pt to our hospital per ED discussion with spine surgery -Cervical collar -He speech therapist recommended easy to chew, but no liquid. On IV fluid for hydration. His speech therapist recommended modified barium swallow which will be scheduled on Saturday. -Pain control. Discussed with the spine surgeon Dr. Aguilar -PT/OT # Progressively worsening functional status and mental status possible worsening dementia UA shows LE 25, WBC, RBC squamous epithelial in normal range. 3+ bacteria. Patient herself cannot answer about Lower [place] symptoms/burning micturition therefore empirically on IV ceftriaxone. Urine culture pending. B12 212. Vitamin D 25-hydroxy 22.7 low. Vitamin D and B12 replacement. TSH low 0.248 but it was low, 0.18 in September 03. Free T4 was normal in September 03. Patient on lowest dose of Synthroid 25 mcg daily therefore continue Continue IV ceftriaxone. # History of asthma -Only uses oxygen as needed at home -Continue inhalers -Incentive spirometry as able -Follows outpt w/ pulm # History of dementia -Hold donepezil in the short-term as this is not likely to make a difference acutely and want to minimize polypharmacy were able -Supportive care -Continue Zoloft and will continue Risperdal qhs -Schedule melatonin nightly # History of CVA -Continue aspirin and statin #Type 2 diabetes mellitus -Glucose checks and sliding scale insulin -A1c ordered #Hypothyroidism -Continue Synthroid -Check TSH #DVT ppx: SCDs CODE STATUS: DNR CC arrest with no intubation. Living will/advanced directive/end of life care: Patient does have living will or advanced directive. Her is power of mergers and acquisitions attorney for health. After discussion of benefits/risks procedures involved with full code, DNR CC arrest and DNR CC, the patient as per her wanted DNR CC arrest with no intubation Patient does want artificial life support including intubation, tube feed, ventilator and/chest compression, central venous catheter, vasopressor and DC shock if needed Total time spent in [id number] encounter in discussion of advanced directive 17 minutes. Charges/Coding Visit Charges Inpatient E&M: 57721 Subs Hosp L2 Procedures Hospitalists Procedures: 65174 Advncd Care Plan 30 Min
[2024-02-07 09:14] LABS: Vitamin B12 212 pg/mL (211-911); Vitamin D,25 Hydroxy 22.7 ng/mL
[2024-02-07] MEDS: 0.9% Normal Saline (100mL Bag) 100 ML 15 ML IV (09:30)
[2024-02-07] MEDS: Ceftriaxone 1 GM/50 ML BAG IV (10:28)
--- NOTE | 2024-02-07 10:32 | CASEMGMT ---
Addendum entered by Anita Dunlap 02/07/24 14:28: Marnie from Palliative Care confirms that the pt is active with their Palliative services. Original Note: RN CM Assessment ? Face to Face with patient for initial?transition planning/care coordination assessment. Patient is currently confused and has a history of dementia and is unable to answer this operations manager assistant's questions. There is no family currently at bedside. Telephone call to the patient , Javon. No answer and unable to leave a voice message. Telephone call to the person to notify on file, Bette (Daughter). Bette states that she would be ? the best person to talk to? about the patient. Care providers, pharmacy, and demographics verified. ? Admitting dx: worsening functional status, C4 fracture? LACE Strata: ?3 PCP: ?Melody Ba Specialists: ?[facility]. Dr. Reaves (geriatrics in [place]) Preferred Pharmacy: [facility] ? Insurance: ?[facility] Prescription Benefit: ?Yes LNOK: ?Javon (H), Bette Garcia (Daughter) Living Arrangements: ?Bette states that she is in the process of having the patient and the patient?s move into her home with her . Bette states that when the patient is medically ready to return home (either from [facility] or a SNF) the plan is to have the patient go to Bette?s home. Bette states that she has a two-story home with a first floor set up for the patient with two steps to enter the house. ADLs/IADLs:?patient requires assistance. Bette states that she and her are able to provide this help Transportation: ?Bette states that the pt is able to drive but they try not to let him. The patient's son-in-law is the primary source of transportation DME: ?Home oxygen through [employer]. Magda states that the patient's current home oxygen order is 2 L continuous. Bette reports that the patient has a concentrator and 6 portable tanks. Bette states that the patient?s pulse oxygen is broken, but they can afford a new one. Bette also states that the patient has an incentive spirometer, nebulizer, inhaler, front-wheeled walker, and Rollator. HHC/SNF: ?history with [facility] HH. Bette denies SNF history. Per chart review, during the patient?s previous admission, the original plan at that time was for the patient to go to a long-term facility. However, the patient ended up discharging home with [facility]. Palliative: patient daughter states the patient is active with palliative care services. E-Mail sent to [facility] to verify. Plan: ?anticipate SNF versus DC to daughter's home with home healthcare. See PT note. Pt daughter states that she would like to review a list of SNF for the pt. MS3 VILLA CERON notified and will update the SW. If pt ends up going to her daughter's home from [facility], pt daughter states that she would like [facility] again. Care management to continue to follow. Tanika Dunlap RN CM
--- NOTE | 2024-02-07 11:13 | CASEMGMT ---
Social Work- SW advised that pt dtr would like a SNF list texted to her. PREMA advised DCA of request. PREMA will remains available to follow for discharge planning. MARIELA Farah
--- NOTE | 2024-02-07 11:23 | CASEMGMT ---
Discharge Planning A list of SNF providers including quality and resource use data and consistent with the patient's preferred geographic region, medical needs, and insurance network were provided via text message to pts daughter (Bette) with request to choose top 3 from the [facility] Guide link. Fiorella Singh, Discharge Planning Asst.
[2024-02-07 11:32] LABS: Hemoglobin A1c 7.6 % (3.8-5.6)
[2024-02-07 12:33] LABS: Bedside Glucose 209 mg/dL (74-106)
--- NOTE | 2024-02-07 12:40 | CON.PCM.OR_ITS ---
Documented by User: VIRGIL Patton 02/10/24 08:30 HPI Consult Data Date of Consult: 02/10/24 HPI Narrative HPI Narrative: NELLI HARTMAN, is a 83 F who presents with history of CVA, dementia, asthma, diabetes, hypothyroidism tremors who presented [facility] ED 02/06/2024 after being found down this morning. Spouse went to bed at 1 AM but the patient would not go to sleep. He checked on her in the morning and she was sleeping on the carpeted floor in the living room. She has frequent falls and does not use any assistance device, presently being followed by palliative care. Seen with Dr. Aguilar. Patient wearing cervical collar. Family is unsure of what caused the fall as she has a history of falls. Patient with a history of dementia, family says that due to her confusion she will most likely try to take off the cervical collar. Patient able to follow simple commands. ON LICENSE OF [facility] Medical History Hypothyroidism Dementia History of CVA (cerebrovascular accident) Acute stroke due to ischemia Tremor of right hand Diabetes mellitus Hypertension Vision problem GERD (gastroesophageal reflux disease) Hearing problem Headache, migraine GI problem Diabetes Carpal tunnel syndrome bladder/uti problem Arthritis Allergies Home Medications ?Medication ?Instructions ?Recorded ?Last Taken ?Type nebulizer accessories #1 ea 09/12/20 Unknown Rx nebulizers #1 ea 09/12/20 Unknown Rx melatonin 3 mg tablet 3 mg PO QHS PRN sleep #30 tabs 07/21/21 02/04/24 Rx blood sugar diagnostic (OneTouch #100 ea 11/29/21 Unknown Rx Ultra Test strips) lancets 33 gauge (OneTouch Delica #100 ea 12/22/21 Unknown Rx Lancets) one touch ultra glucose meter ##1 06/25/22 Unknown Rx fluticasone fur. 200 mcg-umeclid 1 inh inhalation DAILY . #3 ea 02/28/23 06/05/23 Rx 62.5 mcg-vilant 25 mcg inhalat.powder (Trelegy Ellipta) aspirin 81 mg chewable tablet 81 mg PO BREAKFAST . #30 tabs 05/28/23 02/04/24 Rx albuterol sulfate 90 mcg/actuation 2 puff inhalation Q4H PRN 07/12/23 02/04/24 Rx aerosol inhaler (Ventolin HFA) shortness of breath or wheezing #18 grams donepezil 10 mg tablet 10 mg PO DAILY . #90 tabs 07/12/23 02/05/24 Rx guaifenesin 600 mg tablet, 600 mg PO ONCE . 08/28/23 02/04/24 History extended release 12 hr (Mucinex) risperidone 1 mg tablet 1 mg PO QHS . #90 tabs 08/28/23 02/04/24 Rx sertraline 50 mg tablet 75 mg PO DAILY m 08/28/23 02/05/24 History atorvastatin 40 mg tablet 40 mg PO QHS cholesterol #90 tabs 09/04/23 02/04/24 Rx levothyroxine 25 mcg tablet 25 mcg PO DAILY@0600 . 30 days #90 09/04/23 02/05/24 Rx tabs sitagliptin phosphate 50 1 tab PO BID . #180 tabs 09/04/23 02/05/24 Rx mg-metformin 1,000 mg tablet (Janumet) propranolol 20 mg tablet 20 mg PO BID tremor #180 tabs 11/29/23 02/05/24 Rx Allergy/AdvReac Type Severity Reaction Status Date / Time dicyclomine HCl (From Bentyl) AdvReac HEART RACES Verified 02/06/24 10:44 Family History Mother Alzheimer's dementia Surgical History meniscal repair fibroid removal 2 nasal surgies Social History household members: spouse housing: house Smoking Status: Unknown if ever smoked alcohol intake: never substance use type: does not use what type of physical activity do you participate in: walking and aerobics frequency: daily Vital Signs Vital Signs Vital Signs: 02/06/24 12:45 02/06/24 14:00 02/06/24 15:21 Temperature 97.4 F L Temperature Source Pulse Rate 85 67 65 Pulse Strength Respiratory Rate 21 H 18 17 Respiratory Effort Respiratory Depth Respiratory Pattern Blood Pressure 140/91 H 149/58 H 140/66 H Blood Pressure Mean 107 84 90 Blood Pressure Source Blood Pressure Position Blood Pressure Location Pulse Ox 93 95 Oxygen Delivery Method Room Air 02/06/24 16:05 12/26/24 16:27 02/06/24 19:40 Temperature 97.5 F L 98.4 F Temperature Source Temporal Axillary Pulse Rate 83 98 Pulse Strength Respiratory Rate 18 16 Respiratory Effort Normal Non-Labored Respiratory Depth Normal Respiratory Pattern Normal Blood Pressure 140/87 H 150/86 H Blood Pressure Mean 104 107 Blood Pressure Source Monitor Blood Pressure Position Semi-Fowlers Blood Pressure Location Left Arm Pulse Ox 93 93 94 Oxygen Delivery Method Room Air Room Air Room Air 02/06/24 19:44 02/06/24 19:45 02/06/24 22:00 Temperature Temperature Source Pulse Rate 88 Pulse Strength Normal (2+) Respiratory Rate 16 Respiratory Effort Normal Non-Labored Respiratory Depth Normal Respiratory Pattern Normal Normal Blood Pressure Blood Pressure Mean Blood Pressure Source Blood Pressure Position Blood Pressure Location Pulse Ox Oxygen Delivery Method 02/07/24 03:26 02/07/24 07:04 02/07/24 08:27 Temperature 97.8 F Temperature Source Oral Pulse Rate 79 67 Pulse Strength Normal (2+) Respiratory Rate 16 16 Respiratory Effort Respiratory Depth Respiratory Pattern Normal Blood Pressure 127/60 H Blood Pressure Mean 82 Blood Pressure Source Monitor Blood Pressure Position Supine Blood Pressure Location Left Forearm Pulse Ox 93 Oxygen Delivery Method Room Air 02/07/24 08:27 02/07/24 11:00 Temperature 98.0 F Temperature Source Axillary Pulse Rate 81 Pulse Strength Respiratory Rate 16 Respiratory Effort Normal Non-Labored Respiratory Depth Normal Respiratory Pattern Normal Blood Pressure 139/57 H Blood Pressure Mean 84 Blood Pressure Source Monitor Blood Pressure Position Semi-Fowlers Blood Pressure Location Left Arm Pulse Ox 92 Oxygen Delivery Method Room Air Room Air Weight Weight: 115 lb 8 oz Body Mass Index (BMI) 19.8 Physical Exam Narrative Patient able to follow simple commands. Neurological exam of the upper extremity shows 4+ power, equal bilaterally. Able to move all 4 limbs. Bruising noticed on right forearm. Patient wearing cervical collar in good position. Const alert and no apparent distress Lab / Micro Data 02/10/24 06:17 02/10/24 06:17 Labs: Laboratory Results - last 24 hr 02/06/24 10:59: Folate 18.20, TSH 0.248 L 02/06/24 16:42: POC Glucose 118 H 02/07/24 04:40: WBC 6.9, RBC 3.66 L, Hgb 11.4 L, Hct 34.3 L, MCV 93.7, MCH 31.1, MCHC 33.2, RDW Std Deviation 44.1 H, RDW Coeff of [place] 12.8, Plt Count 242, MPV 10.1, Immature Gran % (Auto) 0.300, Neut % (Auto) 62.6, Lymph % (Auto) 22.8, M ash % (Auto) 10.4 H, Eos % (Auto) 3.3, Baso % (Auto) 0.6, Absolute Neuts (auto) 4.4, Absolute Lymphs (auto) 1.58, Nucleated RBC % 0, Sodium 136, Potassium 4.1, Chloride 102, Carbon Dioxide 30.0, Anion Gap 4 L, BUN 10, Creatinine 0.58, Estim Creat Clear Calc 45.61, Est GFR (MDRD) Af Amer 129, Est GFR (MDRD) Non-Af 106, BUN/Creatinine Ratio 17.3, Glucose 146 H, Hemoglobin A1c 7.6 H, Calcium 9.2, Vitamin B12 212, Vitamin D 25-Hydroxy 22.7 02/07/24 06:15: POC Glucose 192 H 02/07/24 12:12: POC Glucose 209 H Micro: Microbiology 02/06/24 10:59 Urine, Catheterized Urine Culture - Preliminary GNR lactose guest services director Imaging Radiology Impression Hip/Pelvis X-Ray 02/06/24 11:40 IMPRESSION: No acute fracture or dislocation of the pelvis and left hip. Electronically Signed: Luis Mccloud MD at 12:39 EST Reading Location ID and State: [facility] / CT , Service support , Chest/Abdomen/Pelvis CT 02/06/24 12:[address]: 1[address] evidence of acute abnormality in the chest, abdomen and pelvis. 2. Limited study due to motion in the lung bases in the abdomen. 3. Linear atelectases in the right lung base. 4. Mild airway predominant type of COPD. 5. Small calcified uterine fibroid in the anterior surface of the uterine fundus. Electronically Signed: Luis Mccloud MD at 14:15 EST , Assessment & Plan Assessment/Plan (1) Closed C4 fracture: QUALIFIERS: Encounter type: initial encounter Fracture alignment: nondisplaced Fracture morphology: unspecified fracture morphology Qualified Code(s): S12.301A - Unspecified nondisplaced fracture of fourth cervical vertebra, initial encounter for closed fracture PLAN: Plan CT of the neck shows an acute right C4 lamina fracture. Recommend that she wear the cervical collar full-time for the next 2 weeks. Although she might try to remove the collar encouraged family to make sure it stays on. Family unsure of the discharge plan whether that be return home or to a fdc facility when medically appropriate. Follow-up in clinic in 2 weeks. Documented by User: Dr. Andrea Aguilar MD 02/11/24 07:46 HPI Consult Data Date of Consult: 02/11/24 ON LICENSE OF [facility] Medical History Hypothyroidism Dementia History of CVA (cerebrovascular accident) Acute stroke due to ischemia Tremor of right hand Diabetes mellitus Hypertension Vision problem GERD (gastroesophageal reflux disease) Hearing problem Headache, migraine GI problem Diabetes Carpal tunnel syndrome bladder/uti problem Arthritis Allergies Home Medications ?Medication ?Instructions ?Recorded ?Last Taken ?Type nebulizer accessories #1 ea 09/12/20 Unknown Rx nebulizers #1 ea 09/12/20 Unknown Rx melatonin 3 mg tablet 3 mg PO QHS PRN sleep #30 tabs 07/21/21 02/04/24 Rx blood sugar diagnostic (OneTouch #100 ea 11/29/21 Unknown Rx Ultra Test strips) lancets 33 gauge (OneTouch Delica #100 ea 12/22/21 Unknown Rx Lancets) one touch ultra glucose meter ##1 06/25/22 Unknown Rx fluticasone fur. 200 mcg-umeclid 1 inh inhalation DAILY . #3 ea 02/28/23 06/05/23 Rx 62.5 mcg-vilant 25 mcg inhalat.powder (Trelegy Ellipta) aspirin 81 mg chewable tablet 81 mg PO BREAKFAST . #30 tabs 05/28/23 02/04/24 Rx albuterol sulfate 90 mcg/actuation 2 puff inhalation Q4H PRN 07/12/23 02/04/24 Rx aerosol inhaler (Ventolin HFA) shortness of breath or wheezing #18 grams donepezil 10 mg tablet 10 mg PO DAILY . #90 tabs 07/12/23 02/05/24 Rx guaifenesin 600 mg tablet, 600 mg PO ONCE . 08/28/23 02/04/24 History extended release 12 hr (Mucinex) risperidone 1 mg tablet 1 mg PO QHS . #90 tabs 08/28/23 02/04/24 Rx sertraline 50 mg tablet 75 mg PO DAILY m 08/28/23 02/05/24 History atorvastatin 40 mg tablet 40 mg PO QHS cholesterol #90 tabs 09/04/23 02/04/24 Rx levothyroxine 25 mcg tablet 25 mcg PO DAILY@0600 . 30 days #90 09/04/23 02/05/24 Rx tabs sitagliptin phosphate 50 1 tab PO BID . #180 tabs 09/04/23 02/05/24 Rx mg-metformin 1,000 mg tablet (Janumet) propranolol 20 mg tablet 20 mg PO BID tremor #180 tabs 11/29/23 02/05/24 Rx Allergy/AdvReac Type Severity Reaction Status Date / Time dicyclomine HCl (From Bentyl) AdvReac HEART RACES Verified 02/06/24 10:44 Family History Mother Alzheimer's dementia Surgical History meniscal repair fibroid removal 2 nasal surgies Social History household members: spouse housing: house Smoking Status: Unknown if ever smoked alcohol intake: never substance use type: does not use what type of physical activity do you participate in: walking and aerobics frequency: daily Lab / Micro Data 02/10/24 06:17 02/10/24 06:17 Assessment & Plan Assessment/Plan (1) Closed C4 fracture: QUALIFIERS: Encounter type: initial encounter Fracture alignment: nondisplaced Fracture morphology: unspecified fracture morphology Qualified Code(s): S12.301A - Unspecified nondisplaced fracture of fourth cervical vertebra, initial encounter for closed fracture PLAN: Plan CT of the neck shows an acute right C4 lamina fracture. Recommend that she wear the cervical collar full-time for the next 2 weeks. Although she might try to remove the collar encouraged family to make sure it stays on. Family unsure of the discharge plan whether that be return home or to a fdc facility when medically appropriate. Please change to [place] collar which may be more comfortable. Okay to remove collar at mealtimes if seated in comfortable position. Follow-up in clinic in 2 weeks. Charges/Coding Visit Charges Inpatient E&M: 37702 Init Hosp L3
--- NOTE | 2024-02-07 12:45 | NURSING ---
Dr. Aguilar saw pt and family. Dr. Aguilar said it was okay for pt to have C-collar off when she eats, only if she is seated in her chair while eating. Dr. Aguilar also stated he wanted to have pt have a Hard C collar, The kind we use in surgery. That one she has on is from the EMS, Squad, the one from surgery will work better. This RN notified Surgery Charge Nurse and they have C-Collar they can give us to put on the patient. January DRIVER going down to AC to get it.
[2024-02-07] MEDS: Cholecalciferol (Vit D3) 125 MCG CAPSULE (5,000 UNITS) PO (13:51)
[2024-02-07] MEDS: Cyanocobalamin 500 MCG Tablet 1000 MCG PO (13:51)
--- NOTE | 2024-02-07 16:41 | CASEMGMT ---
Social Work- SW called pt dtr, Bette, to discuss preferences at discharge. SW introduced self and role. Pt dtr reports that she has been cleaning pt old residence all day and has not looked at SNF list electronically sent this morning. Pt dtr reports that she will look at list this evening and SW can call to follow up tomorrow. SW remains available to follow. MARIELA Farah
[2024-02-07 17:41] LABS: Bedside Glucose 194 mg/dL (74-106)
[2024-02-07] MEDS: RisperiDONE 0.5 MG Tablet PO (18:43)
--- NOTE | 2024-02-07 18:49 | NURSING ---
order to give risperidone early and to wait and see if helps before prn haldol im.
[2024-02-07] MEDS: MELATONIN 10 MG TABLET PO (19:51)
[2024-02-07] MEDS: Polyethylene Glycol 3350 17 GM PACKET PO (19:51)
[2024-02-07 20:21] LABS: Bedside Glucose 219 mg/dL (74-106)
[2024-02-08 05:39] VITALS: BP 145/60; PULSE 56; RESP 18; TEMP 36.6; O2SAT 93
[2024-02-08] MEDS: Acetaminophen 500 MG Tablet 1000 MG PO ×3 (05:45→20:25)
[2024-02-08] MEDS: Levothyroxine 25 MCG TABLET PO (05:45)
[2024-02-08] MEDS: Ipratropium/Albuterol Sulfate 3 ML AMPUL.NEB INHALATION ×3 (07:11→19:47)
[2024-02-08] MEDS: Budesonide Respules 0.5 MG/2 ML AMPUL.NEB. INHALATION ×2 (07:11→19:47)
[2024-02-08 07:12] LABS: Bedside Glucose 166 mg/dL (74-106)
[2024-02-08 07:20] VITALS: PULSE 82; RESP 17
[2024-02-08 08:37] LABS: Absolute Lymphocyte Count 1.81 X10^3/uL (0.83-4.51); Basophil# 0.05 X10^3/uL; Basophil% 0.7 % (0-1); Eosinophil# 0.42 X10^3/uL; Hemoglobin 11.8 g/dL (12.0-15.0); Lymphocyte # 1.81 X10^3/ul (0.83-4.51); Lymphocyte % 25.7 % (19-41); Mean Corp Hgb Conc 32.8 g/dL (32-36); Mean Corpuscular Hgb 31.7 pg (27.0-32.0); Mean Corpuscular Volume 96.8 fL (81-99); Mean Platelet Vol. 11.1 fl (6.2-12.0); Monocyte# 0.73 X10^3/uL; Monocyte% 10.4 % (0-10); NRBC Flagged by Analyzer 0 % (0-5); Neutrophil % 56.8 % (47-70); Platelet Count 241 K/mm3 (150-450); RBC Distribution Width CV 13.2 % (11.6-14.6); RBC Distribution Width SD 46.8 fl (35.1-43.9); Red Blood Count 3.72 M/mm3 (4.2-5.4)
[2024-02-08 09:14] LABS: Anion Gap 5 (5-15); BUN 10 mg/dL (7-18); BUN/Creat Ratio 16.6 RATIO (10-20); Calcium,Total 9.1 mg/dL (8.5-10.1); Chloride 105 mmol/L (98-107); EST Glomerular Filtration Rate 102 mL/min (>60); Est Glom Filt Rate - Afr Amer 123 mL/min (>60); Estimated Creatinine Clearance 45.54 ml/min; Glucose 152 mg/dL (74-106); Sodium Level 140 mmol/L (136-145); T4 Free Direct 1.11 ng/dL (0.76-1.46)
--- NOTE | 2024-02-08 11:19 | CASEMGMT ---
Social Work- Pt has living will on chart. HCPOA not on file, pt brandonrBette, advised that directives not on file and encouraged to bring in. MARIELA Farah
[2024-02-08] MEDS: Sertraline 50 MG Tablet 75 MG PO (11:35)
[2024-02-08] MEDS: Aspirin 81 MG TAB.CHEW PO (11:36)
[2024-02-08] MEDS: Polyethylene Glycol 3350 17 GM PACKET PO (11:36)
[2024-02-08] MEDS: Cholecalciferol (Vit D3) 125 MCG CAPSULE (5,000 UNITS) PO (11:36)
[2024-02-08] MEDS: Cyanocobalamin 500 MCG Tablet 1000 MCG PO (11:36)
[2024-02-08 11:45] VITALS: BP 141/77; PULSE 66; RESP 16; TEMP 36.6; O2SAT 94
[2024-02-08] MEDS: Ceftriaxone 1 GM/50 ML BAG IV (11:49)
[2024-02-08] MEDS: Insulin Lispro 100 UNIT/ML INSULN.PEN SC ×3 (12:26→20:23)
[2024-02-08 12:39] LABS: Bedside Glucose 208 mg/dL (74-106)
[2024-02-08 12:51] VITALS: PULSE 78; RESP 20
--- NOTE | 2024-02-08 13:40 | PCM.PN.HOSP ---
Reason for Visit Reason for Visit: Diagnoses Unspecified displaced fracture of fourth cervical vertebra, initial encounter for closed fracture (02/06/24) Objective Data Objective Data Vital Signs: Vital Signs Temp Pulse Resp BP Pulse Ox O2 Del Method 97.8 F 78 20 H 145/60 H 93 Room Air 02/08/24 05:39 02/08/24 12:51 02/08/24 12:51 02/08/24 05:39 02/08/24 05:39 02/08/24 05:39 Oxygen Delivery Method Room Air Weight: 115 lb 4.828 oz Body Mass Index (BMI) 19.8 Intake & Output: Intake and Output for Last 24 Hours 02/06/24 02/07/24 02/08/24 23:59 23:59 23:59 Intake Total 1050 / 1250 365 / 365 250 / 250 Output Total 350 / 350 Balance 1050 / 1000 15 / 15 250 / 250 Medical Nutrition Assessment Dietitian: Malnutrition Criteria Met Start: 02/07/24 14:49 Freq: Status: Active Protocol: Document 02/07/24 14:49 RMA (Rec: 02/07/24 14:49 RMA [id number]) Nutrition Malnutrition Evidence of Malnutrition Exists Yes Malnutrition (severe): Chronic Evidenced By Suboptimal Energy Intake ( Severe),Weight Loss (Severe) Clinical Problem Chronic Disease or Condition Related Malnutrition Etiology severe protein-calorie malnutrition in the context of chronic disease and debility related to swallowing difficulty and inadequate oral intake Signs/Symptoms as evidenced by need for mechanically altered food/no PO liquids; BMI 19.8; unintentional weight loss ~13% x 6 months; PO meeting less than 50% estimated nutrition needs x past 3 months and taking less than 50% meals Status Active Problem Recommendation Dietitian Recommendations/Changes Will liberalize diet to general carb controlled (no caloric restriction) with consistency/texture as per [employer] . Will add magic cup with meals since PO liquids on hold at this time. If pt can take PO liquids, will benefit from ensure plus HP as tolerated. May need to consider enteral nutrition support to ensure adequate nutrition given dysphagia and signs/symptoms of malnutrition. Lab / Micro Data 02/08/24 06:50 02/08/24 07:50 Labs: Laboratory Results - last 24 hr 02/07/24 16:57: POC Glucose 194 H 02/07/24 19:57: POC Glucose 219 H 02/08/24 06:39: POC Glucose 166 H 02/08/24 06:50: WBC 7.0, RBC 3.72 L, Hgb 11.8 L, Hct 36.0 L, MCV 96.8, MCH 31.7, MCHC 32.8, RDW Std Deviation 46.8 H, RDW Coeff of [place] 13.2, Plt Count 241, MPV 11.1, Immature Gran % (Auto) 0.400, Neut % (Auto) 56.8, Lymph % (Auto) 25.7, Garrett % (Auto) 10.4 H, Eos % (Auto) 6.0 H, Baso % (Auto) 0.7, Absolute Neuts (auto) 4.0, Absolute Lymphs (auto) 1.81, Nucleated RBC % 0 02/08/24 07:50: Sodium 140, Potassium 4.0, Chloride 105, Carbon Dioxide 29.0, Anion Gap 5, BUN 10, Creatinine 0.60, Estim Creat Clear Calc 45.54, Est GFR (MDRD) Af Amer 123, Est GFR (MDRD) Non-Af 102, BUN/Creatinine Ratio 16.6, Glucose 152 H, Calcium 9.1, Free T4 1.11 02/08/24 12:22: POC Glucose 208 H Micro: Microbiology 02/06/24 10:59 Urine, Catheterized Urine Culture - Final Klebsiella pneumoniae sp pneum Physical Exam Narrative Seen and examined Unfortunately patient's also got admitted. No acute issues for her but patient cannot tell because of advanced dementia. She was found on the carpeted floor and found to have C4 acute fracture. On hard collar. Physical exam General: Alert, orientation cannot be ascertained, does not understand, answer or remember the question. HEENT: Atraumatic, PERRLA, EOMI, Normocephalic Oral: Oral mucosa dry. Restricted exam. Neck: On hard collar. Chest wall/Lungs: Air entry diminished in bilateral lung bases. No crepitation/rhonchi Cardiovascular: Regular rhythm normal S1, Normal S2, systolic murmur. Abdomen: On recliner, suboptimal position for exam. Bowel Sounds Present, Soft, Non Tender. : Cannot answer about dysuria or LUTS. No renal angle tenderness. No suprapubic tenderness. Extremities: No edema, Capillary Refill Less than 3 Seconds Skin: No rashes, No breakdown Musculoskeletal: No Tenderness to Palpation of Joints or Extremities Neurological: Awake, dementia, neuroexam suboptimal. Does not follow command. Psych/Mental Status: Flat affect. Advanced dementia. Anterograde and retrograde dementia Assessment & Plan Assessment/Plan (1) C4 cervical fracture: PLAN: Plan 83-year-old female is being admitted for altered mental status with increased confusion for last 2 to 4 days. She was found sleeping on the carpeted living room floor. History of dementia and frequent falls does not walk with assistance currently being followed by palliative care. #Acute fracture of right C4 lamina -Seen on CT scan post fall, isolated fracture so will admit pt to our hospital per ED discussion with spine surgery -Cervical collar -He speech therapist recommended easy to chew, but no liquid. On IV fluid for hydration. His speech therapist recommended modified barium swallow which will be scheduled on Saturday. -Pain control. Discussed with the spine surgeon Dr. Aguilar -PT/OT 02/07: Patient was seen by orthopedic spine surgeon Dr. Andrea Aguilar. Advised to continue c-collar and follow-up with office in 2 weeks. Conservative management. # Progressively worsening functional status and mental status possible worsening dementia UA shows LE 25, WBC, RBC squamous epithelial in normal range. 3+ bacteria. Patient herself cannot answer about Lower [place] symptoms/burning micturition therefore empirically on IV ceftriaxone. Urine culture pending. B12 212. Vitamin D 25-hydroxy 22.7 low. Vitamin D and B12 replacement. TSH low 0.248 but it was low, 0.18 in September 03. Free T4 was normal in September 03. Patient on lowest dose of Synthroid 25 mcg daily therefore continue Continue IV ceftriaxone. 02/07: Urine culture shows Klebsiella pneumoniae 25,000?50,000 colonies suggestive of asymptomatic bacteriuria. UTI ruled out. IV ceftriaxone discontinued # History of asthma -Only uses oxygen as needed at home -Continue inhalers -Incentive spirometry as able -Follows outpt w/ pulm # History of dementia -Hold donepezil in the short-term as this is not likely to make a difference acutely and want to minimize polypharmacy were able -Supportive care -Continue Zoloft and will continue Risperdal qhs -Schedule melatonin nightly # History of CVA -Continue aspirin and statin #Type 2 diabetes mellitus -Glucose checks and sliding scale insulin -A1c ordered #Hypothyroidism -Continue Synthroid 25 mcg daily. TSH 0.248. 02/07/-Free T41.11. #DVT ppx: SCDs CODE STATUS: DNR CC arrest with no intubation. Living will/advanced directive/end of life care: Patient does have living will or advanced directive. Her is power of senior trial attorney for health. After discussion of benefits/risks procedures involved with full code, DNR CC arrest and DNR CC, the patient as per her wanted DNR CC arrest with no intubation Patient does want artificial life support including intubation, tube feed, ventilator and/chest compression, central venous catheter, vasopressor and DC shock if needed Total time spent in [id number] encounter in discussion of advanced directive 17 minutes. Microbiology Past 72 Hours 02/06/24 10:59 Urine, Catheterized Urine Culture - Final Klebsiella pneumoniae sp pneum Laboratory Results 02/07/24 16:57: POC Glucose 194 H 02/07/24 19:57: POC Glucose 219 H 02/08/24 06:39: POC Glucose 166 H 02/08/24 06:50: WBC 7.0, RBC 3.72 L, Hgb 11.8 L, Hct 36.0 L, MCV 96.8, MCH 31.7, MCHC 32.8, RDW Std Deviation 46.8 H, RDW Coeff of [place] 13.2, Plt Count 241, MPV 11.1, Immature Gran % (Auto) 0.400, Neut % (Auto) 56.8, Lymph % (Auto) 25.7, Garrett % (Auto) 10.4 H, Eos % (Auto) 6.0 H, Baso % (Auto) 0.7, Absolute Neuts (auto) 4.0, Absolute Lymphs (auto) 1.81, Nucleated RBC % 0 02/08/24 07:50: Sodium 140, Potassium 4.0, Chloride 105, Carbon Dioxide 29.0, Anion Gap 5, BUN 10, Creatinine 0.60, Estim Creat Clear Calc 45.54, Est GFR (MDRD) Af Amer 123, Est GFR (MDRD) Non-Af 102, BUN/Creatinine Ratio 16.6, Glucose 152 H, Calcium 9.1, Free T4 1.11 02/08/24 12:22: POC Glucose 208 H Charges/Coding Visit Charges Inpatient E&M: 01452 Subs Hosp L2
--- NOTE | 2024-02-08 16:30 | CASEMGMT ---
Social Work- SW called pt dtr, Bette, to follow up on SNF list. Bette reports that pt spouse had a major medical episode and is on ICU. Pt dtr has been consumed with that and also completing the move of pt belongings to her home, as they had to be moved out this weekend. Pt dtr reports that she is having supper with her brother prior to coming to the hospital to visit pt and pt spouse and reports that they will discuss facilities and make a decision at that time. Bette will leave choices with staff and/or follow up with SW Saturday morning before 9am. SW provided education on SNF process and importance of making selections. SW remains available to follow. MARIELA Farah
[2024-02-08 19:43] LABS: Bedside Glucose 297 mg/dL (74-106)
[2024-02-08 19:49] VITALS: PULSE 70; RESP 16
[2024-02-08 20:17] VITALS: BP 115/52; PULSE 70; RESP 18; TEMP 36.7; O2SAT 94
[2024-02-08] MEDS: MELATONIN 10 MG TABLET PO (20:24)
[2024-02-08] MEDS: Atorvastatin Calcium 40 MG Tablet PO (20:24)
[2024-02-08] MEDS: RisperiDONE 0.5 MG Tablet PO (20:25)
--- NOTE | 2024-02-08 20:51 | NURSING ---
patient attempting to get out of bed. Removed IV and refusing to have a new one placed. Reoriented by this RN and assisted back to bed.
[2024-02-09 01:05] LABS: Bedside Glucose 196 mg/dL (74-106)
[2024-02-09 03:31] VITALS: BP 155/65; PULSE 60; RESP 16; TEMP 36.8; O2SAT 93
[2024-02-09] MEDS: Levothyroxine 25 MCG TABLET PO (06:08)
[2024-02-09] MEDS: Acetaminophen 500 MG Tablet 1000 MG PO ×3 (06:08→20:30)
[2024-02-09] MEDS: Insulin Lispro 100 UNIT/ML INSULN.PEN SC ×4 (06:09→20:27)
[2024-02-09 06:42] LABS: Bedside Glucose 160 mg/dL (74-106)
[2024-02-09 07:31] VITALS: PULSE 70; RESP 16
[2024-02-09] MEDS: Budesonide Respules 0.5 MG/2 ML AMPUL.NEB. INHALATION (07:31)
[2024-02-09] MEDS: Ipratropium/Albuterol Sulfate 3 ML AMPUL.NEB INHALATION ×2 (07:31→13:34)
[2024-02-09 07:47] VITALS: BP 148/68; PULSE 61; RESP 16; TEMP 36.6; O2SAT 96
[2024-02-09] MEDS: Aspirin 81 MG TAB.CHEW PO (07:55)
[2024-02-09] MEDS: Cyanocobalamin 500 MCG Tablet 1000 MCG PO (07:56)
[2024-02-09] MEDS: Cholecalciferol (Vit D3) 125 MCG CAPSULE (5,000 UNITS) PO (07:57)
[2024-02-09] MEDS: Sertraline 50 MG Tablet 75 MG PO (07:58)
[2024-02-09 11:53] LABS: Bedside Glucose 191 mg/dL (74-106)
[2024-02-09 13:52] VITALS: PULSE 79; RESP 18
[2024-02-09] MEDS: Senna/Docusate Sodium 1 Tablet 2 TABLET PO ×2 (14:11→20:34)
[2024-02-09 14:19] VITALS: BP 156/51; PULSE 78; RESP 16; TEMP 36.8; O2SAT 96
--- NOTE | 2024-02-09 17:22 | PN.HOSP_ITS ---
Reason for Visit Reason for Visit: Diagnoses Unspecified displaced fracture of fourth cervical vertebra, initial encounter for closed fracture (02/06/24) Objective Data Objective Data Vital Signs: Vital Signs Temp Pulse Resp BP Pulse Ox O2 Del Method 98.3 F 78 16 156/51 H 96 Room Air 02/09/24 14:19 02/09/24 14:19 02/09/24 14:19 02/09/24 14:19 02/09/24 14:19 02/09/24 14:19 Oxygen Delivery Method Room Air Weight: 115 lb 4.828 oz Body Mass Index (BMI) 19.8 Intake & Output: Intake and Output for Last 24 Hours 02/07/24 02/08/24 02/09/24 23:59 23:59 23:59 Intake Total 365 / 365 490 / 490 Output Total 350 / 350 Balance 490 / 490 Medical Nutrition Assessment Dietitian: Malnutrition Criteria Met Start: 02/07/24 14:49 Freq: Status: Active Protocol: Document 02/07/24 14:49 RMA (Rec: 02/07/24 14:49 RMA [id number]) Nutrition Malnutrition Evidence of Malnutrition Exists Yes Malnutrition (severe): Chronic Evidenced By Suboptimal Energy Intake ( Severe),Weight Loss (Severe) Clinical Problem Chronic Disease or Condition Related Malnutrition Etiology severe protein-calorie malnutrition in the context of chronic disease and debility related to swallowing difficulty and inadequate oral intake Signs/Symptoms as evidenced by need for mechanically altered food/no PO liquids; BMI 19.8; unintentional weight loss ~13% x 6 months; PO meeting less than 50% estimated nutrition needs x past 3 months and taking less than 50% meals Status Active Problem Recommendation Dietitian Recommendations/Changes Will liberalize diet to general carb controlled (no caloric restriction) with consistency/texture as per SEWING MACHINE OPERATOR PLASTIC ZIPPER . Will add magic cup with meals since PO liquids on hold at this time. If pt can take PO liquids, will benefit from ensure plus HP as tolerated. May need to consider enteral nutrition support to ensure adequate nutrition given dysphagia and signs/symptoms of malnutrition. Lab / Micro Data 02/08/24 06:50 02/08/24 07:50 Labs: Laboratory Results - last 24 hr 02/08/24 16:14: POC Glucose 297 H 02/08/24 20:22: POC Glucose 196 H 02/09/24 06:07: POC Glucose 160 H 02/09/24 11:32: POC Glucose 191 H Micro: Microbiology 02/06/24 10:59 Urine, Catheterized Urine Culture - Final Klebsiella pneumoniae sp pneum Physical Exam Narrative Seen and examined No acute change. Last BM documented 02/04. Cannot give history due to dementia. She was found on the carpeted floor and found to have C4 acute fracture. On hard collar. Physical exam General: Alert, does not understand, answer or remember the question. HEENT: Atraumatic, PERRLA, EOMI, Normocephalic Oral: Oral mucosa dry. Restricted exam. Neck: On hard collar. Chest wall/Lungs: Air entry diminished in bilateral lung bases. No crepitation/rhonchi Cardiovascular: Regular rhythm normal S1, Normal S2, systolic murmur. Abdomen: On recliner, suboptimal position for exam. Bowel Sounds Present, Soft, Non Tender. : Cannot answer about dysuria or LUTS. No renal angle tenderness. No suprapubic tenderness. Extremities: No edema, Capillary Refill Less than 3 Seconds Skin: No rashes, No breakdown Musculoskeletal: No Tenderness to Palpation of Joints or Extremities Neurological: Awake, dementia, neuroexam suboptimal. Does not follow command. Psych/Mental Status: Flat affect. Advanced dementia. Anterograde and retrograde dementia Assessment & Plan Assessment/Plan (1) C4 cervical fracture: PLAN: Plan 83-year-old female is being admitted for altered mental status with increased confusion for last 2 to 4 days. She was found sleeping on the carpeted living room floor. History of dementia and frequent falls does not walk with assistance currently being followed by palliative care. #Acute fracture of right C4 lamina -Seen on CT scan post fall, isolated fracture so will admit pt to our hospital per ED discussion with spine surgery -Cervical collar -He speech therapist recommended easy to chew, but no liquid. On IV fluid for hydration. His speech therapist recommended modified barium swallow which will be scheduled on Saturday. -Pain control. Discussed with the spine surgeon Dr. Aguilar -PT/OT 02/07: Patient was seen by orthopedic spine surgeon Dr. Andrea Aguilar. Advised to continue c-collar and follow-up with office in 2 weeks. Conservative management. 02/08: PT and OT. Will need rehab or SNF # Progressively worsening functional status and mental status possible worsening dementia UA shows LE 25, WBC, RBC squamous epithelial in normal range. 3+ bacteria. Patient herself cannot answer about Lower UT symptoms/burning micturition therefore empirically on IV ceftriaxone. Urine culture pending. B12 212. Vitamin D 25-hydroxy 22.7 low. Vitamin D and B12 replacement. TSH low 0.248 but it was low, 0.18 in September 03. Free T4 was normal in September 03. Patient on lowest dose of Synthroid 25 mcg daily therefore continue Continue IV ceftriaxone. 02/07: Urine culture shows Klebsiella pneumoniae 25,000?50,000 colonies suggestive of asymptomatic bacteriuria. UTI ruled out. IV ceftriaxone discontinued 02/08: Stool softener ordered. # History of asthma -Only uses oxygen as needed at home -Continue inhalers -Incentive spirometry as able -Follows outpt w/ pulm # History of dementia -Hold donepezil in the short-term as this is not likely to make a difference acutely and want to minimize polypharmacy were able -Supportive care -Continue Zoloft and will continue Risperdal qhs -Schedule melatonin nightly # History of CVA -Continue aspirin and statin #Type 2 diabetes mellitus -Glucose checks and sliding scale insulin -A1c 7.6. #Hypothyroidism -Continue Synthroid 25 mcg daily. TSH 0.248. 02/07/-Free T41.11. #DVT ppx: SCDs CODE STATUS: DNR CC arrest with no intubation. Living will/advanced directive/end of life care: Patient does have living will or advanced directive. Her is power of prosecuting attorney for health. After discussion of benefits/risks procedures involved with full code, DNR CC arrest and DNR CC, the patient as per her wanted DNR CC arrest with no intubation Patient does want artificial life support including intubation, tube feed, ventilator and/chest compression, central venous catheter, vasopressor and DC shock if needed Total time spent in [id number] encounter in discussion of advanced directive 17 minutes. Microbiology Past 72 Hours 02/06/24 10:59 Urine, Catheterized Urine Culture - Final Klebsiella pneumoniae sp pneum Laboratory Results 02/07/24 16:57: POC Glucose 194 H 02/07/24 19:57: POC Glucose 219 H 02/08/24 06:39: POC Glucose 166 H 02/08/24 06:50: WBC 7.0, RBC 3.72 L, Hgb 11.8 L, Hct 36.0 L, MCV 96.8, MCH 31.7, MCHC 32.8, RDW Std Deviation 46.8 H, RDW Coeff of Yesenia 13.2, Plt Count 241, MPV 11.1, Immature Gran % (Auto) 0.400, Neut % (Auto) 56.8, Lymph % (Auto) 25.7, M ash % (Auto) 10.4 H, Eos % (Auto) 6.0 H, Baso % (Auto) 0.7, Absolute Neuts (auto) 4.0, Absolute Lymphs (auto) 1.81, Nucleated RBC % 0 02/08/24 07:50: Sodium 140, Potassium 4.0, Chloride 105, Carbon Dioxide 29.0, Anion Gap 5, BUN 10, Creatinine 0.60, Estim Creat Clear Calc 45.54, Est GFR (MDRD) Af Amer 123, Est GFR (MDRD) Non-Af 102, BUN/Creatinine Ratio 16.6, G lucose 152 H, Calcium 9.1, Free T4 1.11 02/08/24 12:22: POC Glucose 208 H Charges/Coding Visit Charges Inpatient E&M: 02943 Subs Hosp L2
[2024-02-09 20:24] VITALS: BP 127/73; PULSE 68; RESP 18; TEMP 36.4; O2SAT 96
[2024-02-09] MEDS: MELATONIN 10 MG TABLET PO (20:29)
[2024-02-09] MEDS: RisperiDONE 0.5 MG Tablet PO (20:29)
[2024-02-09] MEDS: Atorvastatin Calcium 40 MG Tablet PO (20:29)
[2024-02-09 23:04] LABS: Bedside Glucose 180 mg/dL (74-106)
[2024-02-10 03:25] LABS: Bedside Glucose 252 mg/dL (74-106)
[2024-02-10 06:00] VITALS: BP 145/82; PULSE 88; RESP 16; TEMP 36.6; O2SAT 94
[2024-02-10] MEDS: Levothyroxine 25 MCG TABLET PO (06:04)
[2024-02-10] MEDS: Acetaminophen 500 MG Tablet 1000 MG PO ×3 (06:04→20:03)
[2024-02-10] MEDS: Insulin Lispro 100 UNIT/ML INSULN.PEN SC ×4 (06:13→20:15)
[2024-02-10 06:29] LABS: Absolute Lymphocyte Count 1.85 X10^3/uL (0.83-4.51); Basophil# 0.05 X10^3/uL; Basophil% 0.6 % (0-1); Eosinophil# 0.47 X10^3/uL; Eosinophils% 5.2 % (0-5); Hematocrit 39.6 % (37-47); Hemoglobin 12.7 g/dL (12.0-15.0); Lymphocyte # 1.85 X10^3/ul (0.83-4.51); Lymphocyte % 20.5 % (19-41); Mean Corp Hgb Conc 32.1 g/dL (32-36); Mean Corpuscular Hgb 31.1 pg (27.0-32.0); Mean Corpuscular Volume 96.8 fL (81-99); Mean Platelet Vol. 10.3 fl (6.2-12.0); Monocyte# 0.68 X10^3/uL; Monocyte% 7.5 % (0-10); NRBC Flagged by Analyzer 0 % (0-5); Neutrophil # 5.96 X10^3/uL (2.7-7.7); Platelet Count 253 K/mm3 (150-450); RBC Distribution Width CV 13.1 % (11.6-14.6); RBC Distribution Width SD 46.7 fl (35.1-43.9); Red Blood Count 4.09 M/mm3 (4.2-5.4)
[2024-02-10 06:32] LABS: Bedside Glucose 183 mg/dL (74-106)
[2024-02-10 07:03] LABS: Anion Gap 7 (5-15); BUN 15 mg/dL (7-18); BUN/Creat Ratio 22.5 RATIO (10-20); Calcium,Total 9.2 mg/dL (8.5-10.1); Chloride 104 mmol/L (98-107); Creatinine, Serum 0.67 mg/dL (0.55-1.02); EST Glomerular Filtration Rate 90 mL/min (>60); Est Glom Filt Rate - Afr Amer 109 mL/min (>60); Estimated Creatinine Clearance 45.54 ml/min; Glucose 173 mg/dL (74-106); Potassium 4.1 mmol/L (3.5-5.1); Sodium Level 137 mmol/L (136-145)
[2024-02-10] MEDS: Budesonide Respules 0.5 MG/2 ML AMPUL.NEB. INHALATION ×2 (07:26→19:55)
[2024-02-10] MEDS: Ipratropium/Albuterol Sulfate 3 ML AMPUL.NEB INHALATION ×2 (07:26→19:55)
[2024-02-10 07:27] VITALS: PULSE 83; RESP 18
--- NOTE | 2024-02-10 09:22 | SP.MBSS_ITS ---
Modified Barium Swallow Patient Information Study Date: 02/10/24 Study Time: 08:00 Direct Billable Minutes: 116 Total Minutes procedure & reportin Diagnosis: Closed C4 fracture S12.300A; Dementia F03.90 Referring Physician: J Carlos Heaton Reason for Referral: Objectively assess swallow function, assess risk for aspiration, and determine recommendations for least restrictive diet textures and compensatory strategies to improve safety of swallow. Medical History: PMH: CVA, dementia, asthma, diabetes, hypothyroidism tremors (See EMR for full PMH). Pt presented [facility] ED 02/06/2024 after being found down at home that morning by her spouse. In the ED, pt had CT head, CT cervical spine, chest x-ray, hip and pelvis x-ray, and CT chest/abdomen/pelvis CT. Pertinent positives were acute fracture of right C4 lamina. ED physician discussed case with spine surgeon and advised the fracture is fairly stable and to maintain her in C collar and if it is an isolated fracture she can stay here for treatment and he will see in consultation. Given patient's persistently altered level of consciousness hospitalist contacted for admission. Pt did not tolerate breakfast 02/07/2024 and was made NPO and ST was consulted to address concerns for swallowing difficulty. Current Diet Ordered: Easy to Chew textures / HOLD liquids Dentition: Upper Dentures and Lower Dentures Mental Status: Impaired (Pt unable to follow simple commands) Respiratory Status: Oxygenating on Room Air Penetration-Aspiration Scale Penetration-Aspiration Scale: OBJECTIVE ASSESSMENT OF SWALLOW FUNCTION (QUANTITATIVE ? PER TRIAL): PENETRATION / ASPIRATION SCALE (TORRES): 1 = does not enter airway 2 = enters airway/above vocal folds/ejected 3 = enters airway/above vocal folds/not ejected 4 = enters airway/contacts vocal folds/ejected 5 = enters airway/contacts vocal folds/not ejected 6 = enters airway/below vocal folds/ejected 7 = enters airway/below vocal folds/not ejected despite effort 8 = enters airway/below vocal folds/no effort VIDEOFLOROSCOPIC SCALE SCORE (TORRES): Grade I = aspiration of material that has penetrated into the laryngeal vestibule, intact cough reflex Grade II = aspiration < 10 % of the bolus, intact cough reflex Grade III = aspiration of < 10 % of the bolus, reduced cough reflex or aspiration of > 10 % of the bolus, intact cough reflex Grade IV = aspiration of > 10 % of the bolus, reduced cough reflex Penetration-Aspiration Scale Score Thin Liquid via teaspoon: Result: 1= does not enter airway Thin Liquid via teaspoon Trial 2: Result: 1= does not enter airway Thin Liquid via large single sip: cup: Result: 7= enters airways/below vocal folds/not ejected despite effort [place] Thick Liquid via small single sip: cup: Result: 2= enter airway/above vocal folds/ejected Pudding via teaspoon: Result: 1= does not enter airway 1/2 Cookie: Result: 1= does not enter airway [place] Thick Liquid via single sip: straw: Result: 8= enters airway/below vocal folds/no effort Thin Liquid via teaspoon Trial 3: Result: 8= enters airway/below vocal folds/no effort [place] Thick Liquid via small single sip: cup Trial 2: Result: 3= enters airways/above vocal folds/not ejected Thin Liquid via single sip: straw: Result: 5= enters airways/contacts vocal folds/not ejected Thin Liquid via single sip: straw Trial 2: Result: 2= enter airway/above vocal folds/ejected Thin Liquid via single sip: straw Trial 3: Result: 5= enters airways/contacts vocal folds/not ejected Oral Phase Labial Seal: Escape beyond mid-chin Tongue Control During Bolus Hold: Posterior escape of greater than half of bolus Bolus Preparation/Mastication: Disorganized chewing/mashing with solid pieces of bolus unchewed Bolus Transport/Lingual Motion: Repetitive/disorganized tongue motion Oral Residue: Residue collection on oral structures Pharyngeal Phase Initiation of Pharyngeal Swallow: Bolus head in pyriforms Soft Palate Elevation: Trace column of contrast/air between soft palate and pharyngeal wall Laryngeal Elevation: Partial superior movement thyroid cart/partial apprx aryt- epig petiole Anterior Hyoid Excursion: Partial anterior movement Epiglottic Movement: Complete inversion Laryngeal Vestibule Closure at Height of Swallow: Incomplete; narrow column of air/contrast in laryngeal vestibule Pharyngeal Stripping Wave: Present - diminished Pharyngoesophageal Segment Opening: Parital distension and partial duration; parital obstruction of flow Tongue Base Retraction: Wide column of contrast between tongue base & post. pharyngeal wall Pharyngeal Residue: Collection of residue within or on pharyngeal structures Esophageal Phase Esophageal Clearance: Complete clearance Diagnosis/Impression Diagnosis: Moderate oropharyngeal dysphagia R13.12 Impression: The oral phase is marked by... -Decreased labial seal w/ anterior loss of thin by tsp past the chin. -Decreased bolus control w/ posterior loss of >1/2 of liquid boluses to the pyriforms prior to swallow onset. -Mild-moderate oral residues. Second swallow, which the patient utilized independently w/ pudding trial, help to fully clear oral residues. The pharyngeal phase is primarily marked by... -Delayed swallow onset. -Decreased airway closure due to decreased laryngeal elevation and anterior hyoid excursion. -SILENT aspiration of mildly thick liquids by straw and thin liquids by tsp. Overt aspiration of thin liquids via cup (large sip). Trace laryngeal pen etration to the vocal folds w/o full ejection for thin liquids via straw; however, no aspiration occurred w/ three straw sips. The patient is at risk for aspiration w/ both thin and thickened liquids. Will recommend thin liquids via straw TOTAL FEED, 1 sip at a time. Will recommend oral care before and after meals to decrease risk for aspiration related illness and closely monitor respiratory status. Recommendations Diet: Regular Textures (Easy to Chew textures - IDDSI Level 7) and Thin Liquids Comment: ORAL CARE BEFORE AND AFTER MEALS Compensatory Strategies: Small Bites, Small Sips, Slow Rate, Alternate bites/solids and sips/liquids and Sitting upright Supervision: Total Feed (For sips of thin liquids via straw to ensure slow rate, sips 1 at a time) Recommend Repeat Modified Barium Swallow: TBD Need for Skilled Speech Therapy Services: Yes Comment: -Train the patient's family and staff in use of strategies to decrease risk for aspiration. -Ongoing assessment of diet tolerance of recommended textures. Monitor respiratory status closely. Train pt's family and staff in recommendation for thorough oral care. -Due to poor ability to follow commands, pt unlikely able to participate in oropharyngeal strengthening. Pt's family informed the FINISHING MACHINE TENDER during the initial evaluation that pt's current command following ability is baseline. Education Completed: 1. Described result of evaluation. Status Active ST Patient: Active Contact Information [facility] Speech Therapy:: January Smith M.A. [facility]FINISHING MACHINE TENDER? Speech-Language Pathologist?? [facility] [address] [place] [address]? [email or web address]?? [phone]
[2024-02-10] MEDS: Senna/Docusate Sodium 1 Tablet 2 TABLET PO ×2 (09:59→20:03)
[2024-02-10] MEDS: Cyanocobalamin 500 MCG Tablet 1000 MCG PO (09:59)
[2024-02-10] MEDS: Sertraline 50 MG Tablet 75 MG PO (09:59)
[2024-02-10] MEDS: Aspirin 81 MG TAB.CHEW PO (10:00)
[2024-02-10] MEDS: Cholecalciferol (Vit D3) 125 MCG CAPSULE (5,000 UNITS) PO (10:00)
[2024-02-10 10:46] VITALS: BP 132/72; PULSE 82; RESP 16; TEMP 36.6; O2SAT 98
--- NOTE | 2024-02-10 11:07 | CASEMGMT ---
Addendum entered by Marisela Wiley 02/10/24 17:52: Social Work- SW updated SNF facilities with requested information via [facility]. Referrals pending. [facility] remains available to follow. MARIELA Farah Addendum entered by Marisela Wiley 02/10/24 14:29: [facility] referral on hold pending SNF acceptance. MARIELA Farah Original Note: Social Work- SW met with pt dtr and her spouse. Pt dtr had numerous questions regarding care, process, and options for terminal operator. SW provided education and also referred to bedside nurse who provided information. Pt dtr reports that pt has had palliative care for two years and is interested in advancing services to hospice. Pt dtr would like referral to hospice for services at d/c from SNF. SW provided referral to [facility]. Pt dtr selected SNF choices. [facility]. SW completed referrals via [facility]. Pt dtr also selected [facility], which reported that they do not have any bed availability. SW will remain available to follow for discharge planning needs. HTroutman. SIERRA
[2024-02-10 11:29] LABS: Bedside Glucose 289 mg/dL (74-106)
--- NOTE | 2024-02-10 14:31 | CASEMGMT ---
Social Work Pt dgt Bette notified that referrals have been made to [facility] and [facility]. Also updated that TCU is full and other choices were assisted living facilities in which pt would not be able to received skilled rehab services. Bette understanding and appreciative of update. MARIELA Potts
[2024-02-10 16:20] VITALS: BP 141/82; PULSE 74; RESP 16; TEMP 36.4; O2SAT 96
--- NOTE | 2024-02-10 16:20 | PCM.PN.HOSP ---
Reason for Visit Reason for Visit: Diagnoses Unspecified displaced fracture of fourth cervical vertebra, initial encounter for closed fracture (02/06/24) Objective Data Objective Data Vital Signs: Vital Signs Temp Pulse Resp BP Pulse Ox O2 Del Method 97.9 F 82 16 132/72 H 98 Room Air 02/10/24 10:46 02/10/24 10:46 02/10/24 10:46 02/10/24 10:46 02/10/24 10:46 02/10/24 10:50 Oxygen Delivery Method Room Air Weight: 115 lb 4.828 oz Body Mass Index (BMI) 19.8 Intake & Output: Intake and Output for Last 24 Hours 02/08/24 02/09/24 02/10/24 23:59 23:59 23:59 Intake Total 490 / 490 50 / 50 Balance 490 / 490 50 / 50 Medical Nutrition Assessment Dietitian: Malnutrition Criteria Met Start: 02/07/24 14:49 Freq: Status: Active Protocol: Document 02/10/24 13:43 SLA (Rec: 02/10/24 13:44 SLA [id number]) Nutrition Malnutrition Evidence of Malnutrition Exists Yes Malnutrition (severe): Chronic Evidenced By Suboptimal Energy Intake ( Severe),Weight Loss (Severe) Clinical Problem Chronic Disease or Condition Related Malnutrition Etiology severe protein-calorie malnutrition in the context of chronic disease and debility related to swallowing difficulty and inadequate oral intake Signs/Symptoms as evidenced by need for mechanically altered food/no PO liquids; BMI 19.8; unintentional weight loss ~13% x 6 months seating captain; PO meeting less than 50% estimated nutrition needs x past 3 months and taking less than 50 % meals Status Active Problem Recommendation Dietitian Recommendations/Changes Will liberalize diet to regular with consistency/ texture as per COMMUNITY RESOURCE CONSULTANT. Continue magic cup with meals Will add 4 oz glucerna shake tid w/ medpass for increased nutrition if consumed. May need to consider enteral nutrition support to ensure adequate nutrition given dysphagia and signs/symptoms of malnutrition. Lab / Micro Data 02/10/24 06:17 02/10/24 06:17 Labs: Laboratory Results - last 24 hr 02/09/24 17:04: POC Glucose 252 H 02/09/24 20:27: POC Glucose 180 H 02/10/24 06:13: POC Glucose 183 H 02/10/24 06:17: WBC 9.0, RBC 4.09 L, Hgb 12.7, Hct 39.6, MCV 96.8, MCH 31.1, MCHC 32.1, RDW Std Deviation 46.7 H, RDW Coeff of Yesenia 13.1, Plt Count 253, MPV 10.3, Immature Gran % (Auto) 0.200, Neut % (Auto) 66.0, Lymph % (Auto) 20.5, [place] % (Auto) 7.5, Eos % (Auto) 5.2 H, Baso % (Auto) 0.6, Absolute Neuts (auto) 6.0, Absolute Lymphs (auto) 1.85, Nucleated RBC % 0, Sodium 137, Potassium 4.1, Chloride 104, Carbon Dioxide 26.0, Anion Gap 7, BUN 15, Creatinine 0.67, Estim Creat Clear Calc 45.54, Est GFR (MDRD) Af Amer 109, Est GFR (MDRD) Non-Af 90, BUN/Creatinine Ratio 22.5 H, Glucose 173 H, Calcium 9.2 02/10/24 11:02: POC Glucose 289 H Micro: Microbiology 02/06/24 10:59 Urine, Catheterized Urine Culture - Final Klebsiella pneumoniae sp pneum Physical Exam Narrative Seen and examined No acute change. Last BM documented 02/04. Patient on a stool softener. Discussed with patient's daughter and son-in-law in the room. Cannot give history due to dementia. She was found on the carpeted floor and found to have C4 acute fracture. On hard collar. Physical exam General: Alert, does not understand, answer or remember the question. HEENT: Atraumatic, PERRLA, EOMI, Normocephalic Oral: Oral mucosa dry. Restricted exam. Neck: On hard collar. Chest wall/Lungs: Air entry diminished in bilateral lung bases. No crepitation/rhonchi Cardiovascular: Regular rhythm normal S1, Normal S2, systolic murmur. Abdomen: On recliner, suboptimal position for exam. Bowel Sounds Present, Soft, Non Tender. : Cannot answer about dysuria or LUTS. No renal angle tenderness. No suprapubic tenderness. Extremities: No edema, Capillary Refill Less than 3 Seconds Skin: No rashes, No breakdown Musculoskeletal: No Tenderness to Palpation of Joints or Extremities Neurological: Awake, dementia, neuroexam suboptimal. Does not follow command. Psych/Mental Status: Flat affect. Advanced dementia. Anterograde and retrograde dementia Assessment & Plan Assessment/Plan (1) C4 cervical fracture: PLAN: Plan 83-year-old female is being admitted for altered mental status with increased confusion for last 2 to 4 days. She was found sleeping on the carpeted living room floor. History of dementia and frequent falls does not walk with assistance currently being followed by palliative care. #Acute fracture of right C4 lamina -Seen on CT scan post fall, isolated fracture so will admit pt to our hospital per ED discussion with spine surgery -Cervical collar -He speech therapist recommended easy to chew, but no liquid. On IV fluid for hydration. His speech therapist recommended modified barium swallow which will be scheduled on Saturday. -Pain control. Discussed with the spine surgeon Dr. Aguilar -PT/OT 02/07: Patient was seen by orthopedic spine surgeon Dr. Andrea Aguilar. Advised to continue c-collar and follow-up with office in 2 weeks. Conservative management. 02/08: PT and OT. Will need rehab or SNF 02/09: field worker and dependency case manager working on pre-CERT. # Progressively worsening functional status and mental status possible worsening dementia UA shows LE 25, WBC, RBC squamous epithelial in normal range. 3+ bacteria. Patient herself cannot answer about Lower UT symptoms/burning micturition therefore empirically on IV ceftriaxone. Urine culture pending. B12 212. Vitamin D 25-hydroxy 22.7 low. Vitamin D and B12 replacement. TSH low 0.248 but it was low, 0.18 in September 03. Free T4 was normal in September 03. Patient on lowest dose of Synthroid 25 mcg daily therefore continue Continue IV ceftriaxone. 02/07: Urine culture shows Klebsiella pneumoniae 25,000?50,000 colonies suggestive of asymptomatic bacteriuria. UTI ruled out. IV ceftriaxone discontinued 02/08: Stool softener ordered. 02/09: Did not had bowel movement on senna S2 tablet twice daily and MiraLAX 17 g twice daily therefore lactulose 20 g instead of MiraLAX. Dulcolax suppository ordered. # History of asthma -Only uses oxygen as needed at home -Continue inhalers -Incentive spirometry as able -Follows outpt w/ pulm # History of dementia -Hold donepezil in the short-term as this is not likely to make a difference acutely and want to minimize polypharmacy were able -Supportive care -Continue Zoloft and will continue Risperdal qhs -Schedule melatonin nightly # History of CVA -Continue aspirin and statin #Type 2 diabetes mellitus -Glucose checks and sliding scale insulin -A1c 7.6. #Hypothyroidism -Continue Synthroid 25 mcg daily. TSH 0.248. 02/07/-Free T41.11. #DVT ppx: SCDs CODE STATUS: DNR CC arrest with no intubation. Living will/advanced directive/end of life care: Patient does have living will or advanced directive. Her is power of traffic law attorney for health. After discussion of benefits/risks procedures involved with full code, DNR CC arrest and DNR CC, the patient as per her wanted DNR CC arrest with no intubation Patient does want artificial life support including intubation, tube feed, ventilator and/chest compression, central venous catheter, vasopressor and DC shock if needed Total time spent in [id number] encounter in discussion of advanced directive 17 minutes. Microbiology Past 72 Hours 02/06/24 10:59 Urine, Catheterized Urine Culture - Final Klebsiella pneumoniae sp pneum Charges/Coding Visit Charges Inpatient E&M: 73723 Subs Hosp L2
[2024-02-10] MEDS: Bisacodyl 10 MG Suppository RC (16:36)
[2024-02-10] MEDS: Glucerna Shake 120 ML LIQUID PO (16:36)
[2024-02-10 16:57] LABS: Bedside Glucose 253 mg/dL (74-106)
[2024-02-10 19:55] VITALS: PULSE 78; RESP 22
[2024-02-10] MEDS: Menthol/Lanolin/Calamine/Znox 113 GM Tube 1 APPLIC TOPICAL (20:02)
[2024-02-10] MEDS: Atorvastatin Calcium 40 MG Tablet PO (20:03)
[2024-02-10] MEDS: MELATONIN 10 MG TABLET PO (20:03)
[2024-02-10] MEDS: RisperiDONE 0.5 MG Tablet PO (20:03)
[2024-02-10 20:04] VITALS: BP 145/78; PULSE 76; RESP 18; TEMP 36.8; O2SAT 95
[2024-02-11] VITALS (7 sets, daily range): BP systolic 111–133; BP diastolic 51–68; PULSE 66–91; RESP 15–18; TEMP 36.6–37; O2SAT 90–94
[2024-02-11 00:15] LABS: Bedside Glucose 205 mg/dL (74-106)
[2024-02-11] MEDS: Levothyroxine 25 MCG TABLET PO (05:33)
[2024-02-11] MEDS: Acetaminophen 500 MG Tablet 1000 MG PO ×3 (05:34→21:56)
[2024-02-11] MEDS: Insulin Lispro 100 UNIT/ML INSULN.PEN SC ×4 (06:26→21:57)
[2024-02-11 06:47] LABS: Bedside Glucose 177 mg/dL (74-106)
[2024-02-11] MEDS: Ipratropium/Albuterol Sulfate 3 ML AMPUL.NEB INHALATION ×3 (07:48→20:00)
[2024-02-11] MEDS: Budesonide Respules 0.5 MG/2 ML AMPUL.NEB. INHALATION ×2 (07:48→20:00)
[2024-02-11] MEDS: Sertraline 50 MG Tablet 75 MG PO (07:59)
[2024-02-11] MEDS: Cyanocobalamin 500 MCG Tablet 1000 MCG PO (08:00)
[2024-02-11] MEDS: Aspirin 81 MG TAB.CHEW PO (08:00)
[2024-02-11] MEDS: Cholecalciferol (Vit D3) 125 MCG CAPSULE (5,000 UNITS) PO (08:00)
[2024-02-11] MEDS: Senna/Docusate Sodium 1 Tablet 2 TABLET PO ×2 (08:00→21:56)
[2024-02-11] MEDS: Bisacodyl 10 MG Suppository RC (08:04)
[2024-02-11] MEDS: Menthol/Lanolin/Calamine/Znox 113 GM Tube 1 APPLIC TOPICAL ×2 (08:08→22:08)
--- NOTE | 2024-02-11 09:34 | CASEMGMT ---
Addendum entered by Fiorella Singh 02/11/24 11:16: reports that [facility] is foc and precert can be started. Updates sent with note to submit for precert. Fiorella Singh DC Planning Asst. Addendum entered by Fiorella Singh 02/11/24 11:04: [facility] has declined d/t no bed availability. SW updated. Fiorella Singh DC Planning Asst. Original Note: Discharge Planning Msg sent to both [facility] and [facility] to check on status of referral. [facility] has accepted. Awaiting response from [facility]. Fiorella Singh DC Planning Asst.
[2024-02-11] MEDS: Lactulose 20 GM/30 ML UDC 10 GM PO ×3 (11:14→21:56)
[2024-02-11 11:34] LABS: Bedside Glucose 183 mg/dL (74-106)
--- NOTE | 2024-02-11 12:45 | CASEMGMT ---
Addendum entered by Marisela Wiley 02/11/24 17:18: Social Work- SW placed green sheet with transport and PASRR on chart in the event that pt precert is obtained over the holiday. Pt will need precert prior to d/c. Plan: [facility]; skilled level of care pending precert MARIELA Farah Original Note: Social Work- SW spoke with Bette to provide updates on pt referral status. Pt dtr updated that [facility] declined referral. [facility] accepted referral. Pt dtr agreeable to [facility]. Precert requested to be submitted. PRE[facility] updated [facility]. PREMA remains available to follow. Plan: [facility]; prcert pending MARIELA Farah
--- NOTE | 2024-02-11 16:41 | PN.HOSP_ITS ---
Reason for Visit Reason for Visit: Diagnoses Unspecified displaced fracture of fourth cervical vertebra, initial encounter for closed fracture (02/06/24) Unspecified nondisplaced fracture of fourth cervical vertebra, initial encounter for closed fracture (02/06/24) Objective Data Objective Data Vital Signs: Vital Signs Temp Pulse Resp BP Pulse Ox O2 Del Method 98.3 F 86 15 133/60 H 93 Room Air 02/11/24 15:30 02/11/24 15:30 02/11/24 15:30 02/11/24 15:30 02/11/24 15:30 02/11/24 15:32 Oxygen Delivery Method Room Air Weight: 115 lb 4.828 oz Body Mass Index (BMI) 19.8 Intake & Output: Intake and Output for Last 24 Hours 02/09/24 02/10/24 02/11/24 23:59 23:59 23:59 Intake Total 100 / 100 100 / 100 Balance 100 / 100 100 / 100 Medical Nutrition Assessment Dietitian: Malnutrition Criteria Met Start: 02/07/24 14:49 Freq: Status: Active Protocol: Document 02/10/24 13:43 SLA (Rec: 02/10/24 13:44 SLA [id number]) Nutrition Malnutrition Evidence of Malnutrition Exists Yes Malnutrition (severe): Chronic Evidenced By Suboptimal Energy Intake ( Severe),Weight Loss (Severe) Clinical Problem Chronic Disease or Condition Related Malnutrition Etiology severe protein-calorie malnutrition in the context of chronic disease and debility related to swallowing difficulty and inadequate oral intake Signs/Symptoms as evidenced by need for mechanically altered food/no PO liquids; BMI 19.8; 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 Continue magic cup with meals Will add 4 oz glucerna shake tid w/ medpass for increased nutrition if consumed. May need to consider enteral nutrition support to ensure adequate nutrition given dysphagia and signs/symptoms of malnutrition. Lab / Micro Data 02/10/24 06:17 02/10/24 06:17 Labs: Laboratory Results - last 24 hr 02/10/24 16:34: POC Glucose 253 H 02/10/24 20:15: POC Glucose 205 H 02/11/24 06:25: POC Glucose 177 H 02/11/24 11:13: POC Glucose 183 H Micro: Microbiology 02/06/24 10:59 Urine, Catheterized Urine Culture - Final Klebsiella pneumoniae sp pneum Physical Exam Narrative Seen and examined No acute change. Last BM documented 02/04. Patient on a stool softener. Patient cannot say herself whether she passed her bowel movement. Pending pre- CERT. Discussed with patient's daughter and son-in-law in the room. She was found on the carpeted floor and found to have C4 acute fracture. On hard collar. Physical exam General: Alert, does not understand, answer or remember the question. Advanced dementia HEENT: Atraumatic, PERRLA, EOMI, Normocephalic Oral: Oral mucosa dry. Restricted exam. Neck: On hard collar. Chest wall/Lungs: Air entry diminished in bilateral lung bases. No crepitation/rhonchi Cardiovascular: Regular rhythm normal S1, Normal S2, systolic murmur. Abdomen: On recliner, suboptimal position for exam. Bowel Sounds Present, Soft, Non Tender. : Cannot answer about dysuria or LUTS. No renal angle tenderness. No suprapubic tenderness. Extremities: No edema, Capillary Refill Less than 3 Seconds Skin: No rashes, No breakdown Musculoskeletal: No Tenderness to Palpation of Joints or Extremities Neurological: Awake, dementia, neuroexam suboptimal. Does not follow command. Psych/Mental Status: Flat affect. Advanced dementia. Anterograde and retrograde dementia Assessment & Plan Assessment/Plan (1) C4 cervical fracture: PLAN: Plan 83-year-old female is being admitted for altered mental status with increased confusion for last 2 to 4 days. She was found sleeping on the carpeted living room floor. History of dementia and frequent falls does not walk with assistance currently being followed by palliative care. #Acute fracture of right C4 lamina -Seen on CT scan post fall, isolated fracture so will admit pt to our hospital per ED discussion with spine surgery -Cervical collar -He speech therapist recommended easy to chew, but no liquid. On IV fluid for hydration. His speech therapist recommended modified barium swallow which will be scheduled on Saturday. -Pain control. Discussed with the spine surgeon Dr. Aguilar -PT/OT 02/07: Patient was seen by orthopedic spine surgeon Dr. Andrea Aguilar. Advised to continue c-collar and follow-up with office in 2 weeks. Conservative management. 02/08: PT and OT. Will need rehab or SNF 02/09: hotel maintenance worker and welfare case worker working on pre-CERT. 02/10: Pending pre-CERT # Progressively worsening functional status and mental status possible worsening dementia UA shows LE 25, WBC, RBC squamous epithelial in normal range. 3+ bacteria. Patient herself cannot answer about Lower [place] symptoms/burning micturition therefore empirically on IV ceftriaxone. Urine culture pending. B12 212. Vitamin D 25-hydroxy 22.7 low. Vitamin D and B12 replacement. TSH low 0.248 but it was low, 0.18 in September 03. Free T4 was normal in September 03. Patient on lowest dose of Synthroid 25 mcg daily therefore continue Continue IV ceftriaxone. 02/07: Urine culture shows Klebsiella pneumoniae 25,000?50,000 colonies suggestive of asymptomatic bacteriuria. UTI ruled out. IV ceftriaxone discontinued 02/08: Stool softener ordered. 02/09: Did not had bowel movement on senna S2 tablet twice daily and MiraLAX 17 g twice daily therefore lactulose 20 g instead of MiraLAX. Dulcolax suppository ordered. 02/10: Lactulose 10 g p.o. 3 times daily ordered. On senna S2 tablet twice daily and Dulcolax suppository. # History of asthma -Only uses oxygen as needed at home -Continue inhalers -Incentive spirometry as able -Follows outpt w/ pulm # History of dementia -Hold donepezil in the short-term as this is not likely to make a difference acutely and want to minimize polypharmacy were able -Supportive care -Continue Zoloft and will continue Risperdal qhs -Schedule melatonin nightly 02/10: Patient also agitated in the afternoon. Risperdal 0.5 mg 1 dose ordered but hold the night dose if patient is lethargic slightest. IV Haldol not given as fpc needs 24 hours of IV Haldol before transfer. # History of CVA -Continue aspirin and statin #Type 2 diabetes mellitus -Glucose checks and sliding scale insulin -A1c 7.6. #Hypothyroidism -Continue Synthroid 25 mcg daily. TSH 0.248. 02/07/-Free T41.11. #DVT ppx: SCDs CODE STATUS: DNR CC arrest with no intubation. Living will/advanced directive/end of life care: Patient does have living will or advanced directive. Her is power of compliance attorney for health. After discussion of benefits/risks procedures involved with full code, DNR CC arrest and DNR CC, the patient as per her wanted DNR CC arrest with no intubation Patient does want artificial life support including intubation, tube feed, ventilator and/chest compression, central venous catheter, vasopressor and DC shock if needed Total time spent in evrn-ko-[id number] encounter in discussion of advanced directive 17 minutes. Microbiology Past 72 Hours 02/06/24 10:59 Urine, Catheterized Urine Culture - Final Klebsiella pneumoniae sp pneum Charges/Coding Visit Charges Inpatient E&M: 34428 Subs Hosp L2
[2024-02-11 16:58] LABS: Bedside Glucose 176 mg/dL (74-106)
[2024-02-11] MEDS: RisperiDONE 0.5 MG Tablet PO ×2 (17:02→21:56)
[2024-02-11] MEDS: MELATONIN 10 MG TABLET PO (21:55)
[2024-02-11] MEDS: Atorvastatin Calcium 40 MG Tablet PO (21:56)
[2024-02-11 22:17] LABS: Bedside Glucose 252 mg/dL (74-106)
[2024-02-12 03:54] VITALS: BP 119/60; PULSE 66; RESP 16; TEMP 36.5; O2SAT 95
[2024-02-12] MEDS: Lactulose 20 GM/30 ML UDC 10 GM PO ×3 (04:45→19:49)
[2024-02-12] MEDS: Acetaminophen 500 MG Tablet 1000 MG PO ×3 (04:45→19:50)
[2024-02-12] MEDS: Levothyroxine 25 MCG TABLET PO (04:46)
[2024-02-12 07:11] VITALS: PULSE 88; RESP 18; O2SAT 93
[2024-02-12] MEDS: Ipratropium/Albuterol Sulfate 3 ML AMPUL.NEB INHALATION ×2 (07:11→13:28)
[2024-02-12] MEDS: Budesonide Respules 0.5 MG/2 ML AMPUL.NEB. INHALATION (07:11)
--- NOTE | 2024-02-12 09:36 | PN.HOSP_ITS ---
Reason for Visit Reason for Visit: Diagnoses Unspecified displaced fracture of fourth cervical vertebra, initial encounter for closed fracture (02/06/24) Unspecified nondisplaced fracture of fourth cervical vertebra, initial encounter for closed fracture (02/06/24) Subjective Subjective Patient is an 83-year-old lady with history of dementia admitted with increasing confusion. She was apparently found on the floor by family for an unknown duration of time. Imaging studies obtained did show acute fracture involving the right C4 lamina patient was placed in neck immobilization admitted to regular nursing floor Objective Data Objective Data Vital Signs: Vital Signs Temp Pulse Resp BP Pulse Ox O2 Del Method 97.7 F L 88 18 119/60 93 Room Air 02/12/24 03:54 02/12/24 07:11 02/12/24 07:11 02/12/24 03:54 02/12/24 07:11 02/12/24 07:11 Oxygen Delivery Method Room Air Weight: 52.3 kg Body Mass Index (BMI) 19.8 Intake & Output: Intake and Output for Last 24 Hours 02/10/24 02/11/24 02/12/24 23:59 23:59 23:59 Intake Total 100 / 100 250 / 250 100 / 100 Balance 100 / 100 250 / 250 100 / 100 Medical Nutrition Assessment Dietitian: Malnutrition Criteria Met Start: 02/07/24 14:49 Freq: Status: Active Protocol: Document 02/10/24 13:43 SLA (Rec: 02/10/24 13:44 SLA [email or web address]) Nutrition Malnutrition Evidence of Malnutrition Exists Yes Malnutrition (severe): Chronic Evidenced By Suboptimal Energy Intake ( Severe),Weight Loss (Severe) Clinical Problem Chronic Disease or Condition Related Malnutrition Etiology severe protein-calorie malnutrition in the context of chronic disease and debility related to swallowing difficulty and inadequate oral intake Signs/Symptoms as evidenced by need for mechanically altered food/no PO liquids; BMI 19.8; 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 Continue magic cup with meals Will add 4 oz glucerna shake tid w/ medpass for increased nutrition if consumed. May need to consider enteral nutrition support to ensure adequate nutrition given dysphagia and signs/symptoms of malnutrition. Lab / Micro Data 02/10/24 06:17 02/10/24 06:17 Labs: Laboratory Results - last 24 hr 02/11/24 11:13: POC Glucose 183 H 02/11/24 16:33: POC Glucose 176 H 02/11/24 21:50: POC Glucose 252 H Micro: Microbiology 02/06/24 10:59 Urine, Catheterized Urine Culture - Final Klebsiella pneumoniae sp pneum Physical Exam Narrative GENERAL: Patient in no apparent distress HEENT: Neck in c-collar EYES; Anicteric, Normal Conjunctiva NECK; supple, normal thyroid, RESPIRATORY: Diminished to auscultation CARDIOVASCULAR: Regular S1 S2, GI: soft, normoactive bowel sounds, : No Renal angle tenderness; EXTREMITIES: No edema, no clubbing, MUSCULOSKELETAL: no muscle wasting NEURO: no lateralizing signs. SKIN: No Rash PSYCH; Flat affect Assessment & Plan Assessment/Plan (1) C4 cervical fracture: PLAN: Plan Patient is an 83-year-old lady with history of dementia admitted with increasing confusion. She was apparently found on the floor by family for an unknown duration of time. Imaging studies obtained did show acute fracture involving the right C4 lamina patient was placed in neck immobilization admitted to regular nursing floor 1. Dementia with behavioral agitation ? Patient has been admitted to regular nursing floor. Initial workup did reveal presence of pyuria treated with ceftriaxone however urine cultures obtained did not demonstrate significant growth antibiotics subsequently discontinued 2. Fall with acute fracture involving the right C4 lamina ? Patient placed in immobilization consultation placed to spine surgeon Dr. Andrea Muhammad. Recommended conservative management for now 3. History of asthma ? Currently not in exacerbation bronchodilator treatment as needed 4. Hypothyroidism ? Patient is on levothyroxine home dose continued 5. Dyslipidemia ?Patient is on statin therapy, continued at home dose 6. History of previous CVA ? With no residual effects patient is on statin therapy as well as aspirin 7. Diabetes mellitus type II -patient's oral hypoglycemics held. Placed on Accu-Cheks a.c. and at bedtime and covered with sliding scale insulin 8. Depression with anxiety ? Patient is on sertraline as well as risperidone at night 9. DVT prophylaxis ? Bilateral SCDs CODE STATUS: DNR CC arrest with no intubation. Time spent in the patient's overall evaluation,decision-making process, review of diagnostic data, adjustment of management, discussion with other providers, nursing nursing and ancillary staff involved in patient's care documentation, 37 Minutes Charges/Coding Visit Charges Inpatient E&M: 13681 Subs Hosp L2
[2024-02-12 09:59] LABS: Bedside Glucose 152 mg/dL (74-106)
[2024-02-12 10:00] VITALS: BP 121/65; PULSE 75; RESP 16; TEMP 36.6; O2SAT 94
[2024-02-12] MEDS: Sertraline 50 MG Tablet 75 MG PO (11:19)
[2024-02-12] MEDS: Menthol/Lanolin/Calamine/Znox 113 GM Tube 1 APPLIC TOPICAL ×2 (11:20→19:50)
[2024-02-12] MEDS: Bisacodyl 10 MG Suppository RC (11:20)
[2024-02-12] MEDS: Cyanocobalamin 500 MCG Tablet 1000 MCG PO (11:21)
[2024-02-12] MEDS: Cholecalciferol (Vit D3) 125 MCG CAPSULE (5,000 UNITS) PO (11:21)
[2024-02-12] MEDS: Senna/Docusate Sodium 1 Tablet 2 TABLET PO ×2 (11:21→19:50)
[2024-02-12] MEDS: Aspirin 81 MG TAB.CHEW PO (11:22)
[2024-02-12] MEDS: Insulin Lispro 100 UNIT/ML INSULN.PEN SC ×3 (11:28→21:40)
[2024-02-12 11:58] LABS: Bedside Glucose 166 mg/dL (74-106)
[2024-02-12 13:28] VITALS: PULSE 84; RESP 18
[2024-02-12] MEDS: Glucerna Shake 120 ML LIQUID PO (16:51)
[2024-02-12 16:53] VITALS: BP 112/86; PULSE 77; RESP 18; TEMP 36.9; O2SAT 97
[2024-02-12 17:50] LABS: Bedside Glucose 211 mg/dL (74-106)
[2024-02-12] MEDS: RisperiDONE 0.5 MG Tablet PO (19:50)
[2024-02-12] MEDS: MELATONIN 10 MG TABLET PO (19:51)
[2024-02-12] MEDS: Atorvastatin Calcium 40 MG Tablet PO (19:51)
[2024-02-12 20:40] VITALS: BP 131/63; PULSE 71; RESP 18; TEMP 36.8; O2SAT 95
[2024-02-12 23:34] LABS: Bedside Glucose 162 mg/dL (74-106)
[2024-02-13 03:03] VITALS: BP 151/74; PULSE 80; RESP 18; TEMP 36.7; O2SAT 94
[2024-02-13] MEDS: Acetaminophen 500 MG Tablet 1000 MG PO (05:56)
[2024-02-13] MEDS: Levothyroxine 25 MCG TABLET PO (05:56)
[2024-02-13] MEDS: Lactulose 20 GM/30 ML UDC 10 GM PO (05:56)
[2024-02-13 06:43] LABS: Absolute Lymphocyte Count 1.86 X10^3/uL (0.83-4.51); Absolute Neutrophil Count 3.5 X10^3/uL (2.0-7.7); Basophil# 0.04 X10^3/uL; Basophil% 0.6 % (0-1); Eosinophil# 0.36 X10^3/uL; Eosinophils% 5.7 % (0-5); Hematocrit 36.9 % (37-47); Hemoglobin 11.8 g/dL (12.0-15.0); Lymphocyte # 1.86 X10^3/ul (0.83-4.51); Lymphocyte % 29.5 % (19-41); Mean Corpuscular Hgb 31.5 pg (27.0-32.0); Mean Corpuscular Volume 98.4 fL (81-99); Mean Platelet Vol. 10.2 fl (6.2-12.0); Monocyte# 0.54 X10^3/uL; Monocyte% 8.6 % (0-10); NRBC Flagged by Analyzer 0 % (0-5); Neutrophil % 55.4 % (47-70); Platelet Count 239 K/mm3 (150-450); RBC Distribution Width CV 13.3 % (11.6-14.6); RBC Distribution Width SD 48.3 fl (35.1-43.9); Red Blood Count 3.75 M/mm3 (4.2-5.4); White Blood Count 6.3 K/mm3 (4.4-11.0)
[2024-02-13 07:11] LABS: Anion Gap 7 (5-15); BUN 20 mg/dL (7-18); Chloride 106 mmol/L (98-107); Creatinine, Serum 0.69 mg/dL (0.55-1.02); EST Glomerular Filtration Rate 87 mL/min (>60); Est Glom Filt Rate - Afr Amer 105 mL/min (>60); Estimated Creatinine Clearance 45.54 ml/min; Glucose 172 mg/dL (74-106); Magnesium 1.9 mg/dL (1.6-2.6); Sodium Level 140 mmol/L (136-145)
[2024-02-13 07:15] VITALS: PULSE 75; RESP 16; O2SAT 92
[2024-02-13 07:15] LABS: Bedside Glucose 147 mg/dL (74-106)
[2024-02-13] MEDS: Ipratropium/Albuterol Sulfate 3 ML AMPUL.NEB INHALATION ×2 (07:15→14:09)
[2024-02-13] MEDS: Budesonide Respules 0.5 MG/2 ML AMPUL.NEB. INHALATION (07:15)
--- NOTE | 2024-02-13 08:08 | CASEMGMT ---
Discharge Planning [facility] has obtained auth to admit. Fiorella Singh DC Planning Asst.
--- NOTE | 2024-02-13 08:20 | PCM.PN.HOSP ---
Reason for Visit Reason for Visit: Diagnoses Unspecified displaced fracture of fourth cervical vertebra, initial encounter for closed fracture (02/06/24) Unspecified nondisplaced fracture of fourth cervical vertebra, initial encounter for closed fracture (02/06/24) Subjective Subjective Patient seen per nursing staff patient still remains agitated. She is much more awake and interactive but appears confused Objective Data Objective Data Vital Signs: Vital Signs Temp Pulse Resp BP Pulse Ox O2 Del Method 98.1 F 80 18 151/74 H 94 Room Air 02/13/24 03:03 02/13/24 03:03 02/13/24 03:03 02/13/24 03:03 02/13/24 03:03 02/13/24 03:03 Oxygen Delivery Method Room Air Weight: 52.3 kg Body Mass Index (BMI) 19.8 Intake & Output: Intake and Output for Last 24 Hours 02/11/24 02/12/24 02/13/24 23:59 23:59 23:59 Intake Total 250 / 250 600 / 600 Balance 250 / 250 600 / 600 Medical Nutrition Assessment Dietitian: Malnutrition Criteria Met Start: 02/07/24 14:49 Freq: Status: Active Protocol: Document 02/10/24 13:43 SLA (Rec: 02/10/24 13:44 SLA [email or web address]) Nutrition Malnutrition Evidence of Malnutrition Exists Yes Malnutrition (severe): Chronic Evidenced By Suboptimal Energy Intake ( Severe),Weight Loss (Severe) Clinical Problem Chronic Disease or Condition Related Malnutrition Etiology severe protein-calorie malnutrition in the context of chronic disease and debility related to swallowing difficulty and inadequate oral intake Signs/Symptoms as evidenced by need for mechanically altered food/no PO liquids; BMI 19.8; 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 Continue magic cup with meals Will add 4 oz glucerna shake tid w/ medpass for increased nutrition if consumed. May need to consider enteral nutrition support to ensure adequate nutrition given dysphagia and signs/symptoms of malnutrition. Lab / Micro Data 02/13/24 06:20 02/13/24 06:20 Labs: Laboratory Results - last 24 hr 02/12/24 09:40: POC Glucose 152 H 02/12/24 11:28: POC Glucose 166 H 02/12/24 16:50: POC Glucose 211 H 02/12/24 21:39: POC Glucose 162 H 02/13/24 06:07: POC Glucose 147 H 02/13/24 06:20: WBC 6.3, RBC 3.75 L, Hgb 11.8 L, Hct 36.9 L, MCV 98.4, MCH 31.5, MCHC 32.0, RDW Std Deviation 48.3 H, RDW Coeff of [place] 13.3, Plt Count 239, MPV 10.2, Immature Gran % (Auto) 0.200, Neut % (Auto) 55.4, Lymph % (Auto) 29.5, [place] % (Auto) 8.6, Eos % (Auto) 5.7 H, Baso % (Auto) 0.6, Absolute Neuts (auto) 3.5, Absolute Lymphs (auto) 1.86, Nucleated RBC % 0, Sodium 140, Potassium 4.0, Chloride 106, Carbon Dioxide 28.0, Anion Gap 7, BUN 20 H, Creatinine 0.69, Estim Creat Clear Calc 45.54, Est GFR (MDRD) Af Amer 105, Est GFR (MDRD) Non-Af 87, BUN/Creatinine Ratio 29.0 H, Glucose 172 H, Calcium 9.0, Phosphorus 3.0, Magnesium 1.9 Micro: Microbiology 02/06/24 10:59 Urine, Catheterized Urine Culture - Final Klebsiella pneumoniae sp pneum Physical Exam Narrative GENERAL: Patient in no apparent distress HEENT: Neck in c-collar EYES; Anicteric, Normal Conjunctiva NECK; supple, normal thyroid, RESPIRATORY: Diminished to auscultation CARDIOVASCULAR: Regular S1 S2, GI: soft, normoactive bowel sounds, : No Renal angle tenderness; EXTREMITIES: No edema, no clubbing, MUSCULOSKELETAL: no muscle wasting NEURO: no lateralizing signs. SKIN: No Rash PSYCH; Flat affect Assessment & Plan Assessment/Plan (1) C4 cervical fracture: PLAN: Plan Patient is an 83-year-old lady with history of dementia admitted with increasing confusion. She was apparently found on the floor by family for an unknown duration of time. Imaging studies obtained did show acute fracture involving the right C4 lamina patient was placed in neck immobilization admitted to regular nursing floor 1. Dementia with behavioral agitation ? Patient has been admitted to regular nursing floor. Initial workup did reveal presence of pyuria treated with ceftriaxone however urine cultures obtained did not demonstrate significant growth antibiotics subsequently discontinued ? 02/13/2024; patient still remains confused. 2. Fall with acute fracture involving the right C4 lamina ? Patient placed in immobilization consultation placed to spine surgeon Dr. Andrea Muhammad. Recommended conservative management for now ? 02/13/2024 requested for PT OT eval and social services aide to assist with discharge planning 3. History of asthma ? Currently not in exacerbation bronchodilator treatment as needed 4. Hypothyroidism ? Patient is on levothyroxine home dose continued 5. Dyslipidemia ?Patient is on statin therapy, continued at home dose 6. History of previous CVA ? With no residual effects patient is on statin therapy as well as aspirin 7. Diabetes mellitus type II -patient's oral hypoglycemics held. Placed on Accu-Cheks a.c. and at bedtime and covered with sliding scale insulin 8. Depression with anxiety ? Patient is on sertraline as well as risperidone at night 9. DVT prophylaxis ? Bilateral SCDs CODE STATUS: DNR CC arrest with no intubation. Time spent in the patient's overall evaluation,decision-making process, review of diagnostic data, adjustment of management, discussion with other providers, nursing nursing and ancillary staff involved in patient's care documentation, 36 Minutes Charges/Coding Visit Charges Inpatient E&M: 38982 Subs Hosp L2
[2024-02-13 09:00] VITALS: BP 136/82; PULSE 103; RESP 18; TEMP 36.4; O2SAT 97
[2024-02-13] MEDS: Senna/Docusate Sodium 1 Tablet 2 TABLET PO (09:29)
[2024-02-13] MEDS: Bisacodyl 10 MG Suppository RC (09:29)
[2024-02-13] MEDS: Sertraline 50 MG Tablet 75 MG PO (09:30)
[2024-02-13] MEDS: Aspirin 81 MG TAB.CHEW PO (09:30)
[2024-02-13] MEDS: Cholecalciferol (Vit D3) 125 MCG CAPSULE (5,000 UNITS) PO (09:30)
[2024-02-13] MEDS: Menthol/Lanolin/Calamine/Znox 113 GM Tube 1 APPLIC TOPICAL (09:30)
[2024-02-13] MEDS: Cyanocobalamin 500 MCG Tablet 1000 MCG PO (09:30)
--- NOTE | 2024-02-13 09:38 | PCM.TXEXTCAR ---
Diet Diet Order/Speech Therapy: 02/10/24 13:41 Diet: Regular - General Food consistency:: Easy to Chew Liquid Consistency:: Regular/Thin Type of Dietary Supplement:: Magic Cup w/ meals Diet Comments: TOTAL FEED for liquids by straw (SMALL, SINGLE SIPS), Direct staff sup DC O2, CPAP, BIPAP needs Home O2 Discharge instructions: No Problem/Diagnosis (1) C4 cervical fracture: Status: Acute Code(s): S12.300A - Unspecified displaced fracture of fourth cervical vertebra, initial encounter for closed fracture Plan Patient is an 83-year-old lady with history of dementia admitted with increasing confusion. She was apparently found on the floor by family for an unknown duration of time. Imaging studies obtained did show acute fracture involving the right C4 lamina patient was placed in neck immobilization admitted to regular nursing floor 1. Dementia with behavioral agitation ? Patient has been admitted to regular nursing floor. Initial workup did reveal presence of pyuria treated with ceftriaxone however urine cultures obtained did not demonstrate significant growth antibiotics subsequently discontinued ? 02/13/2024; patient still remains confused. 2. Fall with acute fracture involving the right C4 lamina ? Patient placed in immobilization consultation placed to spine surgeon Dr. Andrea Muhammad. Recommended conservative management for now ? 02/13/2024 requested for PT OT eval and social welfare administrator to assist with discharge planning 3. History of asthma ? Currently not in exacerbation bronchodilator treatment as needed 4. Hypothyroidism ? Patient is on levothyroxine home dose continued 5. Dyslipidemia ?Patient is on statin therapy, continued at home dose 6. History of previous CVA ? With no residual effects patient is on statin therapy as well as aspirin 7. Diabetes mellitus type II -patient's oral hypoglycemics held. Placed on Accu-Cheks a.c. and at bedtime and covered with sliding scale insulin 8. Depression with anxiety ? Patient is on sertraline as well as risperidone at night 9. DVT prophylaxis ? Bilateral SCDs CODE STATUS: DNR CC arrest with no intubation. Time spent in the patient's overall evaluation,decision-making process, review of diagnostic data, adjustment of management, discussion with other providers, nursing nursing and ancillary staff involved in patient's care documentation, 36 Minutes Allergies/Procedures Done in Hospital Allergies dicyclomine HCl (From Bentyl) Adverse Reaction (Verified 02/06/24 10:44) HEART RACES Type of Care/Length of Stay Estimated LOS: More Than 30 Days Type of Care Needed: Intermediate Rehab Potential: Fair Prognosis: Fair Additional Orders/Day of Discharge Day of Discharge: 02/13/24 Dietary and Speech Recommendations Dietitian Recommendations/Changes: Will liberalize diet to regular with consistency/texture as per MANAGER WEALTH MANAGEMENT. Continue magic cup with meals Will add 4 oz glucerna shake tid w/ medpass for increased nutrition if consumed. May need to consider enteral nutrition support to ensure adequate nutrition given dysphagia and signs/symptoms of malnutrition. Discharge Plan Admission Admit Date/Time: 02/06/24 15:13 Attending Provider: Lamine James Primary Care Provider: Liane Ba Consulting Providers: Andrea Aguilar; Franchesca Myers; J Carlos Heaton Discharge Orders/Prescriptions Prescriptions: New sennosides-docusate sodium [Stimulant Laxative Plus] 8.6-50 mg Tablet 2 tab PO BID Qty: 0 0RF acetaminophen 500 mg Tablet 1,000 mg PO Q8 Qty: 0 0RF Glucagon Emergency Kit (human) 1 mg Recon Soln 1 mg IM X1 PRN (Reason: Hypoglycemia) Qty: 0 0RF oxycodone 5 mg Tablet 2.5 mg PO Q4H PRN PRN (Reason: Pain Score 4-10) 3 Days Qty: 6 0RF Glucerna 1.2 Dami 0.06-1.2 gram-kcal/mL Liquid 120 ml PO TIDCM Qty: 0 0RF Continued melatonin 3 mg tablet 3 mg PO QHS PRN (Reason: sleep) Qty: 30 1RF guaifenesin [Mucinex] 600 mg tablet extended release 12hr 600 mg PO ONCE Rx Instructions: mg unknown risperidone 1 mg tablet 1 mg PO QHS Qty: 90 1RF aspirin 81 mg Tablet,Chewable 81 mg PO BREAKFAST Qty: 30 0RF sertraline 50 mg tablet 75 mg PO DAILY Rx Instructions: 75mg po qd (DME) nebulizer accessories Kit See Rx Instructions .ROUTE .MEDSUPPLY Qty: 1 0RF Rx Instructions: As directed (DME) nebulizers Misc See Rx Instructions .ROUTE .MEDSUPPLY Qty: 1 0RF Rx Instructions: As directed (DME) OneTouch Ultra Test Strip See Rx Instructions .Route Qty: 100 2RF Rx Instructions: BID and PRN (DME) lancets [OneTouch Delica Lancets] 33 gauge misc See Rx Instructions .Route Qty: 100 3RF Rx Instructions: BID and PRN (DME) one touch ultra glucose meter See Rx Instructions .Route .MEDSUPPLY Qty: 1 0RF Rx Instructions: bid and prn Trelegy Ellipta 200-62.5-25 mcg blister with device 1 inh inhalation DAILY Qty: 3 3RF albuterol sulfate [Ventolin HFA] 90 mcg/actuation HFA aerosol inhaler 2 puff inhalation Q4H PRN (Reason: shortness of breath or wheezing) Qty: 18 6RF donepezil 10 mg tablet 10 mg PO DAILY Qty: 90 3RF Janumet 50-1,000 mg tablet 1 tab PO BID Qty: 180 1RF levothyroxine 25 mcg tablet 25 mcg PO DAILY@0600 30 Days Qty: 90 1RF atorvastatin 40 mg tablet 40 mg PO QHS Qty: 90 3RF propranolol 20 mg tablet 20 mg PO BID Qty: 180 1RF Referrals / Follow Up: Liane Ba MD [Primary Care Provider] - Disposition Disposition (needs filled in before D/C Order can be placed): Longterm Facility
--- NOTE | 2024-02-13 09:42 | DS.PCM_ITS ---
Providers Date of Admission: 02/06/24 Date of Discharge: 02/13/24 Primary Care Physician: Dr. Liane Ba MD Consultations 02/06/24 16:04 Consult: Orthopedics Routine Consulting Provider: Andrea Aguilar Reason for Consult: C4 lamina fracture EMERGENT Consult: No MD Notified: Yes Date Notified: 02/06/24 Time Notified: 16:16 Method of Notification: Text Reason For Visit: WORSENING FUNCTIONAL STATUS, C4 FRACTURE Diagnosis Discharge Diagnosis (1) C4 cervical fracture: Status: Acute Code(s): S12.300A - Unspecified displaced fracture of fourth cervical vertebra, initial encounter for closed fracture Plan Patient is an 83-year-old lady with history of dementia admitted with increasing confusion. She was apparently found on the floor by family for an unknown duration of time. Imaging studies obtained did show acute fracture involving the right C4 lamina patient was placed in neck immobilization admitted to regular nursing floor 1. Dementia with behavioral agitation ? Patient has been admitted to regular nursing floor. Initial workup did reveal presence of pyuria treated with ceftriaxone however urine cultures obtained did not demonstrate significant growth antibiotics subsequently discontinued ? 02/13/2024; patient still remains confused. 2. Fall with acute fracture involving the right C4 lamina ? Patient placed in immobilization consultation placed to spine surgeon Dr. Andrea Muhammad. Recommended conservative management for now ? 02/13/2024 requested for PT OT eval and protective services social worker to assist with discharge planning 3. History of asthma ? Currently not in exacerbation bronchodilator treatment as needed 4. Hypothyroidism ? Patient is on levothyroxine home dose continued 5. Dyslipidemia ?Patient is on statin therapy, continued at home dose 6. History of previous CVA ? With no residual effects patient is on statin therapy as well as aspirin 7. Diabetes mellitus type II -patient's oral hypoglycemics held. Placed on Accu-Cheks a.c. and at bedtime and covered with sliding scale insulin 8. Depression with anxiety ? Patient is on sertraline as well as risperidone at night 9. DVT prophylaxis ? Bilateral SCDs CODE STATUS: DNR CC arrest with no intubation. Time spent in the patient's overall evaluation,decision-making process, review of diagnostic data, adjustment of management, discussion with other providers, nursing nursing and ancillary staff involved in patient's care documentation, 36 Minutes Medications at Discharge Home Medications nebulizer accessories #1 ea 09/12/20 nebulizers #1 ea 09/12/20 melatonin 3 mg tablet 3 mg PO QHS PRN sleep #30 tabs 07/21/21 blood sugar diagnostic ([employer]Touch Ultra Test strips) #100 ea 11/29/21 lancets 33 gauge (OneTouch Delica Lancets) #100 ea 12/22/21 one touch ultra glucose meter ##1 06/25/22 fluticasone fur. 200 mcg-umeclid 62.5 mcg-vilant 25 mcg inhalat.powder (Trelegy Ellipta) 1 inh inhalation DAILY . #3 ea 02/28/23 aspirin 81 mg chewable tablet 81 mg PO BREAKFAST . #30 tabs 05/28/23 albuterol sulfate 90 mcg/actuation aerosol inhaler (Ventolin HFA) 2 puff inhalation Q4H PRN shortness of breath or wheezing #18 grams 07/12/23 donepezil 10 mg tablet 10 mg PO DAILY . #90 tabs 07/12/23 guaifenesin 600 mg tablet, extended release 12 hr (Mucinex) 600 mg PO ONCE . 08/28/23 risperidone 1 mg tablet 1 mg PO QHS . #90 tabs 08/28/23 sertraline 50 mg tablet 75 mg PO DAILY m 08/28/23 atorvastatin 40 mg tablet 40 mg PO QHS cholesterol #90 tabs 09/04/23 levothyroxine 25 mcg tablet 25 mcg PO DAILY@0600 . 30 days #90 tabs 09/04/23 sitagliptin phosphate 50 mg-metformin 1,000 mg tablet (Janumet) 1 tab PO BID . #180 tabs 09/04/23 propranolol 20 mg tablet 20 mg PO BID tremor #180 tabs 11/29/23 acetaminophen 500 mg tablet 1,000 mg (2 x 500 mg) PO Q8 #0 tabs 02/13/24 glucagon 1 mg solution for injection (Glucagon Emergency Kit) 1 mg IM X1 PRN Hypoglycemia #0 ea 02/13/24 nutrition tx glu intol,lac-free,soy-fiber 0.06 gram-1.2 kcal/mL liquid (Glucerna 1.2 Dami) 120 ml PO TIDCM #0 mL 02/13/24 oxycodone 5 mg tablet 2.5 mg (1/2 x 5 mg) PO Q4H PRN PRN Pain Score 4-10 3 days #6 tabs 02/13/24 sennosides 8.6 mg-docusate sodium 50 mg tablet (Stimulant Laxative Plus) 2 tab PO BID #0 tabs 02/13/24 Physical Exam Narrative GENERAL: Patient in no apparent distress HEENT: Neck in c-collar EYES; Anicteric, Normal Conjunctiva NECK; supple, normal thyroid, RESPIRATORY: Diminished to auscultation CARDIOVASCULAR: Regular S1 S2, GI: soft, normoactive bowel sounds, : No Renal angle tenderness; EXTREMITIES: No edema, no clubbing, MUSCULOSKELETAL: no muscle wasting NEURO: no lateralizing signs. SKIN: No Rash PSYCH; Flat affect Medical Records Data Medical Nutrition Assessment Dietitian: Malnutrition Criteria Met Start: 02/07/24 14:49 Freq: Status: Active Protocol: Document 02/10/24 13:43 SLA (Rec: 02/10/24 13:44 SLA [id number]) Nutrition Malnutrition Evidence of Malnutrition Exists Yes Malnutrition (severe): Chronic Evidenced By Suboptimal Energy Intake ( Severe),Weight Loss (Severe) Clinical Problem Chronic Disease or Condition Related Malnutrition Etiology severe protein-calorie malnutrition in the context of chronic disease and debility related to swallowing difficulty and inadequate oral intake Signs/Symptoms as evidenced by need for mechanically altered food/no PO liquids; BMI 19.8; 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 Continue magic cup with meals Will add 4 oz glucerna shake tid w/ medpass for increased nutrition if consumed. May need to consider enteral nutrition support to ensure adequate nutrition given dysphagia and signs/symptoms of malnutrition. Weight / BMI Weight Weight: 52.3 kg Body Mass Index (BMI) 19.8 ABG / Lab / Microbiology Data 02/13/24 06:20 02/13/24 06:20 Laboratory: Laboratory Results - last 24 hr 02/12/24 09:40: POC Glucose 152 H 02/12/24 11:28: POC Glucose 166 H 02/12/24 16:50: POC Glucose 211 H 02/12/24 21:39: POC Glucose 162 H 02/13/24 06:07: POC Glucose 147 H 02/13/24 06:20: WBC 6.3, RBC 3.75 L, Hgb 11.8 L, Hct 36.9 L, MCV 98.4, MCH 31.5, MCHC 32.0, RDW Std Deviation 48.3 H, RDW Coeff of [place] 13.3, Plt Count 239, MPV 10.2, Immature Gran % (Auto) 0.200, Neut % (Auto) 55.4, Lymph % (Auto) 29.5, [place] % (Auto) 8.6, Eos % (Auto) 5.7 H, Baso % (Auto) 0.6, Absolute Neuts (auto) 3.5, Absolute Lymphs (auto) 1.86, Nucleated RBC % 0, Sodium 140, Potassium 4.0, Chloride 106, Carbon Dioxide 28.0, Anion Gap 7, BUN 20 H, Creatinine 0.69, Estim Creat Clear Calc 45.54, Est GFR (MDRD) Af Amer 105, Est GFR (MDRD) Non-Af 87, B UN/Creatinine Ratio 29.0 H, Glucose 172 H, Calcium 9.0, Phosphorus 3.0, Magnesium 1.9 Microbiology: Microbiology 02/06/24 10:59 Urine, Catheterized Urine Culture - Final Klebsiella pneumoniae sp pneum D/C Instructions Discharge Diet: 1800 Calorie Control Diet Discharge Activity: Return to Normal Activity Call your doctor if you observe: Fever of 101 or Higher, Shortness of breath, Fainting spells and Chest pain DC O2, CPAP, BIPAP Needs Home O2 Discharge instructions: No Meaningful Use Info Meaningful Use Meaningful Use Diagnoses (Choose all that apply): None applicable Ischemic Stroke Statin Dosing Therapy Reference: STATIN DOSE THERAPY REFERENCE: * Patients > 75 years receive moderate or high dose statin therapy. * Patients 75 years or YOUNGER should receive HIGH intensity statin dose unless contraindicated. You will be required to document reason for non-treatment if statin daily dose does not meet guidelines. HIGH DOSE STATIN THERAPY DAILY Atorvastatin > than or = to 40 mg Rosuvastatin > than or = to 20 mg Amlodipine + Atorvastatin > than or = to 2.5/40 mg Ezetimibe + Simvastatin 10/80 mg Simvastatin 80mg Discharge Plan Admission Admit Date/Time: 02/06/24 15:13 Attending Provider: Lamine James Primary Care Provider: Liane Ba Consulting Providers: Andrea Aguilar; Franchesca Myers; J Carlos Heaton Discharge Orders/Prescriptions Prescriptions: New sennosides-docusate sodium [Stimulant Laxative Plus] 8.6-50 mg Tablet 2 tab PO BID Qty: 0 0RF acetaminophen 500 mg Tablet 1,000 mg PO Q8 Qty: 0 0RF Glucagon Emergency Kit (human) 1 mg Recon Soln 1 mg IM X1 PRN (Reason: Hypoglycemia) Qty: 0 0RF oxycodone 5 mg Tablet 2.5 mg PO Q4H PRN PRN (Reason: Pain Score 4-10) 3 Days Qty: 6 0RF Glucerna 1.2 Dami 0.06-1.2 gram-kcal/mL Liquid 120 ml PO TIDCM Qty: 0 0RF Continued melatonin 3 mg tablet 3 mg PO QHS PRN (Reason: sleep) Qty: 30 1RF guaifenesin [Mucinex] 600 mg tablet extended release 12hr 600 mg PO ONCE Rx Instructions: mg unknown risperidone 1 mg tablet 1 mg PO QHS Qty: 90 1RF aspirin 81 mg Tablet,Chewable 81 mg PO BREAKFAST Qty: 30 0RF sertraline 50 mg tablet 75 mg PO DAILY Rx Instructions: 75mg po qd (DME) nebulizer accessories Kit See Rx Instructions .ROUTE .MEDSUPPLY Qty: 1 0RF Rx Instructions: As directed (DME) nebulizers Misc See Rx Instructions .ROUTE .MEDSUPPLY Qty: 1 0RF Rx Instructions: As directed (DME) OneTouch Ultra Test Strip See Rx Instructions .Route Qty: 100 2RF Rx Instructions: BID and PRN (DME) lancets [OneTouch Delica Lancets] 33 gauge misc See Rx Instructions .Route Qty: 100 3RF Rx Instructions: BID and PRN (DME) one touch ultra glucose meter See Rx Instructions .Route .MEDSUPPLY Qty: 1 0RF Rx Instructions: bid and prn Trelegy Ellipta 200-62.5-25 mcg blister with device 1 inh inhalation DAILY Qty: 3 3RF albuterol sulfate [Ventolin HFA] 90 mcg/actuation HFA aerosol inhaler 2 puff inhalation Q4H PRN (Reason: shortness of breath or wheezing) Qty: 18 6RF donepezil 10 mg tablet 10 mg PO DAILY Qty: 90 3RF Janumet 50-1,000 mg tablet 1 tab PO BID Qty: 180 1RF levothyroxine 25 mcg tablet 25 mcg PO DAILY@0600 30 Days Qty: 90 1RF atorvastatin 40 mg tablet 40 mg PO QHS Qty: 90 3RF propranolol 20 mg tablet 20 mg PO BID Qty: 180 1RF Referrals / Follow Up: Liane Ba MD [Primary Care Provider] - Disposition Disposition (needs filled in before D/C Order can be placed): [facility] Charges/Coding Visit Charges Inpatient E&M: 42462 Disch Hosp >30min
--- NOTE | 2024-02-13 09:51 | CASEMGMT ---
Social Work- SW received notice that pt has precert. Physician updated and feels pt is medically ready for d/c. DCA notified of d/c status. PASRR completed along with transportation forms. Final discharge arrangements and notification to patient/family as per discharge manager transportation planning.? Plan: Alondra Carr; skilled level of care MARIELA Farah
[2024-02-13] MEDS: Insulin Lispro 100 UNIT/ML INSULN.PEN SC (11:12)
[2024-02-13 11:37] LABS: Bedside Glucose 339 mg/dL (74-106)
--- NOTE | 2024-02-13 12:22 | CASEMGMT ---
Discharge Planning Discharge orders, signed med list, and transport time sent to [facility] via [facility]. Physicians will transport patient by cot at 3:30p. Nursing, SW, and patients daughter (Bette) updated. Fiorella Singh DC Planning Asst.
[2024-02-13 13:50] VITALS: BP 124/70; PULSE 74; RESP 18; TEMP 36.3; O2SAT 95
== END 2024-02-13 16:00 | disposition skilled nursing facility (03) | DRG 551 ==
LOC: ED 15:05 → MS3 15:13
PROVIDERS: Internal Medicine; Admitting Provider Internal Medicine; Emergency Provider Emergency Medicine; PCP Internal Medicine; Visit Provider Internal Medicine
DX: S12.300A Unspecified displaced fracture of fourth cervical vertebra, initial encounter for closed fracture (principal); E43 Unspecified severe protein-calorie malnutrition; F03.911 Unspecified dementia, unspecified severity, with agitation; Z68.1 Body mass index [BMI] 19.9 or less, adult; B96.1 Klebsiella pneumoniae [K. pneumoniae] as the cause of diseases classified elsewhere; Z66 Do not resuscitate; E11.9 Type 2 diabetes mellitus without complications; E03.9 Hypothyroidism, unspecified; I10 Essential (primary) hypertension; J45.909 Unspecified asthma, uncomplicated; F32.A Depression, unspecified; E78.5 Hyperlipidemia, unspecified; W19.XXXA Unspecified fall, initial encounter; F41.9 Anxiety disorder, unspecified; R82.71 Bacteriuria; Z79.82 Long term (current) use of aspirin; Z79.84 Long term (current) use of oral hypoglycemic drugs; Z79.51 Long term (current) use of inhaled steroids; Z79.899 Other long term (current) drug therapy; Z86.73 Personal history of transient ischemic attack (TIA), and cerebral infarction without residual deficits
CPT/HCPCS: 36415; 70450; 71045; 71250; 72125; 73502; 74176; 74230; 80048; 81001; 82306; 82550; 82607; 82746; 82962; 83036; 83735; 84100; 84439; 84443; 85025; 87077; 87086; 87088; 87186; 92526; 92610; 92611; 93005; 94640; 97116; 97162; 97166; 97530; 97535; 97802; 99285; A4216